=== PATIENT | female | born 1955 | race Caucasian/White ===

== ENCOUNTER 2016-12-16 18:02 | Emergency (ER) | payer OTHER | END 2016-12-16 20:12 | disposition home or self-care (01) | DX: H53.9 Unspecified visual disturbance (principal); I10 Essential (primary) hypertension; J45.909 Unspecified asthma, uncomplicated ==

== ENCOUNTER 2017-11-12 11:34 | Emergency (ER) | payer OTHER ==
[2017-11-12 11:58] VITALS: BP 182/88
[2017-11-12 12:21] LABS: BILIRUBIN,URINE NEGATIVE (NEGATIVE); GLUCOSE, URINE (UA) NEGATIVE (NEGATIVE); KETONES,URINE (UA) NEGATIVE (NEGATIVE); LEUKOCYTE ESTERASE, URINE SMALL (NEGATIVE); NITRITE,URINE NEGATIVE (NEGATIVE); OCCULT BLOOD,URINE TRACE-INTA (NEGATIVE); PROTEIN,URINE NEGATIVE (NEGATIVE); UROBILINOGEN,URINE 0.2 (NORMAL) E.U./dL (NORMAL)
[2017-11-12 12:24] LABS: CLARITY,URINE HAZY (CLEAR)
[2017-11-12 12:30] LABS: BACTERIA,URINE Few /HPF (None Seen); RBC,URINE 0-5 /HPF (0-5); SQUAMOUS EPITHELIAL CELL,UR FEW Squamous (<= Few); WBC CLUMPS,URINE PRESENT
[2017-11-12] MEDS ORDERED: NITROFURANTOIN MACRO 100 MG CAPSULE PO STA (13:18)
[2017-11-12] MEDS ORDERED: PHENAZOPYRIDINE 100 MG TABLET PO STA (13:18)
--- NOTE | 2017-11-12 13:19 | ED Physician Documentation ---
History of Present Illness - Stated complaint Stated Complaint: FEMALE - Chief complaint Chief Complaint: General - History obtained from History obtained from: Patient - History of Present Illness Timing: How many days ago (3) Pain level max: 4 Pain level now: 2 Improved by: nothing Worsened by: urination. - Additonal information Additional information: Patient states that she has had dysuria and frequency of urination for the past few days. States no fever. no nausea or vomiting. No vaginal discharge, bleeding or itching. Feels similar to UTI's in the past. Review of Systems Constitutional: denies: Fever, Chills GI: denies: Vomiting, Diarrhea : reports: Dysuria, Frequency, Hesitancy Skin: denies: Rash Musculoskeletal: reports: Back pain (chronic and unchanged.). denies: Neck pain Neurologic: denies: Focal weakness, Numbness, Headache PD PAST MEDICAL HISTORY - Past Medical History Past Medical History: Yes Cardiovascular: Hypertension Respiratory: Asthma Neuro: Headache/migraine Musculoskeletal: Chronic back pain - Past Surgical History Past Surgical History: Yes General: Appendectomy, EGD Ortho: Knee replacement, Carpal Tunnel surgery, Other HEENT: Other - Present Medications Home Medications: Ambulatory Orders Medication Instructions Recorded Confirmed Albuterol Sulfate [Proair 1 inh INH .FREQ 02/16/16 11/12/17 Respiclick] Amitriptyline [Elavil] 1 tab PO DAILY 02/16/16 11/12/17 Calcium Carbonate/Vitamin D3 1 tab PO BID 02/16/16 11/12/17 [Calcium 500 + Vit D Caplet] Estrogens, Conjugated [Premarin] 1 tab PO .FREQ 02/16/16 11/12/17 Fluticasone [Flonase] 1 puffs GOVIND DAILY 02/16/16 11/12/17 Gabapentin 1 tab PO BID 02/16/16 11/12/17 Metoprolol Tartrate 50 mg PO BID 02/16/16 11/12/17 Montelukast [Singulair] 1 tab PO DAILY 02/16/16 11/12/17 Sumatriptan Succinate [Imitrex] 1 tab PO DAILY PRN 02/16/16 11/12/17 Valacyclovir HCl [Valacyclovir] 1 tab PO .FREQ 02/16/16 11/12/17 Cholecalciferol (Vitamin D3) 2,000 unit PO BID 11/12/17 11/12/17 [Vitamin D] Nitrofurantoin Monohyd/M-Cryst 100 mg PO BID #10 capsule 11/12/17 [Macrobid 100 mg Capsule] Phenazopyridine HCl [Pyridium] 200 mg PO TID PRN #6 tablet 11/12/17 - Allergies Allergies/Adverse Reactions: Allergies Allergy/AdvReac Type Severity Reaction Status Date / Time celecoxib [From Celebrex] Allergy Unknown Verified 11/12/17 11:58 diflunisal Allergy Unknown Verified 11/12/17 11:58 naproxen Allergy Unknown Verified 11/12/17 11:58 Penicillins Allergy Unknown Verified 11/12/17 11:58 Sulfa (Sulfonamide Allergy Unknown Verified 11/12/17 11:58 Antibiotics) - Social History Does the pt smoke?: No Smoking Status: Never smoker Does the pt drink ETOH?: Yes Does the pt have substance abuse?: No - Immunizations Immunizations are current?: Yes - POLST Patient has POLST: No PD ED PE NORMAL - Vitals Vital signs reviewed: Yes - General General: Alert and oriented X 3, No acute distress - HEENT HEENT: Moist mucous membranes - Neck Neck: Supple, no meningeal sign - Cardiac Cardiac: RRR, Strong equal pulses - Respiratory Respiratory: No respiratory distress, Clear bilaterally - Abdomen Abdomen: Soft, Other (mild TTP suprapubic without peritoneal signs. ) - Back Back: No CVA TTP, No spinal TTP - Derm Derm: Warm and dry - Neuro Neuro: Alert and oriented X 3 - Psych Psych: Normal mood, Normal affect Results - Vitals Vitals: Vital Signs - 24 hr 11/12/17 11:56 Temperature 36.2 C L Heart Rate 77 Respiratory 16 Rate Blood Pressure 182/88 H O2 Saturation 100 Oxygen O2 Source Room air - Labs Labs: Laboratory Tests 11/12/17 12:00 Urine Color LIGHT YELLOW Urine Clarity HAZY Urine pH 7.0 Ur Specific [place] <=1.005 Urine Protein NEGATIVE Urine Glucose (UA) NEGATIVE Urine Ketones NEGATIVE Urine Occult Blood TRACE-INTA Urine Nitrite NEGATIVE Urine Bilirubin NEGATIVE Urine Urobilinogen 0.2 (NORMAL) Ur Leukocyte Esterase SMALL H Urine RBC 0-5 Urine WBC >25 H Urine WBC Clumps PRESENT Ur Squamous Epith Cells FEW Squamous Urine Bacteria Few Ur Microscopic Review INDICATED Urine Culture Comments INDICATED PD MEDICAL DECISION MAKING - ED course Complexity details: reviewed results, re-evaluated patient, considered differential, d/w patient ED course: Patient is a 62-year-old female presents to the emergency department with a UTI. Will place on Macrobid and Pyridium. She is well-appearing, nontoxic. No evidence of pyelonephritis. Patient counseled regarding signs and symptoms for which I believe and urgent re-evaluation would be necessary. Patient with good understanding of and agreement to plan and is comfortable going home at this time This document was made in part using voice recognition software. While efforts are made to proofread this document, sound alike and grammatical errors may occur. Departure - Departure Disposition: Home, Self Care Clinical Impression: UTI (urinary tract infection) Qualifiers: Urinary tract infection type: acute cystitis Hematuria presence: without hematuria Qualified Code(s): N30.00 - Acute cystitis without hematuria Condition: Good Instructions: ED UTI Cystitis Female Follow-Up: ANABEL ANNE PA-C [Primary Care Provider] - As Needed (if not better in 1 week) Prescriptions: Nitrofurantoin Monohyd/M-Cryst [Macrobid 100 mg Capsule] 100 mg PO BID #10 capsule Phenazopyridine HCl [Pyridium] 200 mg PO TID PRN #6 tablet PRN Reason: dysuria Comments: Take all antibiotics until gone. Return if you worsen. Discharge Date/Time: 11/12/17 13:25
== END 2017-11-12 13:25 | disposition home or self-care (01) ==
LOC: ED 11:34
DX: N30.00 Acute cystitis without hematuria (principal); I10 Essential (primary) hypertension; Z96.659 Presence of unspecified artificial knee joint
CPT/HCPCS: 81001; 87086; 99283; A9270; 81003

== ENCOUNTER 2019-10-27 10:12 | Emergency (ER) | payer OTHER ==
[2019-10-27] MEDS ORDERED: CHERRY SYRUP 10 ML UDC PO ONE (10:44)
[2019-10-27] MEDS ORDERED: DEXAMETHASONE 10 MG/ML VIAL PO STA (10:44)
--- NOTE | 2019-10-27 10:47 | ED Physician Documentation ---
PD HPI URI - Stated complaint Stated Complaint: COUGH/SORE THROAT - Chief complaint Chief Complaint: Resp - History obtained from History obtained from: Patient - History of Present Illness Timing - onset: How many weeks ago (1) Timing duration: Weeks (1) Timing details: Gradual onset, Still present Associated symptoms: Nasal congestion, Rhinorrhea, Sinus pain, Sore throat, Productive cough, Dyspnea Contributing factors: Sick contact Improves by: Rest, Medication, MDI/nebulizer Worsened by: Activity Similar symptoms before: Diagnosis (asthma, pneumonia) Recently seen: Not recently seen - Additional information Additional information: 64-year-old female with a history of reactive airway disease has developed a cough and congestion sore throat lost her voice and shortness of breath. She is been having to use her inhaler more frequently than usual she is coughing up some yellow-green phlegm she has had some clear rhinorrhea and sinus pressure. Review of Systems Constitutional: denies: Fever Eyes: denies: Decreased vision Ears: denies: Ear pain Nose: reports: Rhinorrhea / runny nose, Congestion Throat: reports: Sore throat Cardiac: denies: Chest pain / pressure, Palpitations Respiratory: reports: Dyspnea, Cough, Wheezing GI: denies: Nausea, Vomiting : denies: Dysuria PD PAST MEDICAL HISTORY - Past Medical History Cardiovascular: Hypertension Respiratory: Asthma Musculoskeletal: Chronic back pain - Past Surgical History Past Surgical History: Yes General: Appendectomy, EGD Ortho: Knee replacement, Carpal Tunnel surgery, Other HEENT: Other - Present Medications Home Medications: Ambulatory Orders Medication Instructions Recorded Confirmed Albuterol Sulfate [Proair 1 inh INH .FREQ 02/16/16 10/27/19 Respiclick] Amitriptyline [Elavil] 1 tab PO DAILY 02/16/16 11/12/17 Calcium Carbonate/Vitamin D3 1 tab PO BID 02/16/16 11/12/17 [Calcium 500 + Vit D Caplet] Estrogens, Conjugated [Premarin] 1 tab PO .FREQ 02/16/16 11/12/17 Fluticasone [Flonase] 1 puffs GOVIND DAILY 02/16/16 11/12/17 Metoprolol Tartrate 50 mg PO BID 02/16/16 11/12/17 Montelukast [Singulair] 1 tab PO DAILY 02/16/16 11/12/17 Sumatriptan Succinate [Imitrex] 1 tab PO DAILY PRN 02/16/16 11/12/17 Valacyclovir HCl [Valacyclovir] 1 tab PO .FREQ 02/16/16 11/12/17 Cholecalciferol (Vitamin D3) 2,000 unit PO BID 11/12/17 11/12/17 [Vitamin D] Azithromycin [Zithromax] 250 mg PO DAILY #6 tablet 10/27/19 Cetirizine [ZyrTEC] 10/27/19 Cyclobenzaprine [Flexeril] 10/27/19 predniSONE [Prednisone] 40 mg PO DAILY #10 tablet 10/27/19 - Allergies Allergies/Adverse Reactions: Allergies Allergy/AdvReac Type Severity Reaction Status Date / Time celecoxib [From Celebrex] Allergy Unknown Verified 10/27/19 10:18 diflunisal Allergy Unknown Verified 10/27/19 10:18 naproxen Allergy Unknown Verified 10/27/19 10:18 Penicillins Allergy Unknown Verified 10/27/19 10:18 Sulfa (Sulfonamide Allergy Unknown Verified 10/27/19 10:18 Antibiotics) - Social History Does the pt smoke?: No Smoking Status: Never smoker Does the pt drink ETOH?: Yes Does the pt have substance abuse?: No - Immunizations Immunizations are current?: Yes - POLST Patient has POLST: No PD ED PE NORMAL - Vitals Vital signs reviewed: Yes (hypertensive) - General General: Alert and oriented X 3, No acute distress, Well developed/nourished - HEENT HEENT: Atraumatic, PERRL, EOMI, Ears normal, Moist mucous membranes, Pharynx benign, Dentition benign - Neck Neck: Supple, no meningeal sign, No bony TTP - Cardiac Cardiac: RRR, No murmur - Respiratory Respiratory: No respiratory distress, Other (Diminished breath sounds bilaterally) - Abdomen Abdomen: Soft, Non tender - Back Back: No CVA TTP, No spinal TTP - Derm Derm: Normal color, Warm and dry, No rash - Extremities Extremities: No deformity, No edema - Neuro Neuro: Alert and oriented X 3, saw straightener 2-12 intact, No motor deficit, No sensory deficit, Normal speech Eye Opening: Spontaneous Motor: Obeys Commands Verbal: Oriented GCS Score: 15 - Psych Psych: Normal mood, Normal affect Results - Vitals Vitals: Vital Signs - 24 hr 10/27/19 10:18 Temperature 37.4 C Heart Rate 84 Respiratory 18 Rate Blood Pressure 150/101 H O2 Saturation 99 Oxygen O2 Source Room air - Rads (name of study) chest Radiology: Prelim report reviewed (Impression: No acute cardiopulmonary abnormality.), EMP read indepedently, See rad report PD MEDICAL DECISION MAKING - ED course Complexity details: reviewed old records, reviewed results, re-evaluated patient, considered differential, d/w patient ED course: 64-year-old female with a history of reactive airways disease has developed a cough congestion production of yellow-green phlegm and shortness of breath. She has been having to use her inhaler more frequently than usual. She does not have evidence of inflammation in the ear nose or throat. She is administered dexamethasone 10 mg orally a chest x-ray is without evidence of infiltrate and we will place her on a course of antibiotic along with prednisone. Departure - Departure Disposition: 01 Home, Self Care Clinical Impression: Asthmatic bronchitis with acute exacerbation Qualifiers: Asthma severity: mild Asthma persistence: intermittent Qualified Code(s): J45.21 - Mild intermittent asthma with (acute) exacerbation Condition: Stable Instructions: ED Bronchitis Asthmatic Follow-Up: CONTRERAS EL ARNP [Primary Care Provider] - Prescriptions: Azithromycin [Zithromax] 250 mg PO DAILY #6 tablet predniSONE [Prednisone] 40 mg PO DAILY #10 tablet
--- NOTE | 2019-10-27 11:29 | XRAY Report ---
Reason: soa, cough Procedure Date: 10/27/2019 Accession Number: [id number] / [id number] Procedure: XR - Chest 2 View X-Ray CPT Code: 06199 Final Report FULL RESULT: EXAM: CHEST RADIOGRAPHY EXAM DATE: 10/27/2019 11:07 AM. CLINICAL HISTORY: Shortness of breath and cough COMPARISON: None. TECHNIQUE: 2 views. FINDINGS: Lungs/Pleura: Normal volumes. No focal infiltrate or bronchial wall thickening. No evidence of edema. No pleural effusion or pneumothorax. Mediastinum: Heart size is normal. A rounded opacity at the right anterior cardiophrenic angle likely represents prominent pericardial fat. Other: Degenerative changes within the spine. IMPRESSION: No acute cardiopulmonary abnormality. RADIA
[2019-10-27 11:35] VITALS: BP 152/92
== END 2019-10-27 11:57 | disposition home or self-care (01) ==
LOC: ED 10:12
DX: J45.21 Mild intermittent asthma with (acute) exacerbation (principal); I10 Essential (primary) hypertension
CPT/HCPCS: 71046; 99283; 99284; A9270

== ENCOUNTER 2020-11-13 16:01 | Outpatient (CLI) | payer MEDICARE, OTHER ==
--- NOTE | 2020-11-13 17:09 | XRAY Report ---
PROCEDURE: Thoracic Spine 3 View INDICATIONS: T-SPINE RADICULOPATHY TECHNIQUE: 3 views of the thoracic spine were acquired. COMPARISON: None. FINDINGS: Bones: No fractures or dislocations. Multilevel degenerative disc disease. No suspicious bony lesio ns. 12 pairs of ribs are noted, and appear intact where visualized. There is leftward curvature of the lumbar spine with a Roman angle of 11 degrees. Soft tissues: No paravertebral stripe thickening. IMPRESSION: 1. No acute abnormality of the thoracic spine. 2. Levoscoliosis of the lumbar spine with a Roman angle of 11 degrees. Reviewed by: Chris Salgado on 11/13/2020 5:08 PM PDT Approved by: Chris Salgado on 11/13/2020 5:08 PM PDT Station ID: [id number]
== END 2020-11-13 16:02 | disposition home or self-care (01) ==
LOC: DI 16:01
PROVIDERS: ATTEND Physical Medicine & Rehabilitation
DX: M51.14 Intervertebral disc disorders with radiculopathy, thoracic region (principal); M41.86 Other forms of scoliosis, lumbar region

== ENCOUNTER 2022-01-31 14:35 | Emergency (ER) | payer MEDICARE, OTHER ==
[2022-01-31] MEDS ORDERED: AMOX/CLAV 875 MG/125 MG TABLET PO STA (14:59)
--- OUTSIDE RECORDS SUMMARY | 2022-01-31 15:10 | EXTERNAL MEDICAL SUMMARY RPT | Continuity of Care Document ---
:1955 Author Organization [place] Address [address] [place] [address] Phone Allergies and Intolerances date description facility type (no date) [facility] (unknown) Encounters No information. Functional Status No information. Immunizations No information. Medications date description facility [id number] meloxicam 15 MG Oral Tablet [facility] [id number]+0000 Chlorthalidone 25 MG Oral Tablet [facility] [id number]+0000 Chlorthalidone 50 MG Oral Tablet [facility] [id number]+0000 Diazepam 10 MG Oral Tablet [facility] [id number]+0000 Triazolam 0.25 MG Oral Tablet [facility] [id number]+0000 Amitriptyline Hydrochloride 25 MG Oral [facility] Tablet [id number]+0000 Metoprolol Tartrate 100 MG Oral Tablet [facility] [id number]+0000 Clonidine Hydrochloride 0.2 MG Oral Ta blet [facility] Problems No information. Procedures date description facility +0000 Diagnosis [facility] [id number]+0000 Diagnosis [facility] [id number]+0000 [facility] [id number]+0000 [facility] [id number]+0000 [facility] [id number]+0000 [facility] [id number]+0000 [facility] [id number]+0000 [facility] [id number]+0000 [facility] [id number]+0000 [facility] Results/Labs test date author facility value unit interpret ation Result panel 1 (unknown) (no (unknown) (unknown) (no value) (units (unk nown) date) unknown) (unknown) (no (unknown) (unknown) (no value) (units (unk nown) date) unknown) (unknown) (no (unknown) (unknown) 'I GET A (units (unkno wn) date) MIGRAINE' unknown) (unknown) (no (unknown) (unknown) 11/25/21 (units (unkno wn) date) unknown) (unknown) (no (unknown) (unknown) 13:54 (units (unkno wn) date) unknown) (unknown) (no (unknown) (unknown) [facility] (units (unknown) date) Medicine unknown) (unknown) (no (unknown) (unknown) [place], [place] (units ( unknown) date) [id number] unknown) (unknown) (no (unknown) (unknown) Blister (units (unkno wn) date) unknown) (unknown) (no (unknown) (unknown) Cancer (units (unkno wn) date) unknown) (unknown) (no (unknown) (unknown) Diabetes (units (unkno wn) date) mellitus unknown) (unknown) (no (unknown) (unknown) Draft (units (unkno wn) date) unknown) (unknown) (no (unknown) (unknown) EYE EDEMA, LIGHT (units (unknown) date) SENSITIVITY unknown) (unknown) (no (unknown) (unknown) Family Practice (units (unknown) date) Office Visit unknown) (unknown) (no (unknown) (unknown) HIVES (units (unkno wn) date) unknown) (unknown) (no (unknown) (unknown) Hives (units (unkno wn) date) unknown) (unknown) (no (unknown) (unknown) Hypertension (units (u nknown) date) unknown) (unknown) (no (unknown) (unknown) Mental health (units ( unknown) date) problem unknown) (unknown) (no (unknown) (unknown) Stroke (units (unkno wn) date) unknown) (unknown) (no (unknown) (unknown) inner tissue (units (u nknown) date) lining shedding unknown) of cervix (unknown) (no (unknown) (unknown) itching (units (unkno wn) date) unknown) (unknown) (no (unknown) (unknown) nausea vomiting (units (unknown) date) unknown) (unknown) (no (unknown) (unknown) (no value) (units (unk nown) date) unknown) (unknown) (no (unknown) (unknown) 0 (units (unkno wn) date) unknown) (unknown) (no (unknown) (unknown) 11/25/21 (units (unkno wn) date) unknown) (unknown) (no (unknown) (unknown) Abnormal Pap (units (u nknown) date) smear of cervix unknown) () (unknown) (no (unknown) (unknown) Acne (units (unkno wn) date) unknown) (unknown) (no (unknown) (unknown) Age/Sex: 66 / F (units (unknown) date) Date of unknown) Service: (unknown) (no (unknown) (unknown) Allergies (units (unkn own) date) unknown) (unknown) (no (unknown) (unknown) Anesthesia (units (unk nown) date) unknown) (unknown) (no (unknown) (unknown) Attending Dr: (units ( unknown) date) Merle Batista unknown) 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 (unknown) (no (unknown) (unknown) BP 130/80 (units (u nknown) date) unknown) (unknown) (no (unknown) (unknown) Blood Pressure (units (unknown) date) Location Lt unknown) brachial (unknown) (no (unknown) (unknown) Brother (units (unkno wn) date) Hypertension unknown) (unknown) (no (unknown) (unknown) Cervical cancer (units (unknown) date) () unknown) (unknown) (no (unknown) (unknown) Cervical (units (unkno wn) date) radiculopathy at unknown) C6 (unknown) (no (unknown) (unknown) Cervical (units (unkno wn) date) stenosis of unknown) spinal canal () (unknown) (no (unknown) (unknown) Chicken pox (units (un known) date) unknown) (unknown) (no (unknown) (unknown) Chronic back (units (u nknown) date) pain unknown) (unknown) (no (unknown) (unknown) Cubital tunnel (units (unknown) date) syndrome () unknown) (unknown) (no (unknown) (unknown) : 1955 (units (unknown) date) Acct:[id number] unknown) (unknown) (no (unknown) (unknown) Dept at (units (unkno wn) date) . unknown) (unknown) (no (unknown) (unknown) Documented By: (units (unknown) date) CrewMerle unknown) PROFILE 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 11/25/21 135 (unknown) (no (unknown) (unknown) Eczema (units (unkno wn) date) unknown) (unknown) (no (unknown) (unknown) Facet (units (unkno wn) date) arthropathy, unknown) lumbar (unknown) (no (unknown) (unknown) Family History (units (unknown) date) (Reviewed unknown) 10/15/21 @ 08:34 by Dajuan Flores DO) (unknown) (no (unknown) (unknown) Family history (units (unknown) date) of celiac disease unknown) (unknown) (no (unknown) (unknown) Father (units (unkno wn) date) unknown) Non-Hodgkin lymphoma (unknown) (no (unknown) (unknown) Foot pain (units (unkn own) date) () unknown) (unknown) (no (unknown) (unknown) Grandfather (units (un known) date) unknown) Diverticulitis (unknown) (no (unknown) (unknown) Grandmother (units (un known) date) unknown) Diabetes mellitus (unknown) (no (unknown) (unknown) Grandmother (units (un known) date) Heart unknown) disease (unknown) (no (unknown) (unknown) HNP (herniated (units (unknown) date) nucleus unknown) pulposus), thoracic (unknown) (no (unknown) (unknown) Herpes (-1975) (units (unknown) date) unknown) (unknown) (no (unknown) (unknown) History of knee (units (unknown) date) replacement unknown) (unknown) (no (unknown) (unknown) Intake (units (unkno wn) date) unknown) (unknown) (no (unknown) (unknown) Intake Note: (units (u nknown) date) unknown) (unknown) (no (unknown) (unknown) Last Menstural (units (unknown) date) Cycle + Details unknown) (unknown) (no (unknown) (unknown) Loc: [facility] (units (unkno wn) date) unknown) (unknown) (no (unknown) (unknown) Lumbar spine (units (u nknown) date) pain () unknown) (unknown) (no (unknown) (unknown) MSG Allergy (units (un known) date) (Severe, Uncoded unknown) 10/15/21 08:09) (unknown) (no (unknown) (unknown) Measles (units (unkno wn) date) unknown) (unknown) (no (unknown) (unknown) Medical History (units (unknown) date) (Updated 10/15/21 unknown) @ 08:39 by Dajuan Flores DO) (unknown) (no (unknown) (unknown) Migraine (units (unkno wn) date) headache unknown) (unknown) (no (unknown) (unknown) Mother (units (unkno wn) date) unknown) Ovarian cancer (unknown) (no (unknown) (unknown) Osteoarthritis (units (unknown) date) unknown) (unknown) (no (unknown) (unknown) Other Menstrual (units (unknown) date) Period: Surgical unknown) Menopause (unknown) (no (unknown) (unknown) Oxygen Delivery (units (unknown) date) Method room unknown) air (unknown) (no (unknown) (unknown) PERSERVATIVES (units ( unknown) date) Allergy (Severe, unknown) Uncoded 10/15/21 08:09) (unknown) (no (unknown) (unknown) PFSH (units (unkno wn) date) unknown) (unknown) (no (unknown) (unknown) Patient: Armando (units (unknown) date) JarvisAngela unknown) M (unknown) (no (unknown) (unknown) Penicillins (units (un known) date) Allergy (Mild, unknown) Verified 10/15/21 08:09) (unknown) (no (unknown) (unknown) Position (units (unkno wn) date) Sitting unknown) (unknown) (no (unknown) (unknown) Posterior (units (unkn own) date) vitreous unknown) detachment (-2017) (unknown) (no (unknown) (unknown) Pulse 74 (units (un known) date) unknown) (unknown) (no (unknown) (unknown) Pulse Oximetry (units (unknown) date) (%) 98 unknown) (unknown) (no (unknown) (unknown) Pulse Source (units (u nknown) date) Monitor unknown) (unknown) (no (unknown) (unknown) R#: [id number] (units (unknown) date) unknown) (unknown) (no (unknown) (unknown) Reason For Visit (units (unknown) date) unknown) (unknown) (no (unknown) (unknown) Scoliosis (units (unkn own) date) (-1999) unknown) (unknown) (no (unknown) (unknown) Signed By: (units (unk nown) date) unknown) (unknown) (no (unknown) (unknown) Smoking Status: (units (unknown) date) Never smoker unknown) (unknown) (no (unknown) (unknown) Sulfa (units (unkno wn) date) (Sulfonamide unknown) Antibiotics) Allergy (Mild, Verified 10/15/21 08:09) (unknown) (no (unknown) (unknown) Surgical History (units (unknown) date) (Reviewed unknown) 10/15/21 @ 08:34 by Dajuan Flores DO) (unknown) (no (unknown) (unknown) TUNA Allergy (units (u nknown) date) (Intermediate, unknown) Uncoded 10/15/21 08:09) (unknown) (no (unknown) (unknown) This note may (units ( unknown) date) have been all or unknown) partially generated using voice recognition (unknown) (no (unknown) (unknown) Thoracic (units (unkno wn) date) radiculitis unknown) (unknown) (no (unknown) (unknown) Tobacco + (units (unkn own) date) Substance Use unknown) (unknown) (no (unknown) (unknown) Tobacco Status (units (unknown) date) unknown) (unknown) (no (unknown) (unknown) Vertical (units (unkno wn) date) heterophoria unknown) (unknown) (no (unknown) (unknown) Visit Reasons: (units (unknown) date) Left ankle injury unknown) (unknown) (no (unknown) (unknown) Vitals (units (unkno wn) date) unknown) (unknown) (no (unknown) (unknown) Weight 202 lb (units (unknown) date) unknown) (unknown) (no (unknown) (unknown) a week ago (units (unk nown) date) monday when going unknown) into work pt rolled ankle (unknown) (no (unknown) (unknown) adhesive Allergy (units (unknown) date) (Intermediate, unknown) Verified 10/15/21 08:09) (unknown) (no (unknown) (unknown) ankle has been (units (unknown) date) very tender, pain unknown) is sticking around (unknown) (no (unknown) (unknown) benzoyl peroxide (units (unknown) date) Allergy (Mild, unknown) Verified 10/15/21 08:09) (unknown) (no (unknown) (unknown) celecoxib (units (unkn own) date) Allergy (Mild, unknown) Verified 10/15/21 08:09) (unknown) (no (unknown) (unknown) diflunisal (units (unk nown) date) Allergy (Mild, unknown) Verified 10/15/21 08:09) (unknown) (no (unknown) (unknown) have occurred. (units (unknown) date) If there are any unknown) questions, please contact the Medical Records (unknown) (no (unknown) (unknown) iodine Allergy (units (unknown) date) (Intermediate, unknown) Verified 10/15/21 08:09) (unknown) (no (unknown) (unknown) may occur. (units (unk nown) date) Occasional unknown) wrong-word or 'sound-alike' substitutions may have (unknown) (no (unknown) (unknown) naproxen Allergy (units (unknown) date) (Mild, Verified unknown) 10/15/21 08:09) (unknown) (no (unknown) (unknown) occurred due to (units (unknown) date) the inherent unknown) limitations of voice recognition software. Please (unknown) (no (unknown) (unknown) pt is (units (unkno wn) date) ambulatory, pt unknown) states a lot of pain is in the ankle region (unknown) (no (unknown) (unknown) pt is here for (units (unknown) date) left ankle pain unknown) (unknown) (no (unknown) (unknown) read the note (units ( unknown) date) carefully and unknown) recognize, using context, where these substitutions (unknown) (no (unknown) (unknown) slight (units (unkno wn) date) tenderness to unknown) touch, normal ROM (unknown) (no (unknown) (unknown) software. (units (unkn own) date) Although every unknown) effort is made to edit content, compliance analyst errors Result panel 2 (unknown) (no (unknown) (unknown) (no value) (units (unk nown) date) unknown) (unknown) (no (unknown) (unknown) [address] [place] [address] (units (unknown) date) unknown) (unknown) (no (unknown) (unknown) [place], [place] (units ( unknown) date) [id number] unknown) (unknown) (no (unknown) (unknown) [facility] (units (unknown) date) unknown) (unknown) (no (unknown) (unknown) Signed (units (unkno wn) date) unknown) (unknown) (no (unknown) (unknown) XRay Report (units (un known) date) unknown) (unknown) (no (unknown) (unknown) (no value) (units (unk nown) date) unknown) (unknown) (no (unknown) (unknown) 11/25/21 (units (unkno wn) date) unknown) (unknown) (no (unknown) (unknown) Approved by: (units (u nknown) date) Alex Camacho M.D. on unknown) 11/25/2021 at 15:54 (unknown) (no (unknown) (unknown) Approved by: (units (u nknown) date) Nilsa Sullivan M.D. unknown) on 11/25/2021 at 16:44 (unknown) (no (unknown) (unknown) Bones: No (units (unk nown) date) fractures or unknown) dislocations. Ankle mortise is normally aligned. No (unknown) (no (unknown) (unknown) Bones: No (units (unk nown) date) fractures or unknown) dislocations. [id number] osteoarthritic changes (unknown) (no (unknown) (unknown) COMPARISON: (units (un known) date) None. unknown) (unknown) (no (unknown) (unknown) Dictated by: (units (u nknown) date) Alex Camacho M.D. on unknown) 11/25/2021 at 15:53 (unknown) (no (unknown) (unknown) Dictated by: (units (u nknown) date) Nilsa Sullivan M.D. unknown) on 11/25/2021 at 16:43 (unknown) (no (unknown) (unknown) FINDINGS: (units (unkn own) date) unknown) (unknown) (no (unknown) (unknown) IMPRESSION: No (units (unknown) date) acute left foot unknown) fracture or dislocation. Forefoot joint (unknown) (no (unknown) (unknown) IMPRESSION: No (units (unknown) date) acute unknown) radiographic findings. (unknown) (no (unknown) (unknown) INDICATIONS: (units (u nknown) date) left ankle pain unknown) (unknown) (no (unknown) (unknown) INDICATIONS: (units (u nknown) date) left foot pain unknown) (unknown) (no (unknown) (unknown) Soft tissues: (units ( unknown) date) No tibiotalar unknown) joint effusion. Achilles tendon appears normal. (unknown) (no (unknown) (unknown) TECHNIQUE: 3 (units ( unknown) date) views of the unknown) ankle were acquired. (unknown) (no (unknown) (unknown) TECHNIQUE: 3 (units ( unknown) date) views of the foot unknown) were acquired. (unknown) (no (unknown) (unknown) bony lesions. (units ( unknown) date) unknown) (unknown) (no (unknown) (unknown) marginal (units (unkno wn) date) osteophyte unknown) formation. No suspicious bony lesions. (unknown) (no (unknown) (unknown) most prominent (units (unknown) date) involving 1st MTP unknown) joint concerning for hallux limitus. (unknown) (no (unknown) (unknown) throughout (units (unk nown) date) forefoot joints unknown) most prominent involving 1st MTP joint with (unknown) (no (unknown) (unknown) Accession (units (unkn own) date) Number: unknown) [id number] (unknown) (no (unknown) (unknown) Accession (units (unkn own) date) Number: unknown) [id number] (unknown) (no (unknown) (unknown) Age/Sex: 66 / F (units (unknown) date) Date of unknown) Service: (unknown) (no (unknown) (unknown) : 1955 (units (unknown) date) Acct:[id number] unknown) (unknown) (no (unknown) (unknown) Loc: RAD (units (unkno wn) date) unknown) (unknown) (no (unknown) (unknown) MR#: [id number] (units (unknown) date) unknown) (unknown) (no (unknown) (unknown) Ordering (units (unkno wn) date) Provider: unknown) Merle Batista (unknown) (no (unknown) (unknown) PROCEDURE: XR (units (unknown) date) ANKLE LT MIN 3V unknown) (unknown) (no (unknown) (unknown) PROCEDURE: XR (units (unknown) date) FOOT LT MIN 3V unknown) (unknown) (no (unknown) (unknown) Patient: Armando (units (unknown) date) Angela Conley unknown) (unknown) (no (unknown) (unknown) Procedure: XR (units ( unknown) date) ankle LT min 3V unknown) (unknown) (no (unknown) (unknown) Procedure: XR (units ( unknown) date) foot LT min 3V unknown) (unknown) (no (unknown) (unknown) are noted (units (unkn own) date) unknown) (unknown) (no (unknown) (unknown) osteoarthritis (units (unknown) date) unknown) (unknown) (no (unknown) (unknown) prominent dorsal (units (unknown) date) unknown) (unknown) (no (unknown) (unknown) suspicious (units (unk nown) date) unknown) Result panel 3 (unknown) (no (unknown) (unknown) (no value) (units (unk nown) date) unknown) (unknown) (no (unknown) (unknown) (no value) (units (unk nown) date) unknown) (unknown) (no (unknown) (unknown) 'I GET A (units (unkno wn) date) MIGRAINE' unknown) (unknown) (no (unknown) (unknown) 11/25/21 (units (unkno wn) date) unknown) (unknown) (no (unknown) (unknown) 13:54 (units (unkno wn) date) unknown) (unknown) (no (unknown) (unknown) [facility] (units (unknown) date) Medicine unknown) (unknown) (no (unknown) (unknown) [place], [place] (units ( unknown) date) [id number] unknown) (unknown) (no (unknown) (unknown) Blister (units (unkno wn) date) unknown) (unknown) (no (unknown) (unknown) Cancer (units (unkno wn) date) unknown) (unknown) (no (unknown) (unknown) Diabetes (units (unkno wn) date) mellitus unknown) (unknown) (no (unknown) (unknown) Draft (units (unkno wn) date) unknown) (unknown) (no (unknown) (unknown) EYE EDEMA, LIGHT (units (unknown) date) SENSITIVITY unknown) (unknown) (no (unknown) (unknown) Family Practice (units (unknown) date) Office Visit unknown) (unknown) (no (unknown) (unknown) HIVES (units (unkno wn) date) unknown) (unknown) (no (unknown) (unknown) Hives (units (unkno wn) date) unknown) (unknown) (no (unknown) (unknown) Hypertension (units (u nknown) date) unknown) (unknown) (no (unknown) (unknown) Mental health (units ( unknown) date) problem unknown) (unknown) (no (unknown) (unknown) Stroke (units (unkno wn) date) unknown) (unknown) (no (unknown) (unknown) inner tissue (units (u nknown) date) lining shedding unknown) of cervix (unknown) (no (unknown) (unknown) itching (units (unkno wn) date) unknown) (unknown) (no (unknown) (unknown) nausea vomiting (units (unknown) date) unknown) (unknown) (no (unknown) (unknown) (no value) (units (unk nown) date) unknown) (unknown) (no (unknown) (unknown) 66-year-old (units (un known) date) female presents unknown) to the walk-in clinic complaining of left foot (unknown) (no (unknown) (unknown) 0 (units (unkno wn) date) unknown) (unknown) (no (unknown) (unknown) 11/25/21 (units (unkno wn) date) unknown) (unknown) (no (unknown) (unknown) ? (units (unkno wn) date) unknown) (unknown) (no (unknown) (unknown) Abnormal Pap (units (u nknown) date) smear of cervix unknown) (-1992) (unknown) (no (unknown) (unknown) Acne (units (unkno wn) date) unknown) (unknown) (no (unknown) (unknown) Age/Sex: 66 / F (units (unknown) date) Date of unknown) Service: (unknown) (no (unknown) (unknown) Allergies (units (unkn own) date) unknown) (unknown) (no (unknown) (unknown) Anesthesia (units (unk nown) date) unknown) (unknown) (no (unknown) (unknown) Approved by: (units (u nknown) date) Alex Camacho M.D. on unknown) 11/25/2021 at 15:54 ? 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 No (units (unk nown) date) fractures or unknown) dislocations.? [id number] osteoarthritic changes (unknown) (no (unknown) (unknown) Brother (units (unkno wn) date) Hypertension unknown) (unknown) (no (unknown) (unknown) COMPARISON:? (units (u nknown) date) None. unknown) (unknown) (no (unknown) (unknown) Cervical cancer (units (unknown) date) () unknown) (unknown) (no (unknown) (unknown) Cervical (units (unkno wn) date) radiculopathy at unknown) C6 (unknown) (no (unknown) (unknown) Cervical (units (unkno wn) date) stenosis of unknown) spinal canal () (unknown) (no (unknown) (unknown) Chicken pox (units (un known) date) unknown) (unknown) (no (unknown) (unknown) Chief Complaint (units (unknown) date) unknown) (unknown) (no (unknown) (unknown) Chief Complaint: (units (unknown) date) left foot pain unknown) (unknown) (no (unknown) (unknown) Chronic back (units (u nknown) date) pain unknown) (unknown) (no (unknown) (unknown) 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 unknown) (unknown) (no (unknown) (unknown) Details: (units (unkno wn) date) unknown) (unknown) (no (unknown) (unknown) Dictated by: (units (u nknown) date) Alex Camacho M.D. on unknown) 11/25/2021 at 15:53 ? ? (unknown) (no (unknown) (unknown) Documented By: (units (unknown) date) Merle Batista unknown) PROFILE 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 11/25/21 135 (unknown) (no (unknown) (unknown) Eczema (units (unkno wn) date) unknown) (unknown) (no (unknown) (unknown) FINDINGS:? (units (unk nown) date) unknown) (unknown) (no (unknown) (unknown) Facet (units (unkno wn) date) arthropathy, unknown) lumbar (unknown) (no (unknown) (unknown) Family History (units (unknown) date) (Reviewed unknown) 10/15/21 @ 08:34 by Dajuan Flores DO) (unknown) (no (unknown) (unknown) Family history (units (unknown) date) of celiac disease unknown) (unknown) (no (unknown) (unknown) Father (units (unkno wn) date) unknown) Non-Hodgkin lymphoma (unknown) (no (unknown) (unknown) Foot pain (units (unkn own) date) (-2005) unknown) (unknown) (no (unknown) (unknown) Grandfather (units (un known) date) unknown) Diverticulitis (unknown) (no (unknown) (unknown) Grandmother (units (un known) date) unknown) Diabetes mellitus (unknown) (no (unknown) (unknown) Grandmother (units (un known) date) Heart unknown) disease (unknown) (no (unknown) (unknown) HNP (herniated (units (unknown) date) nucleus unknown) pulposus), thoracic (unknown) (no (unknown) (unknown) HPI (units (unkno wn) date) unknown) (unknown) (no (unknown) (unknown) Herpes (-1975) (units (unknown) date) unknown) (unknown) (no (unknown) (unknown) History of knee (units (unknown) date) replacement unknown) (unknown) (no (unknown) (unknown) IMPRESSION:? No (units (unknown) date) acute left foot unknown) fracture or dislocation.? Forefoot joint (unknown) (no (unknown) (unknown) INDICATIONS:? (units ( unknown) date) left foot pain unknown) (unknown) (no (unknown) (unknown) Intake (units (unkno wn) date) unknown) (unknown) (no (unknown) (unknown) Intake Note: (units (u nknown) date) unknown) (unknown) (no (unknown) (unknown) Last Menstural (units (unknown) date) Cycle + Details unknown) (unknown) (no (unknown) (unknown) Loc: [facility] (units (unkno wn) date) unknown) (unknown) (no (unknown) (unknown) Lumbar spine (units (u nknown) date) pain (-2008) unknown) (unknown) (no (unknown) (unknown) MSG Allergy (units (un known) date) (Severe, Uncoded unknown) 10/15/21 08:09) (unknown) (no (unknown) (unknown) Measles (units (unkno wn) date) unknown) (unknown) (no (unknown) (unknown) Medical History (units (unknown) date) (Updated 10/15/21 unknown) @ 08:39 by Dajuan Flores DO) (unknown) (no (unknown) (unknown) Migraine (units (unkno wn) date) headache unknown) (unknown) (no (unknown) (unknown) Mother (units (unkno wn) date) unknown) Ovarian cancer (unknown) (no (unknown) (unknown) Objective Data (units (unknown) date) unknown) (unknown) (no (unknown) (unknown) Objective Data: (units (unknown) date) unknown) (unknown) (no (unknown) (unknown) Osteoarthritis (units (unknown) date) unknown) (unknown) (no (unknown) (unknown) Other Menstrual (units (unknown) date) Period: Surgical unknown) Menopause (unknown) (no (unknown) (unknown) Oxygen Delivery (units (unknown) date) Method room unknown) air (unknown) (no (unknown) (unknown) PERSERVATIVES (units ( unknown) date) Allergy (Severe, unknown) Uncoded 10/15/21 08:09) (unknown) (no (unknown) (unknown) PFSH (units (unkno wn) date) unknown) (unknown) (no (unknown) (unknown) PROCEDURE:? XR (units (unknown) date) FOOT LT MIN 3V unknown) (unknown) (no (unknown) (unknown) Patient: Armando (units (unknown) date) Angela Conley unknown) M (unknown) (no (unknown) (unknown) Penicillins (units (un known) date) Allergy (Mild, unknown) Verified 10/15/21 08:09) (unknown) (no (unknown) (unknown) Position (units (unkno wn) date) Sitting unknown) (unknown) (no (unknown) (unknown) Posterior (units (unkn own) date) vitreous unknown) detachment (-2016) (unknown) (no (unknown) (unknown) Pulse 74 (units (un known) date) unknown) (unknown) (no (unknown) (unknown) Pulse Oximetry (units (unknown) date) (%) 98 unknown) (unknown) (no (unknown) (unknown) Pulse Source (units (u nknown) date) Monitor unknown) (unknown) (no (unknown) (unknown) R#: [id number] (units (unknown) date) unknown) (unknown) (no (unknown) (unknown) Reason For Visit (units (unknown) date) unknown) (unknown) (no (unknown) (unknown) Scoliosis (units (unkn own) date) (-1999) unknown) (unknown) (no (unknown) (unknown) Signed By: (units (unk nown) date) unknown) (unknown) (no (unknown) (unknown) Smoking Status: (units (unknown) date) Never smoker unknown) (unknown) (no (unknown) (unknown) Soft tissues:? (units (unknown) date) No tibiotalar unknown) joint effusion.? Achilles tendon appears normal.? (unknown) (no (unknown) (unknown) Sulfa (units (unkno wn) date) (Sulfonamide unknown) Antibiotics) Allergy (Mild, Verified 10/15/21 08:09) (unknown) (no (unknown) (unknown) Surgical History (units (unknown) date) (Reviewed unknown) 10/15/21 @ 08:34 by Dajuan Flores DO) (unknown) (no (unknown) (unknown) TECHNIQUE:? 3 (units ( unknown) date) views of the foot unknown) were acquired.? (unknown) (no (unknown) (unknown) TUNA Allergy (units (u nknown) date) (Intermediate, unknown) Uncoded 10/15/21 08:09) (unknown) (no (unknown) (unknown) This note may (units ( unknown) date) have been all or unknown) partially generated using voice recognition (unknown) (no (unknown) (unknown) Thoracic (units (unkno wn) date) radiculitis unknown) (unknown) (no (unknown) (unknown) Tobacco + (units (unkn own) date) Substance Use unknown) (unknown) (no (unknown) (unknown) Tobacco Status (units (unknown) date) unknown) (unknown) (no (unknown) (unknown) Vertical (units (unkno wn) date) heterophoria unknown) (unknown) (no (unknown) (unknown) Visit Reasons: (units (unknown) date) Left ankle injury unknown) (unknown) (no (unknown) (unknown) Vitals (units (unkno wn) date) unknown) (unknown) (no (unknown) (unknown) Weight 91.626 (units (unknown) date) kg unknown) (unknown) (no (unknown) (unknown) a week ago (units (unk nown) date) monday when going unknown) into work pt rolled ankle (unknown) (no (unknown) (unknown) adhesive Allergy (units (unknown) date) (Intermediate, unknown) Verified 10/15/21 08:09) (unknown) (no (unknown) (unknown) ankle has been (units (unknown) date) very tender, pain unknown) is sticking around (unknown) (no (unknown) (unknown) are noted (units (unkn own) date) unknown) (unknown) (no (unknown) (unknown) benzoyl peroxide (units (unknown) date) Allergy (Mild, unknown) Verified 10/15/21 08:09) (unknown) (no (unknown) (unknown) celecoxib (units (unkn own) date) Allergy (Mild, unknown) Verified 10/15/21 08:09) (unknown) (no (unknown) (unknown) diflunisal (units (unk nown) date) Allergy (Mild, unknown) Verified 10/15/21 08:09) (unknown) (no (unknown) (unknown) dorsal (units (unkno wn) date) unknown) (unknown) (no (unknown) (unknown) have occurred. (units (unknown) date) If there are any unknown) questions, please contact the Medical Records (unknown) (no (unknown) (unknown) iodine Allergy (units (unknown) date) (Intermediate, unknown) Verified 10/15/21 08:09) (unknown) (no (unknown) (unknown) marginal (units (unkno wn) date) osteophyte unknown) formation.? No suspicious bony lesions.? (unknown) (no (unknown) (unknown) may occur. (units (unk nown) date) Occasional unknown) wrong-word or 'sound-alike' substitutions may have (unknown) (no (unknown) (unknown) most prominent (units (unknown) date) involving 1st MTP unknown) joint concerning for hallux limitus. (unknown) (no (unknown) (unknown) naproxen Allergy (units (unknown) date) (Mild, Verified unknown) 10/15/21 08:09) (unknown) (no (unknown) (unknown) occurred due to (units (unknown) date) the inherent unknown) limitations of voice recognition software. Please (unknown) (no (unknown) (unknown) osteoarthritis (units (unknown) date) unknown) (unknown) (no (unknown) (unknown) pain which has (units (unknown) date) been worsening unknown) for approximately 1 week since she rolled it. (unknown) (no (unknown) (unknown) pt is (units (unkno wn) date) ambulatory, pt unknown) states a lot of pain is in the ankle region (unknown) (no (unknown) (unknown) pt is here for (units (unknown) date) left ankle pain unknown) (unknown) (no (unknown) (unknown) read the note (units ( unknown) date) carefully and unknown) recognize, using context, where these substitutions (unknown) (no (unknown) (unknown) slight (units (unkno wn) date) tenderness to unknown) touch, normal ROM (unknown) (no (unknown) (unknown) software. (units (unkn own) date) Although every unknown) effort is made to edit content, compliance analyst errors (unknown) (no (unknown) (unknown) throughout (units (unkn own) date) forefoot joints unknown) most prominent involving 1st MTP joint with prominent Result panel 4 (unknown) (no (unknown) (unknown) (no value) (units (unk nown) date) unknown) (unknown) (no (unknown) (unknown) Medications: (units (u nknown) date) unknown) (unknown) (no (unknown) (unknown) Orders: (units (unkno wn) date) unknown) (unknown) (no (unknown) (unknown) (no value) (units (unk nown) date) unknown) (unknown) (no (unknown) (unknown) 'I GET A MIGRAINE' (units (unknown) date) unknown) (unknown) (no (unknown) (unknown) 11/25/21 (units (unkno wn) date) unknown) (unknown) (no (unknown) (unknown) 13:54 (units (unkno wn) date) unknown) (unknown) (no (unknown) (unknown) [facility] (units (unknown) date) Medicine unknown) (unknown) (no (unknown) (unknown) [place] [id number] (unit s (unknown) date) unknown) (unknown) (no (unknown) (unknown) Blister (units (unkno wn) date) unknown) (unknown) (no (unknown) (unknown) Cancer (units (unkno wn) date) unknown) (unknown) (no (unknown) (unknown) Diabetes mellitus (units (unknown) date) unknown) (unknown) (no (unknown) (unknown) Draft (units (unkno wn) date) unknown) (unknown) (no (unknown) (unknown) EYE EDEMA, LIGHT (units (unknown) date) SENSITIVITY unknown) (unknown) (no (unknown) (unknown) Family Practice (units (unknown) date) Office Visit unknown) (unknown) (no (unknown) (unknown) HIVES (units (unkno wn) date) unknown) (unknown) (no (unknown) (unknown) Hives (units (unkno wn) date) unknown) (unknown) (no (unknown) (unknown) Hypertension (units (u nknown) date) unknown) (unknown) (no (unknown) (unknown) Mental health (units ( unknown) date) problem unknown) (unknown) (no (unknown) (unknown) Stroke (units (unkno wn) date) unknown) (unknown) (no (unknown) (unknown) apply to single (units (unknown) date) elbow, wrist or unknown) hand; for hand includes palm/fingers/back of (unknown) (no (unknown) (unknown) inner tissue lining (unit s (unknown) date) shedding of cervix unknown) (unknown) (no (unknown) (unknown) itching (units (unkno wn) date) unknown) (unknown) (no (unknown) (unknown) nausea vomiting (units (unknown) date) unknown) (unknown) (no (unknown) (unknown) (no value) (units (unk nown) date) unknown) (unknown) (no (unknown) (unknown) 66-year-old female (units (unknown) date) presents to the unknown) walk-in clinic complaining of left foot (unknown) (no (unknown) (unknown) General: denies (units (unknown) date) fever, chills unknown) (unknown) (no (unknown) (unknown) Independently (units ( unknown) date) reviewed vitals unknown) signs and nursing notes. (unknown) (no (unknown) (unknown) (1) Hallux limitus (units (unknown) date) of left foot: unknown) (unknown) (no (unknown) (unknown) 0 (units (unkno wn) date) unknown) (unknown) (no (unknown) (unknown) 11/25/21 (units (unkno wn) date) unknown) (unknown) (no (unknown) (unknown) ? (units (unkno wn) date) unknown) (unknown) (no (unknown) (unknown) Abnormal Pap smear (units (unknown) date) of cervix () unknown) (unknown) (no (unknown) (unknown) Acne (units (unkno wn) date) unknown) (unknown) (no (unknown) (unknown) Age/Sex: 66 / F (units (unknown) date) Date of Service: unknown) (unknown) (no (unknown) (unknown) Allergies (units (unkn own) date) unknown) (unknown) (no (unknown) (unknown) Anesthesia (units (unk nown) date) unknown) (unknown) (no (unknown) (unknown) Approved by: Alex (units (unknown) date) Marybel Camacho on unknown) 11/25/2021 at 15:54 ? (unknown) (no (unknown) (unknown) Assessment + Plan (units (unknown) date) unknown) (unknown) (no (unknown) (unknown) Attending Dr: (units ( unknown) date) Merle Batista 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 unknown) (unknown) (no (unknown) (unknown) BP 130/80 (units (u nknown) date) unknown) (unknown) (no (unknown) (unknown) Blood Pressure (units (unknown) date) Location Lt unknown) brachial (unknown) (no (unknown) (unknown) Bones:? No (units (unk nown) date) fractures or unknown) dislocations.? Cenk-nq-ltbilqaw osteoarthritic changes (unknown) (no (unknown) (unknown) Brother (units (unkno wn) date) Hypertension unknown) (unknown) (no (unknown) (unknown) COMPARISON:? None. (units (unknown) date) unknown) (unknown) (no (unknown) (unknown) Cardio: Regular (units (unknown) date) rate and rhythm, no unknown) peripheral edema (unknown) (no (unknown) (unknown) Cardio: denies (units (unknown) date) chest pain, unknown) palpitations (unknown) (no (unknown) (unknown) Cervical cancer (units (unknown) date) () unknown) (unknown) (no (unknown) (unknown) Cervical (units (unkno wn) date) radiculopathy at C6 unknown) (unknown) (no (unknown) (unknown) Cervical stenosis (units (unknown) date) of spinal canal unknown) () (unknown) (no (unknown) (unknown) Chicken pox (units (un known) date) unknown) (unknown) (no (unknown) (unknown) Chief Complaint (units (unknown) date) unknown) (unknown) (no (unknown) (unknown) Chief Complaint: (units (unknown) date) left foot pain unknown) (unknown) (no (unknown) (unknown) Chronic back pain (units (unknown) date) unknown) (unknown) (no (unknown) (unknown) 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 unknown) (unknown) (no (unknown) (unknown) Details: (units (unkno wn) date) unknown) (unknown) (no (unknown) (unknown) Dictated by: Alex (units (unknown) date) Marybel Camacho on unknown) 11/25/2021 at 15:53 ? ? (unknown) (no (unknown) (unknown) Documented By: (units (unknown) date) Merle Batista unknown) 11/25/21 135 (unknown) (no (unknown) (unknown) Eczema (units (unkno wn) date) unknown) (unknown) (no (unknown) (unknown) Exam (units (unkno wn) date) unknown) (unknown) (no (unknown) (unknown) Exam Narrative (units (unknown) date) unknown) (unknown) (no (unknown) (unknown) Exam Narrative: (units (unknown) date) unknown) (unknown) (no (unknown) (unknown) Eyes: EOMI, (units (u nknown) date) conjunctiva normal unknown) (unknown) (no (unknown) (unknown) Eyes: denies visual (unit s (unknown) date) changes, eye pain unknown) (unknown) (no (unknown) (unknown) FINDINGS:? (units (unk nown) date) unknown) (unknown) (no (unknown) (unknown) Facet arthropathy, (units (unknown) date) lumbar unknown) (unknown) (no (unknown) (unknown) Family History (units (unknown) date) (Reviewed 11/25/21 @ unknown) 16:07 by Merle Batista [facility]) (unknown) (no (unknown) (unknown) Family history of (units (unknown) date) celiac disease unknown) (unknown) (no (unknown) (unknown) Father (units (unknown) date) Non-Hodgkin lymphoma unknown) (unknown) (no (unknown) (unknown) Foot pain (-2005) (units (unknown) date) unknown) (unknown) (no (unknown) (unknown) GI: Abdomen soft, (units (unknown) date) nontender unknown) (unknown) (no (unknown) (unknown) GI: denies (units (unk nown) date) abdominal pain, unknown) nausea, vomiting, or diarrhea (unknown) (no (unknown) (unknown) : denies dysuria, (unit s (unknown) date) hematuria unknown) (unknown) (no (unknown) (unknown) General: Awake, (units (unknown) date) alert, nontoxic, no unknown) cardiorespiratory distress (unknown) (no (unknown) (unknown) Grandfather (units (un known) date) unknown) Diverticulitis (unknown) (no (unknown) (unknown) Grandmother (units (un known) date) Diabetes unknown) mellitus (unknown) (no (unknown) (unknown) Grandmother (units (un known) date) Heart unknown) disease (unknown) (no (unknown) (unknown) HNP (herniated (units (unknown) date) nucleus pulposus), unknown) thoracic (unknown) (no (unknown) (unknown) HPI (units (unkno wn) date) unknown) (unknown) (no (unknown) (unknown) Head/Neck: (units (unk nown) date) Atraumatic, neck unknown) full range of motion (unknown) (no (unknown) (unknown) Head/Neck: denies (units (unknown) date) headache, neck pain unknown) (unknown) (no (unknown) (unknown) Herpes (-1975) (units (unknown) date) unknown) (unknown) (no (unknown) (unknown) History of knee (units (unknown) date) replacement unknown) (unknown) (no (unknown) (unknown) IMPRESSION:? No (units (unknown) date) acute left foot unknown) fracture or dislocation.? Forefoot joint (unknown) (no (unknown) (unknown) INDICATIONS:? left (units (unknown) date) foot pain unknown) (unknown) (no (unknown) (unknown) Intake (units (unkno wn) date) unknown) (unknown) (no (unknown) (unknown) Intake Note: (units (u nknown) date) unknown) (unknown) (no (unknown) (unknown) Last Menstural (units (unknown) date) Cycle + Details unknown) (unknown) (no (unknown) (unknown) Loc: [facility] (units (unkno wn) date) unknown) (unknown) (no (unknown) (unknown) Lumbar spine pain (units (unknown) date) () unknown) (unknown) (no (unknown) (unknown) MSG Allergy (units (un known) date) (Severe, Uncoded unknown) 10/15/21 08:09) (unknown) (no (unknown) (unknown) MSK: Moves all (units (unknown) date) extremities, unknown) neurovascularly intact, mild edema along lateral (unknown) (no (unknown) (unknown) MSK: denies joint (units (unknown) date) pain, muscle unknown) weakness , endorses left foot and ankle pain with (unknown) (no (unknown) (unknown) Measles (units (unkno wn) date) unknown) (unknown) (no (unknown) (unknown) Medical History (units (unknown) date) (Reviewed 11/25/21 @ unknown) 16:07 by Merle Batista [facility]) (unknown) (no (unknown) (unknown) Migraine headache (units (unknown) date) unknown) (unknown) (no (unknown) (unknown) Mother (units (unknown) date) Ovarian cancer unknown) (unknown) (no (unknown) (unknown) Mouth/Throat: moist (unit s (unknown) date) mucus membranes, no unknown) oral lesions (unknown) (no (unknown) (unknown) Neuro: Normal (units (unknown) date) speech and unknown) cognition, normal gait (unknown) (no (unknown) (unknown) Neuro: denies (units ( unknown) date) numbness, tingling unknown) (unknown) (no (unknown) (unknown) New (units (unkno wn) date) unknown) (unknown) (no (unknown) (unknown) Nose: nares patent, (unit s (unknown) date) no rhinorrhea unknown) (unknown) (no (unknown) (unknown) Objective Data (units (unknown) date) unknown) (unknown) (no (unknown) (unknown) Objective Data: (units (unknown) date) unknown) (unknown) (no (unknown) (unknown) Orders (units (unkno wn) date) unknown) (unknown) (no (unknown) (unknown) Osteoarthritis (units (unknown) date) unknown) (unknown) (no (unknown) (unknown) Other Menstrual (units (unknown) date) Period: Surgical unknown) Menopause (unknown) (no (unknown) (unknown) Oxygen Delivery (units (unknown) date) Method room air unknown) (unknown) (no (unknown) (unknown) PERSERVATIVES (units ( unknown) date) Allergy (Severe, unknown) Uncoded 10/15/21 08:09) (unknown) (no (unknown) (unknown) PFSH (units (unkno wn) date) unknown) (unknown) (no (unknown) (unknown) PROCEDURE:? XR FOOT (unit s (unknown) date) LT MIN 3V unknown) (unknown) (no (unknown) (unknown) Patient states that (unit s (unknown) date) she has been trying unknown) to not bear weight on her foot because (unknown) (no (unknown) (unknown) Patient: Armando (units (unknown) date) Angela Conley unknown) M (unknown) (no (unknown) (unknown) Penicillins Allergy (unit s (unknown) date) (Mild, Verified unknown) 10/15/21 08:09) (unknown) (no (unknown) (unknown) Plan (units (unkno wn) date) unknown) (unknown) (no (unknown) (unknown) Position Sitting (unit s (unknown) date) unknown) (unknown) (no (unknown) (unknown) Posterior vitreous (units (unknown) date) detachment () unknown) (unknown) (no (unknown) (unknown) Pulse 74 (units (un known) date) unknown) (unknown) (no (unknown) (unknown) Pulse Oximetry (%) (units (unknown) date) 98 unknown) (unknown) (no (unknown) (unknown) Pulse Source (units (u nknown) date) Monitor unknown) (unknown) (no (unknown) (unknown) R#: [id number] (units (unknown) date) unknown) (unknown) (no (unknown) (unknown) ROS (units (unkno wn) date) unknown) (unknown) (no (unknown) (unknown) ROS Narrative (units ( unknown) date) unknown) (unknown) (no (unknown) (unknown) ROS Narrative: (units (unknown) date) unknown) (unknown) (no (unknown) (unknown) Reason For Visit (units (unknown) date) unknown) (unknown) (no (unknown) (unknown) Referral Podiatry (units (unknown) date) M20.5X2 - Other unknown) deformities of toe(s) (acquired), left foot (unknown) (no (unknown) (unknown) Referral Podiatry (units (unknown) date) S99.919A - unknown) Unspecified injury of unspecified ankle, initial (unknown) (no (unknown) (unknown) Referrals (units (unkn own) date) unknown) (unknown) (no (unknown) (unknown) Respiratory: denies (unit s (unknown) date) shortness of breath, unknown) cough (unknown) (no (unknown) (unknown) Respiratory: (units (u nknown) date) respirations unknown) unlabored without wheezing, stridor, or rales. No (unknown) (no (unknown) (unknown) Scoliosis (-2000) (units (unknown) date) unknown) (unknown) (no (unknown) (unknown) Signed By: (units (unk nown) date) unknown) (unknown) (no (unknown) (unknown) Skin: Normal (units ( unknown) date) capillary refill, no unknown) rash (unknown) (no (unknown) (unknown) Skin: denies rash, (units (unknown) date) itching unknown) (unknown) (no (unknown) (unknown) Smoking Status: (units (unknown) date) Never smoker unknown) (unknown) (no (unknown) (unknown) Soft tissues:? No (units (unknown) date) tibiotalar joint unknown) effusion.? Achilles tendon appears normal.? (unknown) (no (unknown) (unknown) Sulfa (Sulfonamide (units (unknown) date) Antibiotics) Allergy unknown) (Mild, Verified 10/15/21 08:09) (unknown) (no (unknown) (unknown) Surgical History (units (unknown) date) (Reviewed 11/25/21 @ unknown) 16:07 by Merle Batista [facility]) (unknown) (no (unknown) (unknown) TECHNIQUE:? 3 views (unit s (unknown) date) of the foot were unknown) acquired.? (unknown) (no (unknown) (unknown) TUNA Allergy (units (u nknown) date) (Intermediate, unknown) Uncoded 10/15/21 08:09) (unknown) (no (unknown) (unknown) This is a 66 year (units (unknown) date) old female who unknown) presents to the [facility] complaining of left foot (unknown) (no (unknown) (unknown) This note may have (units (unknown) date) been all or unknown) partially generated using voice recognition (unknown) (no (unknown) (unknown) Thoracic (units (unkno wn) date) radiculitis unknown) (unknown) (no (unknown) (unknown) Tobacco + Substance (unit s (unknown) date) Use unknown) (unknown) (no (unknown) (unknown) Tobacco Status (units (unknown) date) unknown) (unknown) (no (unknown) (unknown) Vertical (units (unkno wn) date) heterophoria unknown) (unknown) (no (unknown) (unknown) Visit Reasons: Left (unit s (unknown) date) ankle injury unknown) (unknown) (no (unknown) (unknown) Vitals (units (unkno wn) date) unknown) (unknown) (no (unknown) (unknown) Weight 91.626 kg (unit s (unknown) date) unknown) (unknown) (no (unknown) (unknown) XR ankle LT min 3V (units (unknown) date) Today M25.572 - Pain unknown) in left ankle and joints of left foot (unknown) (no (unknown) (unknown) XR foot LT min 3V (units (unknown) date) Today M79.672 - Pain unknown) in left foot (unknown) (no (unknown) (unknown) a week ago monday (units (unknown) date) when going into work unknown) pt rolled ankle (unknown) (no (unknown) (unknown) adhesive Allergy (units (unknown) date) (Intermediate, unknown) Verified 10/15/21 08:09) (unknown) (no (unknown) (unknown) ankle has been very (unit s (unknown) date) tender, pain is unknown) sticking around (unknown) (no (unknown) (unknown) are noted (units (unkn own) date) unknown) (unknown) (no (unknown) (unknown) aspect of midfoot, (units (unknown) date) tenderness over ATFL unknown) and CFL, no plantar ecchymosis, (unknown) (no (unknown) (unknown) benzoyl peroxide (units (unknown) date) Allergy (Mild, unknown) Verified 10/15/21 08:09) (unknown) (no (unknown) (unknown) capillary refill <2 (unit s (unknown) date) seconds, PT and DP unknown) pulses 2+, full ROM intact with only (unknown) (no (unknown) (unknown) celecoxib Allergy (units (unknown) date) (Mild, Verified unknown) 10/15/21 08:09) (unknown) (no (unknown) (unknown) diabetes, denies (units (unknown) date) any open wound. unknown) (unknown) (no (unknown) (unknown) diclofenac sodium (units (unknown) date) 1% unknown) (unknown) (no (unknown) (unknown) diflunisal Allergy (units (unknown) date) (Mild, Verified unknown) 10/15/21 08:09) (unknown) (no (unknown) (unknown) dorsal (units (unkno wn) date) unknown) (unknown) (no (unknown) (unknown) encounter, S99.929A (unit s (unknown) date) - Unspecified injury unknown) of unspecified foot, initial encounter (unknown) (no (unknown) (unknown) hand 2 grams (units (u nknown) date) topical QID 100 unknown) grams 0RF (unknown) (no (unknown) (unknown) have occurred. If (units (unknown) date) there are any unknown) questions, please contact the Medical Records (unknown) (no (unknown) (unknown) her ankle (units (unkn own) date) unknown) (unknown) (no (unknown) (unknown) iodine Allergy (units (unknown) date) (Intermediate, unknown) Verified 10/15/21 08:09) (unknown) (no (unknown) (unknown) is been painful (units (unknown) date) On the lateral unknown) aspect of her foot. She denies history of (unknown) (no (unknown) (unknown) it is painful. (units (unknown) date) she endorses the unknown) arch of her foot is quite painful, she has (unknown) (no (unknown) (unknown) limitation of pain. (unit s (unknown) date) unknown) (unknown) (no (unknown) (unknown) limitus. (units (unkno wn) date) unknown) (unknown) (no (unknown) (unknown) marginal osteophyte (unit s (unknown) date) formation.? No unknown) suspicious bony lesions.? (unknown) (no (unknown) (unknown) may occur. (units (unk nown) date) Occasional unknown) wrong-word or 'sound-alike' substitutions may have (unknown) (no (unknown) (unknown) mild edema in her (units (unknown) date) left foot, she unknown) states that she is able to bear weight but it (unknown) (no (unknown) (unknown) most prominent (units (unknown) date) involving 1st MTP unknown) joint concerning for hallux limitus. (unknown) (no (unknown) (unknown) movement, most of (units (unknown) date) the pain is in the unknown) arch of her foot, and the lateral aspect of (unknown) (no (unknown) (unknown) naproxen Allergy (units (unknown) date) (Mild, Verified unknown) 10/15/21 08:09) (unknown) (no (unknown) (unknown) occurred due to the (unit s (unknown) date) inherent limitations unknown) of voice recognition software. Please (unknown) (no (unknown) (unknown) of left foot does (units (unknown) date) not show any acute unknown) fracture or dislocation. Forefront joint (unknown) (no (unknown) (unknown) osteoarthritis (units (unknown) date) unknown) (unknown) (no (unknown) (unknown) osteoarthritis is (units (unknown) date) most prominet unknown) involving 1st MTP joing concerning for hallux (unknown) (no (unknown) (unknown) over the dorsom of (units (unknown) date) her midfoot, mild unknown) tenderness over proximal 5th metatarsal. XR (unknown) (no (unknown) (unknown) pain for (units (unkno wn) date) approximately 1 week unknown) since she rolled her ankle. She has tenderness (unknown) (no (unknown) (unknown) pain which has been (unit s (unknown) date) worsening for unknown) approximately 1 week since she rolled it. (unknown) (no (unknown) (unknown) pt is ambulatory, (units (unknown) date) pt states a lot of unknown) pain is in the ankle region (unknown) (no (unknown) (unknown) pt is here for left (unit s (unknown) date) ankle pain unknown) (unknown) (no (unknown) (unknown) read the note (units ( unknown) date) carefully and unknown) recognize, using context, where these substitutions (unknown) (no (unknown) (unknown) retractions. (units (u nknown) date) unknown) (unknown) (no (unknown) (unknown) slight tenderness (units (unknown) date) to touch, normal ROM unknown) (unknown) (no (unknown) (unknown) software. Although (units (unknown) date) every effort is made unknown) to edit content, compliance analyst errors (unknown) (no (unknown) (unknown) throughout forefoot (units (unknown) date) joints most unknown) prominent involving 1st MTP joint with prominent Result panel 5 (unknown) (no (unknown) (unknown) (no value) (units (unk nown) date) unknown) (unknown) (no (unknown) (unknown) Medications: (units (u nknown) date) unknown) (unknown) (no (unknown) (unknown) Orders: (units (unkno wn) date) unknown) (unknown) (no (unknown) (unknown) (no value) (units (unk nown) date) unknown) (unknown) (no (unknown) (unknown) 'I GET A MIGRAINE' (units (unknown) date) unknown) (unknown) (no (unknown) (unknown) 11/25/21 (units (unkno wn) date) unknown) (unknown) (no (unknown) (unknown) 13:54 (units (unkno wn) date) unknown) (unknown) (no (unknown) (unknown) [facility] (units (unknown) date) Medicine unknown) (unknown) (no (unknown) (unknown) [place] [address] (unit s (unknown) date) unknown) (unknown) (no (unknown) (unknown) Blister (units (unkno wn) date) unknown) (unknown) (no (unknown) (unknown) Cancer (units (unkno wn) date) unknown) (unknown) (no (unknown) (unknown) Diabetes mellitus (units (unknown) date) unknown) (unknown) (no (unknown) (unknown) Draft (units (unkno wn) date) unknown) (unknown) (no (unknown) (unknown) EYE EDEMA, LIGHT (units (unknown) date) SENSITIVITY unknown) (unknown) (no (unknown) (unknown) Family Practice (units (unknown) date) Office Visit unknown) (unknown) (no (unknown) (unknown) HIVES (units (unkno wn) date) unknown) (unknown) (no (unknown) (unknown) Hives (units (unkno wn) date) unknown) (unknown) (no (unknown) (unknown) Hypertension (units (u nknown) date) unknown) (unknown) (no (unknown) (unknown) Mental health (units ( unknown) date) problem unknown) (unknown) (no (unknown) (unknown) Stroke (units (unkno wn) date) unknown) (unknown) (no (unknown) (unknown) apply to single (units (unknown) date) elbow, wrist or unknown) hand; for hand includes palm/fingers/back of (unknown) (no (unknown) (unknown) inner tissue lining (unit s (unknown) date) shedding of cervix unknown) (unknown) (no (unknown) (unknown) itching (units (unkno wn) date) unknown) (unknown) (no (unknown) (unknown) nausea vomiting (units (unknown) date) unknown) (unknown) (no (unknown) (unknown) (no value) (units (unk nown) date) unknown) (unknown) (no (unknown) (unknown) 66-year-old female (units (unknown) date) presents to the unknown) walk-in clinic complaining of left foot (unknown) (no (unknown) (unknown) General: denies (units (unknown) date) fever, chills unknown) (unknown) (no (unknown) (unknown) Independently (units ( unknown) date) reviewed vitals unknown) signs and nursing notes. (unknown) (no (unknown) (unknown) (1) Hallux limitus (units (unknown) date) of left foot: unknown) (unknown) (no (unknown) (unknown) 0 (units (unkno wn) date) unknown) (unknown) (no (unknown) (unknown) 11/25/21 (units (unkno wn) date) unknown) (unknown) (no (unknown) (unknown) ? (units (unkno wn) date) unknown) (unknown) (no (unknown) (unknown) Abnormal Pap smear (units (unknown) date) of cervix () unknown) (unknown) (no (unknown) (unknown) Acne (units (unkno wn) date) unknown) (unknown) (no (unknown) (unknown) Age/Sex: 66 / F (units (unknown) date) Date of Service: unknown) (unknown) (no (unknown) (unknown) Allergies (units (unkn own) date) unknown) (unknown) (no (unknown) (unknown) Anesthesia (units (unk nown) date) unknown) (unknown) (no (unknown) (unknown) Approved by: Alex (units (unknown) date) Marybel Camacho on unknown) 11/25/2021 at 15:54 ? (unknown) (no (unknown) (unknown) Assessment + Plan (units (unknown) date) unknown) (unknown) (no (unknown) (unknown) Attending Dr: (units ( unknown) date) Merle [employer]patrick 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 unknown) (unknown) (no (unknown) (unknown) BP 130/80 (units (u nknown) date) unknown) (unknown) (no (unknown) (unknown) Blood Pressure (units (unknown) date) Location Lt unknown) brachial (unknown) (no (unknown) (unknown) Bones:? No (units (unk nown) date) fractures or unknown) dislocations.? [id number] osteoarthritic changes (unknown) (no (unknown) (unknown) Brother (units (unkno wn) date) Hypertension unknown) (unknown) (no (unknown) (unknown) COMPARISON:? None. (units (unknown) date) unknown) (unknown) (no (unknown) (unknown) Cardio: Regular (units (unknown) date) rate and rhythm, no unknown) peripheral edema (unknown) (no (unknown) (unknown) Cardio: denies (units (unknown) date) chest pain, unknown) palpitations (unknown) (no (unknown) (unknown) Cervical cancer (units (unknown) date) () unknown) (unknown) (no (unknown) (unknown) Cervical (units (unkno wn) date) radiculopathy at C6 unknown) (unknown) (no (unknown) (unknown) Cervical stenosis (units (unknown) date) of spinal canal unknown) () (unknown) (no (unknown) (unknown) Chicken pox (units (un known) date) unknown) (unknown) (no (unknown) (unknown) Chief Complaint (units (unknown) date) unknown) (unknown) (no (unknown) (unknown) Chief Complaint: (units (unknown) date) left foot pain unknown) (unknown) (no (unknown) (unknown) Chronic back pain (units (unknown) date) unknown) (unknown) (no (unknown) (unknown) Cubital tunnel (units (unknown) date) syndrome () unknown) (unknown) (no (unknown) (unknown) : 1955 (units (unknown) date) Acct:[id number] unknown) (unknown) (no (unknown) (unknown) Dept at (units (unkno wn) date) . unknown) (unknown) (no (unknown) (unknown) Details: (units (unkno wn) date) unknown) (unknown) (no (unknown) (unknown) Dictated by: Alex (units (unknown) date) Marybel Camacho on unknown) 11/25/2021 at 15:53 ? ? (unknown) (no (unknown) (unknown) Documented By: (units (unknown) date) Merle Batista unknown) 11/25/21 135 (unknown) (no (unknown) (unknown) Eczema (units (unkno wn) date) unknown) (unknown) (no (unknown) (unknown) Exam (units (unkno wn) date) unknown) (unknown) (no (unknown) (unknown) Exam Narrative (units (unknown) date) unknown) (unknown) (no (unknown) (unknown) Exam Narrative: (units (unknown) date) unknown) (unknown) (no (unknown) (unknown) Eyes: EOMI, (units (u nknown) date) conjunctiva normal unknown) (unknown) (no (unknown) (unknown) Eyes: denies visual (unit s (unknown) date) changes, eye pain unknown) (unknown) (no (unknown) (unknown) FINDINGS:? (units (unk nown) date) unknown) (unknown) (no (unknown) (unknown) Facet arthropathy, (units (unknown) date) lumbar unknown) (unknown) (no (unknown) (unknown) Family History (units (unknown) date) (Reviewed 11/25/21 @ unknown) 16:07 by Merle Batista [facility]) (unknown) (no (unknown) (unknown) Family history of (units (unknown) date) celiac disease unknown) (unknown) (no (unknown) (unknown) Father (units (unknown) date) Non-Hodgkin lymphoma unknown) (unknown) (no (unknown) (unknown) Foot pain (-2005) (units (unknown) date) unknown) (unknown) (no (unknown) (unknown) GI: Abdomen soft, (units (unknown) date) nontender unknown) (unknown) (no (unknown) (unknown) GI: denies (units (unk nown) date) abdominal pain, unknown) nausea, vomiting, or diarrhea (unknown) (no (unknown) (unknown) : denies dysuria, (unit s (unknown) date) hematuria unknown) (unknown) (no (unknown) (unknown) General: Awake, (units (unknown) date) alert, nontoxic, no unknown) cardiorespiratory distress (unknown) (no (unknown) (unknown) Grandfather (units (un known) date) unknown) Diverticulitis (unknown) (no (unknown) (unknown) Grandmother (units (un known) date) Diabetes unknown) mellitus (unknown) (no (unknown) (unknown) Grandmother (units (un known) date) Heart unknown) disease (unknown) (no (unknown) (unknown) HNP (herniated (units (unknown) date) nucleus pulposus), unknown) thoracic (unknown) (no (unknown) (unknown) HPI (units (unkno wn) date) unknown) (unknown) (no (unknown) (unknown) Head/Neck: (units (unk nown) date) Atraumatic, neck unknown) full range of motion (unknown) (no (unknown) (unknown) Head/Neck: denies (units (unknown) date) headache, neck pain unknown) (unknown) (no (unknown) (unknown) Herpes (-1975) (units (unknown) date) unknown) (unknown) (no (unknown) (unknown) History of knee (units (unknown) date) replacement unknown) (unknown) (no (unknown) (unknown) IMPRESSION:? No (units (unknown) date) acute left foot unknown) fracture or dislocation.? Forefoot joint (unknown) (no (unknown) (unknown) INDICATIONS:? left (units (unknown) date) foot pain unknown) (unknown) (no (unknown) (unknown) Intake (units (unkno wn) date) unknown) (unknown) (no (unknown) (unknown) Intake Note: (units (u nknown) date) unknown) (unknown) (no (unknown) (unknown) Last Menstural (units (unknown) date) Cycle + Details unknown) (unknown) (no (unknown) (unknown) Loc: [facility] (units (unkno wn) date) unknown) (unknown) (no (unknown) (unknown) Lumbar spine pain (units (unknown) date) () unknown) (unknown) (no (unknown) (unknown) MSG Allergy (units (un known) date) (Severe, Uncoded unknown) 10/15/21 08:09) (unknown) (no (unknown) (unknown) MSK: Moves all (units (unknown) date) extremities, unknown) neurovascularly intact, mild edema along lateral (unknown) (no (unknown) (unknown) MSK: denies joint (units (unknown) date) pain, muscle unknown) weakness , endorses left foot and ankle pain with (unknown) (no (unknown) (unknown) Measles (units (unkno wn) date) unknown) (unknown) (no (unknown) (unknown) Medical History (units (unknown) date) (Reviewed 11/25/21 @ unknown) 16:07 by Merle Batista [facility]) (unknown) (no (unknown) (unknown) Migraine headache (units (unknown) date) unknown) (unknown) (no (unknown) (unknown) Mother (units (unknown) date) Ovarian cancer unknown) (unknown) (no (unknown) (unknown) Mouth/Throat: moist (unit s (unknown) date) mucus membranes, no unknown) oral lesions (unknown) (no (unknown) (unknown) Neuro: Normal (units (unknown) date) speech and unknown) cognition, normal gait (unknown) (no (unknown) (unknown) Neuro: denies (units ( unknown) date) numbness, tingling unknown) (unknown) (no (unknown) (unknown) New (units (unkno wn) date) unknown) (unknown) (no (unknown) (unknown) Nose: nares patent, (unit s (unknown) date) no rhinorrhea unknown) (unknown) (no (unknown) (unknown) Objective Data (units (unknown) date) unknown) (unknown) (no (unknown) (unknown) Objective Data: (units (unknown) date) unknown) (unknown) (no (unknown) (unknown) Orders (units (unkno wn) date) unknown) (unknown) (no (unknown) (unknown) Osteoarthritis (units (unknown) date) unknown) (unknown) (no (unknown) (unknown) Other Menstrual (units (unknown) date) Period: Surgical unknown) Menopause (unknown) (no (unknown) (unknown) Oxygen Delivery (units (unknown) date) Method room air unknown) (unknown) (no (unknown) (unknown) PERSERVATIVES (units ( unknown) date) Allergy (Severe, unknown) Uncoded 10/15/21 08:09) (unknown) (no (unknown) (unknown) PFSH (units (unkno wn) date) unknown) (unknown) (no (unknown) (unknown) PROCEDURE:? XR FOOT (unit s (unknown) date) LT MIN 3V unknown) (unknown) (no (unknown) (unknown) Patient states that (unit s (unknown) date) she has been trying unknown) to not bear weight on her foot because (unknown) (no (unknown) (unknown) Patient: Armando (units (unknown) date) Angela Conley unknown) M (unknown) (no (unknown) (unknown) [place]ins Allergy (unit s (unknown) date) (Mild, Verified unknown) 10/15/21 08:09) (unknown) (no (unknown) (unknown) Plan (units (unkno wn) date) unknown) (unknown) (no (unknown) (unknown) Position Sitting (unit s (unknown) date) unknown) (unknown) (no (unknown) (unknown) Posterior vitreous (units (unknown) date) detachment (-2016) unknown) (unknown) (no (unknown) (unknown) Pulse 74 (units (un known) date) unknown) (unknown) (no (unknown) (unknown) Pulse Oximetry (%) (units (unknown) date) 98 unknown) (unknown) (no (unknown) (unknown) Pulse Source (units (u nknown) date) Monitor unknown) (unknown) (no (unknown) (unknown) R#: [id number] (units (unknown) date) unknown) (unknown) (no (unknown) (unknown) ROS (units (unkno wn) date) unknown) (unknown) (no (unknown) (unknown) ROS Narrative (units ( unknown) date) unknown) (unknown) (no (unknown) (unknown) ROS Narrative: (units (unknown) date) unknown) (unknown) (no (unknown) (unknown) Reason For Visit (units (unknown) date) unknown) (unknown) (no (unknown) (unknown) Referral Podiatry (units (unknown) date) S99.919A - unknown) Unspecified injury of unspecified ankle, initial (unknown) (no (unknown) (unknown) Referrals (units (unkn own) date) unknown) (unknown) (no (unknown) (unknown) Respiratory: denies (unit s (unknown) date) shortness of breath, unknown) cough (unknown) (no (unknown) (unknown) Respiratory: (units (u nknown) date) respirations unknown) unlabored without wheezing, stridor, or rales. No (unknown) (no (unknown) (unknown) Scoliosis (-1999) (units (unknown) date) unknown) (unknown) (no (unknown) (unknown) Signed By: (units (unk nown) date) unknown) (unknown) (no (unknown) (unknown) Skin: Normal (units ( unknown) date) capillary refill, no unknown) rash (unknown) (no (unknown) (unknown) Skin: denies rash, (units (unknown) date) itching unknown) (unknown) (no (unknown) (unknown) Smoking Status: (units (unknown) date) Never smoker unknown) (unknown) (no (unknown) (unknown) Soft tissues:? No (units (unknown) date) tibiotalar joint unknown) effusion.? Achilles tendon appears normal.? (unknown) (no (unknown) (unknown) Sulfa (Sulfonamide (units (unknown) date) Antibiotics) Allergy unknown) (Mild, Verified 10/15/21 08:09) (unknown) (no (unknown) (unknown) Surgical History (units (unknown) date) (Reviewed 11/25/21 @ unknown) 16:07 [facility] (unknown) (no (unknown) (unknown) TECHNIQUE:? 3 views (unit s (unknown) date) of the foot were unknown) acquired.? (unknown) (no (unknown) (unknown) TUNA Allergy (units (u nknown) date) (Intermediate, unknown) Uncoded 10/15/21 08:09) (unknown) (no (unknown) (unknown) This is a 66 year (units (unknown) date) old female who unknown) presents to the [facility] complaining of left foot (unknown) (no (unknown) (unknown) This note may have (units (unknown) date) been all or unknown) partially generated using voice recognition (unknown) (no (unknown) (unknown) Thoracic (units (unkno wn) date) radiculitis unknown) (unknown) (no (unknown) (unknown) Tobacco + Substance (unit s (unknown) date) Use unknown) (unknown) (no (unknown) (unknown) Tobacco Status (units (unknown) date) unknown) (unknown) (no (unknown) (unknown) Vertical (units (unkno wn) date) heterophoria unknown) (unknown) (no (unknown) (unknown) Visit Reasons: Left (unit s (unknown) date) ankle injury unknown) (unknown) (no (unknown) (unknown) Vitals (units (unkno wn) date) unknown) (unknown) (no (unknown) (unknown) Weight 202 lb (units (unknown) date) unknown) (unknown) (no (unknown) (unknown) XR ankle LT min 3V (units (unknown) date) Today M25.572 - Pain unknown) in left ankle and joints of left foot (unknown) (no (unknown) (unknown) XR foot LT min 3V (units (unknown) date) Today M79.672 - Pain unknown) in left foot (unknown) (no (unknown) (unknown) a week ago monday (units (unknown) date) when going into work unknown) pt rolled ankle (unknown) (no (unknown) (unknown) adhesive Allergy (units (unknown) date) (Intermediate, unknown) Verified 10/15/21 08:09) (unknown) (no (unknown) (unknown) ankle has been very (unit s (unknown) date) tender, pain is unknown) sticking around (unknown) (no (unknown) (unknown) are noted (units (unkn own) date) unknown) (unknown) (no (unknown) (unknown) aspect of midfoot, (units (unknown) date) tenderness over ATFL unknown) and CFL, no plantar ecchymosis, (unknown) (no (unknown) (unknown) benzoyl peroxide (units (unknown) date) Allergy (Mild, unknown) Verified 10/15/21 08:09) (unknown) (no (unknown) (unknown) capillary refill <2 (unit s (unknown) date) seconds, PT and DP unknown) pulses 2+, full ROM intact with only (unknown) (no (unknown) (unknown) celecoxib Allergy (units (unknown) date) (Mild, Verified unknown) 10/15/21 08:09) (unknown) (no (unknown) (unknown) diabetes, denies (units (unknown) date) any open wound. unknown) (unknown) (no (unknown) (unknown) diclofenac sodium (units (unknown) date) 1% unknown) (unknown) (no (unknown) (unknown) diflunisal Allergy (units (unknown) date) (Mild, Verified unknown) 10/15/21 08:09) (unknown) (no (unknown) (unknown) dorsal (units (unkno wn) date) unknown) (unknown) (no (unknown) (unknown) encounter, S99.929A (unit s (unknown) date) - Unspecified injury unknown) of unspecified foot, initial encounter (unknown) (no (unknown) (unknown) hand 2 grams (units (u nknown) date) topical QID 100 unknown) grams 0RF (unknown) (no (unknown) (unknown) have occurred. If (units (unknown) date) there are any unknown) questions, please contact the Medical Records (unknown) (no (unknown) (unknown) her ankle (units (unkn own) date) unknown) (unknown) (no (unknown) (unknown) iodine Allergy (units (unknown) date) (Intermediate, unknown) Verified 10/15/21 08:09) (unknown) (no (unknown) (unknown) is been painful (units (unknown) date) On the lateral unknown) aspect of her foot. She denies history of (unknown) (no (unknown) (unknown) it is painful. (units (unknown) date) she endorses the unknown) arch of her foot is quite painful, she has (unknown) (no (unknown) (unknown) limitation of pain. (unit s (unknown) date) unknown) (unknown) (no (unknown) (unknown) limitus. (units (unkno wn) date) unknown) (unknown) (no (unknown) (unknown) marginal osteophyte (unit s (unknown) date) formation.? No unknown) suspicious bony lesions.? (unknown) (no (unknown) (unknown) may occur. (units (unk nown) date) Occasional unknown) wrong-word or 'sound-alike' substitutions may have (unknown) (no (unknown) (unknown) mild edema in her (units (unknown) date) left foot, she unknown) states that she is able to bear weight but it (unknown) (no (unknown) (unknown) most prominent (units (unknown) date) involving 1st MTP unknown) joint concerning for hallux limitus. (unknown) (no (unknown) (unknown) movement, most of (units (unknown) date) the pain is in the unknown) arch of her foot, and the lateral aspect of (unknown) (no (unknown) (unknown) naproxen Allergy (units (unknown) date) (Mild, Verified unknown) 10/15/21 08:09) (unknown) (no (unknown) (unknown) occurred due to the (unit s (unknown) date) inherent limitations unknown) of voice recognition software. Please (unknown) (no (unknown) (unknown) of left foot does (units (unknown) date) not show any acute unknown) fracture or dislocation. Forefront joint (unknown) (no (unknown) (unknown) osteoarthritis (units (unknown) date) unknown) (unknown) (no (unknown) (unknown) osteoarthritis is (units (unknown) date) most prominet unknown) involving 1st MTP joing concerning for hallux (unknown) (no (unknown) (unknown) over the dorsom of (units (unknown) date) her midfoot, mild unknown) tenderness over proximal 5th metatarsal. XR (unknown) (no (unknown) (unknown) pain for (units (unkno wn) date) approximately 1 week unknown) since she rolled her ankle. She has tenderness (unknown) (no (unknown) (unknown) pain which has been (unit s (unknown) date) worsening for unknown) approximately 1 week since she rolled it. (unknown) (no (unknown) (unknown) pt is ambulatory, (units (unknown) date) pt states a lot of unknown) pain is in the ankle region (unknown) (no (unknown) (unknown) pt is here for left (unit s (unknown) date) ankle pain unknown) (unknown) (no (unknown) (unknown) read the note (units ( unknown) date) carefully and unknown) recognize, using context, where these substitutions (unknown) (no (unknown) (unknown) retractions. (units (u nknown) date) unknown) (unknown) (no (unknown) (unknown) slight tenderness (units (unknown) date) to touch, normal ROM unknown) (unknown) (no (unknown) (unknown) software. Although (units (unknown) date) every effort is made unknown) to edit content, compliance analyst errors (unknown) (no (unknown) (unknown) throughout forefoot (units (unknown) date) joints most unknown) prominent involving 1st MTP joint with prominent Result panel 6 (unknown) (no (unknown) (unknown) (no value) (units (unk nown) date) unknown) (unknown) (no (unknown) (unknown) Medications: (units (u nknown) date) unknown) (unknown) (no (unknown) (unknown) Orders: (units (unkno wn) date) unknown) (unknown) (no (unknown) (unknown) (no value) (units (unk nown) date) unknown) (unknown) (no (unknown) (unknown) 'I GET A MIGRAINE' (units (unknown) date) unknown) (unknown) (no (unknown) (unknown) 11/25/21 (units (unkno wn) date) unknown) (unknown) (no (unknown) (unknown) 11/25/21 1645 (units ( unknown) date) unknown) (unknown) (no (unknown) (unknown) 13:54 (units (unkno wn) date) unknown) (unknown) (no (unknown) (unknown) [facility] (units (unknown) date) Medicine unknown) (unknown) (no (unknown) (unknown) [place] [address] (unit s (unknown) date) unknown) (unknown) (no (unknown) (unknown) Blister (units (unkno wn) date) unknown) (unknown) (no (unknown) (unknown) Cancer (units (unkno wn) date) unknown) (unknown) (no (unknown) (unknown) Diabetes mellitus (units (unknown) date) unknown) (unknown) (no (unknown) (unknown) EYE EDEMA, LIGHT (units (unknown) date) SENSITIVITY unknown) (unknown) (no (unknown) (unknown) Family Practice (units (unknown) date) Office Visit unknown) (unknown) (no (unknown) (unknown) HIVES (units (unkno wn) date) unknown) (unknown) (no (unknown) (unknown) Hives (units (unkno wn) date) unknown) (unknown) (no (unknown) (unknown) Hypertension (units (u nknown) date) unknown) (unknown) (no (unknown) (unknown) Mental health (units ( unknown) date) problem unknown) (unknown) (no (unknown) (unknown) Signed (units (unkno wn) date) unknown) (unknown) (no (unknown) (unknown) Stroke (units (unkno wn) date) unknown) (unknown) (no (unknown) (unknown) apply to single (units (unknown) date) elbow, wrist or unknown) hand; for hand includes palm/fingers/back of (unknown) (no (unknown) (unknown) inner tissue lining (unit s (unknown) date) shedding of cervix unknown) (unknown) (no (unknown) (unknown) itching (units (unkno wn) date) unknown) (unknown) (no (unknown) (unknown) nausea vomiting (units (unknown) date) unknown) (unknown) (no (unknown) (unknown) (no value) (units (unk nown) date) unknown) (unknown) (no (unknown) (unknown) 66-year-old female (units (unknown) date) presents to the unknown) walk-in clinic complaining of left foot (unknown) (no (unknown) (unknown) General: denies (units (unknown) date) fever, chills unknown) (unknown) (no (unknown) (unknown) Independently (units ( unknown) date) reviewed vitals unknown) signs and nursing notes. (unknown) (no (unknown) (unknown) (1) Hallux limitus (units (unknown) date) of left foot: unknown) (unknown) (no (unknown) (unknown) 0 (units (unkno wn) date) unknown) (unknown) (no (unknown) (unknown) 11/25/21 (units (unkno wn) date) unknown) (unknown) (no (unknown) (unknown) ? (units (unkno wn) date) unknown) (unknown) (no (unknown) (unknown) Abnormal Pap smear (units (unknown) date) of cervix (-1992) unknown) (unknown) (no (unknown) (unknown) Acne (units (unkno wn) date) unknown) (unknown) (no (unknown) (unknown) Age/Sex: 66 / F (units (unknown) date) Date of Service: unknown) (unknown) (no (unknown) (unknown) Allergies (units (unkn own) date) unknown) (unknown) (no (unknown) (unknown) Anesthesia (units (unk nown) date) unknown) (unknown) (no (unknown) (unknown) Approved by: Alex Medinaunits (unknown) date) Marybel Camacho on unknown) 11/25/2021 at 15:54 ? (unknown) (no (unknown) (unknown) Assessment + Plan (units (unknown) date) unknown) (unknown) (no (unknown) (unknown) Attending Dr: (units ( unknown) date) Merle Batista [employer]FILE 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 unknown) (unknown) (no (unknown) (unknown) BP 130/80 (units (u nknown) date) unknown) (unknown) (no (unknown) (unknown) Blood Pressure (units (unknown) date) Location Lt unknown) brachial (unknown) (no (unknown) (unknown) Bones:? No (units (unk nown) date) fractures or unknown) dislocations.? [id number]-[id number] osteoarthritic changes (unknown) (no (unknown) (unknown) Brother (units (unkno wn) date) Hypertension unknown) (unknown) (no (unknown) (unknown) COMPARISON:? None. (units (unknown) date) unknown) (unknown) (no (unknown) (unknown) Cardio: Regular (units (unknown) date) rate and rhythm, no unknown) peripheral edema (unknown) (no (unknown) (unknown) Cardio: denies (units (unknown) date) chest pain, unknown) palpitations (unknown) (no (unknown) (unknown) Cervical cancer (units (unknown) date) () unknown) (unknown) (no (unknown) (unknown) Cervical (units (unkno wn) date) radiculopathy at C6 unknown) (unknown) (no (unknown) (unknown) Cervical stenosis (units (unknown) date) of spinal canal unknown) () (unknown) (no (unknown) (unknown) Chicken pox (units (un known) date) unknown) (unknown) (no (unknown) (unknown) Chief Complaint (units (unknown) date) unknown) (unknown) (no (unknown) (unknown) Chief Complaint: (units (unknown) date) left foot pain unknown) (unknown) (no (unknown) (unknown) Chronic back pain (units (unknown) date) unknown) (unknown) (no (unknown) (unknown) Cubital tunnel (units (unknown) date) syndrome () unknown) (unknown) (no (unknown) (unknown) : 1955 (units (unknown) date) Acct:[id number] unknown) (unknown) (no (unknown) (unknown) Dept at (units (unkno wn) date) . unknown) (unknown) (no (unknown) (unknown) Details: (units (unkno wn) date) unknown) (unknown) (no (unknown) (unknown) Dictated by: Alex (units (unknown) date) Marybel Camacho on unknown) 11/25/2021 at 15:53 ? ? (unknown) (no (unknown) (unknown) Documented By: (units (unknown) date) Merle Batista unknown) 11/25/21 135 (unknown) (no (unknown) (unknown) Eczema (units (unkno wn) date) unknown) (unknown) (no (unknown) (unknown) Exam (units (unkno wn) date) unknown) (unknown) (no (unknown) (unknown) Exam Narrative (units (unknown) date) unknown) (unknown) (no (unknown) (unknown) Exam Narrative: (units (unknown) date) unknown) (unknown) (no (unknown) (unknown) Eyes: EOMI, (units (u nknown) date) conjunctiva normal unknown) (unknown) (no (unknown) (unknown) Eyes: denies visual (unit s (unknown) date) changes, eye pain unknown) (unknown) (no (unknown) (unknown) FINDINGS:? (units (unk nown) date) unknown) (unknown) (no (unknown) (unknown) Facet arthropathy, (units (unknown) date) lumbar unknown) (unknown) (no (unknown) (unknown) Family History (units (unknown) date) (Reviewed 11/25/21 @ unknown) 16:07 by ALANNAH Hopper) (unknown) (no (unknown) (unknown) Family history of (units (unknown) date) celiac disease unknown) (unknown) (no (unknown) (unknown) Father (units (unknown) date) Non-Hodgkin lymphoma unknown) (unknown) (no (unknown) (unknown) Foot pain (-2005) (units (unknown) date) unknown) (unknown) (no (unknown) (unknown) GI: Abdomen soft, (units (unknown) date) nontender unknown) (unknown) (no (unknown) (unknown) GI: denies (units (unk nown) date) abdominal pain, unknown) nausea, vomiting, or diarrhea (unknown) (no (unknown) (unknown) : denies dysuria, (unit s (unknown) date) hematuria unknown) (unknown) (no (unknown) (unknown) General: Awake, (units (unknown) date) alert, nontoxic, no unknown) cardiorespiratory distress (unknown) (no (unknown) (unknown) Grandfather (units (un known) date) unknown) Diverticulitis (unknown) (no (unknown) (unknown) Grandmother (units (un known) date) Diabetes unknown) mellitus (unknown) (no (unknown) (unknown) Grandmother (units (un known) date) Heart unknown) disease (unknown) (no (unknown) (unknown) HNP (herniated (units (unknown) date) nucleus pulposus), unknown) thoracic (unknown) (no (unknown) (unknown) HPI (units (unkno wn) date) unknown) (unknown) (no (unknown) (unknown) Head/Neck: (units (unk nown) date) Atraumatic, neck unknown) full range of motion (unknown) (no (unknown) (unknown) Head/Neck: denies (units (unknown) date) headache, neck pain unknown) (unknown) (no (unknown) (unknown) Herpes (-1975) (units (unknown) date) unknown) (unknown) (no (unknown) (unknown) History of knee (units (unknown) date) replacement unknown) (unknown) (no (unknown) (unknown) IMPRESSION:? No (units (unknown) date) acute left foot unknown) fracture or dislocation.? Forefoot joint (unknown) (no (unknown) (unknown) INDICATIONS:? left (units (unknown) date) foot pain unknown) (unknown) (no (unknown) (unknown) Intake (units (unkno wn) date) unknown) (unknown) (no (unknown) (unknown) Intake Note: (units (u nknown) date) unknown) (unknown) (no (unknown) (unknown) Last Menstural (units (unknown) date) Cycle + Details unknown) (unknown) (no (unknown) (unknown) Loc: [facility] (units (unkno wn) date) unknown) (unknown) (no (unknown) (unknown) Lumbar spine pain (units (unknown) date) () unknown) (unknown) (no (unknown) (unknown) MSG Allergy (units (un known) date) (Severe, Uncoded unknown) 10/15/21 08:09) (unknown) (no (unknown) (unknown) MSK: Moves all (units (unknown) date) extremities, unknown) neurovascularly intact, mild edema along lateral (unknown) (no (unknown) (unknown) MSK: denies joint (units (unknown) date) pain, muscle unknown) weakness , endorses left foot and ankle pain with (unknown) (no (unknown) (unknown) Measles (units (unkno wn) date) unknown) (unknown) (no (unknown) (unknown) Medical History (units (unknown) date) (Reviewed 11/25/21 @ unknown) 16:07 by Merle Batista [facility]) (unknown) (no (unknown) (unknown) Migraine headache (units (unknown) date) unknown) (unknown) (no (unknown) (unknown) Mother (units (unknown) date) Ovarian cancer unknown) (unknown) (no (unknown) (unknown) Mouth/Throat: moist (unit s (unknown) date) mucus membranes, no unknown) oral lesions (unknown) (no (unknown) (unknown) Neuro: Normal (units (unknown) date) speech and unknown) cognition, normal gait (unknown) (no (unknown) (unknown) Neuro: denies (units ( unknown) date) numbness, tingling unknown) (unknown) (no (unknown) (unknown) New (units (unkno wn) date) unknown) (unknown) (no (unknown) (unknown) Nose: nares patent, (unit s (unknown) date) no rhinorrhea unknown) (unknown) (no (unknown) (unknown) Objective Data (units (unknown) date) unknown) (unknown) (no (unknown) (unknown) Objective Data: (units (unknown) date) unknown) (unknown) (no (unknown) (unknown) Orders (units (unkno wn) date) unknown) (unknown) (no (unknown) (unknown) Orthopedics. (units (u nknown) date) Patient is unknown) appropriate and amenable to discharge home. Vital (unknown) (no (unknown) (unknown) Osteoarthritis (units (unknown) date) unknown) (unknown) (no (unknown) (unknown) Other Menstrual (units (unknown) date) Period: Surgical unknown) Menopause (unknown) (no (unknown) (unknown) Oxygen Delivery (units (unknown) date) Method room air unknown) (unknown) (no (unknown) (unknown) PERSERVATIVES (units ( unknown) date) Allergy (Severe, unknown) Uncoded 10/15/21 08:09) (unknown) (no (unknown) (unknown) PFSH (units (unkno wn) date) unknown) (unknown) (no (unknown) (unknown) PROCEDURE:? XR FOOT (unit s (unknown) date) LT MIN 3V unknown) (unknown) (no (unknown) (unknown) Patient states that (unit s (unknown) date) she has been trying unknown) to not bear weight on her foot because (unknown) (no (unknown) (unknown) Patient: Armando (units (unknown) date) Angela Conley unknown) M (unknown) (no (unknown) (unknown) Penicillins Allergy (unit s (unknown) date) (Mild, Verified unknown) 10/15/21 08:09) (unknown) (no (unknown) (unknown) Plan (units (unkno wn) date) unknown) (unknown) (no (unknown) (unknown) Position Sitting (unit s (unknown) date) unknown) (unknown) (no (unknown) (unknown) Posterior vitreous (units (unknown) date) detachment () unknown) (unknown) (no (unknown) (unknown) Pulse 74 (units (un known) date) unknown) (unknown) (no (unknown) (unknown) Pulse Oximetry (%) (units (unknown) date) 98 unknown) (unknown) (no (unknown) (unknown) Pulse Source (units (u nknown) date) Monitor unknown) (unknown) (no (unknown) (unknown) R#: [id number] (units (unknown) date) unknown) (unknown) (no (unknown) (unknown) ROS (units (unkno wn) date) unknown) (unknown) (no (unknown) (unknown) ROS Narrative (units ( unknown) date) unknown) (unknown) (no (unknown) (unknown) ROS Narrative: (units (unknown) date) unknown) (unknown) (no (unknown) (unknown) Reason For Visit (units (unknown) date) unknown) (unknown) (no (unknown) (unknown) Referral Podiatry (units (unknown) date) M20.5X2 - Other unknown) deformities of toe(s) (acquired), left foot (unknown) (no (unknown) (unknown) Referral Podiatry (units (unknown) date) S99.919A - unknown) Unspecified injury of unspecified ankle, initial (unknown) (no (unknown) (unknown) Referrals (units (unkn own) date) unknown) (unknown) (no (unknown) (unknown) Respiratory: denies (unit s (unknown) date) shortness of breath, unknown) cough (unknown) (no (unknown) (unknown) Respiratory: (units (u nknown) date) respirations unknown) unlabored without wheezing, stridor, or rales. No (unknown) (no (unknown) (unknown) Scoliosis (-2000) (units (unknown) date) unknown) (unknown) (no (unknown) (unknown) Signed By: (units (unk nown) date) <Electronically unknown) signed by Mrele Batista> (unknown) (no (unknown) (unknown) Skin: Normal (units ( unknown) date) capillary refill, no unknown) rash (unknown) (no (unknown) (unknown) Skin: denies rash, (units (unknown) date) itching unknown) (unknown) (no (unknown) (unknown) Smoking Status: (units (unknown) date) Never smoker unknown) (unknown) (no (unknown) (unknown) Soft tissues:? No (units (unknown) date) tibiotalar joint unknown) effusion.? Achilles tendon appears normal.? (unknown) (no (unknown) (unknown) Sulfa (Sulfonamide (units (unknown) date) Antibiotics) Allergy unknown) (Mild, Verified 10/15/21 08:09) (unknown) (no (unknown) (unknown) Surgical History (units (unknown) date) (Reviewed 11/25/21 @ unknown) 16:07 by ALANNAH Hopper) (unknown) (no (unknown) (unknown) TECHNIQUE:? 3 views (unit s (unknown) date) of the foot were unknown) acquired.? (unknown) (no (unknown) (unknown) TUNA Allergy (units (u nknown) date) (Intermediate, unknown) Uncoded 10/15/21 08:09) (unknown) (no (unknown) (unknown) This is a 66 year (units (unknown) date) old female who unknown) presents to the [facility] complaining of left foot (unknown) (no (unknown) (unknown) This note may have (units (unknown) date) been all or unknown) partially generated using voice recognition (unknown) (no (unknown) (unknown) Thoracic (units (unkno wn) date) radiculitis unknown) (unknown) (no (unknown) (unknown) Tobacco + Substance (unit s (unknown) date) Use unknown) (unknown) (no (unknown) (unknown) Tobacco Status (units (unknown) date) unknown) (unknown) (no (unknown) (unknown) Vertical (units (unkno wn) date) heterophoria unknown) (unknown) (no (unknown) (unknown) Visit Reasons: Left (unit s (unknown) date) ankle injury unknown) (unknown) (no (unknown) (unknown) Vitals (units (unkno wn) date) unknown) (unknown) (no (unknown) (unknown) Weight 91.626 kg (unit s (unknown) date) unknown) (unknown) (no (unknown) (unknown) XR ankle LT min 3V (units (unknown) date) Today M25.572 - Pain unknown) in left ankle and joints of left foot (unknown) (no (unknown) (unknown) XR foot LT min 3V (units (unknown) date) Today M79.672 - Pain unknown) in left foot (unknown) (no (unknown) (unknown) a week ago monday (units (unknown) date) when going into work unknown) pt rolled ankle (unknown) (no (unknown) (unknown) adhesive Allergy (units (unknown) date) (Intermediate, unknown) Verified 10/15/21 08:09) (unknown) (no (unknown) (unknown) and is concerning (units (unknown) date) for hallux limitus. unknown) patient was given a prescription for (unknown) (no (unknown) (unknown) ankle has been very (unit s (unknown) date) tender, pain is unknown) sticking around (unknown) (no (unknown) (unknown) any new or (units (unk nown) date) worsening symptoms. unknown) Patient understands to follow up closely with (unknown) (no (unknown) (unknown) are noted (units (unkn own) date) unknown) (unknown) (no (unknown) (unknown) aspect of midfoot, (units (unknown) date) tenderness over ATFL unknown) and CFL, no plantar ecchymosis, (unknown) (no (unknown) (unknown) benzoyl peroxide (units (unknown) date) Allergy (Mild, unknown) Verified 10/15/21 08:09) (unknown) (no (unknown) (unknown) capillary refill <2 (unit s (unknown) date) seconds, PT and DP unknown) pulses 2+, full ROM intact with only (unknown) (no (unknown) (unknown) celecoxib Allergy (units (unknown) date) (Mild, Verified unknown) 10/15/21 08:09) (unknown) (no (unknown) (unknown) diabetes, denies (units (unknown) date) any open wound. unknown) (unknown) (no (unknown) (unknown) diclofenac sodium (units (unknown) date) 1% unknown) (unknown) (no (unknown) (unknown) diclofenac sodium (units (unknown) date) topical gel, and a unknown) referral to Podiatry was placed for concern (unknown) (no (unknown) (unknown) diflunisal Allergy (units (unknown) date) (Mild, Verified unknown) 10/15/21 08:09) (unknown) (no (unknown) (unknown) discharge home. (units (unknown) date) All questions and unknown) concerns answered at this time. (unknown) (no (unknown) (unknown) dorsal (units (unkno wn) date) unknown) (unknown) (no (unknown) (unknown) encounter, S99.929A (unit s (unknown) date) - Unspecified injury unknown) of unspecified foot, initial encounter (unknown) (no (unknown) (unknown) hand 2 grams (units (u nknown) date) topical QID 100 unknown) grams 0RF (unknown) (no (unknown) (unknown) have occurred. If (units (unknown) date) there are any unknown) questions, please contact the Medical Records (unknown) (no (unknown) (unknown) her ankle (units (unkn own) date) unknown) (unknown) (no (unknown) (unknown) informed of results. (unit s (unknown) date) Patient has been unknown) given strict return to ER precautions for (unknown) (no (unknown) (unknown) instructed to ice, (unit s (unknown) date) elevate, not bear unknown) weight until she follows up with (unknown) (no (unknown) (unknown) iodine Allergy (units (unknown) date) (Intermediate, unknown) Verified 10/15/21 08:09) (unknown) (no (unknown) (unknown) is been painful (units (unknown) date) On the lateral unknown) aspect of her foot. She denies history of (unknown) (no (unknown) (unknown) it is painful. (units (unknown) date) she endorses the unknown) arch of her foot is quite painful, she has (unknown) (no (unknown) (unknown) limitation of pain. (unit s (unknown) date) unknown) (unknown) (no (unknown) (unknown) marginal osteophyte (unit s (unknown) date) formation.? No unknown) suspicious bony lesions.? (unknown) (no (unknown) (unknown) may occur. (units (unk nown) date) Occasional unknown) wrong-word or 'sound-alike' substitutions may have (unknown) (no (unknown) (unknown) mentions forefoot (units (unknown) date) joint osteoarthritis unknown) is most prominent involving 1st MTP joint (unknown) (no (unknown) (unknown) mild edema in her (units (unknown) date) left foot, she unknown) states that she is able to bear weight but it (unknown) (no (unknown) (unknown) most prominent (units (unknown) date) involving 1st MTP unknown) joint concerning for hallux limitus. (unknown) (no (unknown) (unknown) movement, most of (units (unknown) date) the pain is in the unknown) arch of her foot, and the lateral aspect of (unknown) (no (unknown) (unknown) naproxen Allergy (units (unknown) date) (Mild, Verified unknown) 10/15/21 08:09) (unknown) (no (unknown) (unknown) occurred due to the (unit s (unknown) date) inherent limitations unknown) of voice recognition software. Please (unknown) (no (unknown) (unknown) of hallux limitus. (units (unknown) date) Patient was fitted unknown) in a walking boot, given crutches, (unknown) (no (unknown) (unknown) of left foot does (units (unknown) date) not show any acute unknown) fracture or dislocation. Radiologist (unknown) (no (unknown) (unknown) osteoarthritis (units (unknown) date) unknown) (unknown) (no (unknown) (unknown) outpatient (units (unk nown) date) providers as unknown) instructed. Patient understands plan and agrees to (unknown) (no (unknown) (unknown) over the dorsom of (units (unknown) date) her midfoot, mild unknown) tenderness over proximal 5th metatarsal. XR (unknown) (no (unknown) (unknown) pain for (units (unkno wn) date) approximately 1 week unknown) since she rolled her ankle. She has tenderness (unknown) (no (unknown) (unknown) pain which has been (unit s (unknown) date) worsening for unknown) approximately 1 week since she rolled it. (unknown) (no (unknown) (unknown) pt is ambulatory, (units (unknown) date) pt states a lot of unknown) pain is in the ankle region (unknown) (no (unknown) (unknown) pt is here for left (unit s (unknown) date) ankle pain unknown) (unknown) (no (unknown) (unknown) read the note (units ( unknown) date) carefully and unknown) recognize, using context, where these substitutions (unknown) (no (unknown) (unknown) retractions. (units (u nknown) date) unknown) (unknown) (no (unknown) (unknown) signs are stable on (unit s (unknown) date) repeat examination unknown) is unremarkable. Patient has been (unknown) (no (unknown) (unknown) slight tenderness (units (unknown) date) to touch, normal ROM unknown) (unknown) (no (unknown) (unknown) software. Although (units (unknown) date) every effort is made unknown) to edit content, compliance analyst errors (unknown) (no (unknown) (unknown) throughout forefoot (units (unknown) date) joints most unknown) prominent involving 1st MTP joint with prominent Result panel 7 (unknown) (no (unknown) (unknown) (no value) (units (unk nown) date) unknown) (unknown) (no (unknown) (unknown) 'I GET A (units (unkno wn) date) MIGRAINE' unknown) (unknown) (no (unknown) (unknown) [place], [place] (units ( unknown) date) [id number] unknown) (unknown) (no (unknown) (unknown) Blister (units (unkno wn) date) unknown) (unknown) (no (unknown) (unknown) Cancer (units (unkno wn) date) unknown) (unknown) (no (unknown) (unknown) Diabetes (units (unkno wn) date) mellitus unknown) (unknown) (no (unknown) (unknown) Draft (units (unkno wn) date) unknown) (unknown) (no (unknown) (unknown) EYE EDEMA, LIGHT (units (unknown) date) SENSITIVITY unknown) (unknown) (no (unknown) (unknown) [facility]) (unknown) (no (unknown) (unknown) HIVES (units (unkno wn) date) unknown) (unknown) (no (unknown) (unknown) Hives (units (unkno wn) date) unknown) (unknown) (no (unknown) (unknown) Hypertension (units (u nknown) date) unknown) (unknown) (no (unknown) (unknown) Internal (units (unkno wn) date) Medicine Office unknown) Visit (unknown) (no (unknown) (unknown) Mental health (units ( unknown) date) problem unknown) (unknown) (no (unknown) (unknown) Stroke (units (unkno wn) date) unknown) (unknown) (no (unknown) (unknown) inner tissue (units (u nknown) date) lining shedding unknown) of cervix (unknown) (no (unknown) (unknown) itching (units (unkno wn) date) unknown) (unknown) (no (unknown) (unknown) nausea vomiting (units (unknown) date) unknown) (unknown) (no (unknown) (unknown) (no value) (units (unk nown) date) unknown) (unknown) (no (unknown) (unknown) 11/26/21 (units (unkno wn) date) unknown) (unknown) (no (unknown) (unknown) Abnormal Pap (units (u nknown) date) smear of cervix unknown) () (unknown) (no (unknown) (unknown) Acne (units (unkno wn) date) unknown) (unknown) (no (unknown) (unknown) Age/Sex: 66 / F (units (unknown) date) Date of unknown) Service: (unknown) (no (unknown) (unknown) Allergies (units (unkn own) date) unknown) (unknown) (no (unknown) (unknown) Anesthesia (units (unk nown) date) unknown) (unknown) (no (unknown) (unknown) Attending Dr: (units ( unknown) date) Moshe Ramirez MD unknown) (unknown) (no (unknown) (unknown) Brother (units (unkno wn) date) Hypertension unknown) (unknown) (no (unknown) (unknown) Cervical cancer (units (unknown) date) () unknown) (unknown) (no (unknown) (unknown) Cervical (units (unkno wn) date) radiculopathy at unknown) C6 (unknown) (no (unknown) (unknown) Cervical (units (unkno wn) date) stenosis of unknown) spinal canal () (unknown) (no (unknown) (unknown) Chicken pox (units (un known) date) unknown) (unknown) (no (unknown) (unknown) Chronic back (units (u nknown) date) pain unknown) (unknown) (no (unknown) (unknown) Cubital tunnel (units (unknown) date) syndrome () unknown) (unknown) (no (unknown) (unknown) : 1955 (units (unknown) date) Acct:[id number] unknown) (unknown) (no (unknown) (unknown) Dept at (units (unkno wn) date) . unknown) (unknown) (no (unknown) (unknown) Documented By: (units (unknown) date) Moshe Ramirez MD unknown) 12/23/21 0755 (unknown) (no (unknown) (unknown) Eczema (units (unkno wn) date) unknown) (unknown) (no (unknown) (unknown) Facet (units (unkno wn) date) arthropathy, unknown) lumbar (unknown) (no (unknown) (unknown) Family History (units (unknown) date) (Reviewed unknown) 11/25/21 @ 16:07 by Merle Batista [facility]) (unknown) (no (unknown) (unknown) Family history (units (unknown) date) of celiac disease unknown) (unknown) (no (unknown) (unknown) Father (units (unkno wn) date) unknown) Non-Hodgkin lymphoma (unknown) (no (unknown) (unknown) Foot pain (units (unkn own) date) (-2005) unknown) (unknown) (no (unknown) (unknown) Grandfather (units (un known) date) unknown) Diverticulitis (unknown) (no (unknown) (unknown) Grandmother (units (un known) date) unknown) Diabetes mellitus (unknown) (no (unknown) (unknown) Grandmother (units (un known) date) Heart unknown) disease (unknown) (no (unknown) (unknown) HNP (herniated (units (unknown) date) nucleus unknown) pulposus), thoracic (unknown) (no (unknown) (unknown) Herpes (-1975) (units (unknown) date) unknown) (unknown) (no (unknown) (unknown) History of knee (units (unknown) date) replacement unknown) (unknown) (no (unknown) (unknown) Intake (units (unkno wn) date) unknown) (unknown) (no (unknown) (unknown) Intake Note: (units (u nknown) date) unknown) (unknown) (no (unknown) (unknown) Last Menstural (units (unknown) date) Cycle + Details unknown) (unknown) (no (unknown) (unknown) Loc: [facility] (units (unkno wn) date) unknown) (unknown) (no (unknown) (unknown) Lumbar spine (units (u nknown) date) pain (-2008) unknown) (unknown) (no (unknown) (unknown) MSG Allergy (units (un known) date) (Severe, Uncoded unknown) 10/15/21 08:09) (unknown) (no (unknown) (unknown) Measles (units (unkno wn) date) unknown) (unknown) (no (unknown) (unknown) Medical History (units (unknown) date) (Reviewed unknown) 11/25/21 @ 16:07 by Merle Batista [facility]) (unknown) (no (unknown) (unknown) Migraine (units (unkno wn) date) headache unknown) (unknown) (no (unknown) (unknown) Mother (units (unkno wn) date) unknown) Ovarian cancer (unknown) (no (unknown) (unknown) Osteoarthritis (units (unknown) date) unknown) (unknown) (no (unknown) (unknown) Other Menstrual (units (unknown) date) Period: Surgical unknown) Menopause (unknown) (no (unknown) (unknown) PERSERVATIVES (units ( unknown) date) Allergy (Severe, unknown) Uncoded 10/15/21 08:09) (unknown) (no (unknown) (unknown) PFSH (units (unkno wn) date) unknown) (unknown) (no (unknown) (unknown) Patient: Armando (units (unknown) date) Alexandra Conleyhleen unknown) M (unknown) (no (unknown) (unknown) Penicillins (units (un known) date) Allergy (Mild, unknown) Verified 10/15/21 08:09) (unknown) (no (unknown) (unknown) Posterior (units (unkn own) date) vitreous unknown) detachment () (unknown) (no (unknown) (unknown) R#: [id number] (units (unknown) date) unknown) (unknown) (no (unknown) (unknown) Reason For Visit (units (unknown) date) unknown) (unknown) (no (unknown) (unknown) Scoliosis (units (unkn own) date) () unknown) (unknown) (no (unknown) (unknown) Signed By: (units (unk nown) date) unknown) (unknown) (no (unknown) (unknown) Smoking Status: (units (unknown) date) Never smoker unknown) (unknown) (no (unknown) (unknown) Sulfa (units (unkno wn) date) (Sulfonamide unknown) Antibiotics) Allergy (Mild, Verified 10/15/21 08:09) (unknown) (no (unknown) (unknown) Surgical History (units (unknown) date) (Reviewed unknown) 11/25/21 @ 16:07 by Merle Batista [facility]) (unknown) (no (unknown) (unknown) TUNA Allergy (units (u nknown) date) (Intermediate, unknown) Uncoded 10/15/21 08:09) (unknown) (no (unknown) (unknown) This note may (units ( unknown) date) have been all or unknown) partially generated using voice recognition (unknown) (no (unknown) (unknown) Thoracic (units (unkno wn) date) radiculitis unknown) (unknown) (no (unknown) (unknown) Tobacco + (units (unkn own) date) Substance Use unknown) (unknown) (no (unknown) (unknown) Tobacco Status (units (unknown) date) unknown) (unknown) (no (unknown) (unknown) Vertical (units (unkno wn) date) heterophoria unknown) (unknown) (no (unknown) (unknown) Visit Reasons: (units (unknown) date) Medication unknown) review/ Blood pressure (unknown) (no (unknown) (unknown) adhesive Allergy (units (unknown) date) (Intermediate, unknown) Verified 10/15/21 08:09) (unknown) (no (unknown) (unknown) benzoyl peroxide (units (unknown) date) Allergy (Mild, unknown) Verified 10/15/21 08:09) (unknown) (no (unknown) (unknown) celecoxib (units (unkn own) date) Allergy (Mild, unknown) Verified 10/15/21 08:09) (unknown) (no (unknown) (unknown) dexa (units (unkno wn) date) unknown) (unknown) (no (unknown) (unknown) diflunisal (units (unk nown) date) Allergy (Mild, unknown) Verified 10/15/21 08:09) (unknown) (no (unknown) (unknown) f/u bp (units (unkno wn) date) unknown) (unknown) (no (unknown) (unknown) f/u meds (units (unkno wn) date) unknown) (unknown) (no (unknown) (unknown) have occurred. (units (unknown) date) If there are any unknown) questions, please contact the Medical Records (unknown) (no (unknown) (unknown) iodine Allergy (units (unknown) date) (Intermediate, unknown) Verified 10/15/21 08:09) (unknown) (no (unknown) (unknown) may occur. (units (unk nown) date) Occasional unknown) wrong-word or 'sound-alike' substitutions may have (unknown) (no (unknown) (unknown) naproxen Allergy (units (unknown) date) (Mild, Verified unknown) 10/15/21 08:09) (unknown) (no (unknown) (unknown) occurred due to (units (unknown) date) the inherent unknown) limitations of voice recognition software. Please (unknown) (no (unknown) (unknown) read the note (units ( unknown) date) carefully and unknown) recognize, using context, where these substitutions (unknown) (no (unknown) (unknown) software. (units (unkn own) date) Although every unknown) effort is made to edit content, compliance analyst errors Result panel 8 (unknown) (no (unknown) (unknown) (no value) (units (unk nown) date) unknown) (unknown) (no (unknown) (unknown) (no value) (units (unk nown) date) unknown) (unknown) (no (unknown) (unknown) 'I GET A (units (unkno wn) date) MIGRAINE' unknown) (unknown) (no (unknown) (unknown) 12/23/21 (units (unkno wn) date) unknown) (unknown) (no (unknown) (unknown) 12:52 (units (unkno wn) date) unknown) (unknown) (no (unknown) (unknown) [place], [place] (units ( unknown) date) [id number] unknown) (unknown) (no (unknown) (unknown) Blister (units (unkno wn) date) unknown) (unknown) (no (unknown) (unknown) Cancer (units (unkno wn) date) unknown) (unknown) (no (unknown) (unknown) Diabetes mellitus (units (unknown) date) unknown) (unknown) (no (unknown) (unknown) Draft (units (unkno wn) date) unknown) (unknown) (no (unknown) (unknown) EYE EDEMA, LIGHT (units (unknown) date) SENSITIVITY unknown) (unknown) (no (unknown) (unknown) [facility]) (unknown) (no (unknown) (unknown) HIVES (units (unkno wn) date) unknown) (unknown) (no (unknown) (unknown) Hives (units (unkno wn) date) unknown) (unknown) (no (unknown) (unknown) Hypertension (units (u nknown) date) unknown) (unknown) (no (unknown) (unknown) Internal Medicine (units (unknown) date) Office Visit unknown) (unknown) (no (unknown) (unknown) Mental health (units ( unknown) date) problem unknown) (unknown) (no (unknown) (unknown) Stroke (units (unkno wn) date) unknown) (unknown) (no (unknown) (unknown) inner tissue (units (u nknown) date) lining shedding of unknown) cervix (unknown) (no (unknown) (unknown) itching (units (unkno wn) date) unknown) (unknown) (no (unknown) (unknown) nausea vomiting (units (unknown) date) unknown) (unknown) (no (unknown) (unknown) (no value) (units (unk nown) date) unknown) (unknown) (no (unknown) (unknown) 12/23/21 (units (unkno wn) date) unknown) (unknown) (no (unknown) (unknown) 12/23/21] (units (unkn own) date) unknown) (unknown) (no (unknown) (unknown) 02/15/18 [History (units (unknown) date) Confirmed unknown) 12/23/21] (unknown) (no (unknown) (unknown) Abnormal Pap (units (u nknown) date) smear of cervix unknown) (-1992) (unknown) (no (unknown) (unknown) Accompanied by: (units (unknown) date) Self / Same As unknown) Patient (unknown) (no (unknown) (unknown) Acne (units (unkno wn) date) unknown) (unknown) (no (unknown) (unknown) Age/Sex: 66 / F (units (unknown) date) Date of Service: unknown) (unknown) (no (unknown) (unknown) Allergies (units (unkn own) date) unknown) (unknown) (no (unknown) (unknown) Anesthesia (units (unk nown) date) unknown) (unknown) (no (unknown) (unknown) Attending Dr: (units ( unknown) date) Moshe Ramirez MD unknown) (unknown) (no (unknown) (unknown) BMI 35.2 (units (un known) date) unknown) (unknown) (no (unknown) (unknown) BP 130/80 (units (u nknown) date) unknown) (unknown) (no (unknown) (unknown) Blood Pressure (units (unknown) date) Location Lt unknown) brachial (unknown) (no (unknown) (unknown) Brother (units (unkno wn) date) Hypertension unknown) (unknown) (no (unknown) (unknown) Cervical cancer (units (unknown) date) () unknown) (unknown) (no (unknown) (unknown) Cervical (units (unkno wn) date) radiculopathy at unknown) C6 (unknown) (no (unknown) (unknown) Cervical stenosis (units (unknown) date) of spinal canal unknown) () (unknown) (no (unknown) (unknown) Chicken pox (units (un known) date) unknown) (unknown) (no (unknown) (unknown) Chronic back pain (units (unknown) date) unknown) (unknown) (no (unknown) (unknown) Confirmed (units (unkn own) date) 12/23/21] unknown) (unknown) (no (unknown) (unknown) Cubital tunnel (units (unknown) date) syndrome () unknown) (unknown) (no (unknown) (unknown) DAILY #16 g (units (un known) date) 06/02/21 [Rx unknown) Confirmed 12/23/21] (unknown) (no (unknown) (unknown) : 1955 (units (unknown) date) Acct:[id number] unknown) (unknown) (no (unknown) (unknown) Dept at (units (unkno wn) date) . unknown) (unknown) (no (unknown) (unknown) Documented By: (units (unknown) date) Moshe Ramirez MD unknown) 12/23/21 0755 (unknown) (no (unknown) (unknown) Eczema (units (unkno wn) date) unknown) (unknown) (no (unknown) (unknown) Facet (units (unkno wn) date) arthropathy, unknown) lumbar (unknown) (no (unknown) (unknown) Family History (units (unknown) date) (Reviewed 11/25/21 unknown) @ 16:07 by Merle Batista [facility]) (unknown) (no (unknown) (unknown) Family history of (units (unknown) date) celiac disease unknown) (unknown) (no (unknown) (unknown) Father (units (unknown) date) Non-Hodgkin unknown) lymphoma (unknown) (no (unknown) (unknown) Foot pain (-2005) (units (unknown) date) unknown) (unknown) (no (unknown) (unknown) Grandfather (units (un known) date) unknown) Diverticulitis (unknown) (no (unknown) (unknown) Grandmother (units (un known) date) unknown) Diabetes mellitus (unknown) (no (unknown) (unknown) Grandmother (units (un known) date) Heart unknown) disease (unknown) (no (unknown) (unknown) HNP (herniated (units (unknown) date) nucleus pulposus), unknown) thoracic (unknown) (no (unknown) (unknown) Health Management (units (unknown) date) unknown) (unknown) (no (unknown) (unknown) Health Management (units (unknown) date) reviewed with unknown) patient: Yes (unknown) (no (unknown) (unknown) Height 5 ft 3 (units (unknown) date) in unknown) (unknown) (no (unknown) (unknown) Herpes () (units (unknown) date) unknown) (unknown) (no (unknown) (unknown) History of knee (units (unknown) date) replacement unknown) (unknown) (no (unknown) (unknown) Intake (units (unkno wn) date) unknown) (unknown) (no (unknown) (unknown) Intake Note: (units (u nknown) date) unknown) (unknown) (no (unknown) (unknown) Intake performed (units (unknown) date) by: Dang Coreas unknown) (unknown) (no (unknown) (unknown) Intake- Clincial (units (unknown) date) Staff unknown) (unknown) (no (unknown) (unknown) Last Menstural (units (unknown) date) Cycle + Details unknown) (unknown) (no (unknown) (unknown) Loc: [facility] (units (unkno wn) date) unknown) (unknown) (no (unknown) (unknown) Lumbar spine pain (units (unknown) date) (-2008) unknown) (unknown) (no (unknown) (unknown) MSG Allergy (units (un known) date) (Severe, Uncoded unknown) 12/23/21 12:51) (unknown) (no (unknown) (unknown) Measles (units (unkno wn) date) unknown) (unknown) (no (unknown) (unknown) Medical History (units (unknown) date) (Reviewed 11/25/21 unknown) @ 16:07 by ALANNAH Hopper) (unknown) (no (unknown) (unknown) Medications (units (un known) date) unknown) (unknown) (no (unknown) (unknown) Migraine headache (units (unknown) date) unknown) (unknown) (no (unknown) (unknown) Mother (units (unknown) date) Ovarian cancer unknown) (unknown) (no (unknown) (unknown) Osteoarthritis (units (unknown) date) unknown) (unknown) (no (unknown) (unknown) Other Menstrual (units (unknown) date) Period: Surgical unknown) Menopause (unknown) (no (unknown) (unknown) Oxygen Delivery (units (unknown) date) Method room air unknown) (unknown) (no (unknown) (unknown) PERSERVATIVES (units ( unknown) date) Allergy (Severe, unknown) Uncoded 12/23/21 12:51) (unknown) (no (unknown) (unknown) PFSH (units (unkno wn) date) unknown) (unknown) (no (unknown) (unknown) Patient: [place] (units (unknown) date) JarvisAlexandraAngela unknown) M (unknown) (no (unknown) (unknown) Penicillins (units (un known) date) Allergy (Mild, unknown) Verified 12/23/21 12:51) (unknown) (no (unknown) (unknown) Position (units (unkno wn) date) Sitting unknown) (unknown) (no (unknown) (unknown) Posterior (units (unkn own) date) vitreous unknown) detachment () (unknown) (no (unknown) (unknown) Pulse 66 (units (un known) date) unknown) (unknown) (no (unknown) (unknown) Pulse Oximetry (units (unknown) date) (%) 96 unknown) (unknown) (no (unknown) (unknown) Pulse Source (units (u nknown) date) Monitor unknown) (unknown) (no (unknown) (unknown) R#: [id number] (units (unknown) date) unknown) (unknown) (no (unknown) (unknown) Reason For Visit (units (unknown) date) unknown) (unknown) (no (unknown) (unknown) Scoliosis (-1999) (units (unknown) date) unknown) (unknown) (no (unknown) (unknown) Signed By: (units (unk nown) date) unknown) (unknown) (no (unknown) (unknown) Smoking Status: (units (unknown) date) Never smoker unknown) (unknown) (no (unknown) (unknown) Sulfa (units (unkno wn) date) (Sulfonamide unknown) Antibiotics) Allergy (Mild, Verified 12/23/21 12:51) (unknown) (no (unknown) (unknown) Surgical History (units (unknown) date) (Reviewed 11/25/21 unknown) @ 16:07 by Merle Batista [facility]) (unknown) (no (unknown) (unknown) TUNA Allergy (units (u nknown) date) (Intermediate, unknown) Uncoded 12/23/21 12:51) (unknown) (no (unknown) (unknown) This note may (units ( unknown) date) have been all or unknown) partially generated using voice recognition (unknown) (no (unknown) (unknown) Thoracic (units (unkno wn) date) radiculitis unknown) (unknown) (no (unknown) (unknown) Tobacco + (units (unkn own) date) Substance Use unknown) (unknown) (no (unknown) (unknown) Tobacco Status (units (unknown) date) unknown) (unknown) (no (unknown) (unknown) Vertical (units (unkno wn) date) heterophoria unknown) (unknown) (no (unknown) (unknown) Visit Reasons: (units (unknown) date) Medication review/ unknown) Blood pressure (unknown) (no (unknown) (unknown) Vitals (units (unkno wn) date) unknown) (unknown) (no (unknown) (unknown) Weight 199 lb (units (unknown) date) 3 oz unknown) (unknown) (no (unknown) (unknown) acetaminophen 325 (units (unknown) date) mg capsule unknown) (Tylenol) 650 mg PO Q6H PRN 08/18/20 [History (unknown) (no (unknown) (unknown) adhesive Allergy (units (unknown) date) (Intermediate, unknown) Verified 12/23/21 12:51) (unknown) (no (unknown) (unknown) albuterol sulfate (units (unknown) date) 90 mcg/actuation unknown) aerosol inhaler 1 puff INHALATION Q6H (unknown) (no (unknown) (unknown) amitriptyline 25 (units (unknown) date) mg tablet 25 mg PO unknown) BEDTIME #90 tab 05/23/21 [Rx Confirmed (unknown) (no (unknown) (unknown) benzoyl peroxide (units (unknown) date) Allergy (Mild, unknown) Verified 12/23/21 12:51) (unknown) (no (unknown) (unknown) calcium citrate (units (unknown) date) 200 mg (950 mg) unknown) tablet 400 mg PO DAILY tab 02/15/18 [History (unknown) (no (unknown) (unknown) celecoxib Allergy (units (unknown) date) (Mild, Verified unknown) 12/23/21 12:51) (unknown) (no (unknown) (unknown) chlorthalidone 25 (units (unknown) date) mg tablet 25 mg PO unknown) DAILY #90 tab 12/02/21 [Rx Confirmed (unknown) (no (unknown) (unknown) clobetasol TOP (units (unknown) date) QWEEK PRN 07/24/19 unknown) [History Confirmed 12/23/21] (unknown) (no (unknown) (unknown) clonidine HCl 0.2 (units (unknown) date) mg tablet 0.2 mg unknown) PO TID PRN #20 tab 11/04/21 [Rx Confirmed (unknown) (no (unknown) (unknown) cyclobenzaprine (units (unknown) date) 10 mg tablet 10 mg unknown) PO Q8H #60 tab 05/20/21 [Rx Confirmed (unknown) (no (unknown) (unknown) dexa- will order (units (unknown) date) unknown) (unknown) (no (unknown) (unknown) diazepam 5 mg (units ( unknown) date) tablet (Valium) 10 unknown) mg PO BID PRN 05/27/21 [History Confirmed (unknown) (no (unknown) (unknown) diflunisal (units (unk nown) date) Allergy (Mild, unknown) Verified 12/23/21 12:51) (unknown) (no (unknown) (unknown) f/u bp (units (unkno wn) date) unknown) (unknown) (no (unknown) (unknown) f/u meds (units (unkno wn) date) unknown) (unknown) (no (unknown) (unknown) fluticasone (units (un known) date) propionate 50 unknown) mcg/actuation nasal spray,suspension 1 spray NASAL (unknown) (no (unknown) (unknown) gabapentin 600 mg (units (unknown) date) tablet 600 mg PO unknown) BID #180 tab 10/12/21 [Rx Confirmed 12/23/21] (unknown) (no (unknown) (unknown) have occurred. (units (unknown) date) If there are any unknown) questions, please contact the Medical Records (unknown) (no (unknown) (unknown) inhalational (units (u nknown) date) spacing device unknown) (Aerochamber Plus Z Stat) #2 ea 11/09/20 [Rx (unknown) (no (unknown) (unknown) iodine Allergy (units (unknown) date) (Intermediate, unknown) Verified 12/23/21 12:51) (unknown) (no (unknown) (unknown) may occur. (units (unk nown) date) Occasional unknown) wrong-word or 'sound-alike' substitutions may have (unknown) (no (unknown) (unknown) metoprolol (units (unk nown) date) tartrate 100 mg unknown) tablet 100 mg PO BID #180 tab 12/02/21 [Rx Confirmed (unknown) (no (unknown) (unknown) multivitamin 1 (units (unknown) date) tab PO DAILY unknown) 10/15/21 [History Confirmed 12/23/21] (unknown) (no (unknown) (unknown) naproxen Allergy (units (unknown) date) (Mild, Verified unknown) 12/23/21 12:51) (unknown) (no (unknown) (unknown) occurred due to (units (unknown) date) the inherent unknown) limitations of voice recognition software. Please (unknown) (no (unknown) (unknown) read the note (units ( unknown) date) carefully and unknown) recognize, using context, where these substitutions (unknown) (no (unknown) (unknown) software. (units (unkn own) date) Although every unknown) effort is made to edit content, compliance analyst errors (unknown) (no (unknown) (unknown) sumatriptan (units (un known) date) succinate 100 mg unknown) tablet 100 mg PO ONCE PRN #9 tab 02/03/21 [Rx Result panel 9 (unknown) (no (unknown) (unknown) (no value) (units (unk nown) date) unknown) (unknown) (no (unknown) (unknown) Orders: (units (unkno wn) date) unknown) (unknown) (no (unknown) (unknown) (no value) (units (unk nown) date) unknown) (unknown) (no (unknown) (unknown) 'I GET A (units (unkno wn) date) MIGRAINE' unknown) (unknown) (no (unknown) (unknown) 12/23/21 (units (unkno wn) date) unknown) (unknown) (no (unknown) (unknown) 12:52 (units (unkno wn) date) unknown) (unknown) (no (unknown) (unknown) [place], [place] (units ( unknown) date) [address] unknown) (unknown) (no (unknown) (unknown) Blister (units (unkno wn) date) unknown) (unknown) (no (unknown) (unknown) Cancer (units (unkno wn) date) unknown) (unknown) (no (unknown) (unknown) Diabetes mellitus (units (unknown) date) unknown) (unknown) (no (unknown) (unknown) Draft (units (unkno wn) date) unknown) (unknown) (no (unknown) (unknown) EYE EDEMA, LIGHT (units (unknown) date) SENSITIVITY unknown) (unknown) (no (unknown) (unknown) [facility] unknown) (unknown) (no (unknown) (unknown) HIVES (units (unkno wn) date) unknown) (unknown) (no (unknown) (unknown) Hives (units (unkno wn) date) unknown) (unknown) (no (unknown) (unknown) Hypertension (units (u nknown) date) unknown) (unknown) (no (unknown) (unknown) Internal Medicine (units (unknown) date) Office Visit unknown) (unknown) (no (unknown) (unknown) Mental health (units ( unknown) date) problem unknown) (unknown) (no (unknown) (unknown) Stroke (units (unkno wn) date) unknown) (unknown) (no (unknown) (unknown) inner tissue (units (u nknown) date) lining shedding of unknown) cervix (unknown) (no (unknown) (unknown) itching (units (unkno wn) date) unknown) (unknown) (no (unknown) (unknown) nausea vomiting (units (unknown) date) unknown) (unknown) (no (unknown) (unknown) (no value) (units (unk nown) date) unknown) (unknown) (no (unknown) (unknown) 12/23/21 (units (unkno wn) date) unknown) (unknown) (no (unknown) (unknown) 12/23/21] (units (unkn own) date) unknown) (unknown) (no (unknown) (unknown) 02/15/18 [History (units (unknown) date) Confirmed unknown) 12/23/21] (unknown) (no (unknown) (unknown) Abnormal Pap (units (u nknown) date) smear of cervix unknown) () (unknown) (no (unknown) (unknown) Accompanied by: (units (unknown) date) Self / Same As unknown) Patient (unknown) (no (unknown) (unknown) Acne (units (unkno wn) date) unknown) (unknown) (no (unknown) (unknown) Age/Sex: 66 / F (units (unknown) date) Date of Service: unknown) (unknown) (no (unknown) (unknown) Allergies (units (unkn own) date) unknown) (unknown) (no (unknown) (unknown) Anesthesia (units (unk nown) date) unknown) (unknown) (no (unknown) (unknown) Assessment + Plan (units (unknown) date) unknown) (unknown) (no (unknown) (unknown) Attending Dr: (units ( unknown) date) Moshe Ramirez MD unknown) (unknown) (no (unknown) (unknown) BMI 35.2 (units (un known) date) unknown) (unknown) (no (unknown) (unknown) BP 130/80 (units (u nknown) date) unknown) (unknown) (no (unknown) (unknown) Blood Pressure (units (unknown) date) Location Lt unknown) brachial (unknown) (no (unknown) (unknown) Brother (units (unkno wn) date) Hypertension unknown) (unknown) (no (unknown) (unknown) Cervical cancer (units (unknown) date) () unknown) (unknown) (no (unknown) (unknown) Cervical (units (unkno wn) date) radiculopathy at unknown) C6 (unknown) (no (unknown) (unknown) Cervical stenosis (units (unknown) date) of spinal canal unknown) () (unknown) (no (unknown) (unknown) Chicken pox (units (un known) date) unknown) (unknown) (no (unknown) (unknown) Chronic back pain (units (unknown) date) unknown) (unknown) (no (unknown) (unknown) Confirmed (units (unkn own) date) 12/23/21] unknown) (unknown) (no (unknown) (unknown) Cubital tunnel (units (unknown) date) syndrome () unknown) (unknown) (no (unknown) (unknown) DAILY #16 g (units (un known) date) 06/02/21 [Rx unknown) Confirmed 12/23/21] (unknown) (no (unknown) (unknown) : 1955 (units (unknown) date) Acct:[id number] unknown) (unknown) (no (unknown) (unknown) Dept at (units (unkno wn) date) . unknown) (unknown) (no (unknown) (unknown) Documented By: (units (unknown) date) Moshe Ramirez MD unknown) 12/23/21 0755 (unknown) (no (unknown) (unknown) Eczema (units (unkno wn) date) unknown) (unknown) (no (unknown) (unknown) Facet (units (unkno wn) date) arthropathy, unknown) lumbar (unknown) (no (unknown) (unknown) Family History (units (unknown) date) (Reviewed 11/25/21 unknown) @ 16:07 by Merle Batista [facility]) (unknown) (no (unknown) (unknown) Family history of (units (unknown) date) celiac disease unknown) (unknown) (no (unknown) (unknown) Father (units (unknown) date) Non-Hodgkin unknown) lymphoma (unknown) (no (unknown) (unknown) Foot pain (-2005) (units (unknown) date) unknown) (unknown) (no (unknown) (unknown) Grandfather (units (un known) date) unknown) Diverticulitis (unknown) (no (unknown) (unknown) Grandmother (units (un known) date) unknown) Diabetes mellitus (unknown) (no (unknown) (unknown) Grandmother (units (un known) date) Heart unknown) disease (unknown) (no (unknown) (unknown) HNP (herniated (units (unknown) date) nucleus pulposus), unknown) thoracic (unknown) (no (unknown) (unknown) Health Management (units (unknown) date) unknown) (unknown) (no (unknown) (unknown) Health Management (units (unknown) date) reviewed with unknown) patient: Yes (unknown) (no (unknown) (unknown) Height 5 ft 3 (units (unknown) date) in unknown) (unknown) (no (unknown) (unknown) Herpes (-1975) (units (unknown) date) unknown) (unknown) (no (unknown) (unknown) History of knee (units (unknown) date) replacement unknown) (unknown) (no (unknown) (unknown) Intake (units (unkno wn) date) unknown) (unknown) (no (unknown) (unknown) Intake Note: (units (u nknown) date) unknown) (unknown) (no (unknown) (unknown) Intake performed (units (unknown) date) by: Dang Coreas unknown) (unknown) (no (unknown) (unknown) Intake- Clincial (units (unknown) date) Staff unknown) (unknown) (no (unknown) (unknown) Last Menstural (units (unknown) date) Cycle + Details unknown) (unknown) (no (unknown) (unknown) Loc: [facility] (units (unkno wn) date) unknown) (unknown) (no (unknown) (unknown) Lumbar spine pain (units (unknown) date) (-2008) unknown) (unknown) (no (unknown) (unknown) MSG Allergy (units (un known) date) (Severe, Uncoded unknown) 12/23/21 12:51) (unknown) (no (unknown) (unknown) Measles (units (unkno wn) date) unknown) (unknown) (no (unknown) (unknown) Medical History (units (unknown) date) (Reviewed 11/25/21 unknown) @ 16:07 by Merle Batista [facility]) (unknown) (no (unknown) (unknown) Medications (units (un known) date) unknown) (unknown) (no (unknown) (unknown) Migraine headache (units (unknown) date) unknown) (unknown) (no (unknown) (unknown) Mother (units (unknown) date) Ovarian cancer unknown) (unknown) (no (unknown) (unknown) Orders (units (unkno wn) date) unknown) (unknown) (no (unknown) (unknown) Osteoarthritis (units (unknown) date) unknown) (unknown) (no (unknown) (unknown) Other Menstrual (units (unknown) date) Period: Surgical unknown) Menopause (unknown) (no (unknown) (unknown) Oxygen Delivery (units (unknown) date) Method room air unknown) (unknown) (no (unknown) (unknown) PERSERVATIVES (units ( unknown) date) Allergy (Severe, unknown) Uncoded 12/23/21 12:51) (unknown) (no (unknown) (unknown) PFSH (units (unkno wn) date) unknown) (unknown) (no (unknown) (unknown) Patient: [place] (units (unknown) date) Angela Conley unknown) M (unknown) (no (unknown) (unknown) Penicillins (units (un known) date) Allergy (Mild, unknown) Verified 12/23/21 12:51) (unknown) (no (unknown) (unknown) Position (units (unkno wn) date) Sitting unknown) (unknown) (no (unknown) (unknown) Posterior (units (unkn own) date) vitreous unknown) detachment () (unknown) (no (unknown) (unknown) Pulse 66 (units (un known) date) unknown) (unknown) (no (unknown) (unknown) Pulse Oximetry (units (unknown) date) (%) 96 unknown) (unknown) (no (unknown) (unknown) Pulse Source (units (u nknown) date) Monitor unknown) (unknown) (no (unknown) (unknown) R#: [id number] (units (unknown) date) unknown) (unknown) (no (unknown) (unknown) Reason For Visit (units (unknown) date) unknown) (unknown) (no (unknown) (unknown) Scoliosis (-1999) (units (unknown) date) unknown) (unknown) (no (unknown) (unknown) Signed By: (units (unk nown) date) unknown) (unknown) (no (unknown) (unknown) Smoking Status: (units (unknown) date) Never smoker unknown) (unknown) (no (unknown) (unknown) Sulfa (units (unkno wn) date) (Sulfonamide unknown) Antibiotics) Allergy (Mild, Verified 12/23/21 12:51) (unknown) (no (unknown) (unknown) Surgical History (units (unknown) date) (Reviewed 11/25/21 unknown) @ 16:07 by Merle Batista [facility]) (unknown) (no (unknown) (unknown) TUNA Allergy (units (u nknown) date) (Intermediate, unknown) Uncoded 12/23/21 12:51) (unknown) (no (unknown) (unknown) This note may (units ( unknown) date) have been all or unknown) partially generated using voice recognition (unknown) (no (unknown) (unknown) Thoracic (units (unkno wn) date) radiculitis unknown) (unknown) (no (unknown) (unknown) Tobacco + (units (unkn own) date) Substance Use unknown) (unknown) (no (unknown) (unknown) Tobacco Status (units (unknown) date) unknown) (unknown) (no (unknown) (unknown) Vertical (units (unkno wn) date) heterophoria unknown) (unknown) (no (unknown) (unknown) Visit Reasons: (units (unknown) date) Medication review/ unknown) Blood pressure (unknown) (no (unknown) (unknown) Vitals (units (unkno wn) date) unknown) (unknown) (no (unknown) (unknown) Weight 199 lb (units (unknown) date) 3 oz unknown) (unknown) (no (unknown) (unknown) XR DEXA axial (units ( unknown) date) skeleton 1 Month unknown) Z78.0 - Asymptomatic menopausal state (unknown) (no (unknown) (unknown) acetaminophen 325 (units (unknown) date) mg capsule unknown) (Tylenol) 650 mg PO Q6H PRN 08/18/20 [History (unknown) (no (unknown) (unknown) adhesive Allergy (units (unknown) date) (Intermediate, unknown) Verified 12/23/21 12:51) (unknown) (no (unknown) (unknown) albuterol sulfate (units (unknown) date) 90 mcg/actuation unknown) aerosol inhaler 1 puff INHALATION Q6H (unknown) (no (unknown) (unknown) amitriptyline 25 (units (unknown) date) mg tablet 25 mg PO unknown) BEDTIME #90 tab 05/23/21 [Rx Confirmed (unknown) (no (unknown) (unknown) benzoyl peroxide (units (unknown) date) Allergy (Mild, unknown) Verified 12/23/21 12:51) (unknown) (no (unknown) (unknown) calcium citrate (units (unknown) date) 200 mg (950 mg) unknown) tablet 400 mg PO DAILY tab 02/15/18 [History (unknown) (no (unknown) (unknown) celecoxib Allergy (units (unknown) date) (Mild, Verified unknown) 12/23/21 12:51) (unknown) (no (unknown) (unknown) chlorthalidone 25 (units (unknown) date) mg tablet 25 mg PO unknown) DAILY #90 tab 12/02/21 [Rx Confirmed (unknown) (no (unknown) (unknown) clobetasol TOP (units (unknown) date) QWEEK PRN 07/24/19 unknown) [History Confirmed 12/23/21] (unknown) (no (unknown) (unknown) clonidine HCl 0.2 (units (unknown) date) mg tablet 0.2 mg unknown) PO TID PRN #20 tab 11/04/21 [Rx Confirmed (unknown) (no (unknown) (unknown) cyclobenzaprine (units (unknown) date) 10 mg tablet 10 mg unknown) PO Q8H #60 tab 05/20/21 [Rx Confirmed (unknown) (no (unknown) (unknown) dexa- will order (units (unknown) date) unknown) (unknown) (no (unknown) (unknown) diazepam 5 mg (units ( unknown) date) tablet (Valium) 10 unknown) mg PO BID PRN 05/27/21 [History Confirmed (unknown) (no (unknown) (unknown) diflunisal (units (unk nown) date) Allergy (Mild, unknown) Verified 12/23/21 12:51) (unknown) (no (unknown) (unknown) f/u bp (units (unkno wn) date) unknown) (unknown) (no (unknown) (unknown) f/u meds (units (unkno wn) date) unknown) (unknown) (no (unknown) (unknown) fluticasone (units (un known) date) propionate 50 unknown) mcg/actuation nasal spray,suspension 1 spray NASAL (unknown) (no (unknown) (unknown) gabapentin 600 mg (units (unknown) date) tablet 600 mg PO unknown) BID #180 tab 10/12/21 [Rx Confirmed 12/23/21] (unknown) (no (unknown) (unknown) have occurred. (units (unknown) date) If there are any unknown) questions, please contact the Medical Records (unknown) (no (unknown) (unknown) inhalational (units (u nknown) date) spacing device unknown) (Aerochamber Plus Z Stat) #2 ea 11/09/20 [Rx (unknown) (no (unknown) (unknown) iodine Allergy (units (unknown) date) (Intermediate, unknown) Verified 12/23/21 12:51) (unknown) (no (unknown) (unknown) may occur. (units (unk nown) date) Occasional unknown) wrong-word or 'sound-alike' substitutions may have (unknown) (no (unknown) (unknown) metoprolol (units (unk nown) date) tartrate 100 mg unknown) tablet 100 mg PO BID #180 tab 12/02/21 [Rx Confirmed (unknown) (no (unknown) (unknown) multivitamin 1 (units (unknown) date) tab PO DAILY unknown) 10/15/21 [History Confirmed 12/23/21] (unknown) (no (unknown) (unknown) naproxen Allergy (units (unknown) date) (Mild, Verified unknown) 12/23/21 12:51) (unknown) (no (unknown) (unknown) occurred due to (units (unknown) date) the inherent unknown) limitations of voice recognition software. Please (unknown) (no (unknown) (unknown) read the note (units ( unknown) date) carefully and unknown) recognize, using context, where these substitutions (unknown) (no (unknown) (unknown) software. (units (unkn own) date) Although every unknown) effort is made to edit content, compliance analyst errors (unknown) (no (unknown) (unknown) sumatriptan (units (un known) date) succinate 100 mg unknown) tablet 100 mg PO ONCE PRN #9 tab 02/03/21 [Rx Result panel 10 (unknown) (no (unknown) (unknown) (no value) (units (unk nown) date) unknown) (unknown) (no (unknown) (unknown) Medications: (units (u nknown) date) unknown) (unknown) (no (unknown) (unknown) Orders: (units (unkno wn) date) unknown) (unknown) (no (unknown) (unknown) Status: Chronic (units (unknown) date) unknown) (unknown) (no (unknown) (unknown) (no value) (units (unk nown) date) unknown) (unknown) (no (unknown) (unknown) 'I GET A (units (unkno wn) date) MIGRAINE' unknown) (unknown) (no (unknown) (unknown) 12/23/21 (units (unkno wn) date) unknown) (unknown) (no (unknown) (unknown) 12:52 (units (unkno wn) date) unknown) (unknown) (no (unknown) (unknown) [place], [place] (units ( unknown) date) [id number] unknown) (unknown) (no (unknown) (unknown) Blister (units (unkno wn) date) unknown) (unknown) (no (unknown) (unknown) Cancer (units (unkno wn) date) unknown) (unknown) (no (unknown) (unknown) Diabetes mellitus (units (unknown) date) unknown) (unknown) (no (unknown) (unknown) Draft (units (unkno wn) date) unknown) (unknown) (no (unknown) (unknown) EYE EDEMA, LIGHT (units (unknown) date) SENSITIVITY unknown) (unknown) (no (unknown) (unknown) [facility]) (unknown) (no (unknown) (unknown) HIVES (units (unkno wn) date) unknown) (unknown) (no (unknown) (unknown) Hives (units (unkno wn) date) unknown) (unknown) (no (unknown) (unknown) Hypertension (units (u nknown) date) unknown) (unknown) (no (unknown) (unknown) Internal Medicine (units (unknown) date) Office Visit unknown) (unknown) (no (unknown) (unknown) Mental health (units ( unknown) date) problem unknown) (unknown) (no (unknown) (unknown) Stroke (units (unkno wn) date) unknown) (unknown) (no (unknown) (unknown) inner tissue (units (u nknown) date) lining shedding of unknown) cervix (unknown) (no (unknown) (unknown) itching (units (unkno wn) date) unknown) (unknown) (no (unknown) (unknown) nausea vomiting (units (unknown) date) unknown) (unknown) (no (unknown) (unknown) (no value) (units (unk nown) date) unknown) (unknown) (no (unknown) (unknown) (1) Essential (units ( unknown) date) hypertension: unknown) (unknown) (no (unknown) (unknown) (2) At risk for (units (unknown) date) apnea: unknown) (unknown) (no (unknown) (unknown) 12/23/21 (units (unkno wn) date) unknown) (unknown) (no (unknown) (unknown) 12/23/21] (units (unkn own) date) unknown) (unknown) (no (unknown) (unknown) 02/15/18 [History (units (unknown) date) Confirmed unknown) 12/23/21] (unknown) (no (unknown) (unknown) Abnormal Pap (units (u nknown) date) smear of cervix unknown) (-1992) (unknown) (no (unknown) (unknown) Accompanied by: (units (unknown) date) Self / Same As unknown) Patient (unknown) (no (unknown) (unknown) Acne (units (unkno wn) date) unknown) (unknown) (no (unknown) (unknown) Age/Sex: 66 / F (units (unknown) date) Date of Service: unknown) (unknown) (no (unknown) (unknown) Allergies (units (unkn own) date) unknown) (unknown) (no (unknown) (unknown) Anesthesia (units (unk nown) date) unknown) (unknown) (no (unknown) (unknown) Assessment + Plan (units (unknown) date) unknown) (unknown) (no (unknown) (unknown) Attending Dr: (units ( unknown) date) Moshe Ramirez MD unknown) (unknown) (no (unknown) (unknown) BMI 35.2 (units (un known) date) unknown) (unknown) (no (unknown) (unknown) BP 130/80 (units (u nknown) date) unknown) (unknown) (no (unknown) (unknown) Blood Pressure (units (unknown) date) Location Lt unknown) brachial (unknown) (no (unknown) (unknown) Brother (units (unkno wn) date) Hypertension unknown) (unknown) (no (unknown) (unknown) Cervical cancer (units (unknown) date) () unknown) (unknown) (no (unknown) (unknown) Cervical (units (unkno wn) date) radiculopathy at unknown) C6 (unknown) (no (unknown) (unknown) Cervical stenosis (units (unknown) date) of spinal canal unknown) () (unknown) (no (unknown) (unknown) Changed (units (unkno wn) date) unknown) (unknown) (no (unknown) (unknown) Chicken pox (units (un known) date) unknown) (unknown) (no (unknown) (unknown) Chronic back pain (units (unknown) date) unknown) (unknown) (no (unknown) (unknown) Confirmed (units (unkn own) date) 12/23/21] unknown) (unknown) (no (unknown) (unknown) Cubital tunnel (units (unknown) date) syndrome () unknown) (unknown) (no (unknown) (unknown) DAILY #16 g (units (un known) date) 06/02/21 [Rx unknown) Confirmed 12/23/21] (unknown) (no (unknown) (unknown) : 1955 (units (unknown) date) Acct:[id number] unknown) (unknown) (no (unknown) (unknown) Dept at (units (unkno wn) date) . unknown) (unknown) (no (unknown) (unknown) Documented By: (units (unknown) date) Moshe Ramirez MD unknown) 12/23/21 0755 (unknown) (no (unknown) (unknown) Eczema (units (unkno wn) date) unknown) (unknown) (no (unknown) (unknown) Facet (units (unkno wn) date) arthropathy, unknown) lumbar (unknown) (no (unknown) (unknown) Family History (units (unknown) date) (Reviewed 11/25/21 unknown) @ 16:07 by Merle Batista [facility]) (unknown) (no (unknown) (unknown) Family history of (units (unknown) date) celiac disease unknown) (unknown) (no (unknown) (unknown) Father (units (unknown) date) Non-Hodgkin unknown) lymphoma (unknown) (no (unknown) (unknown) Foot pain (-2005) (units (unknown) date) unknown) (unknown) (no (unknown) (unknown) From (units (unkno wn) date) chlorthalidone 25 unknown) mg PO DAILY 90 tabs 0RF (unknown) (no (unknown) (unknown) Grandfather (units (un known) date) unknown) Diverticulitis (unknown) (no (unknown) (unknown) Grandmother (units (un known) date) unknown) Diabetes mellitus (unknown) (no (unknown) (unknown) Grandmother (units (un known) date) Heart unknown) disease (unknown) (no (unknown) (unknown) HNP (herniated (units (unknown) date) nucleus pulposus), unknown) thoracic (unknown) (no (unknown) (unknown) Health Management (units (unknown) date) unknown) (unknown) (no (unknown) (unknown) Health Management (units (unknown) date) reviewed with unknown) patient: Yes (unknown) (no (unknown) (unknown) Height 5 ft 3 (units (unknown) date) in unknown) (unknown) (no (unknown) (unknown) Herpes (-1975) (units (unknown) date) unknown) (unknown) (no (unknown) (unknown) History of knee (units (unknown) date) replacement unknown) (unknown) (no (unknown) (unknown) Intake (units (unkno wn) date) unknown) (unknown) (no (unknown) (unknown) Intake Note: (units (u nknown) date) unknown) (unknown) (no (unknown) (unknown) Intake performed (units (unknown) date) by: Dang Coreas unknown) (unknown) (no (unknown) (unknown) Intake- Clincial (units (unknown) date) Staff unknown) (unknown) (no (unknown) (unknown) Last Menstural (units (unknown) date) Cycle + Details unknown) (unknown) (no (unknown) (unknown) Loc: [facility] (units (unkno wn) date) unknown) (unknown) (no (unknown) (unknown) Lumbar spine pain (units (unknown) date) (-2008) unknown) (unknown) (no (unknown) (unknown) MSG Allergy (units (un known) date) (Severe, Uncoded unknown) 12/23/21 12:51) (unknown) (no (unknown) (unknown) Measles (units (unkno wn) date) unknown) (unknown) (no (unknown) (unknown) Medical History (units (unknown) date) (Reviewed 11/25/21 unknown) @ 16:07 by ALANNAH Hopper) (unknown) (no (unknown) (unknown) Medications (units (un known) date) unknown) (unknown) (no (unknown) (unknown) Migraine headache (units (unknown) date) unknown) (unknown) (no (unknown) (unknown) Mother (units (unknown) date) Ovarian cancer unknown) (unknown) (no (unknown) (unknown) Orders (units (unkno wn) date) unknown) (unknown) (no (unknown) (unknown) Osteoarthritis (units (unknown) date) unknown) (unknown) (no (unknown) (unknown) Other Menstrual (units (unknown) date) Period: Surgical unknown) Menopause (unknown) (no (unknown) (unknown) Oxygen Delivery (units (unknown) date) Method room air unknown) (unknown) (no (unknown) (unknown) PERSERVATIVES (units ( unknown) date) Allergy (Severe, unknown) Uncoded 12/23/21 12:51) (unknown) (no (unknown) (unknown) PFSH (units (unkno wn) date) unknown) (unknown) (no (unknown) (unknown) Patient: Armando (units (unknown) date) Angela Conley unknown) M (unknown) (no (unknown) (unknown) Penicillins (units (un known) date) Allergy (Mild, unknown) Verified 12/23/21 12:51) (unknown) (no (unknown) (unknown) Position (units (unkno wn) date) Sitting unknown) (unknown) (no (unknown) (unknown) Posterior (units (unkn own) date) vitreous unknown) detachment (-2016) (unknown) (no (unknown) (unknown) Pulse 66 (units (un known) date) unknown) (unknown) (no (unknown) (unknown) Pulse Oximetry (units (unknown) date) (%) 96 unknown) (unknown) (no (unknown) (unknown) Pulse Source (units (u nknown) date) Monitor unknown) (unknown) (no (unknown) (unknown) R#: [id number] (units (unknown) date) unknown) (unknown) (no (unknown) (unknown) Reason For Visit (units (unknown) date) unknown) (unknown) (no (unknown) (unknown) Referral Sleep (units (unknown) date) Medicine I10 - unknown) Essential (primary) hypertension, Z91.89 - Other (unknown) (no (unknown) (unknown) Referrals (units (unkn own) date) unknown) (unknown) (no (unknown) (unknown) Scoliosis (-1999) (units (unknown) date) unknown) (unknown) (no (unknown) (unknown) Signed By: (units (unk nown) date) unknown) (unknown) (no (unknown) (unknown) Smoking Status: (units (unknown) date) Never smoker unknown) (unknown) (no (unknown) (unknown) Sulfa (units (unkno wn) date) (Sulfonamide unknown) Antibiotics) Allergy (Mild, Verified 12/23/21 12:51) (unknown) (no (unknown) (unknown) Surgical History (units (unknown) date) (Reviewed 11/25/21 unknown) @ 16:07 by Merle Batista [facility]) (unknown) (no (unknown) (unknown) TUNA Allergy (units (u nknown) date) (Intermediate, unknown) Uncoded 12/23/21 12:51) (unknown) (no (unknown) (unknown) This note may (units ( unknown) date) have been all or unknown) partially generated using voice recognition (unknown) (no (unknown) (unknown) Thoracic (units (unkno wn) date) radiculitis unknown) (unknown) (no (unknown) (unknown) To chlorthalidone (units (unknown) date) 50 mg PO DAILY 90 unknown) tabs 3RF (unknown) (no (unknown) (unknown) Tobacco + (units (unkn own) date) Substance Use unknown) (unknown) (no (unknown) (unknown) Tobacco Status (units (unknown) date) unknown) (unknown) (no (unknown) (unknown) Vertical (units (unkno wn) date) heterophoria unknown) (unknown) (no (unknown) (unknown) Visit Reasons: (units (unknown) date) Medication review/ unknown) Blood pressure (unknown) (no (unknown) (unknown) Vitals (units (unkno wn) date) unknown) (unknown) (no (unknown) (unknown) Weight 199 lb (units (unknown) date) 3 oz unknown) (unknown) (no (unknown) (unknown) XR DEXA axial (units ( unknown) date) skeleton 1 Month unknown) Z78.0 - Asymptomatic menopausal state (unknown) (no (unknown) (unknown) acetaminophen 325 (units (unknown) date) mg capsule unknown) (Tylenol) 650 mg PO Q6H PRN 08/18/20 [History (unknown) (no (unknown) (unknown) adhesive Allergy (units (unknown) date) (Intermediate, unknown) Verified 12/23/21 12:51) (unknown) (no (unknown) (unknown) albuterol sulfate (units (unknown) date) 90 mcg/actuation unknown) aerosol inhaler 1 puff INHALATION Q6H (unknown) (no (unknown) (unknown) amitriptyline 25 (units (unknown) date) mg tablet 25 mg PO unknown) BEDTIME #90 tab 05/23/21 [Rx Confirmed (unknown) (no (unknown) (unknown) benzoyl peroxide (units (unknown) date) Allergy (Mild, unknown) Verified 12/23/21 12:51) (unknown) (no (unknown) (unknown) calcium citrate (units (unknown) date) 200 mg (950 mg) unknown) tablet 400 mg PO DAILY tab 02/15/18 [History (unknown) (no (unknown) (unknown) celecoxib Allergy (units (unknown) date) (Mild, Verified unknown) 12/23/21 12:51) (unknown) (no (unknown) (unknown) chlorthalidone 50 (units (unknown) date) mg tablet 50 mg PO unknown) DAILY #90 tab 12/23/21 [Rx Confirmed (unknown) (no (unknown) (unknown) clobetasol TOP (units (unknown) date) QWEEK PRN 07/24/19 unknown) [History Confirmed 12/23/21] (unknown) (no (unknown) (unknown) clonidine HCl 0.2 (units (unknown) date) mg tablet 0.2 mg unknown) PO TID PRN #20 tab 11/04/21 [Rx Confirmed (unknown) (no (unknown) (unknown) cyclobenzaprine (units (unknown) date) 10 mg tablet 10 mg unknown) PO Q8H #60 tab 05/20/21 [Rx Confirmed (unknown) (no (unknown) (unknown) dexa- will order (units (unknown) date) unknown) (unknown) (no (unknown) (unknown) diazepam 5 mg (units ( unknown) date) tablet (Valium) 10 unknown) mg PO BID PRN 05/27/21 [History Confirmed (unknown) (no (unknown) (unknown) diflunisal (units (unk nown) date) Allergy (Mild, unknown) Verified 12/23/21 12:51) (unknown) (no (unknown) (unknown) f/u bp (units (unkno wn) date) unknown) (unknown) (no (unknown) (unknown) f/u meds (units (unkno wn) date) unknown) (unknown) (no (unknown) (unknown) fluticasone (units (un known) date) propionate 50 unknown) mcg/actuation nasal spray,suspension 1 spray NASAL (unknown) (no (unknown) (unknown) gabapentin 600 mg (units (unknown) date) tablet 600 mg PO unknown) BID #180 tab 10/12/21 [Rx Confirmed 12/23/21] (unknown) (no (unknown) (unknown) have occurred. (units (unknown) date) If there are any unknown) questions, please contact the Medical Records (unknown) (no (unknown) (unknown) inhalational (units (u nknown) date) spacing device unknown) (Aerochamber Plus Z Stat) #2 ea 11/09/20 [Rx (unknown) (no (unknown) (unknown) iodine Allergy (units (unknown) date) (Intermediate, unknown) Verified 12/23/21 12:51) (unknown) (no (unknown) (unknown) may occur. (units (unk nown) date) Occasional unknown) wrong-word or 'sound-alike' substitutions may have (unknown) (no (unknown) (unknown) metoprolol (units (unk nown) date) tartrate 100 mg unknown) tablet 100 mg PO BID #180 tab 12/02/21 [Rx Confirmed (unknown) (no (unknown) (unknown) multivitamin 1 (units (unknown) date) tab PO DAILY unknown) 10/15/21 [History Confirmed 12/23/21] (unknown) (no (unknown) (unknown) naproxen Allergy (units (unknown) date) (Mild, Verified unknown) 12/23/21 12:51) (unknown) (no (unknown) (unknown) occurred due to (units (unknown) date) the inherent unknown) limitations of voice recognition software. Please (unknown) (no (unknown) (unknown) read the note (units ( unknown) date) carefully and unknown) recognize, using context, where these substitutions (unknown) (no (unknown) (unknown) software. (units (unkn own) date) Although every unknown) effort is made to edit content, compliance analyst errors (unknown) (no (unknown) (unknown) specified (units (unkn own) date) personal risk unknown) factors, not elsewhere classified (unknown) (no (unknown) (unknown) sumatriptan (units (un known) date) succinate 100 mg unknown) tablet 100 mg PO ONCE PRN #9 tab 02/03/21 [Rx Result panel 11 (unknown) (no (unknown) (unknown) (no value) (units (unk nown) date) unknown) (unknown) (no (unknown) (unknown) Medications: (units (u nknown) date) unknown) (unknown) (no (unknown) (unknown) Orders: (units (unkno wn) date) unknown) (unknown) (no (unknown) (unknown) Status: Chronic (units (unknown) date) unknown) (unknown) (no (unknown) (unknown) (no value) (units (unk nown) date) unknown) (unknown) (no (unknown) (unknown) 'I GET A (units (unkno wn) date) MIGRAINE' unknown) (unknown) (no (unknown) (unknown) 12/23/21 (units (unkno wn) date) unknown) (unknown) (no (unknown) (unknown) 12/26/21 0844 (units ( unknown) date) unknown) (unknown) (no (unknown) (unknown) 12:52 (units (unkno wn) date) unknown) (unknown) (no (unknown) (unknown) [place], [place] (units ( unknown) date) [id number] unknown) (unknown) (no (unknown) (unknown) Blister (units (unkno wn) date) unknown) (unknown) (no (unknown) (unknown) Cancer (units (unkno wn) date) unknown) (unknown) (no (unknown) (unknown) Diabetes mellitus (units (unknown) date) unknown) (unknown) (no (unknown) (unknown) EYE EDEMA, LIGHT (units (unknown) date) SENSITIVITY unknown) (unknown) (no (unknown) (unknown) [facility] unknown) (unknown) (no (unknown) (unknown) HIVES (units (unkno wn) date) unknown) (unknown) (no (unknown) (unknown) Hives (units (unkno wn) date) unknown) (unknown) (no (unknown) (unknown) Hypertension (units (u nknown) date) unknown) (unknown) (no (unknown) (unknown) Internal Medicine (units (unknown) date) Office Visit unknown) (unknown) (no (unknown) (unknown) Mental health (units ( unknown) date) problem unknown) (unknown) (no (unknown) (unknown) Signed (units (unkno wn) date) unknown) (unknown) (no (unknown) (unknown) Stroke (units (unkno wn) date) unknown) (unknown) (no (unknown) (unknown) inner tissue (units (u nknown) date) lining shedding of unknown) cervix (unknown) (no (unknown) (unknown) itching (units (unkno wn) date) unknown) (unknown) (no (unknown) (unknown) nausea vomiting (units (unknown) date) unknown) (unknown) (no (unknown) (unknown) (no value) (units (unk nown) date) unknown) (unknown) (no (unknown) (unknown) (1) Essential (units ( unknown) date) hypertension: unknown) (unknown) (no (unknown) (unknown) (2) At risk for (units (unknown) date) apnea: unknown) (unknown) (no (unknown) (unknown) 12/23/21 (units (unkno wn) date) unknown) (unknown) (no (unknown) (unknown) 12/23/21] (units (unkn own) date) unknown) (unknown) (no (unknown) (unknown) 02/15/18 [History (units (unknown) date) Confirmed unknown) 12/23/21] (unknown) (no (unknown) (unknown) Abnormal Pap (units (u nknown) date) smear of cervix unknown) () (unknown) (no (unknown) (unknown) Accompanied by: (units (unknown) date) Self / Same As unknown) Patient (unknown) (no (unknown) (unknown) Acne (units (unkno wn) date) unknown) (unknown) (no (unknown) (unknown) Affect: normal (units (unknown) date) affect unknown) (unknown) (no (unknown) (unknown) Age/Sex: 66 / F (units (unknown) date) Date of Service: unknown) (unknown) (no (unknown) (unknown) All systems (units (un known) date) reviewed + are unknown) unremarkable except as noted in HPI and below (unknown) (no (unknown) (unknown) Allergies (units (unkn own) date) unknown) (unknown) (no (unknown) (unknown) Anesthesia (units (unk nown) date) unknown) (unknown) (no (unknown) (unknown) Appearance: (units (un known) date) grossly normal unknown) (unknown) (no (unknown) (unknown) Assessment + Plan (units (unknown) date) unknown) (unknown) (no (unknown) (unknown) Attending Dr: (units ( unknown) date) Moshe Ramirez MD unknown) (unknown) (no (unknown) (unknown) Attitude: (units (unkn own) date) cooperative unknown) (unknown) (no (unknown) (unknown) BMI 35.2 (units (un known) date) unknown) (unknown) (no (unknown) (unknown) BP 130/80 (units (u nknown) date) unknown) (unknown) (no (unknown) (unknown) Blood Pressure (units (unknown) date) Location Lt unknown) brachial (unknown) (no (unknown) (unknown) Brother (units (unkno wn) date) Hypertension unknown) (unknown) (no (unknown) (unknown) Cervical cancer (units (unknown) date) () unknown) (unknown) (no (unknown) (unknown) Cervical (units (unkno wn) date) radiculopathy at unknown) C6 (unknown) (no (unknown) (unknown) Cervical stenosis (units (unknown) date) of spinal canal unknown) () (unknown) (no (unknown) (unknown) Changed (units (unkno wn) date) unknown) (unknown) (no (unknown) (unknown) Chicken pox (units (un known) date) unknown) (unknown) (no (unknown) (unknown) Chief Complaint (units (unknown) date) unknown) (unknown) (no (unknown) (unknown) Chief Complaint: (units (unknown) date) Blood pressure unknown) (unknown) (no (unknown) (unknown) Chronic back pain (units (unknown) date) unknown) (unknown) (no (unknown) (unknown) Concern for sleep (units (unknown) date) apnea: Exhibit unknown) some daytime somnolence and morning headache. 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 unknown) (unknown) (no (unknown) (unknown) Details: (units (unkno wn) date) unknown) (unknown) (no (unknown) (unknown) Documented By: (units (unknown) date) Moshe Ramirez MD unknown) 12/23/21 0755 (unknown) (no (unknown) (unknown) Eczema (units (unkno wn) date) unknown) (unknown) (no (unknown) (unknown) Effort + (units (unkno wn) date) Inspection: normal unknown) respiratory effort, able to speak in complete (unknown) (no (unknown) (unknown) Exam (units (unkno wn) date) unknown) (unknown) (no (unknown) (unknown) Facet (units (unkno wn) date) arthropathy, unknown) lumbar (unknown) (no (unknown) (unknown) Family History (units (unknown) date) (Reviewed 11/25/21 unknown) @ 16:07 by Merle Batista [employer]FILE 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) (unknown) (no (unknown) (unknown) Family history of (units (unknown) date) celiac disease unknown) (unknown) (no (unknown) (unknown) Father (units (unknown) date) Non-Hodgkin unknown) lymphoma (unknown) (no (unknown) (unknown) Foot pain (-2005) (units (unknown) date) unknown) (unknown) (no (unknown) (unknown) From (units (unkno wn) date) chlorthalidone 25 unknown) mg PO DAILY 90 tabs 0RF (unknown) (no (unknown) (unknown) General: (units (unkno wn) date) cooperative, unknown) healthy appearing, comfortable and no acute distress (unknown) (no (unknown) (unknown) Grandfather (units (un known) date) unknown) Diverticulitis (unknown) (no (unknown) (unknown) Grandmother (units (un known) date) unknown) Diabetes mellitus (unknown) (no (unknown) (unknown) Grandmother (units (un known) date) Heart unknown) disease (unknown) (no (unknown) (unknown) HNP (herniated (units (unknown) date) nucleus pulposus), unknown) thoracic (unknown) (no (unknown) (unknown) HPI (units (unkno wn) date) unknown) (unknown) (no (unknown) (unknown) HTN: suboptimally (units (unknown) date) maintained on unknown) current regimen. Home readings are variable with (unknown) (no (unknown) (unknown) Health Management (units (unknown) date) unknown) (unknown) (no (unknown) (unknown) Health Management (units (unknown) date) reviewed with unknown) patient: Yes (unknown) (no (unknown) (unknown) Health (units (unkno wn) date) maintenance unknown) measures reviewed and chart updated as necessary. (unknown) (no (unknown) (unknown) Height 5 ft 3 (units (unknown) date) in unknown) (unknown) (no (unknown) (unknown) Herpes (-1975) (units (unknown) date) unknown) (unknown) (no (unknown) (unknown) History of knee (units (unknown) date) replacement unknown) (unknown) (no (unknown) (unknown) Increase (units (unkno wn) date) chlorthalidone for unknown) improved control of BP. (unknown) (no (unknown) (unknown) Intake (units (unkno wn) date) unknown) (unknown) (no (unknown) (unknown) Intake Note: (units (u nknown) date) unknown) (unknown) (no (unknown) (unknown) Intake performed (units (unknown) date) by: Dang Coreas unknown) (unknown) (no (unknown) (unknown) Intake- Clincial (units (unknown) date) Staff unknown) (unknown) (no (unknown) (unknown) Interested in a (units (unknown) date) sleep study. unknown) (unknown) (no (unknown) (unknown) Judgment: (units (unkn own) date) judgment good unknown) (unknown) (no (unknown) (unknown) Last Menstural (units (unknown) date) Cycle + Details unknown) (unknown) (no (unknown) (unknown) Loc: [facility] (units (unkno wn) date) unknown) (unknown) (no (unknown) (unknown) Lumbar spine pain (units (unknown) date) (-2008) unknown) (unknown) (no (unknown) (unknown) MSG Allergy (units (un known) date) (Severe, Uncoded unknown) 12/23/21 12:51) (unknown) (no (unknown) (unknown) Measles (units (unkno wn) date) unknown) (unknown) (no (unknown) (unknown) Medical History (units (unknown) date) (Reviewed 11/25/21 unknown) @ 16:07 by Merle Batista [facility]) (unknown) (no (unknown) (unknown) Medications (units (un known) date) unknown) (unknown) (no (unknown) (unknown) Mental Status: (units (unknown) date) mental status unknown) grossly normal (unknown) (no (unknown) (unknown) Migraine headache (units (unknown) date) unknown) (unknown) (no (unknown) (unknown) Mood: congruent (units (unknown) date) mood unknown) (unknown) (no (unknown) (unknown) Mother (units (unknown) date) Ovarian cancer unknown) (unknown) (no (unknown) (unknown) Nutritional (units (un known) date) Appearance: unknown) overweight (unknown) (no (unknown) (unknown) Orders (units (unkno wn) date) unknown) (unknown) (no (unknown) (unknown) Orientation: (units (u nknown) date) oriented x3 unknown) (unknown) (no (unknown) (unknown) Osteoarthritis (units (unknown) date) unknown) (unknown) (no (unknown) (unknown) Other Menstrual (units (unknown) date) Period: Surgical unknown) Menopause (unknown) (no (unknown) (unknown) Oxygen Delivery (units (unknown) date) Method room air unknown) (unknown) (no (unknown) (unknown) PERSERVATIVES (units ( unknown) date) Allergy (Severe, unknown) Uncoded 12/23/21 12:51) (unknown) (no (unknown) (unknown) PFSH (units (unkno wn) date) unknown) (unknown) (no (unknown) (unknown) Patient: Armando (units (unknown) date) Angela Conley unknown) M (unknown) (no (unknown) (unknown) Penicillins (units (un known) date) Allergy (Mild, unknown) Verified 12/23/21 12:51) (unknown) (no (unknown) (unknown) Plan (units (unkno wn) date) unknown) (unknown) (no (unknown) (unknown) Position (units (unkno wn) date) Sitting unknown) (unknown) (no (unknown) (unknown) Posterior (units (unkn own) date) vitreous unknown) detachment () (unknown) (no (unknown) (unknown) Previous (units (unkno wn) date) laboratory work unknown) reviewed with the patient. No further lab testing is (unknown) (no (unknown) (unknown) Psych (units (unkno wn) date) unknown) (unknown) (no (unknown) (unknown) Pulse 66 (units (un known) date) unknown) (unknown) (no (unknown) (unknown) Pulse Oximetry (units (unknown) date) (%) 96 unknown) (unknown) (no (unknown) (unknown) Pulse Source (units (u nknown) date) Monitor unknown) (unknown) (no (unknown) (unknown) R#: [id number] (units (unknown) date) unknown) (unknown) (no (unknown) (unknown) ROS (units (unkno wn) date) unknown) (unknown) (no (unknown) (unknown) Reason For Visit (units (unknown) date) unknown) (unknown) (no (unknown) (unknown) Referral Sleep (units (unknown) date) Medicine I10 - unknown) Essential (primary) hypertension, Z91.89 - Other (unknown) (no (unknown) (unknown) Referrals (units (unkn own) date) unknown) (unknown) (no (unknown) (unknown) Resp (units (unkno wn) date) unknown) (unknown) (no (unknown) (unknown) Routine testing (units (unknown) date) as below for unknown) age-appropriate screening, problem assessment, and (unknown) (no (unknown) (unknown) Scoliosis (-2000) (units (unknown) date) unknown) (unknown) (no (unknown) (unknown) Signed By: (units (unk nown) date) <Electronically unknown) signed by Moshe Ramirez MD> (unknown) (no (unknown) (unknown) Smoking Status: (units (unknown) date) Never smoker unknown) (unknown) (no (unknown) (unknown) Speech and (units (unk nown) date) Movement: speech unknown) and movement normal (unknown) (no (unknown) (unknown) Sulfa (units (unkno wn) date) (Sulfonamide unknown) Antibiotics) Allergy (Mild, Verified 12/23/21 12:51) (unknown) (no (unknown) (unknown) Surgical History (units (unknown) date) (Reviewed 11/25/21 unknown) @ 16:07 by Merle Batista [facility]) (unknown) (no (unknown) (unknown) TUNA Allergy (units (u nknown) date) (Intermediate, unknown) Uncoded 12/23/21 12:51) (unknown) (no (unknown) (unknown) This note may (units ( unknown) date) have been all or unknown) partially generated using voice recognition (unknown) (no (unknown) (unknown) Thoracic (units (unkno wn) date) radiculitis unknown) (unknown) (no (unknown) (unknown) Thought Content: (units (unknown) date) normal unknown) (unknown) (no (unknown) (unknown) Thought Process: (units (unknown) date) normal unknown) (unknown) (no (unknown) (unknown) To chlorthalidone (units (unknown) date) 50 mg PO DAILY 90 unknown) tabs 3RF (unknown) (no (unknown) (unknown) Tobacco + (units (unkn own) date) Substance Use unknown) (unknown) (no (unknown) (unknown) Tobacco Status (units (unknown) date) unknown) (unknown) (no (unknown) (unknown) Vertical (units (unkno wn) date) heterophoria unknown) (unknown) (no (unknown) (unknown) Visit Reasons: (units (unknown) date) Medication review/ unknown) Blood pressure (unknown) (no (unknown) (unknown) Vitals (units (unkno wn) date) unknown) (unknown) (no (unknown) (unknown) Weight 199 lb (units (unknown) date) 3 oz unknown) (unknown) (no (unknown) (unknown) XR DEXA axial (units ( unknown) date) skeleton 1 Month unknown) Z78.0 - Asymptomatic menopausal state (unknown) (no (unknown) (unknown) acetaminophen 325 (units (unknown) date) mg capsule unknown) (Tylenol) 650 mg PO Q6H PRN 08/18/20 [History (unknown) (no (unknown) (unknown) adhesive Allergy (units (unknown) date) (Intermediate, unknown) Verified 12/23/21 12:51) (unknown) (no (unknown) (unknown) albuterol sulfate (units (unknown) date) 90 mcg/actuation unknown) aerosol inhaler 1 puff INHALATION Q6H (unknown) (no (unknown) (unknown) amitriptyline 25 (units (unknown) date) mg tablet 25 mg PO unknown) BEDTIME #90 tab 05/23/21 [Rx Confirmed (unknown) (no (unknown) (unknown) benzoyl peroxide (units (unknown) date) Allergy (Mild, unknown) Verified 12/23/21 12:51) (unknown) (no (unknown) (unknown) calcium citrate (units (unknown) date) 200 mg (950 mg) unknown) tablet 400 mg PO DAILY tab 02/15/18 [History (unknown) (no (unknown) (unknown) celecoxib Allergy (units (unknown) date) (Mild, Verified unknown) 12/23/21 12:51) (unknown) (no (unknown) (unknown) chlorthalidone 50 (units (unknown) date) mg tablet 50 mg PO unknown) DAILY #90 tab 12/23/21 [Rx Confirmed (unknown) (no (unknown) (unknown) clobetasol TOP (units (unknown) date) QWEEK PRN 07/24/19 unknown) [History Confirmed 12/23/21] (unknown) (no (unknown) (unknown) clonidine HCl 0.2 (units (unknown) date) mg tablet 0.2 mg unknown) PO TID PRN #20 tab 11/04/21 [Rx Confirmed (unknown) (no (unknown) (unknown) cyclobenzaprine (units (unknown) date) 10 mg tablet 10 mg unknown) PO Q8H #60 tab 05/20/21 [Rx Confirmed (unknown) (no (unknown) (unknown) dexa- will order (units (unknown) date) unknown) (unknown) (no (unknown) (unknown) diazepam 5 mg (units ( unknown) date) tablet (Valium) 10 unknown) mg PO BID PRN 05/27/21 [History Confirmed (unknown) (no (unknown) (unknown) diflunisal (units (unk nown) date) Allergy (Mild, unknown) Verified 12/23/21 12:51) (unknown) (no (unknown) (unknown) f/u bp (units (unkno wn) date) unknown) (unknown) (no (unknown) (unknown) f/u meds (units (unkno wn) date) unknown) (unknown) (no (unknown) (unknown) falls, or ALOC. (units (unknown) date) unknown) (unknown) (no (unknown) (unknown) fluticasone (units (un known) date) propionate 50 unknown) mcg/actuation nasal spray,suspension 1 spray NASAL (unknown) (no (unknown) (unknown) gabapentin 600 mg (units (unknown) date) tablet 600 mg PO unknown) BID #180 tab 10/12/21 [Rx Confirmed 12/23/21] (unknown) (no (unknown) (unknown) have occurred. (units (unknown) date) If there are any unknown) questions, please contact the Medical Records (unknown) (no (unknown) (unknown) indicated at this (units (unknown) date) time. unknown) (unknown) (no (unknown) (unknown) inhalational (units (u nknown) date) spacing device unknown) (Aerochamber Plus Z Stat) #2 ea 11/09/20 [Rx (unknown) (no (unknown) (unknown) iodine Allergy (units (unknown) date) (Intermediate, unknown) Verified 12/23/21 12:51) (unknown) (no (unknown) (unknown) may occur. (units (unk nown) date) Occasional unknown) wrong-word or 'sound-alike' substitutions may have (unknown) (no (unknown) (unknown) medication (units (unk nown) date) safety. unknown) (unknown) (no (unknown) (unknown) metoprolol (units (unk nown) date) tartrate 100 mg unknown) tablet 100 mg PO BID #180 tab 12/02/21 [Rx Confirmed (unknown) (no (unknown) (unknown) multivitamin 1 (units (unknown) date) tab PO DAILY unknown) 10/15/21 [History Confirmed 12/23/21] (unknown) (no (unknown) (unknown) naproxen Allergy (units (unknown) date) (Mild, Verified unknown) 12/23/21 12:51) (unknown) (no (unknown) (unknown) occurred due to (units (unknown) date) the inherent unknown) limitations of voice recognition software. Please (unknown) (no (unknown) (unknown) read the note (units ( unknown) date) carefully and unknown) recognize, using context, where these substitutions (unknown) (no (unknown) (unknown) sentences and no (units (unknown) date) audible wheezes unknown) (unknown) (no (unknown) (unknown) software. (units (unkn own) date) Although every unknown) effort is made to edit content, compliance analyst errors (unknown) (no (unknown) (unknown) specified (units (unkn own) date) personal risk unknown) factors, not elsewhere classified (unknown) (no (unknown) (unknown) sumatriptan (units (un known) date) succinate 100 mg unknown) tablet 100 mg PO ONCE PRN #9 tab 02/03/21 [Rx (unknown) (no (unknown) (unknown) systolic (units (unkno wn) date) pressures ranging unknown) 120-150. No headaches, vision changes, presyncope, Result panel 12 (unknown) (no (unknown) (unknown) (no value) (units (unk nown) date) unknown) (unknown) (no (unknown) (unknown) [address] [place] [address] (units (unknown) date) unknown) (unknown) (no (unknown) (unknown) [facility] (units ( unknown) date) [id number] unknown) (unknown) (no (unknown) (unknown) [facility] (units (unknown) date) unknown) (unknown) (no (unknown) (unknown) Signed (units (unkno wn) date) unknown) (unknown) (no (unknown) (unknown) XRay Report (units (un known) date) unknown) (unknown) (no (unknown) (unknown) (no value) (units (unk nown) date) unknown) (unknown) (no (unknown) (unknown) 01/10/22 (units (unkno wn) date) unknown) (unknown) (no (unknown) (unknown) 1. Multilevel (units ( unknown) date) degenerative disc unknown) disease. (unknown) (no (unknown) (unknown) 2. Multilevel (units ( unknown) date) facet arthropathy. unknown) (unknown) (no (unknown) (unknown) 3. No fracture. (units (unknown) date) No acute osseous unknown) lesion. If symptoms and/or clinical suspicion (unknown) (no (unknown) (unknown) 5 nonrib-bearing (units (unknown) date) vertebrae are unknown) present. There is approximately 4 millimeters (unknown) (no (unknown) (unknown) Approved by: Alex (units (unknown) date) Marybel Camacho on unknown) 01/10/2022 at 15:54 (unknown) (no (unknown) (unknown) Approved by: (units (u nknown) date) Ana Luisa Child unknown) MD Nancy, PhD on 01/10/2022 at 15:45 (unknown) (no (unknown) (unknown) Bones: (units (unkno wn) date) unknown) (unknown) (no (unknown) (unknown) Bones: No (units (unk nown) date) fractures or unknown) dislocations to the C7-T1 level. Minimal (unknown) (no (unknown) (unknown) COMPARISON: (units (un known) date) [facility], unknown) CR, XR CERVICAL SPINE 4V OR 5V, 02/04/2020, 14:16. (unknown) (no (unknown) (unknown) COMPARISON: (units (un known) date) None. unknown) (unknown) (no (unknown) (unknown) Dictated by: Alex (units (unknown) date) Marybel Camacho on unknown) 01/10/2022 at 15:53 (unknown) (no (unknown) (unknown) Dictated by: (units (u nknown) date) Ana Luisa Law. unknown) MD Nancy, PhD on 01/10/2022 at 15:44 (unknown) (no (unknown) (unknown) FINDINGS: (units (unkn own) date) unknown) (unknown) (no (unknown) (unknown) IMPRESSION: (units (un known) date) unknown) (unknown) (no (unknown) (unknown) IMPRESSION: (units (un known) date) Degenerative disc unknown) disease throughout cervical spine with right (unknown) (no (unknown) (unknown) INDICATIONS: (units (u nknown) date) BACK PAIN unknown) (unknown) (no (unknown) (unknown) INDICATIONS: (units (u nknown) date) NECK PAIN unknown) (unknown) (no (unknown) (unknown) L5-S1 (units (unkno wn) date) degenerative disc unknown) disease. Mild L2-L3, L3-L4 and L4-L5 degenerative disc (unknown) (no (unknown) (unknown) Oblique images: (units (unknown) date) No pars defects. unknown) (unknown) (no (unknown) (unknown) Severe L4-L5 and (units (unknown) date) L5-S1 facet unknown) arthropathy. Mild L2-L3 and L3-L4 facet (unknown) (no (unknown) (unknown) Soft tissues: No (units (unknown) date) prevertebral soft unknown) tissue swelling. (unknown) (no (unknown) (unknown) Soft tissues: (units ( unknown) date) Overlying bowel unknown) gas pattern is normal. No suspicious soft (unknown) (no (unknown) (unknown) TECHNIQUE: 5 (units ( unknown) date) views of the unknown) cervical spine acquired. (unknown) (no (unknown) (unknown) TECHNIQUE: 5 (units ( unknown) date) views of the unknown) lumbar spine were acquired, including bilateral (unknown) (no (unknown) (unknown) are noted (units (unkn own) date) throughout unknown) cervical spine. Oblique images demonstrate right worse (unknown) (no (unknown) (unknown) bilateral bony (units (unknown) date) foraminal stenosis unknown) at C3-4 through C6-7 levels. (unknown) (no (unknown) (unknown) calcifications. (units (unknown) date) unknown) (unknown) (no (unknown) (unknown) dislocation. (units (u nknown) date) unknown) (unknown) (no (unknown) (unknown) left bilateral (units (unknown) date) bony foraminal unknown) stenosis at C3-4 through C6-7 levels. No acute (unknown) (no (unknown) (unknown) on C4 is seen. (units (unknown) date) Degenerative unknown) endplate changes and bilateral facet hypertrophic (unknown) (no (unknown) (unknown) pathology (units (unkn own) date) persists, unknown) evaluation with MRI should be considered for further (unknown) (no (unknown) (unknown) retrolisthesis.. (units (unknown) date) There is mild unknown) convex left curvature of the thoracolumbar (unknown) (no (unknown) (unknown) vertebral body (units (unknown) date) compression unknown) fractures. No suspicious bony lesions. Moderate (unknown) (no (unknown) (unknown) Accession Number: (units (unknown) date) [id number] unknown) (unknown) (no (unknown) (unknown) Accession Number: (units (unknown) date) [id number] unknown) (unknown) (no (unknown) (unknown) Age/Sex: 66 / F (units (unknown) date) Date of Service: unknown) (unknown) (no (unknown) (unknown) : 1955 (units (unknown) date) Acct:[id number] unknown) (unknown) (no (unknown) (unknown) L1-L2 and (units (unkn own) date) unknown) (unknown) (no (unknown) (unknown) Loc: [facility] (units (unkno wn) date) unknown) (unknown) (no (unknown) (unknown) MR#: [id number] (units (unknown) date) unknown) (unknown) (no (unknown) (unknown) Ordering (units (unkno wn) date) Provider: unknown) Dajuan Flores D.O. (unknown) (no (unknown) (unknown) PROCEDURE: XR (units (unknown) date) CERVICAL SPINE 4V unknown) OR 5V (unknown) (no (unknown) (unknown) PROCEDURE: XR (units (unknown) date) LUMBAR SPINE MIN unknown) 4V (unknown) (no (unknown) (unknown) Patient: Armando (units (unknown) date) Angela Conley unknown) (unknown) (no (unknown) (unknown) Procedure: XR (units ( unknown) date) cervical spine 4V unknown) or 5V (unknown) (no (unknown) (unknown) Procedure: XR (units ( unknown) date) lumbar spine min unknown) 4V (unknown) (no (unknown) (unknown) anterolisthesis (units (unknown) date) of C3 unknown) (unknown) (no (unknown) (unknown) arthropathy. (units (u nknown) date) unknown) (unknown) (no (unknown) (unknown) assessment. (units (un known) date) unknown) (unknown) (no (unknown) (unknown) changes (units (unkno wn) date) unknown) (unknown) (no (unknown) (unknown) disease. (units (unkno wn) date) unknown) (unknown) (no (unknown) (unknown) for (units (unkno wn) date) unknown) (unknown) (no (unknown) (unknown) fracture or (units (un known) date) unknown) (unknown) (no (unknown) (unknown) oblique views. (units (unknown) date) unknown) (unknown) (no (unknown) (unknown) of L1-L2 (units (unkno wn) date) unknown) (unknown) (no (unknown) (unknown) spine. No (units (unk nown) date) unknown) (unknown) (no (unknown) (unknown) than left (units (unkn own) date) unknown) (unknown) (no (unknown) (unknown) tissue (units (unkno wn) date) unknown) (unknown) (no (unknown) (unknown) worse than (units (unk nown) date) unknown) Result panel 13 (unknown) (no (unknown) (unknown) (no value) (units (unk nown) date) unknown) (unknown) (no (unknown) (unknown) 'I GET A (units (unkno wn) date) MIGRAINE' unknown) (unknown) (no (unknown) (unknown) [place], [place] (units ( unknown) date) [id number] unknown) (unknown) (no (unknown) (unknown) Blister (units (unkno wn) date) unknown) (unknown) (no (unknown) (unknown) Cancer (units (unkno wn) date) unknown) (unknown) (no (unknown) (unknown) Diabetes mellitus (units (unknown) date) unknown) (unknown) (no (unknown) (unknown) Draft (units (unkno wn) date) unknown) (unknown) (no (unknown) (unknown) EYE EDEMA, LIGHT (units (unknown) date) SENSITIVITY unknown) (unknown) (no (unknown) (unknown) HIVES (units (unkno wn) date) unknown) (unknown) (no (unknown) (unknown) Hives (units (unkno wn) date) unknown) (unknown) (no (unknown) (unknown) Hypertension (units (u nknown) date) unknown) (unknown) (no (unknown) (unknown) Mental health (units ( unknown) date) problem unknown) (unknown) (no (unknown) (unknown) Pain Visit (units (unk nown) date) unknown) (unknown) (no (unknown) (unknown) Stroke (units (unkno wn) date) unknown) (unknown) (no (unknown) (unknown) [facility] ([facility] unknown) (unknown) (no (unknown) (unknown) inner tissue (units (u nknown) date) lining shedding of unknown) cervix (unknown) (no (unknown) (unknown) itching (units (unkno wn) date) unknown) (unknown) (no (unknown) (unknown) nausea vomiting (units (unknown) date) unknown) (unknown) (no (unknown) (unknown) (no value) (units (unk nown) date) unknown) (unknown) (no (unknown) (unknown) 01/12/22 (units (unkno wn) date) unknown) (unknown) (no (unknown) (unknown) 01/12/22] (units (unkn own) date) unknown) (unknown) (no (unknown) (unknown) 02/15/18 [History (units (unknown) date) Confirmed unknown) 01/12/22] (unknown) (no (unknown) (unknown) Abnormal Pap (units (u nknown) date) smear of cervix unknown) (-1992) (unknown) (no (unknown) (unknown) Accompanied by: (units (unknown) date) Self / Same As unknown) Patient (unknown) (no (unknown) (unknown) Acne (units (unkno wn) date) unknown) (unknown) (no (unknown) (unknown) Age/Sex: 66 / F (units (unknown) date) Date of Service: unknown) (unknown) (no (unknown) (unknown) Allergies (units (unkn own) date) unknown) (unknown) (no (unknown) (unknown) Anesthesia (units (unk nown) date) unknown) (unknown) (no (unknown) (unknown) Attending Dr: (units ( unknown) date) Dajuan Flores D.O. unknown) (unknown) (no (unknown) (unknown) Brother (units (unkno wn) date) Hypertension unknown) (unknown) (no (unknown) (unknown) Cervical cancer (units (unknown) date) () unknown) (unknown) (no (unknown) (unknown) Cervical (units (unkno wn) date) radiculopathy at unknown) C6 (unknown) (no (unknown) (unknown) Cervical stenosis (units (unknown) date) of spinal canal unknown) () (unknown) (no (unknown) (unknown) Chicken pox (units (un known) date) unknown) (unknown) (no (unknown) (unknown) Chronic back pain (units (unknown) date) unknown) (unknown) (no (unknown) (unknown) Confirmed (units (unkn own) date) 01/12/22] unknown) (unknown) (no (unknown) (unknown) Cubital tunnel (units (unknown) date) syndrome () unknown) (unknown) (no (unknown) (unknown) DAILY #16 g (units (un known) date) 06/02/21 [Rx unknown) Confirmed 01/12/22] (unknown) (no (unknown) (unknown) : 1955 (units (unknown) date) Acct:[id number] unknown) (unknown) (no (unknown) (unknown) Dept at (units (unkno wn) date) . unknown) (unknown) (no (unknown) (unknown) Documented By: (units (unknown) date) Dajuan Flores D.O. unknown) 01/12/22 0801 (unknown) (no (unknown) (unknown) Eczema (units (unkno wn) date) unknown) (unknown) (no (unknown) (unknown) Facet (units (unkno wn) date) arthropathy, unknown) lumbar (unknown) (no (unknown) (unknown) Family History (units (unknown) date) (Reviewed 11/25/21 unknown) @ 16:07 by Merle Batista [facility]) (unknown) (no (unknown) (unknown) Family history of (units (unknown) date) celiac disease unknown) (unknown) (no (unknown) (unknown) Father (units (unknown) date) Non-Hodgkin unknown) lymphoma (unknown) (no (unknown) (unknown) Foot pain () (units (unknown) date) unknown) (unknown) (no (unknown) (unknown) Grandfather (units (un known) date) unknown) Diverticulitis (unknown) (no (unknown) (unknown) Grandmother (units (un known) date) unknown) Diabetes mellitus (unknown) (no (unknown) (unknown) Grandmother (units (un known) date) Heart unknown) disease (unknown) (no (unknown) (unknown) HNP (herniated (units (unknown) date) nucleus pulposus), unknown) thoracic (unknown) (no (unknown) (unknown) Herpes () (units (unknown) date) unknown) (unknown) (no (unknown) (unknown) History of knee (units (unknown) date) replacement unknown) (unknown) (no (unknown) (unknown) Intake (units (unkno wn) date) unknown) (unknown) (no (unknown) (unknown) Intake Clinical (units (unknown) date) Staff unknown) (unknown) (no (unknown) (unknown) Intake performed (units (unknown) date) by: Colette Carlton unknown) (unknown) (no (unknown) (unknown) Loc: PAIN (units (unkn own) date) unknown) (unknown) (no (unknown) (unknown) Lumbar spine pain (units (unknown) date) () unknown) (unknown) (no (unknown) (unknown) MSG Allergy (units (un known) date) (Severe, Uncoded unknown) 01/12/22 08:01) (unknown) (no (unknown) (unknown) Measles (units (unkno wn) date) unknown) (unknown) (no (unknown) (unknown) Medical History (units (unknown) date) (Reviewed 11/25/21 unknown) @ 16:07 by Merle Batista [facility]) (unknown) (no (unknown) (unknown) Medications (units (un known) date) unknown) (unknown) (no (unknown) (unknown) Migraine headache (units (unknown) date) unknown) (unknown) (no (unknown) (unknown) Mother (units (unknown) date) Ovarian cancer unknown) (unknown) (no (unknown) (unknown) Osteoarthritis (units (unknown) date) unknown) (unknown) (no (unknown) (unknown) PERSERVATIVES (units ( unknown) date) Allergy (Severe, unknown) Uncoded 01/12/22 08:01) (unknown) (no (unknown) (unknown) PFSH (units (unkno wn) date) unknown) (unknown) (no (unknown) (unknown) Patient: Armando (units (unknown) date) Angela Conley unknown) M (unknown) (no (unknown) (unknown) Penicillins (units (un known) date) Allergy (Mild, unknown) Verified 01/12/22 08:01) (unknown) (no (unknown) (unknown) Posterior (units (unkn own) date) vitreous unknown) detachment () (unknown) (no (unknown) (unknown) R#: [id number] (units (unknown) date) unknown) (unknown) (no (unknown) (unknown) Reason For Visit (units (unknown) date) unknown) (unknown) (no (unknown) (unknown) Scoliosis (-1999) (units (unknown) date) unknown) (unknown) (no (unknown) (unknown) Signed By: (units (unk nown) date) unknown) (unknown) (no (unknown) (unknown) Smoking Status: (units (unknown) date) Never smoker unknown) (unknown) (no (unknown) (unknown) Sulfa (units (unkno wn) date) (Sulfonamide unknown) Antibiotics) Allergy (Mild, Verified 01/12/22 08:01) (unknown) (no (unknown) (unknown) Surgical History (units (unknown) date) (Reviewed 11/25/21 unknown) @ 16:07 by Merle Batista [facility]) (unknown) (no (unknown) (unknown) TUNA Allergy (units (u nknown) date) (Intermediate, unknown) Uncoded 01/12/22 08:01) (unknown) (no (unknown) (unknown) This note may (units ( unknown) date) have been all or unknown) partially generated using voice recognition (unknown) (no (unknown) (unknown) Thoracic (units (unkno wn) date) radiculitis unknown) (unknown) (no (unknown) (unknown) Tobacco + (units (unkn own) date) Substance Use unknown) (unknown) (no (unknown) (unknown) Tobacco Status (units (unknown) date) unknown) (unknown) (no (unknown) (unknown) Vertical (units (unkno wn) date) heterophoria unknown) (unknown) (no (unknown) (unknown) Visit Reasons: FU (units (unknown) date) Lspine, LUMBAR AND unknown) CERVICAL IMAGING (unknown) (no (unknown) (unknown) acetaminophen 325 (units (unknown) date) mg capsule unknown) (Tylenol) 650 mg PO Q6H PRN 08/18/20 [History (unknown) (no (unknown) (unknown) adhesive Allergy (units (unknown) date) (Intermediate, unknown) Verified 01/12/22 08:01) (unknown) (no (unknown) (unknown) albuterol sulfate (units (unknown) date) 90 mcg/actuation unknown) aerosol inhaler 1 puff INHALATION Q6H (unknown) (no (unknown) (unknown) amitriptyline 25 (units (unknown) date) mg tablet 25 mg PO unknown) BEDTIME #90 tab 12/27/21 [Rx Confirmed (unknown) (no (unknown) (unknown) benzoyl peroxide (units (unknown) date) Allergy (Mild, unknown) Verified 01/12/22 08:01) (unknown) (no (unknown) (unknown) calcium citrate (units (unknown) date) 200 mg (950 mg) unknown) tablet 400 mg PO DAILY tab 02/15/18 [History (unknown) (no (unknown) (unknown) celecoxib Allergy (units (unknown) date) (Mild, Verified unknown) 01/12/22 08:01) (unknown) (no (unknown) (unknown) chlorthalidone 50 (units (unknown) date) mg tablet 50 mg PO unknown) DAILY #90 tab 12/23/21 [Rx Confirmed (unknown) (no (unknown) (unknown) clobetasol TOP (units (unknown) date) QWEEK PRN 07/24/19 unknown) [History Confirmed 01/12/22] (unknown) (no (unknown) (unknown) clonidine HCl 0.2 (units (unknown) date) mg tablet 0.2 mg unknown) PO TID PRN #20 tab 11/04/21 [Rx Confirmed (unknown) (no (unknown) (unknown) cyclobenzaprine (units (unknown) date) 10 mg tablet 10 mg unknown) PO Q8H #60 tab 05/20/21 [Rx Confirmed (unknown) (no (unknown) (unknown) diazepam 5 mg (units ( unknown) date) tablet (Valium) 10 unknown) mg PO BID PRN 05/27/21 [History Confirmed (unknown) (no (unknown) (unknown) diflunisal (units (unk nown) date) Allergy (Mild, unknown) Verified 01/12/22 08:01) (unknown) (no (unknown) (unknown) fluticasone (units (un known) date) propionate 50 unknown) mcg/actuation nasal spray,suspension 1 spray NASAL (unknown) (no (unknown) (unknown) gabapentin 600 mg (units (unknown) date) tablet 600 mg PO unknown) BID #180 tab 10/12/21 [Rx Confirmed 01/12/22] (unknown) (no (unknown) (unknown) have occurred. (units (unknown) date) If there are any unknown) questions, please contact the Medical Records (unknown) (no (unknown) (unknown) inhalational (units (u nknown) date) spacing device unknown) (Aerochamber Plus Z Stat) #2 ea 11/09/20 [Rx (unknown) (no (unknown) (unknown) iodine Allergy (units (unknown) date) (Intermediate, unknown) Verified 01/12/22 08:01) (unknown) (no (unknown) (unknown) may occur. (units (unk nown) date) Occasional unknown) wrong-word or 'sound-alike' substitutions may have (unknown) (no (unknown) (unknown) metoprolol (units (unk nown) date) tartrate 100 mg unknown) tablet 100 mg PO BID #180 tab 12/02/21 [Rx Confirmed (unknown) (no (unknown) (unknown) multivitamin 1 (units (unknown) date) tab PO DAILY unknown) 10/15/21 [History Confirmed 01/12/22] (unknown) (no (unknown) (unknown) naproxen Allergy (units (unknown) date) (Mild, Verified unknown) 01/12/22 08:01) (unknown) (no (unknown) (unknown) occurred due to (units (unknown) date) the inherent unknown) limitations of voice recognition software. Please (unknown) (no (unknown) (unknown) read the note (units ( unknown) date) carefully and unknown) recognize, using context, where these substitutions (unknown) (no (unknown) (unknown) software. (units (unkn own) date) Although every unknown) effort is made to edit content, compliance analyst errors (unknown) (no (unknown) (unknown) sumatriptan (units (un known) date) succinate 100 mg unknown) tablet 100 mg PO ONCE PRN #9 tab 02/03/21 [Rx (unknown) (no (unknown) (unknown) triazolam 0.25 mg (units (unknown) date) tablet 0.25 mg PO unknown) ONCE tab 01/12/22 [History Confirmed Result panel 14 (unknown) (no (unknown) (unknown) (no value) (units (unk nown) date) unknown) (unknown) (no (unknown) (unknown) (no value) (units (unk nown) date) unknown) (unknown) (no (unknown) (unknown) 'I GET A (units (unkno wn) date) MIGRAINE' unknown) (unknown) (no (unknown) (unknown) 01/12/22 (units (unkno wn) date) unknown) (unknown) (no (unknown) (unknown) 08:09 (units (unkno wn) date) unknown) (unknown) (no (unknown) (unknown) [place], [place] (units ( unknown) date) [id number] unknown) (unknown) (no (unknown) (unknown) Blister (units (unkno wn) date) unknown) (unknown) (no (unknown) (unknown) Cancer (units (unkno wn) date) unknown) (unknown) (no (unknown) (unknown) Diabetes mellitus (units (unknown) date) unknown) (unknown) (no (unknown) (unknown) Draft (units (unkno wn) date) unknown) (unknown) (no (unknown) (unknown) EYE EDEMA, LIGHT (units (unknown) date) SENSITIVITY unknown) (unknown) (no (unknown) (unknown) HIVES (units (unkno wn) date) unknown) (unknown) (no (unknown) (unknown) Hives (units (unkno wn) date) unknown) (unknown) (no (unknown) (unknown) Hypertension (units (u nknown) date) unknown) (unknown) (no (unknown) (unknown) Mental health (units ( unknown) date) problem unknown) (unknown) (no (unknown) (unknown) Pain Visit (units (unk nown) date) unknown) (unknown) (no (unknown) (unknown) Stroke (units (unkno wn) date) unknown) (unknown) (no (unknown) (unknown) [facility] unknown) (unknown) (no (unknown) (unknown) inner tissue (units (u nknown) date) lining shedding of unknown) cervix (unknown) (no (unknown) (unknown) itching (units (unkno wn) date) unknown) (unknown) (no (unknown) (unknown) nausea vomiting (units (unknown) date) unknown) (unknown) (no (unknown) (unknown) (no value) (units (unk nown) date) unknown) (unknown) (no (unknown) (unknown) (1-10): 5 (units (unkn own) date) unknown) (unknown) (no (unknown) (unknown) 01/12/22 (units (unkno wn) date) unknown) (unknown) (no (unknown) (unknown) 01/12/22] (units (unkn own) date) unknown) (unknown) (no (unknown) (unknown) 02/15/18 [History (units (unknown) date) Confirmed unknown) 01/12/22] (unknown) (no (unknown) (unknown) Abnormal Pap (units (u nknown) date) smear of cervix unknown) () (unknown) (no (unknown) (unknown) Accompanied by: (units (unknown) date) Self / Same As unknown) Patient (unknown) (no (unknown) (unknown) Acne (units (unkno wn) date) unknown) (unknown) (no (unknown) (unknown) Age/Sex: 66 / F (units (unknown) date) Date of Service: unknown) (unknown) (no (unknown) (unknown) Allergies (units (unkn own) date) unknown) (unknown) (no (unknown) (unknown) Anesthesia (units (unk nown) date) unknown) (unknown) (no (unknown) (unknown) Attending Dr: (units ( unknown) date) Dajuan Flores D.O. unknown) (unknown) (no (unknown) (unknown) BMI 35.4 (units (un known) date) unknown) (unknown) (no (unknown) (unknown) BP 118/70 (units (u nknown) date) unknown) (unknown) (no (unknown) (unknown) Blood Pressure (units (unknown) date) Location Rt unknown) brachial (unknown) (no (unknown) (unknown) Brother (units (unkno wn) date) Hypertension unknown) (unknown) (no (unknown) (unknown) Cervical cancer (units (unknown) date) () unknown) (unknown) (no (unknown) (unknown) Cervical (units (unkno wn) date) radiculopathy at unknown) C6 (unknown) (no (unknown) (unknown) Cervical stenosis (units (unknown) date) of spinal canal unknown) () (unknown) (no (unknown) (unknown) Chicken pox (units (un known) date) unknown) (unknown) (no (unknown) (unknown) Chronic back pain (units (unknown) date) unknown) (unknown) (no (unknown) (unknown) Confirmed (units (unkn own) date) 01/12/22] unknown) (unknown) (no (unknown) (unknown) Cubital tunnel (units (unknown) date) syndrome () unknown) (unknown) (no (unknown) (unknown) DAILY #16 g (units (un known) date) 06/02/21 [Rx unknown) Confirmed 05/18/22] (unknown) (no (unknown) (unknown) : 1955 (units (unknown) date) Acct:[id number] unknown) (unknown) (no (unknown) (unknown) Dept at (units (unkno wn) date) . unknown) (unknown) (no (unknown) (unknown) Documented By: (units (unknown) date) Dajuan Flores D.O. unknown) 01/12/22 0801 (unknown) (no (unknown) (unknown) Eczema (units (unkno wn) date) unknown) (unknown) (no (unknown) (unknown) Facet (units (unkno wn) date) arthropathy, unknown) lumbar (unknown) (no (unknown) (unknown) Family History (units (unknown) date) (Reviewed 11/25/21 unknown) @ 16:07 by Merle Batista [facility]) (unknown) (no (unknown) (unknown) Family history of (units (unknown) date) celiac disease unknown) (unknown) (no (unknown) (unknown) Father (units (unknown) date) Non-Hodgkin unknown) lymphoma (unknown) (no (unknown) (unknown) Foot pain (-2005) (units (unknown) date) unknown) (unknown) (no (unknown) (unknown) Grandfather (units (un known) date) unknown) Diverticulitis (unknown) (no (unknown) (unknown) Grandmother (units (un known) date) unknown) Diabetes mellitus (unknown) (no (unknown) (unknown) Grandmother (units (un known) date) Heart unknown) disease (unknown) (no (unknown) (unknown) HERE FOR CERVICAL (units (unknown) date) AND LUMBAR SPINE. unknown) SHE FELL AND NOW THORACIC AREA (unknown) (no (unknown) (unknown) HNP (herniated (units (unknown) date) nucleus pulposus), unknown) thoracic (unknown) (no (unknown) (unknown) Height 5 ft 3 (units (unknown) date) in unknown) (unknown) (no (unknown) (unknown) Herpes (-1975) (units (unknown) date) unknown) (unknown) (no (unknown) (unknown) History of knee (units (unknown) date) replacement unknown) (unknown) (no (unknown) (unknown) Intake (units (unkno wn) date) unknown) (unknown) (no (unknown) (unknown) Intake Clinical (units (unknown) date) Staff unknown) (unknown) (no (unknown) (unknown) Intake Note: (units (u nknown) date) unknown) (unknown) (no (unknown) (unknown) Intake performed (units (unknown) date) by: Colette Carlton unknown) (unknown) (no (unknown) (unknown) Is patient in (units ( unknown) date) pain?: Yes (HERE unknown) FOR IMAGING CERVICAL AND LUMBAR AREA) Pain scale (unknown) (no (unknown) (unknown) Loc: PAIN (units (unkn own) date) unknown) (unknown) (no (unknown) (unknown) Lumbar spine pain (units (unknown) date) () unknown) (unknown) (no (unknown) (unknown) MSG Allergy (units (un known) date) (Severe, Uncoded unknown) 01/12/22 08:01) (unknown) (no (unknown) (unknown) Measles (units (unkno wn) date) unknown) (unknown) (no (unknown) (unknown) Medical History (units (unknown) date) (Reviewed 11/25/21 unknown) @ 16:07 by ALANNAH Hopper) (unknown) (no (unknown) (unknown) Medications (units (un known) date) unknown) (unknown) (no (unknown) (unknown) Migraine headache (units (unknown) date) unknown) (unknown) (no (unknown) (unknown) Mother (units (unknown) date) Ovarian cancer unknown) (unknown) (no (unknown) (unknown) Osteoarthritis (units (unknown) date) unknown) (unknown) (no (unknown) (unknown) Oxygen Delivery (units (unknown) date) Method room air unknown) (unknown) (no (unknown) (unknown) PERSERVATIVES (units ( unknown) date) Allergy (Severe, unknown) Uncoded 01/12/22 08:01) (unknown) (no (unknown) (unknown) PFSH (units (unkno wn) date) unknown) (unknown) (no (unknown) (unknown) Pain Scale (units (unk nown) date) unknown) (unknown) (no (unknown) (unknown) Patient: Armando (units (unknown) date) Angela Conley unknown) M (unknown) (no (unknown) (unknown) Penicillins (units (un known) date) Allergy (Mild, unknown) Verified 01/12/22 08:01) (unknown) (no (unknown) (unknown) Position (units (unkno wn) date) Sitting unknown) (unknown) (no (unknown) (unknown) Posterior (units (unkn own) date) vitreous unknown) detachment (-2016) (unknown) (no (unknown) (unknown) Pulse 64 (units (un known) date) unknown) (unknown) (no (unknown) (unknown) Pulse Oximetry (units (unknown) date) (%) 99 unknown) (unknown) (no (unknown) (unknown) Pulse Source (units (u nknown) date) Monitor unknown) (unknown) (no (unknown) (unknown) R#: [id number] (units (unknown) date) unknown) (unknown) (no (unknown) (unknown) Reason For Visit (units (unknown) date) unknown) (unknown) (no (unknown) (unknown) Scoliosis (-1999) (units (unknown) date) unknown) (unknown) (no (unknown) (unknown) Signed By: (units (unk nown) date) unknown) (unknown) (no (unknown) (unknown) Smoking Status: (units (unknown) date) Never smoker unknown) (unknown) (no (unknown) (unknown) Sulfa (units (unkno wn) date) (Sulfonamide unknown) Antibiotics) Allergy (Mild, Verified 01/12/22 08:01) (unknown) (no (unknown) (unknown) Surgical History (units (unknown) date) (Reviewed 11/25/21 unknown) @ 16:07 by ALANNAH Hopper) (unknown) (no (unknown) (unknown) TUNA Allergy (units (u nknown) date) (Intermediate, unknown) Uncoded 01/12/22 08:01) (unknown) (no (unknown) (unknown) Temp 97.3 F L (units (unknown) date) unknown) (unknown) (no (unknown) (unknown) Temp Source (units (un known) date) Temporal Artery unknown) Scan (unknown) (no (unknown) (unknown) This note may (units ( unknown) date) have been all or unknown) partially generated using voice recognition (unknown) (no (unknown) (unknown) Thoracic (units (unkno wn) date) radiculitis unknown) (unknown) (no (unknown) (unknown) Tobacco + (units (unkn own) date) Substance Use unknown) (unknown) (no (unknown) (unknown) Tobacco Status (units (unknown) date) unknown) (unknown) (no (unknown) (unknown) Vertical (units (unkno wn) date) heterophoria unknown) (unknown) (no (unknown) (unknown) Visit Reasons: FU (units (unknown) date) Lspine, LUMBAR AND unknown) CERVICAL IMAGING (unknown) (no (unknown) (unknown) Vitals (units (unkno wn) date) unknown) (unknown) (no (unknown) (unknown) Weight 199 lb (units (unknown) date) 11 oz unknown) (unknown) (no (unknown) (unknown) acetaminophen 325 (units (unknown) date) mg capsule unknown) (Tylenol) 650 mg PO Q6H PRN 08/18/20 [History (unknown) (no (unknown) (unknown) adhesive Allergy (units (unknown) date) (Intermediate, unknown) Verified 01/12/22 08:01) (unknown) (no (unknown) (unknown) albuterol sulfate (units (unknown) date) 90 mcg/actuation unknown) aerosol inhaler 1 puff INHALATION Q6H (unknown) (no (unknown) (unknown) amitriptyline 25 (units (unknown) date) mg tablet 25 mg PO unknown) BEDTIME #90 tab 12/27/21 [Rx Confirmed (unknown) (no (unknown) (unknown) benzoyl peroxide (units (unknown) date) Allergy (Mild, unknown) Verified 01/12/22 08:01) (unknown) (no (unknown) (unknown) calcium citrate (units (unknown) date) 200 mg (950 mg) unknown) tablet 400 mg PO DAILY tab 02/15/18 [History (unknown) (no (unknown) (unknown) celecoxib Allergy (units (unknown) date) (Mild, Verified unknown) 01/12/22 08:01) (unknown) (no (unknown) (unknown) chlorthalidone 50 (units (unknown) date) mg tablet 50 mg PO unknown) DAILY #90 tab 12/23/21 [Rx Confirmed (unknown) (no (unknown) (unknown) clobetasol TOP (units (unknown) date) QWEEK PRN 07/24/19 unknown) [History Confirmed 01/12/22] (unknown) (no (unknown) (unknown) clonidine HCl 0.2 (units (unknown) date) mg tablet 0.2 mg unknown) PO TID PRN #20 tab 11/04/21 [Rx Confirmed (unknown) (no (unknown) (unknown) cyclobenzaprine (units (unknown) date) 10 mg tablet 10 mg unknown) PO Q8H #60 tab 05/20/21 [Rx Confirmed (unknown) (no (unknown) (unknown) diazepam 5 mg (units ( unknown) date) tablet (Valium) 10 unknown) mg PO BID PRN 05/27/21 [History Confirmed (unknown) (no (unknown) (unknown) diflunisal (units (unk nown) date) Allergy (Mild, unknown) Verified 01/12/22 08:01) (unknown) (no (unknown) (unknown) fluticasone (units (un known) date) propionate 50 unknown) mcg/actuation nasal spray,suspension 1 spray NASAL (unknown) (no (unknown) (unknown) gabapentin 600 mg (units (unknown) date) tablet 600 mg PO unknown) BID #180 tab 10/12/21 [Rx Confirmed 01/12/22] (unknown) (no (unknown) (unknown) have occurred. (units (unknown) date) If there are any unknown) questions, please contact the Medical Records (unknown) (no (unknown) (unknown) inhalational (units (u nknown) date) spacing device unknown) (Aerochamber Plus Z Stat) #2 ea 11/09/20 [Rx (unknown) (no (unknown) (unknown) iodine Allergy (units (unknown) date) (Intermediate, unknown) Verified 01/12/22 08:01) (unknown) (no (unknown) (unknown) may occur. (units (unk nown) date) Occasional unknown) wrong-word or 'sound-alike' substitutions may have (unknown) (no (unknown) (unknown) metoprolol (units (unk nown) date) tartrate 100 mg unknown) tablet 100 mg PO BID #180 tab 12/02/21 [Rx Confirmed (unknown) (no (unknown) (unknown) multivitamin 1 (units (unknown) date) tab PO DAILY unknown) 10/15/21 [History Confirmed 01/12/22] (unknown) (no (unknown) (unknown) naproxen Allergy (units (unknown) date) (Mild, Verified unknown) 01/12/22 08:01) (unknown) (no (unknown) (unknown) occurred due to (units (unknown) date) the inherent unknown) limitations of voice recognition software. Please (unknown) (no (unknown) (unknown) read the note (units ( unknown) date) carefully and unknown) recognize, using context, where these substitutions (unknown) (no (unknown) (unknown) software. (units (unkn own) date) Although every unknown) effort is made to edit content, compliance analyst errors (unknown) (no (unknown) (unknown) sumatriptan (units (un known) date) succinate 100 mg unknown) tablet 100 mg PO ONCE PRN #9 tab 02/03/21 [Rx (unknown) (no (unknown) (unknown) triazolam 0.25 mg (units (unknown) date) tablet 0.25 mg PO unknown) ONCE tab 01/12/22 [History Confirmed Result panel 15 (unknown) (no (unknown) (unknown) (no value) (units (unk nown) date) unknown) (unknown) (no (unknown) (unknown) (no value) (units (unk nown) date) unknown) (unknown) (no (unknown) (unknown) 'I GET A (units (unkno wn) date) MIGRAINE' unknown) (unknown) (no (unknown) (unknown) 01/12/22 (units (unkno wn) date) unknown) (unknown) (no (unknown) (unknown) 08:09 (units (unkno wn) date) unknown) (unknown) (no (unknown) (unknown) [place], [place] (units ( unknown) date) [id number] unknown) (unknown) (no (unknown) (unknown) Blister (units (unkno wn) date) unknown) (unknown) (no (unknown) (unknown) Cancer (units (unkno wn) date) unknown) (unknown) (no (unknown) (unknown) Diabetes mellitus (units (unknown) date) unknown) (unknown) (no (unknown) (unknown) Draft (units (unkno wn) date) unknown) (unknown) (no (unknown) (unknown) EYE EDEMA, LIGHT (units (unknown) date) SENSITIVITY unknown) (unknown) (no (unknown) (unknown) HIVES (units (unkno wn) date) unknown) (unknown) (no (unknown) (unknown) Hives (units (unkno wn) date) unknown) (unknown) (no (unknown) (unknown) Hypertension (units (u nknown) date) unknown) (unknown) (no (unknown) (unknown) Mental health (units ( unknown) date) problem unknown) (unknown) (no (unknown) (unknown) Pain Visit (units (unk nown) date) unknown) (unknown) (no (unknown) (unknown) Stroke (units (unkno wn) date) unknown) (unknown) (no (unknown) (unknown) [facility] (units (unknown) date) Pain Management unknown) (unknown) (no (unknown) (unknown) inner tissue (units (u nknown) date) lining shedding of unknown) cervix (unknown) (no (unknown) (unknown) itching (units (unkno wn) date) unknown) (unknown) (no (unknown) (unknown) nausea vomiting (units (unknown) date) unknown) (unknown) (no (unknown) (unknown) (no value) (units (unk nown) date) unknown) (unknown) (no (unknown) (unknown) (1-10): 5 (units (unkn own) date) unknown) (unknown) (no (unknown) (unknown) 01/12/22 (units (unkno wn) date) unknown) (unknown) (no (unknown) (unknown) 01/12/22] (units (unkn own) date) unknown) (unknown) (no (unknown) (unknown) 02/15/18 [History (units (unknown) date) Confirmed unknown) 01/12/22] (unknown) (no (unknown) (unknown) 1. Multilevel (units ( unknown) date) degenerative disc unknown) and facet disease, as well as ligamentum flavum (unknown) (no (unknown) (unknown) 1. Multilevel (units ( unknown) date) degenerative disc unknown) and facet disease, as well as uncovertebral (unknown) (no (unknown) (unknown) 1. Multilevel (units ( unknown) date) degenerative disc unknown) disease. (unknown) (no (unknown) (unknown) 06/20/2018, (units (un known) date) 15:31. unknown) (unknown) (no (unknown) (unknown) 16:25. [place] (units ( unknown) date) [place] unknown) [facility], CR, SPINE LUMB MIN 4VW, (unknown) (no (unknown) (unknown) 2. Mild (units (unkno wn) date) multilevel canal unknown) and foraminal stenoses as described above. No (unknown) (no (unknown) (unknown) 2. Multilevel (units ( unknown) date) canal stenoses, unknown) worst at C3-C4, C4-C5, and C5-C6, where there are (unknown) (no (unknown) (unknown) 2. Multilevel (units ( unknown) date) facet arthropathy. unknown) (unknown) (no (unknown) (unknown) 10/07/2016, 9:01. (units (unknown) date) [place] unknown) [facility], CR, XR LUMBAR SPINE WITH (unknown) (no (unknown) (unknown) 3. Multilevel (units ( unknown) date) foraminal unknown) stenoses, worst at C4-C5 and C5-C6 where there is (unknown) (no (unknown) (unknown) 3. No fracture. (units (unknown) date) No acute osseous unknown) lesion. If symptoms and/or clinical suspicion (unknown) (no (unknown) (unknown) 11/17/2015, 8:19. (units (unknown) date) unknown) (unknown) (no (unknown) (unknown) 5 nonrib-bearing (units (unknown) date) vertebrae are unknown) present. There is approximately 4 millimeters of (unknown) (no (unknown) (unknown) ? (units (unkno wn) date) unknown) (unknown) (no (unknown) (unknown) Abnormal Pap (units (u nknown) date) smear of cervix unknown) () (unknown) (no (unknown) (unknown) Accompanied by: (units (unknown) date) Self / Same As unknown) Patient (unknown) (no (unknown) (unknown) Acne (units (unkno wn) date) unknown) (unknown) (no (unknown) (unknown) Age/Sex: 66 / F (units (unknown) date) Date of Service: unknown) (unknown) (no (unknown) (unknown) Alignment and (units ( unknown) date) Curvature: 5 unknown) lumbar type vertebral bodies are present by plain (unknown) (no (unknown) (unknown) Allergies (units (unkn own) date) unknown) (unknown) (no (unknown) (unknown) Anesthesia (units (unk nown) date) unknown) (unknown) (no (unknown) (unknown) Approved by: Alex (units (unknown) date) Marybel Camacho on unknown) 11/25/2021 at 15:54 ? (unknown) (no (unknown) (unknown) Approved by: Alex (units (unknown) date) Marybel Camacho on unknown) 01/10/2022 at 15:54 (unknown) (no (unknown) (unknown) Approved by: Alex (units (unknown) date) Marybel Camacho on unknown) 02/04/2020 at 15:33 (unknown) (no (unknown) (unknown) Approved by: (units (u nknown) date) Ana Luisa Child unknown) MD Nancy, PhD on 01/10/2022 at 15:45 (unknown) (no (unknown) (unknown) Approved by: Nilsa Medinaunits (unknown) date) Marybel Sullivan on unknown) 11/25/2021 at 16:44 (unknown) (no (unknown) (unknown) Approved by: (units (u nknown) date) Eber Crowder M.D. unknown) on 06/20/2018 at 16:24 (unknown) (no (unknown) (unknown) Approved by: (units (u nknown) date) Eber Crowder M.D. unknown) on 02/25/2020 at 11:11 (unknown) (no (unknown) (unknown) Approved by: (units (u nknown) date) milka Lanza M.D. on 08/17/2020 at 13:53 (unknown) (no (unknown) (unknown) Attending Dr: (units ( unknown) date) Dajuan Flores D.O. unknown) (unknown) (no (unknown) (unknown) BMI 35.4 (units (un known) date) unknown) (unknown) (no (unknown) (unknown) BP 118/70 (units (u nknown) date) unknown) (unknown) (no (unknown) (unknown) Blood Pressure (units (unknown) date) Location Rt unknown) brachial (unknown) (no (unknown) (unknown) Bone Marrow: (units (u nknown) date) Marrow is of unknown) normal overall signal. No acute vertebral body (unknown) (no (unknown) (unknown) Bones: (units (unkno wn) date) unknown) (unknown) (no (unknown) (unknown) Bones: 5 (units (unkno wn) date) nonrib-bearing unknown) vertebrae are present. There is mildly levo scoliotic (unknown) (no (unknown) (unknown) Bones: No (units (unkn own) date) fractures or unknown) dislocations to the C7-T1 level. Minimal anterolisthesis (unknown) (no (unknown) (unknown) Bones: No (units (unkn own) date) fractures or unknown) dislocations. Ankle mortise is normally aligned. No (unknown) (no (unknown) (unknown) Bones:? No (units (unk nown) date) fractures or unknown) dislocations.? Wiin-fl-xohrjjma osteoarthritic changes (unknown) (no (unknown) (unknown) Brother (units (unkno wn) date) Hypertension unknown) (unknown) (no (unknown) (unknown) C3-C4: Moderate (units (unknown) date) disc desiccation. unknown) Mild disc height loss. Mild diffuse disc (unknown) (no (unknown) (unknown) C4 is seen. (units (unk nown) date) Degenerative unknown) endplate changes are noted at C4-5 through C6-7 levels. (unknown) (no (unknown) (unknown) C4-C5: Moderate (units (unknown) date) disc height loss unknown) and desiccation. Moderate diffuse disc bulge. (unknown) (no (unknown) (unknown) C5-C6: Moderate (units (unknown) date) disc height loss unknown) and desiccation. Moderate diffuse disc bulge. (unknown) (no (unknown) (unknown) C6-C7: Severe (units ( unknown) date) disc height loss unknown) and desiccation. Mild diffuse disc bulge. Mild (unknown) (no (unknown) (unknown) C7-T1: Mild disc (units (unknown) date) desiccation and unknown) diffuse disc bulge. Mild facet and (unknown) (no (unknown) (unknown) COMPARISON: (units (un known) date) [facility], unknown) CR, XR CERVICAL SPINE 4V OR 5V, 02/04/2020, 14:16. (unknown) (no (unknown) (unknown) COMPARISON: (units (un known) date) [facility], unknown) MR, L-SPINE WITHOUT CONTRAST, 10/03/2016, (unknown) (no (unknown) (unknown) COMPARISON: None. (units (unknown) date) unknown) (unknown) (no (unknown) (unknown) COMPARISON: (units (un known) date) [place] unknown) [facility], RF, LUMBAR (unknown) (no (unknown) (unknown) COMPARISON:? (units (u nknown) date) None. unknown) (unknown) (no (unknown) (unknown) CONTRAST MEDIA: (units (unknown) date) STATION ID: unknown) [id number] (unknown) (no (unknown) (unknown) Cervical cancer (units (unknown) date) () unknown) (unknown) (no (unknown) (unknown) Cervical (units (unkno wn) date) radiculopathy at unknown) C6 (unknown) (no (unknown) (unknown) Cervical stenosis (units (unknown) date) of spinal canal unknown) () (unknown) (no (unknown) (unknown) Chicken pox (units (un known) date) unknown) (unknown) (no (unknown) (unknown) Chronic back pain (units (unknown) date) unknown) (unknown) (no (unknown) (unknown) Confirmed (units (unkn own) date) 01/12/22] unknown) (unknown) (no (unknown) (unknown) Cubital tunnel (units (unknown) date) syndrome () unknown) (unknown) (no (unknown) (unknown) DAILY #16 g (units (un known) date) 06/02/21 [Rx unknown) Confirmed 01/12/22] (unknown) (no (unknown) (unknown) : 1955 (units (unknown) date) Acct:[id number] unknown) (unknown) (no (unknown) (unknown) Degenerative (units (un known) date) endplate changes unknown) and bilateral facet hypertrophic changes are noted (unknown) (no (unknown) (unknown) Dept at (units (unkno wn) date) . unknown) (unknown) (no (unknown) (unknown) Dictated by: Alex (units (unknown) date) Marybel Camacho on unknown) 11/25/2021 at 15:53 ? ? (unknown) (no (unknown) (unknown) Dictated by: Alex (units (unknown) date) Marybel Camacho on unknown) 01/10/2022 at 15:53 (unknown) (no (unknown) (unknown) Dictated by: Alex (units (unknown) date) Marybel Camacho on unknown) 02/04/2020 at 15:32 (unknown) (no (unknown) (unknown) Dictated by: (units (u nknown) date) Ana Luisa Child unknown) MD Nancy, PhD on 01/10/2022 at 15:44 (unknown) (no (unknown) (unknown) Dictated by: Nilsa (units (unknown) date) Marybel Sullivan on unknown) 11/25/2021 at 16:43 (unknown) (no (unknown) (unknown) Dictated by: (units (u nknown) date) Eber Crowder M.D. unknown) on 06/20/2018 at 16:14 (unknown) (no (unknown) (unknown) Dictated by: (units (u nknown) date) Eber Crowder M.D. unknown) on 02/25/2020 at 10:59 (unknown) (no (unknown) (unknown) Dictated by: (units (u nknown) date) milka Lanza M.D. on 08/17/2020 at 13:51 (unknown) (no (unknown) (unknown) Documented By: (units (unknown) date) Dajuan Flores D.O. unknown) 01/12/22 0801 (unknown) (no (unknown) (unknown) Eczema (units (unkno wn) date) unknown) (unknown) (no (unknown) (unknown) FINDINGS: (units (unkn own) date) unknown) (unknown) (no (unknown) (unknown) FINDINGS:? (units (unk nown) date) unknown) (unknown) (no (unknown) (unknown) FLUORO TIME: (units (u nknown) date) unknown) (unknown) (no (unknown) (unknown) Facet (units (unkno wn) date) arthropathy, unknown) lumbar (unknown) (no (unknown) (unknown) Family History (units (unknown) date) (Reviewed 11/25/21 unknown) @ 16:07 by ALANNAH Hopper) (unknown) (no (unknown) (unknown) Family history of (units (unknown) date) celiac disease unknown) (unknown) (no (unknown) (unknown) Father (units (unknown) date) Non-Hodgkin unknown) lymphoma (unknown) (no (unknown) (unknown) Foot pain (-2005) (units (unknown) date) unknown) (unknown) (no (unknown) (unknown) Grandfather (units (un known) date) unknown) Diverticulitis (unknown) (no (unknown) (unknown) Grandmother (units (un known) date) unknown) Diabetes mellitus (unknown) (no (unknown) (unknown) Grandmother (units (un known) date) Heart unknown) disease (unknown) (no (unknown) (unknown) HERE FOR CERVICAL (units (unknown) date) AND LUMBAR SPINE. unknown) SHE FELL AND NOW THORACIC AREA (unknown) (no (unknown) (unknown) HNP (herniated (units (unknown) date) nucleus pulposus), unknown) thoracic (unknown) (no (unknown) (unknown) Height 5 ft 3 (units (unknown) date) in unknown) (unknown) (no (unknown) (unknown) Herpes (-1975) (units (unknown) date) unknown) (unknown) (no (unknown) (unknown) History of knee (units (unknown) date) replacement unknown) (unknown) (no (unknown) (unknown) IMPRESSION: (units (un known) date) unknown) (unknown) (no (unknown) (unknown) IMPRESSION: (units (un known) date) Degenerative disc unknown) disease in mid to lower cervical spine with left- (unknown) (no (unknown) (unknown) IMPRESSION: (units (unk nown) date) Degenerative disc unknown) disease throughout cervical spine with right worse (unknown) (no (unknown) (unknown) IMPRESSION: (units (un known) date) Aufc-bb-hnbmvaro unknown) degenerative disc disease and moderate to (unknown) (no (unknown) (unknown) IMPRESSION: No (units (unknown) date) acute radiographic unknown) findings. (unknown) (no (unknown) (unknown) IMPRESSION:? No (units (unknown) date) acute left foot unknown) fracture or dislocation.? Forefoot joint (unknown) (no (unknown) (unknown) INDICATIONS: (units (u nknown) date) Other unknown) intervertebral disc displacement, lumbar reg (unknown) (no (unknown) (unknown) INDICATIONS: (units (u nknown) date) UPDATE IMAGING unknown) (unknown) (no (unknown) (unknown) INDICATIONS: (units (u nknown) date) chronic neck pain unknown) (unknown) (no (unknown) (unknown) INDICATIONS: left (units (unknown) date) ankle pain unknown) (unknown) (no (unknown) (unknown) INDICATIONS:? (units ( unknown) date) left foot pain unknown) (unknown) (no (unknown) (unknown) Image quality: (units (unknown) date) Excellent. unknown) (unknown) (no (unknown) (unknown) Intake (units (unkno wn) date) unknown) (unknown) (no (unknown) (unknown) Intake Clinical (units (unknown) date) Staff unknown) (unknown) (no (unknown) (unknown) Intake Note: (units (u nknown) date) unknown) (unknown) (no (unknown) (unknown) Intake performed (units (unknown) date) by: Colette Carlton unknown) (unknown) (no (unknown) (unknown) Is patient in (units ( unknown) date) pain?: Yes (HERE unknown) FOR IMAGING CERVICAL AND LUMBAR AREA) Pain scale (unknown) (no (unknown) (unknown) L1-L2 (units (unkno wn) date) unknown) (unknown) (no (unknown) (unknown) L1-L2 and L2-L3 (units (unknown) date) intervertebral unknown) discs. There is mild degenerative marrow edema (unknown) (no (unknown) (unknown) L1-L2: Moderate (units (unknown) date) disc height loss unknown) and desiccation. Mild diffuse disc bulge. Mild (unknown) (no (unknown) (unknown) L2-L3: Mild disc (units (unknown) date) height loss and unknown) desiccation. Mild bilateral facet hypertrophy. (unknown) (no (unknown) (unknown) L3-L4: Mild disc (units (unknown) date) height loss and unknown) desiccation. Minimal diffuse disc bulge. Mild (unknown) (no (unknown) (unknown) L4-L5: Mild disc (units (unknown) date) height loss and unknown) desiccation. Mild diffuse disc bulge. Moderate (unknown) (no (unknown) (unknown) L5 and L5-S1 (units (u nknown) date) facet arthropathy. unknown) Mild L2-L3 and L3-L4 facet arthropathy. (unknown) (no (unknown) (unknown) L5-S1: There is (units (unknown) date) mild disc height unknown) loss and desiccation. Moderate bilateral facet (unknown) (no (unknown) (unknown) LS spine. There (units (unknown) date) is slight grade 1 unknown) anterolisthesis of L5 on S1, and no (unknown) (no (unknown) (unknown) Loc: PAIN (units (unkn own) date) unknown) (unknown) (no (unknown) (unknown) Lumbar spine pain (units (unknown) date) () unknown) (unknown) (no (unknown) (unknown) MBB, (units (unkno wn) date) unknown) (unknown) (no (unknown) (unknown) MODALITY: MR (units (u nknown) date) PATIENT TYPE: Out unknown) (unknown) (no (unknown) (unknown) MSG Allergy (units (un known) date) (Severe, Uncoded unknown) 01/12/22 08:01) (unknown) (no (unknown) (unknown) Measles (units (unkno wn) date) unknown) (unknown) (no (unknown) (unknown) Medical History (units (unknown) date) (Reviewed 11/25/21 unknown) @ 16:07 by Merle Batista [facility]) (unknown) (no (unknown) (unknown) Medications (units (un known) date) unknown) (unknown) (no (unknown) (unknown) Migraine headache (units (unknown) date) unknown) (unknown) (no (unknown) (unknown) Mild canal (units (unk nown) date) unknown) (unknown) (no (unknown) (unknown) Moderate facet (units (unknown) date) and uncovertebral unknown) hypertrophy bilaterally. Moderate canal (unknown) (no (unknown) (unknown) Mother (units (unknown) date) Ovarian cancer unknown) (unknown) (no (unknown) (unknown) No change. (units (unk nown) date) unknown) (unknown) (no (unknown) (unknown) No vertebral (units (u nknown) date) unknown) (unknown) (no (unknown) (unknown) Noncontrast (units (un known) date) sagittal T1 spin unknown) echo and T2 fast echo, sagittal STIR, axial T1 and (unknown) (no (unknown) (unknown) OBLIQUES, (units (unkn own) date) 11/21/2017, 10:06. unknown) [facility], MR, MR LUMBAR SPINE WO CON, (unknown) (no (unknown) (unknown) Objective Data (units (unknown) date) unknown) (unknown) (no (unknown) (unknown) Objective Data: (units (unknown) date) unknown) (unknown) (no (unknown) (unknown) Oblique images (units (unknown) date) unknown) (unknown) (no (unknown) (unknown) Oblique images: (units (unknown) date) No pars defects. unknown) (unknown) (no (unknown) (unknown) Osteoarthritis (units (unknown) date) unknown) (unknown) (no (unknown) (unknown) Oxygen Delivery (units (unknown) date) Method room air unknown) (unknown) (no (unknown) (unknown) PERSERVATIVES (units ( unknown) date) Allergy (Severe, unknown) Uncoded 01/12/22 08:01) (unknown) (no (unknown) (unknown) PFSH (units (unkno wn) date) unknown) (unknown) (no (unknown) (unknown) PROCEDURE: MR (units ( unknown) date) LUMBAR SPINE WO unknown) CON (unknown) (no (unknown) (unknown) PROCEDURE: XR (units ( unknown) date) ANKLE LT MIN 3V unknown) (unknown) (no (unknown) (unknown) PROCEDURE: XR (units ( unknown) date) CERVICAL SPINE 4V unknown) OR 5V (unknown) (no (unknown) (unknown) PROCEDURE: XR (units ( unknown) date) LUMBAR SPINE MIN unknown) 4V (unknown) (no (unknown) (unknown) PROCEDURE:? XR (units (unknown) date) FOOT LT MIN 3V unknown) (unknown) (no (unknown) (unknown) Pain Scale (units (unk nown) date) unknown) (unknown) (no (unknown) (unknown) Paraspinous Soft (units (unknown) date) Tissues: No unknown) paravertebral masses. (unknown) (no (unknown) (unknown) Patient: Armando (units (unknown) date) Angela Conley unknown) M (unknown) (no (unknown) (unknown) Penicillins (units (un known) date) Allergy (Mild, unknown) Verified 01/12/22 08:01) (unknown) (no (unknown) (unknown) Position (units (unkno wn) date) Sitting unknown) (unknown) (no (unknown) (unknown) Posterior (units (unkn own) date) vitreous unknown) detachment (-2016) (unknown) (no (unknown) (unknown) Pulse 64 (units (un known) date) unknown) (unknown) (no (unknown) (unknown) Pulse Oximetry (units (unknown) date) (%) 99 unknown) (unknown) (no (unknown) (unknown) Pulse Source (units (u nknown) date) Monitor unknown) (unknown) (no (unknown) (unknown) R#: [id number] (units (unknown) date) unknown) (unknown) (no (unknown) (unknown) Reason For Visit (units (unknown) date) unknown) (unknown) (no (unknown) (unknown) Scoliosis (-1999) (units (unknown) date) unknown) (unknown) (no (unknown) (unknown) Severe right and (units (unknown) date) mild left unknown) foraminal stenosis. Right C6 nerve root compression. (unknown) (no (unknown) (unknown) Signed By: (units (unk nown) date) unknown) (unknown) (no (unknown) (unknown) Smoking Status: (units (unknown) date) Never smoker unknown) (unknown) (no (unknown) (unknown) Soft tissues: No (units (unknown) date) prevertebral soft unknown) tissue swelling. (unknown) (no (unknown) (unknown) Soft tissues: No (units (unknown) date) tibiotalar joint unknown) effusion. Achilles tendon appears normal. (unknown) (no (unknown) (unknown) Soft tissues: (units ( unknown) date) Overlying bowel unknown) gas pattern is normal. No suspicious soft tissue (unknown) (no (unknown) (unknown) Soft tissues:? No (units (unknown) date) tibiotalar joint unknown) effusion.? Achilles tendon appears normal.? (unknown) (no (unknown) (unknown) Spinal Cord: Conus (units (unknown) date) medullaris unknown) terminates at the upper L2 level. There is a small (unknown) (no (unknown) (unknown) Sulfa (units (unkno wn) date) (Sulfonamide unknown) Antibiotics) Allergy (Mild, Verified 01/12/22 08:01) (unknown) (no (unknown) (unknown) Surgical History (units (unknown) date) (Reviewed 11/25/21 unknown) @ 16:07 by [facility]) (unknown) (no (unknown) (unknown) T1-T2: Mild disc (units (unknown) date) height loss and unknown) desiccation. Mild diffuse disc bulge with (unknown) (no (unknown) (unknown) T2 fast (units (unkno wn) date) unknown) (unknown) (no (unknown) (unknown) TECHNIQUE: (units (unk nown) date) unknown) (unknown) (no (unknown) (unknown) TECHNIQUE: 3 (units (u nknown) date) views of the ankle unknown) were acquired. (unknown) (no (unknown) (unknown) TECHNIQUE: 4 (units (u nknown) date) views of the unknown) lumbar spine were acquired. (unknown) (no (unknown) (unknown) TECHNIQUE: 5 (units (u nknown) date) views of the unknown) cervical spine acquired. (unknown) (no (unknown) (unknown) TECHNIQUE:? 3 (units ( unknown) date) views of the foot unknown) were acquired.? (unknown) (no (unknown) (unknown) TUNA Allergy (units (u nknown) date) (Intermediate, unknown) Uncoded 01/12/22 08:01) (unknown) (no (unknown) (unknown) Temp 97.3 F L (units (unknown) date) unknown) (unknown) (no (unknown) (unknown) Temp Source (units (un known) date) Temporal Artery unknown) Scan (unknown) (no (unknown) (unknown) There is mild (units (u nknown) date) grade 1 unknown) retrolisthesis of L1 on L2. There is mild diffuse leftward (unknown) (no (unknown) (unknown) This note may (units ( unknown) date) have been all or unknown) partially generated using voice recognition (unknown) (no (unknown) (unknown) Thoracic (units (unkno wn) date) radiculitis unknown) (unknown) (no (unknown) (unknown) Tobacco + (units (unkn own) date) Substance Use unknown) (unknown) (no (unknown) (unknown) Tobacco Status (units (unknown) date) unknown) (unknown) (no (unknown) (unknown) Vertical (units (unkno wn) date) heterophoria unknown) (unknown) (no (unknown) (unknown) Visit Reasons: FU (units (unknown) date) Lspine, LUMBAR AND unknown) CERVICAL IMAGING (unknown) (no (unknown) (unknown) Vitals (units (unkno wn) date) unknown) (unknown) (no (unknown) (unknown) Weight 199 lb (units (unknown) date) 11 oz unknown) (unknown) (no (unknown) (unknown) acetaminophen 325 (units (unknown) date) mg capsule unknown) (Tylenol) 650 mg PO Q6H PRN 08/18/20 [History (unknown) (no (unknown) (unknown) adhesive Allergy (units (unknown) date) (Intermediate, unknown) Verified 01/12/22 08:01) (unknown) (no (unknown) (unknown) adjacent to the (units (unknown) date) unknown) (unknown) (no (unknown) (unknown) adjacent to the (units (unknown) date) L4-L5 and L5-S1 unknown) facet joints. (unknown) (no (unknown) (unknown) albuterol sulfate (units (unknown) date) 90 mcg/actuation unknown) aerosol inhaler 1 puff INHALATION Q6H (unknown) (no (unknown) (unknown) amitriptyline 25 (units (unknown) date) mg tablet 25 mg PO unknown) BEDTIME #90 tab 12/27/21 [Rx Confirmed (unknown) (no (unknown) (unknown) and C3-4 levels. (units (unknown) date) unknown) (unknown) (no (unknown) (unknown) anterolisthesis (units (unknown) date) at C2-3 unknown) (unknown) (no (unknown) (unknown) are noted (units (unkn own) date) unknown) (unknown) (no (unknown) (unknown) assessment. (units (un known) date) unknown) (unknown) (no (unknown) (unknown) associated (units (unk nown) date) intraforaminal unknown) nerve root compression. Recommend correlation with (unknown) (no (unknown) (unknown) benzoyl peroxide (units (unknown) date) Allergy (Mild, unknown) Verified 01/12/22 08:01) (unknown) (no (unknown) (unknown) bilateral (units (unkn own) date) unknown) (unknown) (no (unknown) (unknown) bilateral bony (units ( unknown) date) foraminal stenosis unknown) at C3-4 through C6-7 levels. No acute fracture (unknown) (no (unknown) (unknown) bilateral (units (unkn own) date) foraminal unknown) (unknown) (no (unknown) (unknown) body compression (units (unknown) date) fractures. No unknown) suspicious bony lesions. Moderate L1-L2 and L5-S1 (unknown) (no (unknown) (unknown) bony alignment (units (unknown) date) unknown) (unknown) (no (unknown) (unknown) bulge. Mild (units (un known) date) unknown) (unknown) (no (unknown) (unknown) calcifications. (units (unknown) date) unknown) (unknown) (no (unknown) (unknown) calcium citrate (units (unknown) date) 200 mg (950 mg) unknown) tablet 400 mg PO DAILY tab 02/15/18 [History (unknown) (no (unknown) (unknown) celecoxib Allergy (units (unknown) date) (Mild, Verified unknown) 01/12/22 08:01) (unknown) (no (unknown) (unknown) centered at L2. (units (unknown) date) No vertebral body unknown) compression fractures. No suspicious bony (unknown) (no (unknown) (unknown) change. (units (unkno wn) date) unknown) (unknown) (no (unknown) (unknown) chlorthalidone 50 (units (unknown) date) mg tablet 50 mg PO unknown) DAILY #90 tab 12/23/21 [Rx Confirmed (unknown) (no (unknown) (unknown) clinical symptoms (units (unknown) date) to ascertain unknown) relevance of these findings. (unknown) (no (unknown) (unknown) clobetasol TOP (units (unknown) date) QWEEK PRN 07/24/19 unknown) [History Confirmed 01/12/22] (unknown) (no (unknown) (unknown) clonidine HCl 0.2 (units (unknown) date) mg tablet 0.2 mg unknown) PO TID PRN #20 tab 11/04/21 [Rx Confirmed (unknown) (no (unknown) (unknown) compression (units (un known) date) unknown) (unknown) (no (unknown) (unknown) compression (units (un known) date) fractures. There unknown) is mild reactive signal within the endplates (unknown) (no (unknown) (unknown) contribute to (units ( unknown) date) canal, unknown) (unknown) (no (unknown) (unknown) curvature (units (unkn own) date) unknown) (unknown) (no (unknown) (unknown) cyclobenzaprine (units (unknown) date) 10 mg tablet 10 mg unknown) PO Q8H #60 tab 05/20/21 [Rx Confirmed (unknown) (no (unknown) (unknown) degenerative disc (units (unknown) date) disease. Mild unknown) L2-L3, L3-L4 and L4-L5 degenerative disc (unknown) (no (unknown) (unknown) demonstrate (units (un known) date) moderate unknown) left-sided foraminal stenosis at C5-6 level. (unknown) (no (unknown) (unknown) diazepam 5 mg (units ( unknown) date) tablet (Valium) 10 unknown) mg PO BID PRN 05/27/21 [History Confirmed (unknown) (no (unknown) (unknown) diflunisal (units (unk nown) date) Allergy (Mild, unknown) Verified 01/12/22 08:01) (unknown) (no (unknown) (unknown) disease. Severe (units (unknown) date) L4- unknown) (unknown) (no (unknown) (unknown) dorsal (units (unkno wn) date) unknown) (unknown) (no (unknown) (unknown) facet and (units (unkn own) date) unknown) (unknown) (no (unknown) (unknown) facet and (units (unkn own) date) ligamentum flavum unknown) hypertrophy. Mild canal stenosis. No foraminal (unknown) (no (unknown) (unknown) facet and (units (unkn own) date) uncovertebral unknown) hypertrophy bilaterally. Moderate canal stenosis. Mild (unknown) (no (unknown) (unknown) facet (units (unkno wn) date) hypertrophy. Mild unknown) canal stenosis. Mild bilateral foraminal stenosis. No (unknown) (no (unknown) (unknown) facet (units (unkno wn) date) hypertrophy. Mild unknown) epidural lipomatosis. Mild canal stenosis. Mild (unknown) (no (unknown) (unknown) film. (units (unkno wn) date) unknown) (unknown) (no (unknown) (unknown) fluticasone (units (un known) date) propionate 50 unknown) mcg/actuation nasal spray,suspension 1 spray NASAL (unknown) (no (unknown) (unknown) for (units (unkno wn) date) unknown) (unknown) (no (unknown) (unknown) foraminal (units (unkn own) date) stenosis at C5-6 unknown) level. No acute fracture or dislocation. Minimal (unknown) (no (unknown) (unknown) foraminal (units (unkn own) date) stenosis. unknown) (unknown) (no (unknown) (unknown) fracture has (units (u nknown) date) developed. No unknown) significant change. (unknown) (no (unknown) (unknown) gabapentin 600 mg (units (unknown) date) tablet 600 mg PO unknown) BID #180 tab 10/12/21 [Rx Confirmed 01/12/22] (unknown) (no (unknown) (unknown) half of the (units (un known) date) unknown) (unknown) (no (unknown) (unknown) have occurred. (units (unknown) date) If there are any unknown) questions, please contact the Medical Records (unknown) (no (unknown) (unknown) hypertrophy and (units (unknown) date) epidural unknown) lipomatosis. (unknown) (no (unknown) (unknown) hypertrophy. (units (u nknown) date) unknown) (unknown) (no (unknown) (unknown) hypertrophy. No (units (unknown) date) significant canal unknown) stenosis. Mild left foraminal stenosis. No (unknown) (no (unknown) (unknown) hypertrophy. (units (u nknown) date) bilaterally. Mild unknown) canal stenosis. Mild bilateral foraminal (unknown) (no (unknown) (unknown) inhalational (units (u nknown) date) spacing device unknown) (Aerochamber Plus Z Stat) #2 ea 11/09/20 [Rx (unknown) (no (unknown) (unknown) iodine Allergy (units (unknown) date) (Intermediate, unknown) Verified 01/12/22 08:01) (unknown) (no (unknown) (unknown) left and severe (units (unknown) date) right foraminal unknown) stenosis. Right C5 nerve root compression. (unknown) (no (unknown) (unknown) lesions. (units (unkno wn) date) unknown) (unknown) (no (unknown) (unknown) lipoma of the (units ( unknown) date) filum terminalis, unknown) as before, which does not significantly (unknown) (no (unknown) (unknown) marginal (units (unkno wn) date) osteophyte unknown) formation.? No suspicious bony lesions.? (unknown) (no (unknown) (unknown) may occur. (units (unk nown) date) Occasional unknown) wrong-word or 'sound-alike' substitutions may have (unknown) (no (unknown) (unknown) metoprolol (units (unk nown) date) tartrate 100 mg unknown) tablet 100 mg PO BID #180 tab 12/02/21 [Rx Confirmed (unknown) (no (unknown) (unknown) moderate canal (units (unknown) date) stenoses present. unknown) (unknown) (no (unknown) (unknown) moderate left (units ( unknown) date) unknown) (unknown) (no (unknown) (unknown) moderately (units (unk nown) date) unknown) (unknown) (no (unknown) (unknown) most prominent (units (unknown) date) involving 1st MTP unknown) joint concerning for hallux limitus. (unknown) (no (unknown) (unknown) multivitamin 1 (units (unknown) date) tab PO DAILY unknown) 10/15/21 [History Confirmed 01/12/22] (unknown) (no (unknown) (unknown) naproxen Allergy (units (unknown) date) (Mild, Verified unknown) 01/12/22 08:01) (unknown) (no (unknown) (unknown) nor foraminal (units ( unknown) date) stenosis. unknown) Visualized cord demonstrates normal signal and size. (unknown) (no (unknown) (unknown) occurred due to (units (unknown) date) the inherent unknown) limitations of voice recognition software. Please (unknown) (no (unknown) (unknown) of C2 on C3 and (units (unknown) date) C3 on unknown) (unknown) (no (unknown) (unknown) of C3 on C4 is (units (unknown) date) seen. unknown) (unknown) (no (unknown) (unknown) of the lumbar (units ( unknown) date) spine. unknown) (unknown) (no (unknown) (unknown) or dislocation. (units (unknown) date) unknown) (unknown) (no (unknown) (unknown) osteoarthritis (units (unknown) date) unknown) (unknown) (no (unknown) (unknown) pathology (units (unkn own) date) persists, unknown) evaluation with MRI should be considered for further (unknown) (no (unknown) (unknown) read the note (units ( unknown) date) carefully and unknown) recognize, using context, where these substitutions (unknown) (no (unknown) (unknown) retrolisthesis.. (units (unknown) date) There is mild unknown) convex left curvature of the thoracolumbar spine. 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 Mild unknown) canal stenosis. No foraminal stenosis. (unknown) (no (unknown) (unknown) software. (units (unkn own) date) Although every unknown) effort is made to edit content, compliance analyst errors (unknown) (no (unknown) (unknown) spin echo may be (units (unknown) date) performed. unknown) (unknown) (no (unknown) (unknown) spin echo through (units (unknown) date) the lumbar spine. unknown) In cases with scoliosis, additional coronal (unknown) (no (unknown) (unknown) spine. Oblique (units ( unknown) date) images demonstrate unknown) right worse than left bilateral bony foraminal (unknown) (no (unknown) (unknown) stenosis at C3-4 (units (unknown) date) unknown) (unknown) (no (unknown) (unknown) stenosis. (units (unkn own) date) unknown) (unknown) (no (unknown) (unknown) stenosis. Mild (units (unknown) date) unknown) (unknown) (no (unknown) (unknown) stenosis. Mild (units (unknown) date) bilateral unknown) foraminal stenosis. No change. (unknown) (no (unknown) (unknown) stenosis. No (units (u nknown) date) change. unknown) (unknown) (no (unknown) (unknown) sumatriptan (units (un known) date) succinate 100 mg unknown) tablet 100 mg PO ONCE PRN #9 tab 02/03/21 [Rx (unknown) (no (unknown) (unknown) superimposed (units (u nknown) date) unknown) (unknown) (no (unknown) (unknown) suspicious bony (units (unknown) date) unknown) (unknown) (no (unknown) (unknown) than left (units (unkn own) date) unknown) (unknown) (no (unknown) (unknown) through C6-7 (units (u nknown) date) levels. unknown) (unknown) (no (unknown) (unknown) throughout (units (unk nown) date) cervical unknown) (unknown) (no (unknown) (unknown) throughout (units (unkn own) date) forefoot joints unknown) most prominent involving 1st MTP joint with prominent (unknown) (no (unknown) (unknown) triazolam 0.25 mg (units (unknown) date) tablet 0.25 mg PO unknown) ONCE tab 01/12/22 [History Confirmed (unknown) (no (unknown) (unknown) uncovertebral (units ( unknown) date) unknown) (unknown) (no (unknown) (unknown) uncovertebral (units ( unknown) date) hypertrophy unknown) bilaterally. Mild canal stenosis. Mild right and Result panel 16 (unknown) (no (unknown) (unknown) (no value) (units (unk nown) date) unknown) (unknown) (no (unknown) (unknown) Medications: (units (u nknown) date) unknown) (unknown) (no (unknown) (unknown) Qualifiers: (units (un known) date) unknown) (unknown) (no (unknown) (unknown) Status: Acute (units ( unknown) date) unknown) (unknown) (no (unknown) (unknown) Status: Chronic (units (unknown) date) unknown) (unknown) (no (unknown) (unknown) (no value) (units (unk nown) date) unknown) (unknown) (no (unknown) (unknown) 'I GET A MIGRAINE' (units (unknown) date) unknown) (unknown) (no (unknown) (unknown) 01/12/22 (units (unkno wn) date) unknown) (unknown) (no (unknown) (unknown) 08:09 (units (unkno wn) date) unknown) (unknown) (no (unknown) (unknown) [place], [place] [id number] (unit s (unknown) date) unknown) (unknown) (no (unknown) (unknown) Blister (units (unkno wn) date) unknown) (unknown) (no (unknown) (unknown) Cancer (units (unkno wn) date) unknown) (unknown) (no (unknown) (unknown) Diabetes mellitus (units (unknown) date) unknown) (unknown) (no (unknown) (unknown) Draft (units (unkno wn) date) unknown) (unknown) (no (unknown) (unknown) EYE EDEMA, LIGHT (units (unknown) date) SENSITIVITY unknown) (unknown) (no (unknown) (unknown) Encounter type: (units (unknown) date) initial encounter unknown) Involved ligament of ankle: deltoid (unknown) (no (unknown) (unknown) HIVES (units (unkno wn) date) unknown) (unknown) (no (unknown) (unknown) Hives (units (unkno wn) date) unknown) (unknown) (no (unknown) (unknown) Hypertension (units (u nknown) date) unknown) (unknown) (no (unknown) (unknown) Mental health (units ( unknown) date) problem unknown) (unknown) (no (unknown) (unknown) Pain Visit (units (unk nown) date) unknown) (unknown) (no (unknown) (unknown) Stroke (units (unkno wn) date) unknown) (unknown) (no (unknown) (unknown) [facility] (unit s (unknown) date) Management unknown) (unknown) (no (unknown) (unknown) inner tissue lining (unit s (unknown) date) shedding of cervix unknown) (unknown) (no (unknown) (unknown) itching (units (unkno wn) date) unknown) (unknown) (no (unknown) (unknown) nausea vomiting (units (unknown) date) unknown) (unknown) (no (unknown) (unknown) (no value) (units (unk nown) date) unknown) (unknown) (no (unknown) (unknown) All of her (units (unk nown) date) questions were unknown) answered to the best my ability she is in agreement (unknown) (no (unknown) (unknown) (1) Facet (units (unkn own) date) arthropathy, lumbar: unknown) (unknown) (no (unknown) (unknown) (1-10): 5 (units (unkn own) date) unknown) (unknown) (no (unknown) (unknown) (2) Cervical (units (u nknown) date) stenosis of spinal unknown) canal: (unknown) (no (unknown) (unknown) (3) Scoliosis (and (units (unknown) date) kyphoscoliosis), unknown) idiopathic: (unknown) (no (unknown) (unknown) (4) Herniated (units ( unknown) date) nucleus pulposus, unknown) L1-2: (unknown) (no (unknown) (unknown) (5) Left ankle (units (unknown) date) sprain: unknown) (unknown) (no (unknown) (unknown) 01/12/22 (units (unkno wn) date) unknown) (unknown) (no (unknown) (unknown) 01/12/22] (units (unkn own) date) unknown) (unknown) (no (unknown) (unknown) 02/15/18 [History (units (unknown) date) Confirmed 01/12/22] unknown) (unknown) (no (unknown) (unknown) 1. Multilevel (units ( unknown) date) degenerative disc unknown) and facet disease, as well as ligamentum flavum (unknown) (no (unknown) (unknown) 1. Multilevel (units ( unknown) date) degenerative disc unknown) and facet disease, as well as uncovertebral (unknown) (no (unknown) (unknown) 1. Multilevel (units ( unknown) date) degenerative disc unknown) disease. (unknown) (no (unknown) (unknown) 06/20/2018, 15:31. (units (unknown) date) unknown) (unknown) (no (unknown) (unknown) 16:25. [place] (units ( unknown) date) [facility] unknown) [place], [place], SPINE LUMB MIN 4VW, (unknown) (no (unknown) (unknown) 2. Mild multilevel (units (unknown) date) canal and foraminal unknown) stenoses as described above. No (unknown) (no (unknown) (unknown) 2. Multilevel canal (unit s (unknown) date) stenoses, worst at unknown) C3-C4, C4-C5, and C5-C6, where there are (unknown) (no (unknown) (unknown) 2. Multilevel facet (unit s (unknown) date) arthropathy. unknown) (unknown) (no (unknown) (unknown) 10/07/2016, 9:01. (units (unknown) date) [facility] [place], [place], XR LUMBAR SPINE WITH (unknown) (no (unknown) (unknown) 3. Multilevel (units ( unknown) date) foraminal stenoses, unknown) worst at C4-C5 and C5-C6 where there is (unknown) (no (unknown) (unknown) 3. No fracture. No (units (unknown) date) acute osseous unknown) lesion. If symptoms and/or clinical suspicion (unknown) (no (unknown) (unknown) 11/17/2015, 8:19. (units (unknown) date) unknown) (unknown) (no (unknown) (unknown) 5 nonrib-bearing (units (unknown) date) vertebrae are unknown) present. There is approximately 4 millimeters of (unknown) (no (unknown) (unknown) ? (units (unkno wn) date) unknown) (unknown) (no (unknown) (unknown) Abnormal Pap smear (units (unknown) date) of cervix (-1992) unknown) (unknown) (no (unknown) (unknown) Accompanied by: (units (unknown) date) Self / Same As unknown) Patient (unknown) (no (unknown) (unknown) Acne (units (unkno wn) date) unknown) (unknown) (no (unknown) (unknown) Age/Sex: 66 / F (units (unknown) date) Date of Service: unknown) (unknown) (no (unknown) (unknown) Alignment and (units ( unknown) date) Curvature: 5 lumbar unknown) type vertebral bodies are present by plain (unknown) (no (unknown) (unknown) All other systems (units (unknown) date) reviewed and are unknown) unremarkable except as noted in HPI. (unknown) (no (unknown) (unknown) Allergies (units (unkn own) date) unknown) (unknown) (no (unknown) (unknown) Anesthesia (units (unk nown) date) unknown) (unknown) (no (unknown) (unknown) Approved by: Alex (units (unknown) date) Marybel Camacho on unknown) 11/25/2021 at 15:54 ? (unknown) (no (unknown) (unknown) Approved by: Alex (units (unknown) date) Marybel Camacho on unknown) 01/10/2022 at 15:54 (unknown) (no (unknown) (unknown) Approved by: Alex (units (unknown) date) Marybel Camacho on unknown) 02/04/2020 at 15:33 (unknown) (no (unknown) (unknown) Approved by: (units (u nknown) date) Ana Luisa Cruz, unknown) , PhD on 01/10/2022 at 15:45 (unknown) (no (unknown) (unknown) Approved by: Nilsa (units (unknown) date) Marybel Sullivan on unknown) 11/25/2021 at 16:44 (unknown) (no (unknown) (unknown) Approved by: Eber (unit s (unknown) date) Marybel Crowder on unknown) 06/20/2018 at 16:24 (unknown) (no (unknown) (unknown) Approved by: Eber (unit s (unknown) date) Marybel Crowder on unknown) 02/25/2020 at 11:11 (unknown) (no (unknown) (unknown) Approved by: Daniel (units (unknown) date) Marybel Hutchison on unknown) 08/17/2020 at 13:53 (unknown) (no (unknown) (unknown) Assessment + Plan (units (unknown) date) unknown) (unknown) (no (unknown) (unknown) Attending Dr: (units ( unknown) date) Dajuan Flores D.O. unknown) (unknown) (no (unknown) (unknown) BMI 35.4 (units (un known) date) unknown) (unknown) (no (unknown) (unknown) BP 118/70 (units (u nknown) date) unknown) (unknown) (no (unknown) (unknown) Blood Pressure (units (unknown) date) Location Rt unknown) brachial (unknown) (no (unknown) (unknown) Bone Marrow: Marrow (unit s (unknown) date) is of normal overall unknown) signal. No acute vertebral body (unknown) (no (unknown) (unknown) Bones: (units (unkno wn) date) unknown) (unknown) (no (unknown) (unknown) Bones: 5 (units (unkno wn) date) nonrib-bearing unknown) vertebrae are present. There is mildly levo scoliotic (unknown) (no (unknown) (unknown) Bones: No fractures (unit s (unknown) date) or dislocations to unknown) the C7-T1 level. Minimal anterolisthesis (unknown) (no (unknown) (unknown) Bones: No fractures (unit s (unknown) date) or dislocations. unknown) Ankle mortise is normally aligned. No (unknown) (no (unknown) (unknown) Bones:? No (units (unk nown) date) fractures or unknown) dislocations.? [id number] osteoarthritic changes (unknown) (no (unknown) (unknown) Brother (units (unkno wn) date) Hypertension unknown) (unknown) (no (unknown) (unknown) C3-C4: Moderate (units (unknown) date) disc desiccation. unknown) Mild disc height loss. Mild diffuse disc (unknown) (no (unknown) (unknown) C4 is seen. (units (unk nown) date) Degenerative unknown) endplate changes are noted at C4-5 through C6-7 levels. (unknown) (no (unknown) (unknown) C4-C5: Moderate (units (unknown) date) disc height loss and unknown) desiccation. Moderate diffuse disc bulge. (unknown) (no (unknown) (unknown) C5-C6: Moderate (units (unknown) date) disc height loss and unknown) desiccation. Moderate diffuse disc bulge. (unknown) (no (unknown) (unknown) C6-C7: Severe disc (units (unknown) date) height loss and unknown) desiccation. Mild diffuse disc bulge. Mild (unknown) (no (unknown) (unknown) C7-T1: Mild disc (units (unknown) date) desiccation and unknown) diffuse disc bulge. Mild facet and (unknown) (no (unknown) (unknown) COMPARISON: [place] (units (unknown) date) [facility], CR, XR unknown) CERVICAL SPINE 4V OR 5V, 02/04/2020, 14:16. (unknown) (no (unknown) (unknown) COMPARISON: [place] (units (unknown) date) [facility], MR, unknown) L-SPINE WITHOUT CONTRAST, 10/03/2016, (unknown) (no (unknown) (unknown) COMPARISON: None. (units (unknown) date) unknown) (unknown) (no (unknown) (unknown) COMPARISON: [place] (units (unknown) date) [facility] unknown) [place], [place], LUMBAR (unknown) (no (unknown) (unknown) COMPARISON:? None. (units (unknown) date) unknown) (unknown) (no (unknown) (unknown) CONTRAST MEDIA: (units (unknown) date) STATION ID: [id number] unknown) (unknown) (no (unknown) (unknown) Cervical cancer (units (unknown) date) () unknown) (unknown) (no (unknown) (unknown) Cervical (units (unkno wn) date) radiculopathy at C6 unknown) (unknown) (no (unknown) (unknown) Cervical stenosis (units (unknown) date) of spinal canal unknown) () (unknown) (no (unknown) (unknown) Chicken pox (units (un known) date) unknown) (unknown) (no (unknown) (unknown) Chief Complaint (units (unknown) date) unknown) (unknown) (no (unknown) (unknown) Chief Complaint: (units (unknown) date) left foot and ankle unknown) injury, thoracic, cervical and lumbar spine (unknown) (no (unknown) (unknown) Chronic back pain (units (unknown) date) unknown) (unknown) (no (unknown) (unknown) Confirmed 01/12/22] (unit s (unknown) date) unknown) (unknown) (no (unknown) (unknown) Cubital tunnel (units (unknown) date) syndrome () unknown) (unknown) (no (unknown) (unknown) DAILY #16 g (units (un known) date) 06/02/21 [Rx unknown) Confirmed 01/12/22] (unknown) (no (unknown) (unknown) : 1955 (units (unknown) date) Acct:[id number] unknown) (unknown) (no (unknown) (unknown) Degenerative (units (un known) date) endplate changes and unknown) bilateral facet hypertrophic changes are noted (unknown) (no (unknown) (unknown) Denies recent (units ( unknown) date) trauma, fever or unknown) weight loss of unknown origin, immunocompromise (unknown) (no (unknown) (unknown) Dept at (units (unkno wn) date) . unknown) (unknown) (no (unknown) (unknown) Details: (units (unkno wn) date) unknown) (unknown) (no (unknown) (unknown) Dictated by: Alex (units (unknown) date) Marybel Camacho on unknown) 11/25/2021 at 15:53 ? ? (unknown) (no (unknown) (unknown) Dictated by: Alex (units (unknown) date) Marybel Camacho on unknown) 01/10/2022 at 15:53 (unknown) (no (unknown) (unknown) Dictated by: Alex (units (unknown) date) Marybel Camacho on unknown) 02/04/2020 at 15:32 (unknown) (no (unknown) (unknown) Dictated by: (units (u nknown) date) Ana Luisa Cruz, unknown) , PhD on 01/10/2022 at 15:44 (unknown) (no (unknown) (unknown) Dictated by: Nilsa (units (unknown) date) Marybel Sullivan on unknown) 11/25/2021 at 16:43 (unknown) (no (unknown) (unknown) Dictated by: Eber (unit s (unknown) date) Marybel Crowder on unknown) 06/20/2018 at 16:14 (unknown) (no (unknown) (unknown) Dictated by: Eber (unit s (unknown) date) Marybel Crowder on unknown) 02/25/2020 at 10:59 (unknown) (no (unknown) (unknown) Dictated by: Daniel (units (unknown) date) Marybel Hutchison on unknown) 08/17/2020 at 13:51 (unknown) (no (unknown) (unknown) Documented By: (units (unknown) date) Dajuan Flores D.O. unknown) 01/12/22 0801 (unknown) (no (unknown) (unknown) Eczema (units (unkno wn) date) unknown) (unknown) (no (unknown) (unknown) Endorses L1-2 HNP, (units (unknown) date) scoliosis, migraine unknown) headaches, T11/T12 HNP (unknown) (no (unknown) (unknown) FINDINGS: (units (unkn own) date) unknown) (unknown) (no (unknown) (unknown) FINDINGS:? (units (unk nown) date) unknown) (unknown) (no (unknown) (unknown) FLUORO TIME: (units (u nknown) date) unknown) (unknown) (no (unknown) (unknown) Facet arthropathy, (units (unknown) date) lumbar unknown) (unknown) (no (unknown) (unknown) Family History (units (unknown) date) (Reviewed 01/12/22 @ unknown) 08:36 by Dajuan Flores DO) (unknown) (no (unknown) (unknown) Family history of (units (unknown) date) celiac disease unknown) (unknown) (no (unknown) (unknown) Father (units (unknown) date) Non-Hodgkin lymphoma unknown) (unknown) (no (unknown) (unknown) Foot pain (-2005) (units (unknown) date) unknown) (unknown) (no (unknown) (unknown) Grandfather (units (un known) date) unknown) Diverticulitis (unknown) (no (unknown) (unknown) Grandmother (units (un known) date) Diabetes unknown) mellitus (unknown) (no (unknown) (unknown) Grandmother (units (un known) date) Heart unknown) disease (unknown) (no (unknown) (unknown) HERE FOR CERVICAL (units (unknown) date) AND LUMBAR SPINE. unknown) SHE FELL AND NOW THORACIC AREA (unknown) (no (unknown) (unknown) HNP (herniated (units (unknown) date) nucleus pulposus), unknown) thoracic (unknown) (no (unknown) (unknown) HPI (units (unkno wn) date) unknown) (unknown) (no (unknown) (unknown) Height 5 ft 3 in (unit s (unknown) date) unknown) (unknown) (no (unknown) (unknown) Herpes () (units (unknown) date) unknown) (unknown) (no (unknown) (unknown) History of knee (units (unknown) date) replacement unknown) (unknown) (no (unknown) (unknown) IMPRESSION: (units (un known) date) unknown) (unknown) (no (unknown) (unknown) IMPRESSION: (units (un known) date) Degenerative disc unknown) disease in mid to lower cervical spine with left- (unknown) (no (unknown) (unknown) IMPRESSION: (units (unk nown) date) Degenerative disc unknown) disease throughout cervical spine with right worse (unknown) (no (unknown) (unknown) IMPRESSION: (units (un known) date) Vila-ak-mahmwbip unknown) degenerative disc disease and moderate to (unknown) (no (unknown) (unknown) IMPRESSION: No (units (unknown) date) acute radiographic unknown) findings. (unknown) (no (unknown) (unknown) IMPRESSION:? No (units (unknown) date) acute left foot unknown) fracture or dislocation.? Forefoot joint (unknown) (no (unknown) (unknown) INDICATIONS: Other (units (unknown) date) intervertebral disc unknown) displacement, lumbar reg (unknown) (no (unknown) (unknown) INDICATIONS: UPDATE (unit s (unknown) date) IMAGING unknown) (unknown) (no (unknown) (unknown) INDICATIONS: (units (u nknown) date) chronic neck pain unknown) (unknown) (no (unknown) (unknown) INDICATIONS: left (units (unknown) date) ankle pain unknown) (unknown) (no (unknown) (unknown) INDICATIONS:? left (units (unknown) date) foot pain unknown) (unknown) (no (unknown) (unknown) Image quality: (units (unknown) date) Excellent. unknown) (unknown) (no (unknown) (unknown) Intake (units (unkno wn) date) unknown) (unknown) (no (unknown) (unknown) Intake Clinical (units (unknown) date) Staff unknown) (unknown) (no (unknown) (unknown) Intake Note: (units (u nknown) date) unknown) (unknown) (no (unknown) (unknown) Intake performed (units (unknown) date) by: Colette Carlton unknown) (unknown) (no (unknown) (unknown) Is patient in (units ( unknown) date) pain?: Yes (HERE FOR unknown) IMAGING CERVICAL AND LUMBAR AREA) Pain scale (unknown) (no (unknown) (unknown) Angela and I (units (unknown) date) discussed her unknown) underlying pathology with her cervical reversal of (unknown) (no (unknown) (unknown) Angela is seen (units (unknown) date) today regarding unknown) multiple complaints including a left ankole (unknown) (no (unknown) (unknown) L1-L2 (units (unkno wn) date) unknown) (unknown) (no (unknown) (unknown) L1-L2 and L2-L3 (units (unknown) date) intervertebral unknown) discs. There is mild degenerative marrow edema (unknown) (no (unknown) (unknown) L1-L2: Moderate (units (unknown) date) disc height loss and unknown) desiccation. Mild diffuse disc bulge. Mild (unknown) (no (unknown) (unknown) L2-L3: Mild disc (units (unknown) date) height loss and unknown) desiccation. Mild bilateral facet hypertrophy. (unknown) (no (unknown) (unknown) L3-L4: Mild disc (units (unknown) date) height loss and unknown) desiccation. Minimal diffuse disc bulge. Mild (unknown) (no (unknown) (unknown) L4-L5: Mild disc (units (unknown) date) height loss and unknown) desiccation. Mild diffuse disc bulge. Moderate (unknown) (no (unknown) (unknown) L5 and L5-S1 facet (units (unknown) date) arthropathy. Mild unknown) L2-L3 and L3-L4 facet arthropathy. (unknown) (no (unknown) (unknown) L5-S1: There is (units (unknown) date) mild disc height unknown) loss and desiccation. Moderate bilateral facet (unknown) (no (unknown) (unknown) LS spine. There is (units (unknown) date) slight grade 1 unknown) anterolisthesis of L5 on S1, and no (unknown) (no (unknown) (unknown) Left ankle sprain (units (unknown) date) unknown) (unknown) (no (unknown) (unknown) Loc: PAIN (units (unkn own) date) unknown) (unknown) (no (unknown) (unknown) Lumbar spine pain (units (unknown) date) () unknown) (unknown) (no (unknown) (unknown) MBB, (units (unkno wn) date) unknown) (unknown) (no (unknown) (unknown) MODALITY: MR (units (u nknown) date) PATIENT TYPE: Out unknown) (unknown) (no (unknown) (unknown) MSG Allergy (units (un known) date) (Severe, Uncoded unknown) 01/12/22 08:01) (unknown) (no (unknown) (unknown) MSK: System (units (un known) date) reviewed and no unknown) additional complaints, except as documented. (unknown) (no (unknown) (unknown) Measles (units (unkno wn) date) unknown) (unknown) (no (unknown) (unknown) Medical History (units (unknown) date) (Updated 01/12/22 @ unknown) 08:38 by Dajuan Flores DO) (unknown) (no (unknown) (unknown) Medications (units (un known) date) unknown) (unknown) (no (unknown) (unknown) Migraine headache (units (unknown) date) unknown) (unknown) (no (unknown) (unknown) Mild canal (units (unk nown) date) unknown) (unknown) (no (unknown) (unknown) Moderate facet and (units (unknown) date) uncovertebral unknown) hypertrophy bilaterally. Moderate canal (unknown) (no (unknown) (unknown) Mother (units (unknown) date) Ovarian cancer unknown) (unknown) (no (unknown) (unknown) Neuro: System (units ( unknown) date) reviewed and no unknown) additional complaints, except as documented. (unknown) (no (unknown) (unknown) New (units (unkno wn) date) unknown) (unknown) (no (unknown) (unknown) No change. (units (unk nown) date) unknown) (unknown) (no (unknown) (unknown) No vertebral (units (u nknown) date) unknown) (unknown) (no (unknown) (unknown) Noncontrast (units (un known) date) sagittal T1 spin unknown) echo and T2 fast echo, sagittal STIR, axial T1 and (unknown) (no (unknown) (unknown) OBLIQUES, (units (unkn own) date) 11/21/2017, 10:06. unknown) [facility], MR, MR LUMBAR SPINE WO CON, (unknown) (no (unknown) (unknown) Objective Data (units (unknown) date) unknown) (unknown) (no (unknown) (unknown) Objective Data: (units (unknown) date) unknown) (unknown) (no (unknown) (unknown) Oblique images (units (unknown) date) unknown) (unknown) (no (unknown) (unknown) Oblique images: No (units (unknown) date) pars defects. unknown) (unknown) (no (unknown) (unknown) Osteoarthritis (units (unknown) date) unknown) (unknown) (no (unknown) (unknown) Otherwise she has (units (unknown) date) been maintain the unknown) Covid19 social restrictions without (unknown) (no (unknown) (unknown) Otherwise she (units ( unknown) date) maintains on the unknown) gabapentin as she is unable take at nonsteroidal (unknown) (no (unknown) (unknown) Oxygen Delivery (units (unknown) date) Method room air unknown) (unknown) (no (unknown) (unknown) PERSERVATIVES (units ( unknown) date) Allergy (Severe, unknown) Uncoded 01/12/22 08:01) (unknown) (no (unknown) (unknown) PFSH (units (unkno wn) date) unknown) (unknown) (no (unknown) (unknown) PROCEDURE: MR (units ( unknown) date) LUMBAR SPINE WO CON unknown) (unknown) (no (unknown) (unknown) PROCEDURE: XR ANKLE (unit s (unknown) date) LT MIN 3V unknown) (unknown) (no (unknown) (unknown) PROCEDURE: XR (units ( unknown) date) CERVICAL SPINE 4V OR unknown) 5V (unknown) (no (unknown) (unknown) PROCEDURE: XR (units ( unknown) date) LUMBAR SPINE MIN 4V unknown) (unknown) (no (unknown) (unknown) PROCEDURE:? XR FOOT (unit s (unknown) date) LT MIN 3V unknown) (unknown) (no (unknown) (unknown) Pain Scale (units (unk nown) date) unknown) (unknown) (no (unknown) (unknown) Paraspinous Soft (units (unknown) date) Tissues: No unknown) paravertebral masses. (unknown) (no (unknown) (unknown) Patient: Armando (units (unknown) date) Alexandra Conleyhleen unknown) M (unknown) (no (unknown) (unknown) [place] Allergy (unit s (unknown) date) (Mild, Verified unknown) 01/12/22 08:01) (unknown) (no (unknown) (unknown) Plan (units (unkno wn) date) unknown) (unknown) (no (unknown) (unknown) Position Sitting (unit s (unknown) date) unknown) (unknown) (no (unknown) (unknown) Posterior vitreous (units (unknown) date) detachment (-2016) unknown) (unknown) (no (unknown) (unknown) Pulse 64 (units (un known) date) unknown) (unknown) (no (unknown) (unknown) Pulse Oximetry (%) (units (unknown) date) 99 unknown) (unknown) (no (unknown) (unknown) Pulse Source (units (u nknown) date) Monitor unknown) (unknown) (no (unknown) (unknown) R#: [id number] (units (unknown) date) unknown) (unknown) (no (unknown) (unknown) ROS (units (unkno wn) date) unknown) (unknown) (no (unknown) (unknown) ROS Narrative (units ( unknown) date) unknown) (unknown) (no (unknown) (unknown) ROS Narrative: (units (unknown) date) unknown) (unknown) (no (unknown) (unknown) Reason For Visit (units (unknown) date) unknown) (unknown) (no (unknown) (unknown) Regarding her left (units (unknown) date) ankle and her unknown) deltoid ligament sprain we did discuss ongoing (unknown) (no (unknown) (unknown) Regarding her (units ( unknown) date) lumbar spine in the unknown) associated scoliosis she has done very well (unknown) (no (unknown) (unknown) Scoliosis (-1999) (units (unknown) date) unknown) (unknown) (no (unknown) (unknown) Severe right and (units (unknown) date) mild left foraminal unknown) stenosis. Right C6 nerve root compression. (unknown) (no (unknown) (unknown) She also would like (unit s (unknown) date) to review her unknown) cervical spine MRI reviewed with her (unknown) (no (unknown) (unknown) She does report (units (unknown) date) some hip pain that unknown) begins after she exercises significant (unknown) (no (unknown) (unknown) Signed By: (units (unk nown) date) unknown) (unknown) (no (unknown) (unknown) Smoking Status: (units (unknown) date) Never smoker unknown) (unknown) (no (unknown) (unknown) Soft tissues: No (units (unknown) date) prevertebral soft unknown) tissue swelling. (unknown) (no (unknown) (unknown) Soft tissues: No (units (unknown) date) tibiotalar joint unknown) effusion. Achilles tendon appears normal. (unknown) (no (unknown) (unknown) Soft tissues: (units ( unknown) date) Overlying bowel gas unknown) pattern is normal. No suspicious soft tissue (unknown) (no (unknown) (unknown) Soft tissues:? No (units (unknown) date) tibiotalar joint unknown) effusion.? Achilles tendon appears normal.? (unknown) (no (unknown) (unknown) Spinal Cord: Conus (units (unknown) date) medullaris unknown) terminates at the upper L2 level. There is a small (unknown) (no (unknown) (unknown) Sulfa (Sulfonamide (units (unknown) date) Antibiotics) Allergy unknown) (Mild, Verified 01/12/22 08:01) (unknown) (no (unknown) (unknown) Surgical History (units (unknown) date) (Reviewed 01/12/22 @ unknown) 08:36 by Dajuan Flores DO) (unknown) (no (unknown) (unknown) T1-T2: Mild disc (units (unknown) date) height loss and unknown) desiccation. Mild diffuse disc bulge with (unknown) (no (unknown) (unknown) T11/T12 MELISSA (units (unk nown) date) performed on unknown) 05/27/2021.? Additionally she would like to follow-up on (unknown) (no (unknown) (unknown) T2 fast (units (unkno wn) date) unknown) (unknown) (no (unknown) (unknown) TECHNIQUE: (units (unk nown) date) unknown) (unknown) (no (unknown) (unknown) TECHNIQUE: 3 views (units (unknown) date) of the ankle were unknown) acquired. (unknown) (no (unknown) (unknown) TECHNIQUE: 4 views (units (unknown) date) of the lumbar spine unknown) were acquired. (unknown) (no (unknown) (unknown) TECHNIQUE: 5 views (units (unknown) date) of the cervical unknown) spine acquired. (unknown) (no (unknown) (unknown) TECHNIQUE:? 3 views (unit s (unknown) date) of the foot were unknown) acquired.? (unknown) (no (unknown) (unknown) TUNA Allergy (units (u nknown) date) (Intermediate, unknown) Uncoded 01/12/22 08:01) (unknown) (no (unknown) (unknown) Temp 97.3 F L (units (unknown) date) unknown) (unknown) (no (unknown) (unknown) Temp Source (units (un known) date) Temporal Artery Scan unknown) (unknown) (no (unknown) (unknown) There is mild grade (units (unknown) date) 1 retrolisthesis of unknown) L1 on L2. There is mild diffuse leftward (unknown) (no (unknown) (unknown) This note may have (units (unknown) date) been all or unknown) partially generated using voice recognition (unknown) (no (unknown) (unknown) Thoracic (units (unkno wn) date) radiculitis unknown) (unknown) (no (unknown) (unknown) Tobacco + Substance (unit s (unknown) date) Use unknown) (unknown) (no (unknown) (unknown) Tobacco Status (units (unknown) date) unknown) (unknown) (no (unknown) (unknown) Vertical (units (unkno wn) date) heterophoria unknown) (unknown) (no (unknown) (unknown) Visit Reasons: FU (units (unknown) date) Lspine, LUMBAR AND unknown) CERVICAL IMAGING (unknown) (no (unknown) (unknown) Vitals (units (unkno wn) date) unknown) (unknown) (no (unknown) (unknown) Weight 199 lb 11 (unit s (unknown) date) oz unknown) (unknown) (no (unknown) (unknown) a significant (units ( unknown) date) increase for her unknown) since our last evaluation. (unknown) (no (unknown) (unknown) above stated (units (u nknown) date) procedure including unknown) not limited to bleeding, infection, allergic (unknown) (no (unknown) (unknown) above-stated plan (units (unknown) date) unknown) (unknown) (no (unknown) (unknown) acetaminophen 325 (units (unknown) date) mg capsule (Tylenol) unknown) 650 mg PO Q6H PRN 08/18/20 [History (unknown) (no (unknown) (unknown) acetaminophen (units ( unknown) date) combined with her unknown) cyclobenzaprine for added improvement. (unknown) (no (unknown) (unknown) adhesive Allergy (units (unknown) date) (Intermediate, unknown) Verified 01/12/22 08:01) (unknown) (no (unknown) (unknown) adjacent to the (units (unknown) date) unknown) (unknown) (no (unknown) (unknown) adjacent to the (units (unknown) date) L4-L5 and L5-S1 unknown) facet joints. (unknown) (no (unknown) (unknown) albuterol sulfate (units (unknown) date) 90 mcg/actuation unknown) aerosol inhaler 1 puff INHALATION Q6H (unknown) (no (unknown) (unknown) amitriptyline 25 mg (unit s (unknown) date) tablet 25 mg PO unknown) BEDTIME #90 tab 12/27/21 [Rx Confirmed (unknown) (no (unknown) (unknown) and C3-4 levels. (units (unknown) date) unknown) (unknown) (no (unknown) (unknown) ankle, initial (units (unknown) date) encounter unknown) (unknown) (no (unknown) (unknown) anterolisthesis at (units (unknown) date) C2-3 unknown) (unknown) (no (unknown) (unknown) anti-inflammatories (unit s (unknown) date) secondary to GI unknown) upset in the past.? She does also utilized (unknown) (no (unknown) (unknown) are noted (units (unkn own) date) unknown) (unknown) (no (unknown) (unknown) assessment. (units (un known) date) unknown) (unknown) (no (unknown) (unknown) associated (units (unk nown) date) intraforaminal nerve unknown) root compression. Recommend correlation with (unknown) (no (unknown) (unknown) been using a (units (u nknown) date) cyclobenzaprine more unknown) with her hiking.? I did encourage her to (unknown) (no (unknown) (unknown) being in a boot (units (unknown) date) initially and now unknown) regular shoes with ongoing pain and weakness. (unknown) (no (unknown) (unknown) benzoyl peroxide (units (unknown) date) Allergy (Mild, unknown) Verified 01/12/22 08:01) (unknown) (no (unknown) (unknown) bilateral (units (unkn own) date) unknown) (unknown) (no (unknown) (unknown) bilateral bony (units ( unknown) date) foraminal stenosis unknown) at C3-4 through C6-7 levels. No acute fracture (unknown) (no (unknown) (unknown) bilateral foraminal (unit s (unknown) date) unknown) (unknown) (no (unknown) (unknown) body compression (units (unknown) date) fractures. No unknown) suspicious bony lesions. Moderate L1-L2 and L5-S1 (unknown) (no (unknown) (unknown) bony alignment (units (unknown) date) unknown) (unknown) (no (unknown) (unknown) bulge. Mild (units (un known) date) unknown) (unknown) (no (unknown) (unknown) but this is less so (units (unknown) date) for her.? She does unknown) also report the intermittent paresthesias (unknown) (no (unknown) (unknown) calcifications. (units (unknown) date) unknown) (unknown) (no (unknown) (unknown) calcium citrate 200 (unit s (unknown) date) mg (950 mg) tablet unknown) 400 mg PO DAILY tab 02/15/18 [History (unknown) (no (unknown) (unknown) celecoxib Allergy (units (unknown) date) (Mild, Verified unknown) 01/12/22 08:01) (unknown) (no (unknown) (unknown) centered at L2. No (units (unknown) date) vertebral body unknown) compression fractures. No suspicious bony (unknown) (no (unknown) (unknown) change. (units (unkno wn) date) unknown) (unknown) (no (unknown) (unknown) chlorthalidone 50 (units (unknown) date) mg tablet 50 mg PO unknown) DAILY #90 tab 12/23/21 [Rx Confirmed (unknown) (no (unknown) (unknown) clinical symptoms (units (unknown) date) to ascertain unknown) relevance of these findings. (unknown) (no (unknown) (unknown) clobetasol TOP (units (unknown) date) QWEEK PRN 07/24/19 unknown) [History Confirmed 01/12/22] (unknown) (no (unknown) (unknown) clonidine HCl 0.2 (units (unknown) date) mg tablet 0.2 mg PO unknown) TID PRN #20 tab 11/04/21 [Rx Confirmed (unknown) (no (unknown) (unknown) compression (units (un known) date) unknown) (unknown) (no (unknown) (unknown) compression (units (un known) date) fractures. There is unknown) mild reactive signal within the endplates (unknown) (no (unknown) (unknown) consent was (units (un known) date) obtained today, As unknown) oral consent, we did review the risks of the (unknown) (no (unknown) (unknown) continue with her (units (unknown) date) core strengthening unknown) and level of activity increase.? As her (unknown) (no (unknown) (unknown) contribute to (units ( unknown) date) canal, unknown) (unknown) (no (unknown) (unknown) curvature (units (unkn own) date) unknown) (unknown) (no (unknown) (unknown) cyclobenzaprine 10 (units (unknown) date) mg tablet 10 mg PO unknown) Q8H #60 tab 05/20/21 [Rx Confirmed (unknown) (no (unknown) (unknown) degenerative disc (units (unknown) date) disease. Mild L2-L3, unknown) L3-L4 and L4-L5 degenerative disc (unknown) (no (unknown) (unknown) demonstrate (units (un known) date) moderate left-sided unknown) foraminal stenosis at C5-6 level. (unknown) (no (unknown) (unknown) diazepam 5 mg (units ( unknown) date) tablet (Valium) 10 unknown) mg PO BID PRN 05/27/21 [History Confirmed (unknown) (no (unknown) (unknown) difficulty without (units (unknown) date) cough fever fatigue unknown) at this time (unknown) (no (unknown) (unknown) diflunisal Allergy (units (unknown) date) (Mild, Verified unknown) 01/12/22 08:01) (unknown) (no (unknown) (unknown) disease. Severe L4- (unit s (unknown) date) unknown) (unknown) (no (unknown) (unknown) dorsal (units (unkno wn) date) unknown) (unknown) (no (unknown) (unknown) dynamic (units (unkno wn) date) strengthening. unknown) Should her symptoms persist we may consider (unknown) (no (unknown) (unknown) evidence of a T1 to (unit s (unknown) date) HNP with mild unknown) encroachment upon the thecal sac.? At present (unknown) (no (unknown) (unknown) facet and (units (unkn own) date) unknown) (unknown) (no (unknown) (unknown) facet and (units (unkn own) date) ligamentum flavum unknown) hypertrophy. Mild canal stenosis. No foraminal (unknown) (no (unknown) (unknown) facet and (units (unkn own) date) uncovertebral unknown) hypertrophy bilaterally. Moderate canal stenosis. Mild (unknown) (no (unknown) (unknown) facet hypertrophy. (units (unknown) date) Mild canal stenosis. unknown) Mild bilateral foraminal stenosis. No (unknown) (no (unknown) (unknown) facet hypertrophy. (units (unknown) date) Mild epidural unknown) lipomatosis. Mild canal stenosis. Mild (unknown) (no (unknown) (unknown) film. (units (unkno wn) date) unknown) (unknown) (no (unknown) (unknown) fluticasone (units (un known) date) propionate 50 unknown) mcg/actuation nasal spray,suspension 1 spray NASAL (unknown) (no (unknown) (unknown) foot sprain with a (units (unknown) date) lateral roll in unknown) October. She reports being evaluated by her (unknown) (no (unknown) (unknown) for (units (unkno wn) date) unknown) (unknown) (no (unknown) (unknown) foraminal stenosis (units (unknown) date) at C5-6 level. No unknown) acute fracture or dislocation. Minimal (unknown) (no (unknown) (unknown) foraminal stenosis. (unit s (unknown) date) unknown) (unknown) (no (unknown) (unknown) fracture has (units (u nknown) date) developed. No unknown) significant change. (unknown) (no (unknown) (unknown) gabapentin 600 mg (units (unknown) date) tablet 600 mg PO BID unknown) #180 tab 10/12/21 [Rx Confirmed 01/12/22] (unknown) (no (unknown) (unknown) half of the (units (un known) date) unknown) (unknown) (no (unknown) (unknown) have occurred. If (units (unknown) date) there are any unknown) questions, please contact the Medical Records (unknown) (no (unknown) (unknown) her cervical spine (units (unknown) date) is improved with her unknown) increased level of activity and (unknown) (no (unknown) (unknown) her lordosis as (units (unknown) date) well as mild disc unknown) protrusion at C4-5 5 6 and C6-7.? She has (unknown) (no (unknown) (unknown) her lumbar spine (units (unknown) date) with recent increase unknown) in activity as her begun gradual (unknown) (no (unknown) (unknown) hypertrophy and (units (unknown) date) epidural unknown) lipomatosis. (unknown) (no (unknown) (unknown) hypertrophy. (units (u nknown) date) unknown) (unknown) (no (unknown) (unknown) hypertrophy. No (units (unknown) date) significant canal unknown) stenosis. Mild left foraminal stenosis. No (unknown) (no (unknown) (unknown) hypertrophy. (units (u nknown) date) bilaterally. Mild unknown) canal stenosis. Mild bilateral foraminal (unknown) (no (unknown) (unknown) in the upper (units (u nknown) date) extremity are unknown) currently at day.? She does use the cyclobenzaprine (unknown) (no (unknown) (unknown) including the (units ( unknown) date) hikes.? She does unknown) report she has had some cervical thoracic pain (unknown) (no (unknown) (unknown) inhalational (units (u nknown) date) spacing device unknown) (Aerochamber Plus Z Stat) #2 ea 11/09/20 [Rx (unknown) (no (unknown) (unknown) intermittent (units (u nknown) date) paresthesias.? We unknown) may consider a C6-7 translaminar MELISSA should (unknown) (no (unknown) (unknown) intermittent (units (u nknown) date) symptoms involving unknown) the right C6 level.? Additionally she does have (unknown) (no (unknown) (unknown) intermittent upper (units (unknown) date) extremity unknown) paresthesias and cervical thoracic pain.?She is s/p (unknown) (no (unknown) (unknown) intravenous drug (units (unknown) date) use, sustained unknown) glucocorticoid use, osteoporosis, or a focal (unknown) (no (unknown) (unknown) iodine Allergy (units (unknown) date) (Intermediate, unknown) Verified 01/12/22 08:01) (unknown) (no (unknown) (unknown) is currently (units (un known) date) managing her unknown) symptoms with gabapentin and cyclobenzaprine.? She has (unknown) (no (unknown) (unknown) left and severe (units (unknown) date) right foraminal unknown) stenosis. Right C5 nerve root compression. (unknown) (no (unknown) (unknown) lesions. (units (unkno wn) date) unknown) (unknown) (no (unknown) (unknown) ligament Qualified (unit s (unknown) date) Code(s): S93.422A - unknown) Sprain of deltoid ligament of left (unknown) (no (unknown) (unknown) lipoma of the filum (unit s (unknown) date) terminalis, as unknown) before, which does not significantly (unknown) (no (unknown) (unknown) marginal osteophyte (unit s (unknown) date) formation.? No unknown) suspicious bony lesions.? (unknown) (no (unknown) (unknown) may occur. (units (unk nown) date) Occasional unknown) wrong-word or 'sound-alike' substitutions may have (unknown) (no (unknown) (unknown) meloxicam 15 mg PO (unit s (unknown) date) DAILY 30 tabs 2RF unknown) (unknown) (no (unknown) (unknown) meloxicam 15 mg (units (unknown) date) tablet 15 mg PO unknown) DAILY #30 tab 01/12/22 [Rx Confirmed 01/12/22] (unknown) (no (unknown) (unknown) metoprolol tartrate (unit s (unknown) date) 100 mg tablet 100 mg unknown) PO BID #180 tab 12/02/21 [Rx Confirmed (unknown) (no (unknown) (unknown) moderate canal (units (unknown) date) stenoses present. unknown) (unknown) (no (unknown) (unknown) moderate left (units ( unknown) date) unknown) (unknown) (no (unknown) (unknown) moderately (units (unk nown) date) unknown) (unknown) (no (unknown) (unknown) more that she is (units (unknown) date) active with her unknown) hiking with associated muscle spasms.? (unknown) (no (unknown) (unknown) most prominent (units (unknown) date) involving 1st MTP unknown) joint concerning for hallux limitus. (unknown) (no (unknown) (unknown) multivitamin 1 tab (units (unknown) date) PO DAILY 10/15/21 unknown) [History Confirmed 01/12/22] (unknown) (no (unknown) (unknown) naproxen Allergy (units (unknown) date) (Mild, Verified unknown) 01/12/22 08:01) (unknown) (no (unknown) (unknown) neurological (units (u nknown) date) deficit with unknown) progressive or disabling symptoms. (unknown) (no (unknown) (unknown) nor foraminal (units ( unknown) date) stenosis. Visualized unknown) cord demonstrates normal signal and size. (unknown) (no (unknown) (unknown) occurred due to the (unit s (unknown) date) inherent limitations unknown) of voice recognition software. Please (unknown) (no (unknown) (unknown) of C2 on C3 and C3 (units (unknown) date) on unknown) (unknown) (no (unknown) (unknown) of C3 on C4 is (units (unknown) date) seen. unknown) (unknown) (no (unknown) (unknown) of complete relief (units (unknown) date) applied. We will unknown) complete written consent on the day of the (unknown) (no (unknown) (unknown) of the lumbar (units ( unknown) date) spine. unknown) (unknown) (no (unknown) (unknown) or dislocation. (units (unknown) date) unknown) (unknown) (no (unknown) (unknown) or (units (unkno wn) date) immunosuppressive unknown) therapy, previous or current cancer diagnosis, history of (unknown) (no (unknown) (unknown) osteoarthritis (units (unknown) date) unknown) (unknown) (no (unknown) (unknown) pathology persists, (unit s (unknown) date) evaluation with MRI unknown) should be considered for further (unknown) (no (unknown) (unknown) primary physician (units (unknown) date) as well as by Dr. garcia) Yasmin Wheatley for her injury. She reports (unknown) (no (unknown) (unknown) procedure. (units (unk nown) date) unknown) (unknown) (no (unknown) (unknown) proceed. Informed (units (unknown) date) consent was obtained unknown) today without guarantees or assurances (unknown) (no (unknown) (unknown) progressive hikes.? (unit s (unknown) date) She presents her unknown) activity report for the last 30 days (unknown) (no (unknown) (unknown) proliferative (units ( unknown) date) therapy to the left unknown) deltoid ligament. (unknown) (no (unknown) (unknown) reaction, nerve (units (unknown) date) injury, stroke, unknown) paralysis and and the patient elected to (unknown) (no (unknown) (unknown) read the note (units ( unknown) date) carefully and unknown) recognize, using context, where these substitutions (unknown) (no (unknown) (unknown) retrolisthesis.. (units (unknown) date) There is mild convex unknown) left curvature of the thoracolumbar spine. 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 This is (unknown) (no (unknown) (unknown) sided bony (units (unk nown) date) unknown) (unknown) (no (unknown) (unknown) significant (units (un known) date) unknown) (unknown) (no (unknown) (unknown) small central (units ( unknown) date) protrusion. Mild unknown) canal stenosis. No foraminal stenosis. (unknown) (no (unknown) (unknown) software. Although (units (unknown) date) every effort is made unknown) to edit content, compliance analyst errors (unknown) (no (unknown) (unknown) spin echo may be (units (unknown) date) performed. unknown) (unknown) (no (unknown) (unknown) spin echo through (units (unknown) date) the lumbar spine. In unknown) cases with scoliosis, additional coronal (unknown) (no (unknown) (unknown) spine. Oblique (units ( unknown) date) images demonstrate unknown) right worse than left bilateral bony foraminal (unknown) (no (unknown) (unknown) stenosis at C3-4 (units (unknown) date) unknown) (unknown) (no (unknown) (unknown) stenosis. (units (unkn own) date) unknown) (unknown) (no (unknown) (unknown) stenosis. Mild (units (unknown) date) unknown) (unknown) (no (unknown) (unknown) stenosis. Mild (units (unknown) date) bilateral foraminal unknown) stenosis. No change. (unknown) (no (unknown) (unknown) stenosis. No (units (u nknown) date) change. unknown) (unknown) (no (unknown) (unknown) sumatriptan (units (un known) date) succinate 100 mg unknown) tablet 100 mg PO ONCE PRN #9 tab 02/03/21 [Rx (unknown) (no (unknown) (unknown) superimposed (units (u nknown) date) unknown) (unknown) (no (unknown) (unknown) suspicious bony (units (unknown) date) unknown) (unknown) (no (unknown) (unknown) symptoms have (units ( unknown) date) worsened we will unknown) return to the previously successful T11/T12 (unknown) (no (unknown) (unknown) symptoms return. (units (unknown) date) unknown) (unknown) (no (unknown) (unknown) than left (units (unkn own) date) unknown) (unknown) (no (unknown) (unknown) through C6-7 (units (u nknown) date) levels. unknown) (unknown) (no (unknown) (unknown) throughout cervical (unit s (unknown) date) unknown) (unknown) (no (unknown) (unknown) throughout forefoot (units (unknown) date) joints most unknown) prominent involving 1st MTP joint with prominent (unknown) (no (unknown) (unknown) translaminar MELISSA. (units (unknown) date) We did review the unknown) above-stated procedure at length and verbal (unknown) (no (unknown) (unknown) triazolam 0.25 mg (units (unknown) date) tablet 0.25 mg PO unknown) ONCE tab 01/12/22 [History Confirmed (unknown) (no (unknown) (unknown) uncovertebral (units ( unknown) date) unknown) (unknown) (no (unknown) (unknown) uncovertebral (units ( unknown) date) hypertrophy unknown) bilaterally. Mild canal stenosis. Mild right and (unknown) (no (unknown) (unknown) with an HNP her (units (unknown) date) recent translaminar unknown) MELISSA at the L1-2 level with good relief.? She Result panel 17 (unknown) (no (unknown) (unknown) (no value) (units (unk nown) date) unknown) (unknown) (no (unknown) (unknown) Medications: (units (u nknown) date) unknown) (unknown) (no (unknown) (unknown) Orders: (units (unkno wn) date) unknown) (unknown) (no (unknown) (unknown) Qualifiers: (units (un known) date) unknown) (unknown) (no (unknown) (unknown) Status: Acute (units ( unknown) date) unknown) (unknown) (no (unknown) (unknown) Status: Chronic (units (unknown) date) unknown) (unknown) (no (unknown) (unknown) (no value) (units (unk nown) date) unknown) (unknown) (no (unknown) (unknown) 'I GET A MIGRAINE' (units (unknown) date) unknown) (unknown) (no (unknown) (unknown) 01/12/22 (units (unkno wn) date) unknown) (unknown) (no (unknown) (unknown) 01/12/22 0845 (units ( unknown) date) unknown) (unknown) (no (unknown) (unknown) 08:09 (units (unkno wn) date) unknown) (unknown) (no (unknown) (unknown) [place] [id number] (unit s (unknown) date) unknown) (unknown) (no (unknown) (unknown) Blister (units (unkno wn) date) unknown) (unknown) (no (unknown) (unknown) Cancer (units (unkno wn) date) unknown) (unknown) (no (unknown) (unknown) Diabetes mellitus (units (unknown) date) unknown) (unknown) (no (unknown) (unknown) EYE EDEMA, LIGHT (units (unknown) date) SENSITIVITY unknown) (unknown) (no (unknown) (unknown) Encounter type: (units (unknown) date) initial encounter unknown) Involved ligament of ankle: deltoid (unknown) (no (unknown) (unknown) HIVES (units (unkno wn) date) unknown) (unknown) (no (unknown) (unknown) Hives (units (unkno wn) date) unknown) (unknown) (no (unknown) (unknown) Hypertension (units (u nknown) date) unknown) (unknown) (no (unknown) (unknown) Mental health (units ( unknown) date) problem unknown) (unknown) (no (unknown) (unknown) Pain Visit (units (unk nown) date) unknown) (unknown) (no (unknown) (unknown) Signed (units (unkno wn) date) unknown) (unknown) (no (unknown) (unknown) Stroke (units (unkno wn) date) unknown) (unknown) (no (unknown) (unknown) [facility] (unit s (unknown) date) Management unknown) (unknown) (no (unknown) (unknown) inner tissue lining (unit s (unknown) date) shedding of cervix unknown) (unknown) (no (unknown) (unknown) itching (units (unkno wn) date) unknown) (unknown) (no (unknown) (unknown) nausea vomiting (units (unknown) date) unknown) (unknown) (no (unknown) (unknown) (no value) (units (unk nown) date) unknown) (unknown) (no (unknown) (unknown) All of her (units (unk nown) date) questions were unknown) answered to the best my ability she is in agreement (unknown) (no (unknown) (unknown) (1) Facet (units (unkn own) date) arthropathy, lumbar: unknown) (unknown) (no (unknown) (unknown) (1-10): 5 (units (unkn own) date) unknown) (unknown) (no (unknown) (unknown) (2) Cervical (units (u nknown) date) stenosis of spinal unknown) canal: (unknown) (no (unknown) (unknown) (3) Scoliosis (and (units (unknown) date) kyphoscoliosis), unknown) idiopathic: (unknown) (no (unknown) (unknown) (4) Herniated (units ( unknown) date) nucleus pulposus, unknown) L1-2: (unknown) (no (unknown) (unknown) (5) Left ankle (units (unknown) date) sprain: unknown) (unknown) (no (unknown) (unknown) (R/L): 12/30 (units (unknown) date) unknown) (unknown) (no (unknown) (unknown) / 2:1 (units (unkno wn) date) unknown) (unknown) (no (unknown) (unknown) / 12/30 (units (unkno wn) date) unknown) (unknown) (no (unknown) (unknown) 01/12/22 (units (unkno wn) date) unknown) (unknown) (no (unknown) (unknown) 01/12/22] (units (unkn own) date) unknown) (unknown) (no (unknown) (unknown) 02/15/18 [History (units (unknown) date) Confirmed 01/12/22] unknown) (unknown) (no (unknown) (unknown) 1. Multilevel (units ( unknown) date) degenerative disc unknown) and facet disease, as well as ligamentum flavum (unknown) (no (unknown) (unknown) 1. Multilevel (units ( unknown) date) degenerative disc unknown) and facet disease, as well as uncovertebral (unknown) (no (unknown) (unknown) 1. Multilevel (units ( unknown) date) degenerative disc unknown) disease. (unknown) (no (unknown) (unknown) 06/20/2018, 15:31. (units (unknown) date) unknown) (unknown) (no (unknown) (unknown) 16:25. [place] (units ( unknown) date) [facility] unknown) [place], [place], SPINE LUMB MIN 4VW, (unknown) (no (unknown) (unknown) 2. Mild multilevel (units (unknown) date) canal and foraminal unknown) stenoses as described above. No (unknown) (no (unknown) (unknown) 2. Multilevel canal (unit s (unknown) date) stenoses, worst at unknown) C3-C4, C4-C5, and C5-C6, where there are (unknown) (no (unknown) (unknown) 2. Multilevel facet (unit s (unknown) date) arthropathy. unknown) (unknown) (no (unknown) (unknown) 10/07/2016, 9:01. (units (unknown) date) [facility] [place], [place], XR LUMBAR SPINE WITH (unknown) (no (unknown) (unknown) 3. Multilevel (units ( unknown) date) foraminal stenoses, unknown) worst at C4-C5 and C5-C6 where there is (unknown) (no (unknown) (unknown) 3. No fracture. No (units (unknown) date) acute osseous unknown) lesion. If symptoms and/or clinical suspicion (unknown) (no (unknown) (unknown) 11/17/2015, 8:19. (units (unknown) date) unknown) (unknown) (no (unknown) (unknown) 5 nonrib-bearing (units (unknown) date) vertebrae are unknown) present. There is approximately 4 millimeters of (unknown) (no (unknown) (unknown) : 1+ (units (unkno wn) date) unknown) (unknown) (no (unknown) (unknown) ? (units (unkno wn) date) unknown) (unknown) (no (unknown) (unknown) Abduction (R/L): (units (unknown) date) 12/30 unknown) ER(R/L): 12/30 IR (R/L): 12/30 (unknown) (no (unknown) (unknown) Abnormal Pap smear (units (unknown) date) of cervix () unknown) (unknown) (no (unknown) (unknown) Accompanied by: (units (unknown) date) Self / Same As unknown) Patient (unknown) (no (unknown) (unknown) Acne (units (unkno wn) date) unknown) (unknown) (no (unknown) (unknown) Active FE (R/L): (units (unknown) date) 160 / 160 Passive unknown) FE (R/L): 160 / 160 (unknown) (no (unknown) (unknown) Age/Sex: 66 / F (units (unknown) date) Date of Service: unknown) (unknown) (no (unknown) (unknown) Alignment and (units ( unknown) date) Curvature: 5 lumbar unknown) type vertebral bodies are present by plain (unknown) (no (unknown) (unknown) All other systems (units (unknown) date) reviewed and are unknown) unremarkable except as noted in HPI. (unknown) (no (unknown) (unknown) Allergies (units (unkn own) date) unknown) (unknown) (no (unknown) (unknown) Anesthesia (units (unk nown) date) unknown) (unknown) (no (unknown) (unknown) Approved by: Alex (units (unknown) date) Marybel Camacho on unknown) 11/25/2021 at 15:54 ? (unknown) (no (unknown) (unknown) Approved by: Alex (units (unknown) date) Marybel Camacho on unknown) 01/10/2022 at 15:54 (unknown) (no (unknown) (unknown) Approved by: Alex (units (unknown) date) Marybel Camacho on unknown) 02/04/2020 at 15:33 (unknown) (no (unknown) (unknown) Approved by: (units (u nknown) date) Ana Luisa Cruz, unknown) , PhD on 01/10/2022 at 15:45 (unknown) (no (unknown) (unknown) Approved by: Nilsa (units (unknown) date) Marybel Sullivan on unknown) 11/25/2021 at 16:44 (unknown) (no (unknown) (unknown) Approved by: Eber (unit s (unknown) date) Marybel Crowder on unknown) 06/20/2018 at 16:24 (unknown) (no (unknown) (unknown) Approved by: Eber (unit s (unknown) date) Marybel Crowder on unknown) 02/25/2020 at 11:11 (unknown) (no (unknown) (unknown) Approved by: Daniel (units (unknown) date) Marybel Hutchison on unknown) 08/17/2020 at 13:53 (unknown) (no (unknown) (unknown) Assessment + Plan (units (unknown) date) unknown) (unknown) (no (unknown) (unknown) Attending Dr: (units ( unknown) date) Dajuan Flores D.O. unknown) (unknown) (no (unknown) (unknown) BMI 35.4 (units (un known) date) unknown) (unknown) (no (unknown) (unknown) BP 118/70 (units (u nknown) date) unknown) (unknown) (no (unknown) (unknown) Cleminski (R/L): - / (unit s (unknown) date) - unknown) (unknown) (no (unknown) (unknown) Biceps (R/L):12/30 / (units (unknown) date) 12/30 Triceps unknown) (R/L):12/30 / 12/30 Intrinsics (unknown) (no (unknown) (unknown) Blood Pressure (units (unknown) date) Location Rt unknown) brachial (unknown) (no (unknown) (unknown) Bone Marrow: Marrow (unit s (unknown) date) is of normal overall unknown) signal. No acute vertebral body (unknown) (no (unknown) (unknown) Bones: (units (unkno wn) date) unknown) (unknown) (no (unknown) (unknown) Bones: 5 (units (unkno wn) date) nonrib-bearing unknown) vertebrae are present. There is mildly levo scoliotic (unknown) (no (unknown) (unknown) Bones: No fractures (unit s (unknown) date) or dislocations to unknown) the C7-T1 level. Minimal anterolisthesis (unknown) (no (unknown) (unknown) Bones: No fractures (unit s (unknown) date) or dislocations. unknown) Ankle mortise is normally aligned. No (unknown) (no (unknown) (unknown) Bones:? No (units (unk nown) date) fractures or unknown) dislocations.? Gbtt-tu-gsfzobbe osteoarthritic changes (unknown) (no (unknown) (unknown) Brother (units (unkno wn) date) Hypertension unknown) (unknown) (no (unknown) (unknown) C-Spine Tenderness: (unit s (unknown) date) non-tender unknown) Spurling's Test (R/L): pos / neg (unknown) (no (unknown) (unknown) C-spine Flexion: 45 (unit s (unknown) date) C-spine unknown) Extension: 25 (unknown) (no (unknown) (unknown) C-spine Right (units ( unknown) date) Rotation: 40 unknown) C-spine Left Rotation: 50 (unknown) (no (unknown) (unknown) C3-C4: Moderate (units (unknown) date) disc desiccation. unknown) Mild disc height loss. Mild diffuse disc (unknown) (no (unknown) (unknown) C4 is seen. (units (unk nown) date) Degenerative unknown) endplate changes are noted at C4-5 through C6-7 levels. (unknown) (no (unknown) (unknown) C4-C5: Moderate (units (unknown) date) disc height loss and unknown) desiccation. Moderate diffuse disc bulge. (unknown) (no (unknown) (unknown) C5 (Deltoid / (units ( unknown) date) lateral arm unknown) sensation / Biceps)= /5 : normal / 2+ (unknown) (no (unknown) (unknown) C5-C6: Moderate (units (unknown) date) disc height loss and unknown) desiccation. Moderate diffuse disc bulge. (unknown) (no (unknown) (unknown) C6 (Wrist Extension (units (unknown) date) / Lateral forearm unknown) sensation / Brachioradialis)= / : normal (unknown) (no (unknown) (unknown) C6-C7: Severe disc (units (unknown) date) height loss and unknown) desiccation. Mild diffuse disc bulge. Mild (unknown) (no (unknown) (unknown) C7 (Triceps / (units ( unknown) date) Middle finger unknown) sensation / Triceps reflex)= 12/28 : normal : 1+ (unknown) (no (unknown) (unknown) C7-T1: Mild disc (units (unknown) date) desiccation and unknown) diffuse disc bulge. Mild facet and (unknown) (no (unknown) (unknown) C8 (Interossei / (units (unknown) date) ulnar forearm)= 12/30 unknown) : normal (unknown) (no (unknown) (unknown) COMPARISON: [place] (units (unknown) date) [facility], , XR unknown) CERVICAL SPINE 4V OR 5V, 02/04/2020, 14:16. (unknown) (no (unknown) (unknown) COMPARISON: [place] (units (unknown) date) [facility], , unknown) L-SPINE WITHOUT CONTRAST, 10/03/2016, (unknown) (no (unknown) (unknown) COMPARISON: None. (units (unknown) date) unknown) (unknown) (no (unknown) (unknown) COMPARISON: [place] (units (unknown) date) [facility] unknown) [facility], RF, LUMBAR (unknown) (no (unknown) (unknown) COMPARISON:? None. (units (unknown) date) unknown) (unknown) (no (unknown) (unknown) CONTRAST MEDIA: (units (unknown) date) STATION ID: [id number] unknown) (unknown) (no (unknown) (unknown) Cervical cancer (units (unknown) date) () unknown) (unknown) (no (unknown) (unknown) Cervical (units (unkno wn) date) radiculopathy at C6 unknown) (unknown) (no (unknown) (unknown) Cervical stenosis (units (unknown) date) of spinal canal unknown) () (unknown) (no (unknown) (unknown) Chicken pox (units (un known) date) unknown) (unknown) (no (unknown) (unknown) Chief Complaint (units (unknown) date) unknown) (unknown) (no (unknown) (unknown) Chief Complaint: (units (unknown) date) left foot and ankle unknown) injury, thoracic, cervical and lumbar spine (unknown) (no (unknown) (unknown) Chronic back pain (units (unknown) date) unknown) (unknown) (no (unknown) (unknown) Clonus (R/L): - / - (unit s (unknown) date) unknown) (unknown) (no (unknown) (unknown) Confirmed 01/12/22] (unit s (unknown) date) unknown) (unknown) (no (unknown) (unknown) Cross Arm (R/L): (units (unknown) date) neg / neg Neer unknown) Impingement Test (R/L): (unknown) (no (unknown) (unknown) Cubital tunnel (units (unknown) date) syndrome () unknown) (unknown) (no (unknown) (unknown) DAILY #16 g (units (un known) date) 06/02/21 [Rx unknown) Confirmed 01/12/22] (unknown) (no (unknown) (unknown) : 1955 (units (unknown) date) Acct:[id number] unknown) (unknown) (no (unknown) (unknown) DTR UE (R/L): (units ( unknown) date) Biceps: (2+/2+); unknown) Triceps: (1+/0+) (unknown) (no (unknown) (unknown) Degenerative (units (un known) date) endplate changes and unknown) bilateral facet hypertrophic changes are noted (unknown) (no (unknown) (unknown) Denies recent (units ( unknown) date) trauma, fever or unknown) weight loss of unknown origin, immunocompromise (unknown) (no (unknown) (unknown) Dept at (units (unkno wn) date) . unknown) (unknown) (no (unknown) (unknown) Details: (units (unkno wn) date) unknown) (unknown) (no (unknown) (unknown) Dictated by: Alex (units (unknown) date) Marybel Camacho on unknown) 11/25/2021 at 15:53 ? ? (unknown) (no (unknown) (unknown) Dictated by: Alex (units (unknown) date) Marybel Camacho on unknown) 01/10/2022 at 15:53 (unknown) (no (unknown) (unknown) Dictated by: Alex (units (unknown) date) Marybel Camacho on unknown) 02/04/2020 at 15:32 (unknown) (no (unknown) (unknown) Dictated by: (units (u nknown) date) Ana Luisa Cruz, unknown) , PhD on 01/10/2022 at 15:44 (unknown) (no (unknown) (unknown) Dictated by: Nilsa (units (unknown) date) Marybel Sullivan on unknown) 11/25/2021 at 16:43 (unknown) (no (unknown) (unknown) Dictated by: Eber (unit s (unknown) date) Marybel Crowder on unknown) 06/20/2018 at 16:14 (unknown) (no (unknown) (unknown) Dictated by: Eber (unit s (unknown) date) Marybel Crowder on unknown) 02/25/2020 at 10:59 (unknown) (no (unknown) (unknown) Dictated by: Daniel (units (unknown) date) Marybel Hutchison on unknown) 08/17/2020 at 13:51 (unknown) (no (unknown) (unknown) Documented By: (units (unknown) date) Dajuan Flores D.O. unknown) 01/12/22 0801 (unknown) (no (unknown) (unknown) Eczema (units (unkno wn) date) unknown) (unknown) (no (unknown) (unknown) Endorses L1-2 HNP, (units (unknown) date) scoliosis, migraine unknown) headaches, T11/T12 HNP (unknown) (no (unknown) (unknown) Exam (units (unkno wn) date) unknown) (unknown) (no (unknown) (unknown) Exam Narrative (units (unknown) date) unknown) (unknown) (no (unknown) (unknown) Exam Narrative: (units (unknown) date) unknown) (unknown) (no (unknown) (unknown) External Rotation (units (unknown) date) at side (R/L): 25 / unknown) 35 Internal Rotation (R/L): T7 / T7 (unknown) (no (unknown) (unknown) FINDINGS: (units (unkn own) date) unknown) (unknown) (no (unknown) (unknown) FINDINGS:? (units (unk nown) date) unknown) (unknown) (no (unknown) (unknown) FLUORO TIME: (units (u nknown) date) unknown) (unknown) (no (unknown) (unknown) Facet arthropathy, (units (unknown) date) lumbar unknown) (unknown) (no (unknown) (unknown) Family History (units (unknown) date) (Reviewed 01/12/22 @ unknown) 08:36 by Dajuan Flores DO) (unknown) (no (unknown) (unknown) Family history of (units (unknown) date) celiac disease unknown) (unknown) (no (unknown) (unknown) Father (units (unknown) date) Non-Hodgkin lymphoma unknown) (unknown) (no (unknown) (unknown) Foot pain (-2005) (units (unknown) date) unknown) (unknown) (no (unknown) (unknown) Gait: normal (units (u nknown) date) Coordination: normal unknown) (unknown) (no (unknown) (unknown) General Appearance: (unit s (unknown) date) Well-nourished, well unknown) developed in no acute distress (unknown) (no (unknown) (unknown) Grandfather (units (un known) date) unknown) Diverticulitis (unknown) (no (unknown) (unknown) Grandmother (units (un known) date) Diabetes unknown) mellitus (unknown) (no (unknown) (unknown) Grandmother (units (un known) date) Heart unknown) disease (unknown) (no (unknown) (unknown) HERE FOR CERVICAL (units (unknown) date) AND LUMBAR SPINE. unknown) SHE FELL AND NOW THORACIC AREA (unknown) (no (unknown) (unknown) HNP (herniated (units (unknown) date) nucleus pulposus), unknown) thoracic (unknown) (no (unknown) (unknown) HPI (units (unkno wn) date) unknown) (unknown) (no (unknown) (unknown) Schwab Test (R/L): (unit s (unknown) date) neg / neg unknown) Scapulothoracic motion (R/L): 2:1 (unknown) (no (unknown) (unknown) Height 5 ft 3 in (unit s (unknown) date) unknown) (unknown) (no (unknown) (unknown) Herpes (-1975) (units (unknown) date) unknown) (unknown) (no (unknown) (unknown) History of knee (units (unknown) date) replacement unknown) (unknown) (no (unknown) (unknown) IMPRESSION: (units (un known) date) unknown) (unknown) (no (unknown) (unknown) IMPRESSION: (units (un known) date) Degenerative disc unknown) disease in mid to lower cervical spine with left- (unknown) (no (unknown) (unknown) IMPRESSION: (units (unk nown) date) Degenerative disc unknown) disease throughout cervical spine with right worse (unknown) (no (unknown) (unknown) IMPRESSION: (units (un known) date) Epkx-ym-omyrwvpy unknown) degenerative disc disease and moderate to (unknown) (no (unknown) (unknown) IMPRESSION: No (units (unknown) date) acute radiographic unknown) findings. (unknown) (no (unknown) (unknown) IMPRESSION:? No (units (unknown) date) acute left foot unknown) fracture or dislocation.? Forefoot joint (unknown) (no (unknown) (unknown) INDICATIONS: Other (units (unknown) date) intervertebral disc unknown) displacement, lumbar reg (unknown) (no (unknown) (unknown) INDICATIONS: UPDATE (unit s (unknown) date) IMAGING unknown) (unknown) (no (unknown) (unknown) INDICATIONS: (units (u nknown) date) chronic neck pain unknown) (unknown) (no (unknown) (unknown) INDICATIONS: left (units (unknown) date) ankle pain unknown) (unknown) (no (unknown) (unknown) INDICATIONS:? left (units (unknown) date) foot pain unknown) (unknown) (no (unknown) (unknown) Image quality: (units (unknown) date) Excellent. unknown) (unknown) (no (unknown) (unknown) Inspection/Palpatio (unit s (unknown) date) n UE (R/L): tender unknown) lateral pillers L>R. (unknown) (no (unknown) (unknown) Intake (units (unkno wn) date) unknown) (unknown) (no (unknown) (unknown) Intake Clinical (units (unknown) date) Staff unknown) (unknown) (no (unknown) (unknown) Intake Note: (units (u nknown) date) unknown) (unknown) (no (unknown) (unknown) Intake performed (units (unknown) date) by: Colette Carlton unknown) (unknown) (no (unknown) (unknown) Is patient in (units ( unknown) date) pain?: Yes (HERE FOR unknown) IMAGING CERVICAL AND LUMBAR AREA) Pain scale (unknown) (no (unknown) (unknown) Angela and I (units (unknown) date) discussed her unknown) underlying pathology with her cervical reversal of (unknown) (no (unknown) (unknown) Angela is seen (units (unknown) date) today regarding unknown) multiple complaints including a left ankole (unknown) (no (unknown) (unknown) L1-L2 (units (unkno wn) date) unknown) (unknown) (no (unknown) (unknown) L1-L2 and L2-L3 (units (unknown) date) intervertebral unknown) discs. There is mild degenerative marrow edema (unknown) (no (unknown) (unknown) L1-L2: Moderate (units (unknown) date) disc height loss and unknown) desiccation. Mild diffuse disc bulge. Mild (unknown) (no (unknown) (unknown) L2-L3: Mild disc (units (unknown) date) height loss and unknown) desiccation. Mild bilateral facet hypertrophy. (unknown) (no (unknown) (unknown) L3-L4: Mild disc (units (unknown) date) height loss and unknown) desiccation. Minimal diffuse disc bulge. Mild (unknown) (no (unknown) (unknown) L4-L5: Mild disc (units (unknown) date) height loss and unknown) desiccation. Mild diffuse disc bulge. Moderate (unknown) (no (unknown) (unknown) L5 and L5-S1 facet (units (unknown) date) arthropathy. Mild unknown) L2-L3 and L3-L4 facet arthropathy. (unknown) (no (unknown) (unknown) L5-S1: There is (units (unknown) date) mild disc height unknown) loss and desiccation. Moderate bilateral facet (unknown) (no (unknown) (unknown) LS spine. There is (units (unknown) date) slight grade 1 unknown) anterolisthesis of L5 on S1, and no (unknown) (no (unknown) (unknown) Left ankle sprain (units (unknown) date) unknown) (unknown) (no (unknown) (unknown) Loc: PAIN (units (unkn own) date) unknown) (unknown) (no (unknown) (unknown) Lumbar spine pain (units (unknown) date) (-2008) unknown) (unknown) (no (unknown) (unknown) Lymph UE (R/L): No (units (unknown) date) axillary unknown) lymphadenopathy (unknown) (no (unknown) (unknown) MBB, (units (unkno wn) date) unknown) (unknown) (no (unknown) (unknown) MODALITY: MR (units (u nknown) date) PATIENT TYPE: Out unknown) (unknown) (no (unknown) (unknown) MSG Allergy (units (un known) date) (Severe, Uncoded unknown) 01/12/22 08:01) (unknown) (no (unknown) (unknown) MSK: System (units (un known) date) reviewed and no unknown) additional complaints, except as documented. (unknown) (no (unknown) (unknown) Measles (units (unkno wn) date) unknown) (unknown) (no (unknown) (unknown) Medical History (units (unknown) date) (Updated 01/12/22 @ unknown) 08:38 by Dajuan Flores DO) (unknown) (no (unknown) (unknown) Medications (units (un known) date) unknown) (unknown) (no (unknown) (unknown) Migraine headache (units (unknown) date) unknown) (unknown) (no (unknown) (unknown) Mild canal (units (unk nown) date) unknown) (unknown) (no (unknown) (unknown) Moderate facet and (units (unknown) date) uncovertebral unknown) hypertrophy bilaterally. Moderate canal (unknown) (no (unknown) (unknown) Mother (units (unknown) date) Ovarian cancer unknown) (unknown) (no (unknown) (unknown) Neuro: System (units ( unknown) date) reviewed and no unknown) additional complaints, except as documented. (unknown) (no (unknown) (unknown) New (units (unkno wn) date) unknown) (unknown) (no (unknown) (unknown) No change. (units (unk nown) date) unknown) (unknown) (no (unknown) (unknown) No vertebral (units (u nknown) date) unknown) (unknown) (no (unknown) (unknown) Noncontrast (units (un known) date) sagittal T1 spin unknown) echo and T2 fast echo, sagittal STIR, axial T1 and (unknown) (no (unknown) (unknown) [facility]'s Test (units (unknown) date) (R/L): neg / neg unknown) [place] Test (R/L): neg / neg (unknown) (no (unknown) (unknown) OBLIQUES, (units (unkn own) date) 11/21/2017, 10:06. unknown) [facility], MR, MR LUMBAR SPINE WO CON, (unknown) (no (unknown) (unknown) Objective Data (units (unknown) date) unknown) (unknown) (no (unknown) (unknown) Objective Data: (units (unknown) date) unknown) (unknown) (no (unknown) (unknown) Oblique images (units (unknown) date) unknown) (unknown) (no (unknown) (unknown) Oblique images: No (units (unknown) date) pars defects. unknown) (unknown) (no (unknown) (unknown) Orders (units (unkno wn) date) unknown) (unknown) (no (unknown) (unknown) Orientation: (units (u nknown) date) Oriented to person, unknown) place and time. Mood / Affect: Calm (unknown) (no (unknown) (unknown) Osteoarthritis (units (unknown) date) unknown) (unknown) (no (unknown) (unknown) Otherwise she has (units (unknown) date) been maintain the unknown) Covid19 social restrictions without (unknown) (no (unknown) (unknown) Otherwise she (units ( unknown) date) maintains on the unknown) gabapentin as she is unable take at nonsteroidal (unknown) (no (unknown) (unknown) Oxygen Delivery (units (unknown) date) Method room air unknown) (unknown) (no (unknown) (unknown) PAIN c/t (units (unkno wn) date) interlaminar inject unknown) Today M54.14 - Radiculopathy, thoracic region (unknown) (no (unknown) (unknown) PERSERVATIVES (units ( unknown) date) Allergy (Severe, unknown) Uncoded 01/12/22 08:01) (unknown) (no (unknown) (unknown) PFSH (units (unkno wn) date) unknown) (unknown) (no (unknown) (unknown) PROCEDURE: MR (units ( unknown) date) LUMBAR SPINE WO CON unknown) (unknown) (no (unknown) (unknown) PROCEDURE: XR ANKLE (unit s (unknown) date) LT MIN 3V unknown) (unknown) (no (unknown) (unknown) PROCEDURE: XR (units ( unknown) date) CERVICAL SPINE 4V OR unknown) 5V (unknown) (no (unknown) (unknown) PROCEDURE: XR (units ( unknown) date) LUMBAR SPINE MIN 4V unknown) (unknown) (no (unknown) (unknown) PROCEDURE:? XR FOOT (unit s (unknown) date) LT MIN 3V unknown) (unknown) (no (unknown) (unknown) Pain Scale (units (unk nown) date) unknown) (unknown) (no (unknown) (unknown) Paraspinous Soft (units (unknown) date) Tissues: No unknown) paravertebral masses. (unknown) (no (unknown) (unknown) Patient: Armando (units (unknown) date) JarvisAlexandraAngela unknown) M (unknown) (no (unknown) (unknown) Pen[place]ins Allergy (unit s (unknown) date) (Mild, Verified unknown) 01/12/22 08:01) (unknown) (no (unknown) (unknown) Plan (units (unkno wn) date) unknown) (unknown) (no (unknown) (unknown) Position Sitting (unit s (unknown) date) unknown) (unknown) (no (unknown) (unknown) Posterior vitreous (units (unknown) date) detachment (-2017) unknown) (unknown) (no (unknown) (unknown) Pulse 64 (units (un known) date) unknown) (unknown) (no (unknown) (unknown) Pulse Oximetry (%) (units (unknown) date) 99 unknown) (unknown) (no (unknown) (unknown) Pulse Source (units (u nknown) date) Monitor unknown) (unknown) (no (unknown) (unknown) R#: [id number] (units (unknown) date) unknown) (unknown) (no (unknown) (unknown) ROS (units (unkno wn) date) unknown) (unknown) (no (unknown) (unknown) ROS Narrative (units ( unknown) date) unknown) (unknown) (no (unknown) (unknown) ROS Narrative: (units (unknown) date) unknown) (unknown) (no (unknown) (unknown) Reason For Visit (units (unknown) date) unknown) (unknown) (no (unknown) (unknown) Regarding her left (units (unknown) date) ankle and her unknown) deltoid ligament sprain we did discuss ongoing (unknown) (no (unknown) (unknown) Regarding her (units ( unknown) date) lumbar spine in the unknown) associated scoliosis she has done very well (unknown) (no (unknown) (unknown) Scoliosis (-1999) (units (unknown) date) unknown) (unknown) (no (unknown) (unknown) Sensation: (units (unk nown) date) Subjective normal unknown) median / ulnar / radial / axillary sensation (unknown) (no (unknown) (unknown) Severe right and (units (unknown) date) mild left foraminal unknown) stenosis. Right C6 nerve root compression. (unknown) (no (unknown) (unknown) She also would like (unit s (unknown) date) to review her unknown) cervical spine MRI reviewed with her (unknown) (no (unknown) (unknown) She does report (units (unknown) date) some hip pain that unknown) begins after she exercises significant (unknown) (no (unknown) (unknown) Shoulder Exam (units ( unknown) date) (Bilateral) unknown) (unknown) (no (unknown) (unknown) Signed By: (units (unk nown) date) <Electronically unknown) signed by Dajuan Flores D.O.> (unknown) (no (unknown) (unknown) Smoking Status: (units (unknown) date) Never smoker unknown) (unknown) (no (unknown) (unknown) Soft tissues: No (units (unknown) date) prevertebral soft unknown) tissue swelling. (unknown) (no (unknown) (unknown) Soft tissues: No (units (unknown) date) tibiotalar joint unknown) effusion. Achilles tendon appears normal. (unknown) (no (unknown) (unknown) Soft tissues: (units ( unknown) date) Overlying bowel gas unknown) pattern is normal. No suspicious soft tissue (unknown) (no (unknown) (unknown) Soft tissues:? No (units (unknown) date) tibiotalar joint unknown) effusion.? Achilles tendon appears normal.? (unknown) (no (unknown) (unknown) Speeds (R/L): neg / (unit s (unknown) date) neg Apprehension unknown) (R/L): neg /neg (unknown) (no (unknown) (unknown) Spinal Cord: Conus (units (unknown) date) medullaris unknown) terminates at the upper L2 level. There is a small (unknown) (no (unknown) (unknown) Sulfa (Sulfonamide (units (unknown) date) Antibiotics) Allergy unknown) (Mild, Verified 01/12/22 08:01) (unknown) (no (unknown) (unknown) Surgical History (units (unknown) date) (Reviewed 01/12/22 @ unknown) 08:36 by Dajuan Flores DO) (unknown) (no (unknown) (unknown) T1 (Interossei / (units (unknown) date) Medial arm)= 5/5+ : unknown) normal (unknown) (no (unknown) (unknown) T1-T2: Mild disc (units (unknown) date) height loss and unknown) desiccation. Mild diffuse disc bulge with (unknown) (no (unknown) (unknown) T11/T12 MELISSA (units (unk nown) date) performed on unknown) 05/27/2021.? Additionally she would like to follow-up on (unknown) (no (unknown) (unknown) T2 fast (units (unkno wn) date) unknown) (unknown) (no (unknown) (unknown) TECHNIQUE: (units (unk nown) date) unknown) (unknown) (no (unknown) (unknown) TECHNIQUE: 3 views (units (unknown) date) of the ankle were unknown) acquired. (unknown) (no (unknown) (unknown) TECHNIQUE: 4 views (units (unknown) date) of the lumbar spine unknown) were acquired. (unknown) (no (unknown) (unknown) TECHNIQUE: 5 views (units (unknown) date) of the cervical unknown) spine acquired. (unknown) (no (unknown) (unknown) TECHNIQUE:? 3 views (unit s (unknown) date) of the foot were unknown) acquired.? (unknown) (no (unknown) (unknown) TUNA Allergy (units (u nknown) date) (Intermediate, unknown) Uncoded 01/12/22 08:01) (unknown) (no (unknown) (unknown) Temp 97.3 F L (units (unknown) date) unknown) (unknown) (no (unknown) (unknown) Temp Source (units (un known) date) Temporal Artery Scan unknown) (unknown) (no (unknown) (unknown) There is mild grade (units (unknown) date) 1 retrolisthesis of unknown) L1 on L2. There is mild diffuse leftward (unknown) (no (unknown) (unknown) This note may have (units (unknown) date) been all or unknown) partially generated using voice recognition (unknown) (no (unknown) (unknown) Thoracic (units (unkno wn) date) radiculitis unknown) (unknown) (no (unknown) (unknown) Tobacco + Substance (unit s (unknown) date) Use unknown) (unknown) (no (unknown) (unknown) Tobacco Status (units (unknown) date) unknown) (unknown) (no (unknown) (unknown) UE Skin (R/L): No (units (unknown) date) rashes or lesions. unknown) (unknown) (no (unknown) (unknown) Vasculature: 2+ (units (unknown) date) radial pulse unknown) bilaterally. (unknown) (no (unknown) (unknown) Vertical (units (unkno wn) date) heterophoria unknown) (unknown) (no (unknown) (unknown) Visit Reasons: FU (units (unknown) date) Lspine, LUMBAR AND unknown) CERVICAL IMAGING (unknown) (no (unknown) (unknown) Vitals (units (unkno wn) date) unknown) (unknown) (no (unknown) (unknown) Mello Signs: (units ( unknown) date) -tenderness, unknown) -simulation, -distraction, -regional disturbances, - (unknown) (no (unknown) (unknown) Weight 199 lb 11 (unit s (unknown) date) oz unknown) (unknown) (no (unknown) (unknown) a significant (units ( unknown) date) increase for her unknown) since our last evaluation. (unknown) (no (unknown) (unknown) above stated (units (u nknown) date) procedure including unknown) not limited to bleeding, infection, allergic (unknown) (no (unknown) (unknown) above-stated plan (units (unknown) date) unknown) (unknown) (no (unknown) (unknown) acetaminophen 325 (units (unknown) date) mg capsule (Tylenol) unknown) 650 mg PO Q6H PRN 08/18/20 [History (unknown) (no (unknown) (unknown) acetaminophen (units ( unknown) date) combined with her unknown) cyclobenzaprine for added improvement. (unknown) (no (unknown) (unknown) adhesive Allergy (units (unknown) date) (Intermediate, unknown) Verified 01/12/22 08:01) (unknown) (no (unknown) (unknown) adjacent to the (units (unknown) date) unknown) (unknown) (no (unknown) (unknown) adjacent to the (units (unknown) date) L4-L5 and L5-S1 unknown) facet joints. (unknown) (no (unknown) (unknown) albuterol sulfate (units (unknown) date) 90 mcg/actuation unknown) aerosol inhaler 1 puff INHALATION Q6H (unknown) (no (unknown) (unknown) amitriptyline 25 mg (unit s (unknown) date) tablet 25 mg PO unknown) BEDTIME #90 tab 12/27/21 [Rx Confirmed (unknown) (no (unknown) (unknown) and C3-4 levels. (units (unknown) date) unknown) (unknown) (no (unknown) (unknown) ankle, initial (units (unknown) date) encounter unknown) (unknown) (no (unknown) (unknown) anterolisthesis at (units (unknown) date) C2-3 unknown) (unknown) (no (unknown) (unknown) anti-inflammatories (unit s (unknown) date) secondary to GI unknown) upset in the past.? She does also utilized (unknown) (no (unknown) (unknown) are noted (units (unkn own) date) unknown) (unknown) (no (unknown) (unknown) assessment. (units (un known) date) unknown) (unknown) (no (unknown) (unknown) associated (units (unk nown) date) intraforaminal nerve unknown) root compression. Recommend correlation with (unknown) (no (unknown) (unknown) ay occur. (units (unkn own) date) Occasional unknown) wrong-word or 'sound-alike' substitutions may have (unknown) (no (unknown) (unknown) been using a (units (u nknown) date) cyclobenzaprine more unknown) with her hiking.? I did encourage her to (unknown) (no (unknown) (unknown) being in a boot (units (unknown) date) initially and now unknown) regular shoes with ongoing pain and weakness. (unknown) (no (unknown) (unknown) benzoyl peroxide (units (unknown) date) Allergy (Mild, unknown) Verified 01/12/22 08:01) (unknown) (no (unknown) (unknown) bilateral (units (unkn own) date) unknown) (unknown) (no (unknown) (unknown) bilateral bony (units ( unknown) date) foraminal stenosis unknown) at C3-4 through C6-7 levels. No acute fracture (unknown) (no (unknown) (unknown) bilateral foraminal (unit s (unknown) date) unknown) (unknown) (no (unknown) (unknown) bilaterally (units (un known) date) unknown) (unknown) (no (unknown) (unknown) body compression (units (unknown) date) fractures. No unknown) suspicious bony lesions. Moderate L1-L2 and L5-S1 (unknown) (no (unknown) (unknown) bony alignment (units (unknown) date) unknown) (unknown) (no (unknown) (unknown) bulge. Mild (units (un known) date) unknown) (unknown) (no (unknown) (unknown) but this is less so (units (unknown) date) for her.? She does unknown) also report the intermittent paresthesias (unknown) (no (unknown) (unknown) calcifications. (units (unknown) date) unknown) (unknown) (no (unknown) (unknown) calcium citrate 200 (unit s (unknown) date) mg (950 mg) tablet unknown) 400 mg PO DAILY tab 02/15/18 [History (unknown) (no (unknown) (unknown) celecoxib Allergy (units (unknown) date) (Mild, Verified unknown) 01/12/22 08:01) (unknown) (no (unknown) (unknown) centered at L2. No (units (unknown) date) vertebral body unknown) compression fractures. No suspicious bony (unknown) (no (unknown) (unknown) change. (units (unkno wn) date) unknown) (unknown) (no (unknown) (unknown) chlorthalidone 50 (units (unknown) date) mg tablet 50 mg PO unknown) DAILY #90 tab 12/23/21 [Rx Confirmed (unknown) (no (unknown) (unknown) clinical symptoms (units (unknown) date) to ascertain unknown) relevance of these findings. (unknown) (no (unknown) (unknown) clobetasol TOP (units (unknown) date) QWEEK PRN 07/24/19 unknown) [History Confirmed 01/12/22] (unknown) (no (unknown) (unknown) clonidine HCl 0.2 (units (unknown) date) mg tablet 0.2 mg PO unknown) TID PRN #20 tab 11/04/21 [Rx Confirmed (unknown) (no (unknown) (unknown) compression (units (un known) date) unknown) (unknown) (no (unknown) (unknown) compression (units (un known) date) fractures. There is unknown) mild reactive signal within the endplates (unknown) (no (unknown) (unknown) consent was (units (un known) date) obtained today, As unknown) oral consent, we did review the risks of the (unknown) (no (unknown) (unknown) continue with her (units (unknown) date) core strengthening unknown) and level of activity increase.? As her (unknown) (no (unknown) (unknown) contribute to (units ( unknown) date) canal, unknown) (unknown) (no (unknown) (unknown) curvature (units (unkn own) date) unknown) (unknown) (no (unknown) (unknown) cyclobenzaprine 10 (units (unknown) date) mg tablet 10 mg PO unknown) Q8H #60 tab 05/20/21 [Rx Confirmed (unknown) (no (unknown) (unknown) degenerative disc (units (unknown) date) disease. Mild L2-L3, unknown) L3-L4 and L4-L5 degenerative disc (unknown) (no (unknown) (unknown) demonstrate (units (un known) date) moderate left-sided unknown) foraminal stenosis at C5-6 level. (unknown) (no (unknown) (unknown) diazepam 5 mg (units ( unknown) date) tablet (Valium) 10 unknown) mg PO BID PRN 05/27/21 [History Confirmed (unknown) (no (unknown) (unknown) difficulty without (units (unknown) date) cough fever fatigue unknown) at this time (unknown) (no (unknown) (unknown) diflunisal Allergy (units (unknown) date) (Mild, Verified unknown) 01/12/22 08:01) (unknown) (no (unknown) (unknown) disease. Severe L4- (unit s (unknown) date) unknown) (unknown) (no (unknown) (unknown) dorsal (units (unkno wn) date) unknown) (unknown) (no (unknown) (unknown) dynamic (units (unkno wn) date) strengthening. unknown) Should her symptoms persist we may consider (unknown) (no (unknown) (unknown) evidence of a T1 to (unit s (unknown) date) HNP with mild unknown) encroachment upon the thecal sac.? At present (unknown) (no (unknown) (unknown) facet and (units (unkn own) date) unknown) (unknown) (no (unknown) (unknown) facet and (units (unkn own) date) ligamentum flavum unknown) hypertrophy. Mild canal stenosis. No foraminal (unknown) (no (unknown) (unknown) facet and (units (unkn own) date) uncovertebral unknown) hypertrophy bilaterally. Moderate canal stenosis. Mild (unknown) (no (unknown) (unknown) facet hypertrophy. (units (unknown) date) Mild canal stenosis. unknown) Mild bilateral foraminal stenosis. No (unknown) (no (unknown) (unknown) facet hypertrophy. (units (unknown) date) Mild epidural unknown) lipomatosis. Mild canal stenosis. Mild (unknown) (no (unknown) (unknown) film. (units (unkno wn) date) unknown) (unknown) (no (unknown) (unknown) fluticasone (units (un known) date) propionate 50 unknown) mcg/actuation nasal spray,suspension 1 spray NASAL (unknown) (no (unknown) (unknown) foot sprain with a (units (unknown) date) lateral roll in unknown) October. She reports being evaluated by her (unknown) (no (unknown) (unknown) for (units (unkno wn) date) unknown) (unknown) (no (unknown) (unknown) foraminal stenosis (units (unknown) date) at C5-6 level. No unknown) acute fracture or dislocation. Minimal (unknown) (no (unknown) (unknown) foraminal stenosis. (unit s (unknown) date) unknown) (unknown) (no (unknown) (unknown) fracture has (units (u nknown) date) developed. No unknown) significant change. (unknown) (no (unknown) (unknown) gabapentin 600 mg (units (unknown) date) tablet 600 mg PO BID unknown) #180 tab 10/12/21 [Rx Confirmed 01/12/22] (unknown) (no (unknown) (unknown) half of the (units (un known) date) unknown) (unknown) (no (unknown) (unknown) have occurred. If (units (unknown) date) there are any unknown) questions, please contact the Medical Records (unknown) (no (unknown) (unknown) her cervical spine (units (unknown) date) is improved with her unknown) increased level of activity and (unknown) (no (unknown) (unknown) her lordosis as (units (unknown) date) well as mild disc unknown) protrusion at C4-5 5 6 and C6-7.? She has (unknown) (no (unknown) (unknown) her lumbar spine (units (unknown) date) with recent increase unknown) in activity as her begun gradual (unknown) (no (unknown) (unknown) hypertrophy and (units (unknown) date) epidural unknown) lipomatosis. (unknown) (no (unknown) (unknown) hypertrophy. (units (u nknown) date) unknown) (unknown) (no (unknown) (unknown) hypertrophy. No (units (unknown) date) significant canal unknown) stenosis. Mild left foraminal stenosis. No (unknown) (no (unknown) (unknown) hypertrophy. (units (u nknown) date) bilaterally. Mild unknown) canal stenosis. Mild bilateral foraminal (unknown) (no (unknown) (unknown) in the upper (units (u nknown) date) extremity are unknown) currently at day.? She does use the cyclobenzaprine (unknown) (no (unknown) (unknown) including the (units ( unknown) date) hikes.? She does unknown) report she has had some cervical thoracic pain (unknown) (no (unknown) (unknown) inhalational (units (u nknown) date) spacing device unknown) (Aerochamber Plus Z Stat) #2 ea 11/09/20 [Rx (unknown) (no (unknown) (unknown) intermittent (units (u nknown) date) paresthesias.? We unknown) may consider a C6-7 translaminar MELISSA should (unknown) (no (unknown) (unknown) intermittent (units (u nknown) date) symptoms involving unknown) the right C6 level.? Additionally she does have (unknown) (no (unknown) (unknown) intermittent upper (units (unknown) date) extremity unknown) paresthesias and cervical thoracic pain.?She is s/p (unknown) (no (unknown) (unknown) intravenous drug (units (unknown) date) use, sustained unknown) glucocorticoid use, osteoporosis, or a focal (unknown) (no (unknown) (unknown) iodine Allergy (units (unknown) date) (Intermediate, unknown) Verified 01/12/22 08:01) (unknown) (no (unknown) (unknown) is currently (units (un known) date) managing her unknown) symptoms with gabapentin and cyclobenzaprine.? She has (unknown) (no (unknown) (unknown) left and severe (units (unknown) date) right foraminal unknown) stenosis. Right C5 nerve root compression. (unknown) (no (unknown) (unknown) lesions. (units (unkno wn) date) unknown) (unknown) (no (unknown) (unknown) ligament Qualified (unit s (unknown) date) Code(s): S93.422A - unknown) Sprain of deltoid ligament of left (unknown) (no (unknown) (unknown) lipoma of the filum (unit s (unknown) date) terminalis, as unknown) before, which does not significantly (unknown) (no (unknown) (unknown) marginal osteophyte (unit s (unknown) date) formation.? No unknown) suspicious bony lesions.? (unknown) (no (unknown) (unknown) meloxicam 15 mg PO (unit s (unknown) date) DAILY 30 tabs 2RF unknown) (unknown) (no (unknown) (unknown) meloxicam 15 mg (units (unknown) date) tablet 15 mg PO unknown) DAILY #30 tab 01/12/22 [Rx Confirmed 01/12/22] (unknown) (no (unknown) (unknown) metoprolol tartrate (unit s (unknown) date) 100 mg tablet 100 mg unknown) PO BID #180 tab 12/02/21 [Rx Confirmed (unknown) (no (unknown) (unknown) moderate canal (units (unknown) date) stenoses present. unknown) (unknown) (no (unknown) (unknown) moderate left (units ( unknown) date) unknown) (unknown) (no (unknown) (unknown) moderately (units (unk nown) date) unknown) (unknown) (no (unknown) (unknown) more that she is (units (unknown) date) active with her unknown) hiking with associated muscle spasms.? (unknown) (no (unknown) (unknown) most prominent (units (unknown) date) involving 1st MTP unknown) joint concerning for hallux limitus. (unknown) (no (unknown) (unknown) multivitamin 1 tab (units (unknown) date) PO DAILY 10/15/21 unknown) [History Confirmed 01/12/22] (unknown) (no (unknown) (unknown) naproxen Allergy (units (unknown) date) (Mild, Verified unknown) 01/12/22 08:01) (unknown) (no (unknown) (unknown) neg / neg (units (unkn own) date) unknown) (unknown) (no (unknown) (unknown) neurological (units (u nknown) date) deficit with unknown) progressive or disabling symptoms. (unknown) (no (unknown) (unknown) nor foraminal (units ( unknown) date) stenosis. Visualized unknown) cord demonstrates normal signal and size. (unknown) (no (unknown) (unknown) occurred due to the (unit s (unknown) date) inherent limitations unknown) of voice recognition software. Please (unknown) (no (unknown) (unknown) of C2 on C3 and C3 (units (unknown) date) on unknown) (unknown) (no (unknown) (unknown) of C3 on C4 is (units (unknown) date) seen. unknown) (unknown) (no (unknown) (unknown) of complete relief (units (unknown) date) applied. We will unknown) complete written consent on the day of the (unknown) (no (unknown) (unknown) of the lumbar (units ( unknown) date) spine. unknown) (unknown) (no (unknown) (unknown) or dislocation. (units (unknown) date) unknown) (unknown) (no (unknown) (unknown) or (units (unkno wn) date) immunosuppressive unknown) therapy, previous or current cancer diagnosis, history of (unknown) (no (unknown) (unknown) osteoarthritis (units (unknown) date) unknown) (unknown) (no (unknown) (unknown) overreaction (units (u nknown) date) unknown) (unknown) (no (unknown) (unknown) pathology persists, (unit s (unknown) date) evaluation with MRI unknown) should be considered for further (unknown) (no (unknown) (unknown) primary physician (units (unknown) date) as well as by unknown) Yasmin Wheatley for her injury. She reports (unknown) (no (unknown) (unknown) procedure. (units (unk nown) date) unknown) (unknown) (no (unknown) (unknown) proceed. Informed (units (unknown) date) consent was obtained unknown) today without guarantees or assurances (unknown) (no (unknown) (unknown) progressive hikes.? (unit s (unknown) date) She presents her unknown) activity report for the last 30 days (unknown) (no (unknown) (unknown) proliferative (units ( unknown) date) therapy to the left unknown) deltoid ligament. (unknown) (no (unknown) (unknown) reaction, nerve (units (unknown) date) injury, stroke, unknown) paralysis and and the patient elected to (unknown) (no (unknown) (unknown) read the note (units ( unknown) date) carefully and unknown) recognize, using context, where these substitutions (unknown) (no (unknown) (unknown) retrolisthesis.. (units (unknown) date) There is mild convex unknown) left curvature of the thoracolumbar spine. 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 This is (unknown) (no (unknown) (unknown) sided bony (units (unk nown) date) unknown) (unknown) (no (unknown) (unknown) significant (units (un known) date) unknown) (unknown) (no (unknown) (unknown) small central (units ( unknown) date) protrusion. Mild unknown) canal stenosis. No foraminal stenosis. (unknown) (no (unknown) (unknown) software. Although (units (unknown) date) every effort is made unknown) to edit content, compliance analyst errors m (unknown) (no (unknown) (unknown) spin echo may be (units (unknown) date) performed. unknown) (unknown) (no (unknown) (unknown) spin echo through (units (unknown) date) the lumbar spine. In unknown) cases with scoliosis, additional coronal (unknown) (no (unknown) (unknown) spine. Oblique (units ( unknown) date) images demonstrate unknown) right worse than left bilateral bony foraminal (unknown) (no (unknown) (unknown) stenosis at C3-4 (units (unknown) date) unknown) (unknown) (no (unknown) (unknown) stenosis. (units (unkn own) date) unknown) (unknown) (no (unknown) (unknown) stenosis. Mild (units (unknown) date) unknown) (unknown) (no (unknown) (unknown) stenosis. Mild (units (unknown) date) bilateral foraminal unknown) stenosis. No change. (unknown) (no (unknown) (unknown) stenosis. No (units (u nknown) date) change. unknown) (unknown) (no (unknown) (unknown) sumatriptan (units (un known) date) succinate 100 mg unknown) tablet 100 mg PO ONCE PRN #9 tab 02/03/21 [Rx (unknown) (no (unknown) (unknown) superimposed (units (u nknown) date) unknown) (unknown) (no (unknown) (unknown) suspicious bony (units (unknown) date) unknown) (unknown) (no (unknown) (unknown) symptoms have (units ( unknown) date) worsened we will unknown) return to the previously successful T11/T12 (unknown) (no (unknown) (unknown) symptoms return. (units (unknown) date) unknown) (unknown) (no (unknown) (unknown) than left (units (unkn own) date) unknown) (unknown) (no (unknown) (unknown) through C6-7 (units (u nknown) date) levels. unknown) (unknown) (no (unknown) (unknown) throughout cervical (unit s (unknown) date) unknown) (unknown) (no (unknown) (unknown) throughout forefoot (units (unknown) date) joints most unknown) prominent involving 1st MTP joint with prominent (unknown) (no (unknown) (unknown) translaminar MELISSA. (units (unknown) date) We did review the unknown) above-stated procedure at length and verbal (unknown) (no (unknown) (unknown) triazolam 0.25 mg (units (unknown) date) tablet 0.25 mg PO unknown) ONCE tab 01/12/22 [History Confirmed (unknown) (no (unknown) (unknown) uncovertebral (units ( unknown) date) unknown) (unknown) (no (unknown) (unknown) uncovertebral (units ( unknown) date) hypertrophy unknown) bilaterally. Mild canal stenosis. Mild right and (unknown) (no (unknown) (unknown) with an HNP her (units (unknown) date) recent translaminar unknown) MELISSA at the L1-2 level with good relief.? She Result panel 18 (unknown) (no (unknown) (unknown) (no value) (units (unk nown) date) unknown) (unknown) (no (unknown) (unknown) 'I GET A (units (unkno wn) date) MIGRAINE' unknown) (unknown) (no (unknown) (unknown) [place] (units ( unknown) date) [id number] unknown) (unknown) (no (unknown) (unknown) Blister (units (unkno wn) date) unknown) (unknown) (no (unknown) (unknown) Draft (units (unkno wn) date) unknown) (unknown) (no (unknown) (unknown) EYE EDEMA, LIGHT (units (unknown) date) SENSITIVITY unknown) (unknown) (no (unknown) (unknown) HIVES (units (unkno wn) date) unknown) (unknown) (no (unknown) (unknown) Hives (units (unkno wn) date) unknown) (unknown) (no (unknown) (unknown) Nurse Office (units (u nknown) date) Visit unknown) (unknown) (no (unknown) (unknown) [facility] ([facility] ([facility] unknown) (unknown) (no (unknown) (unknown) inner tissue (units (u nknown) date) lining shedding unknown) of cervix (unknown) (no (unknown) (unknown) itching (units (unkno wn) date) unknown) (unknown) (no (unknown) (unknown) nausea vomiting (units (unknown) date) unknown) (unknown) (no (unknown) (unknown) (no value) (units (unk nown) date) unknown) (unknown) (no (unknown) (unknown) COVID-19 (units (u nknown) date) unknown) (unknown) (no (unknown) (unknown) 01/17/22 (units (unkno wn) date) unknown) (unknown) (no (unknown) (unknown) Accompanied by: (units (unknown) date) Self / Same As unknown) Patient (unknown) (no (unknown) (unknown) Age/Sex: 66 / F (units (unknown) date) Date of unknown) Service: (unknown) (no (unknown) (unknown) Allergies (units (unkn own) date) unknown) (unknown) (no (unknown) (unknown) Attending Dr: (units ( unknown) date) Dajuan Flores unknown) D.O. (unknown) (no (unknown) (unknown) : 1955 (units (unknown) date) Acct:[id number] unknown) (unknown) (no (unknown) (unknown) Dept at (units (unkno wn) date) . unknown) (unknown) (no (unknown) (unknown) Documented By: (units (unknown) date) Dajuan Flores unknown) D.OCelina 01/17/22 1044 (unknown) (no (unknown) (unknown) Evaluation/Scree (units (unknown) date) brandon for possible unknown) COVID-19 completed?: Yes- COVID-19 CPT (unknown) (no (unknown) (unknown) Intake (units (unkno wn) date) unknown) (unknown) (no (unknown) (unknown) Intake Note: (units (u nknown) date) unknown) (unknown) (no (unknown) (unknown) Intake performed (units (unknown) date) by: Colette Carlton unknown) (unknown) (no (unknown) (unknown) Intake- Clincial (units (unknown) date) Staff unknown) (unknown) (no (unknown) (unknown) Last Menstural (units (unknown) date) Cycle + Details unknown) (unknown) (no (unknown) (unknown) Loc: PAIN (units (unkn own) date) unknown) (unknown) (no (unknown) (unknown) MSG Allergy (units (un known) date) (Severe, Uncoded unknown) 01/12/22 08:01) (unknown) (no (unknown) (unknown) Note (units (unkno wn) date) unknown) (unknown) (no (unknown) (unknown) Other Menstrual (units (unknown) date) Period: Surgical unknown) Menopause (unknown) (no (unknown) (unknown) PERSERVATIVES (units ( unknown) date) Allergy (Severe, unknown) Uncoded 01/12/22 08:01) (unknown) (no (unknown) (unknown) PT TOLRERATED (units ( unknown) date) COVID TEST WELL. unknown) TOLD HER THE ONLY CALL WILL BE IF POSITIVE (unknown) (no (unknown) (unknown) Patient: Armando (units (unknown) date) JarvisAngela unknown) M (unknown) (no (unknown) (unknown) Penicillins (units (un known) date) Allergy (Mild, unknown) Verified 01/12/22 08:01) (unknown) (no (unknown) (unknown) R#: [id number] (units (unknown) date) unknown) (unknown) (no (unknown) (unknown) Reason For Visit (units (unknown) date) unknown) (unknown) (no (unknown) (unknown) Signed By: (units (unk nown) date) unknown) (unknown) (no (unknown) (unknown) Smoking Status: (units (unknown) date) Never smoker unknown) (unknown) (no (unknown) (unknown) Sulfa (units (unkno wn) date) (Sulfonamide unknown) Antibiotics) Allergy (Mild, Verified 01/12/22 08:01) (unknown) (no (unknown) (unknown) TUNA Allergy (units (u nknown) date) (Intermediate, unknown) Uncoded 01/12/22 08:01) (unknown) (no (unknown) (unknown) This note may (units ( unknown) date) have been all or unknown) partially generated using voice recognition (unknown) (no (unknown) (unknown) Tobacco Status (units (unknown) date) unknown) (unknown) (no (unknown) (unknown) Visit Reasons: (units (unknown) date) Pre Procedure, unknown) COVID FOR PROCEDURE (unknown) (no (unknown) (unknown) adhesive Allergy (units (unknown) date) (Intermediate, unknown) Verified 01/12/22 08:01) (unknown) (no (unknown) (unknown) benzoyl peroxide (units (unknown) date) Allergy (Mild, unknown) Verified 01/12/22 08:01) (unknown) (no (unknown) (unknown) celecoxib (units (unkn own) date) Allergy (Mild, unknown) Verified 01/12/22 08:01) (unknown) (no (unknown) (unknown) diflunisal (units (unk nown) date) Allergy (Mild, unknown) Verified 01/12/22 08:01) (unknown) (no (unknown) (unknown) have occurred. (units (unknown) date) If there are any unknown) questions, please contact the Medical Records (unknown) (no (unknown) (unknown) iodine Allergy (units (unknown) date) (Intermediate, unknown) Verified 01/12/22 08:01) (unknown) (no (unknown) (unknown) may occur. (units (unk nown) date) Occasional unknown) wrong-word or 'sound-alike' substitutions may have (unknown) (no (unknown) (unknown) naproxen Allergy (units (unknown) date) (Mild, Verified unknown) 01/12/22 08:01) (unknown) (no (unknown) (unknown) occurred due to (units (unknown) date) the inherent unknown) limitations of voice recognition software. Please (unknown) (no (unknown) (unknown) read the note (units ( unknown) date) carefully and unknown) recognize, using context, where these substitutions (unknown) (no (unknown) (unknown) software. (units (unkn own) date) Although every unknown) effort is made to edit content, compliance analyst errors Result panel 19 (unknown) (no date) (unknown) (unknown) Negative (units (unkn own) unknown) Result panel 20 (unknown) (no (unknown) (unknown) (no value) (units (unk nown) date) unknown) (unknown) (no (unknown) (unknown) 'I GET A (units (unkno wn) date) MIGRAINE' unknown) (unknown) (no (unknown) (unknown) 01/18/22 0757 (units ( unknown) date) unknown) (unknown) (no (unknown) (unknown) [place], [place] (units ( unknown) date) [id number] unknown) (unknown) (no (unknown) (unknown) Blister (units (unkno wn) date) unknown) (unknown) (no (unknown) (unknown) EYE EDEMA, LIGHT (units (unknown) date) SENSITIVITY unknown) (unknown) (no (unknown) (unknown) HIVES (units (unkno wn) date) unknown) (unknown) (no (unknown) (unknown) Hives (units (unkno wn) date) unknown) (unknown) (no (unknown) (unknown) Nurse Office (units (u nknown) date) Visit unknown) (unknown) (no (unknown) (unknown) Signed (units (unkno wn) date) unknown) (unknown) (no (unknown) (unknown) [facility] (units (unknown) date) [facility] unknown) (unknown) (no (unknown) (unknown) inner tissue (units (u nknown) date) lining shedding unknown) of cervix (unknown) (no (unknown) (unknown) itching (units (unkno wn) date) unknown) (unknown) (no (unknown) (unknown) nausea vomiting (units (unknown) date) unknown) (unknown) (no (unknown) (unknown) (no value) (units (unk nown) date) unknown) (unknown) (no (unknown) (unknown) COVID-19 (units (u nknown) date) unknown) (unknown) (no (unknown) (unknown) 01/17/22 (units (unkno wn) date) unknown) (unknown) (no (unknown) (unknown) Accompanied by: (units (unknown) date) Self / Same As unknown) Patient (unknown) (no (unknown) (unknown) Age/Sex: 66 / F (units (unknown) date) Date of unknown) Service: (unknown) (no (unknown) (unknown) Allergies (units (unkn own) date) unknown) (unknown) (no (unknown) (unknown) Attending Dr: (units ( unknown) date) Dajuan Flores unknown) D.O. (unknown) (no (unknown) (unknown) : 1955 (units (unknown) date) Acct:[id number] unknown) (unknown) (no (unknown) (unknown) Dept at (units (unkno wn) date) . unknown) (unknown) (no (unknown) (unknown) Documented By: (units (unknown) date) Dajuan Flores unknown) D.O. 01/17/22 1044 (unknown) (no (unknown) (unknown) Evaluation/Scree (units (unknown) date) brandon for possible unknown) COVID-19 completed?: Yes- COVID-19 CPT (unknown) (no (unknown) (unknown) Intake (units (unkno wn) date) unknown) (unknown) (no (unknown) (unknown) Intake Note: (units (u nknown) date) unknown) (unknown) (no (unknown) (unknown) Intake performed (units (unknown) date) by: Colette Carlton unknown) (unknown) (no (unknown) (unknown) Intake- Clincial (units (unknown) date) Staff unknown) (unknown) (no (unknown) (unknown) Last Menstural (units (unknown) date) Cycle + Details unknown) (unknown) (no (unknown) (unknown) Loc: PAIN (units (unkn own) date) unknown) (unknown) (no (unknown) (unknown) MSG Allergy (units (un known) date) (Severe, Uncoded unknown) 01/12/22 08:01) (unknown) (no (unknown) (unknown) Note (units (unkno wn) date) unknown) (unknown) (no (unknown) (unknown) Other Menstrual (units (unknown) date) Period: Surgical unknown) Menopause (unknown) (no (unknown) (unknown) PERSERVATIVES (units ( unknown) date) Allergy (Severe, unknown) Uncoded 01/12/22 08:01) (unknown) (no (unknown) (unknown) PT TOLRERATED (units ( unknown) date) COVID TEST WELL. unknown) TOLD HER THE ONLY CALL WILL BE IF POSITIVE (unknown) (no (unknown) (unknown) Patient: Armando (units (unknown) date) Angela Conley unknown) M (unknown) (no (unknown) (unknown) Penicillins (units (un known) date) Allergy (Mild, unknown) Verified 01/12/22 08:01) (unknown) (no (unknown) (unknown) R#: [id number] (units (unknown) date) unknown) (unknown) (no (unknown) (unknown) Reason For Visit (units (unknown) date) unknown) (unknown) (no (unknown) (unknown) Signed By: (units (unk nown) date) <Electronically unknown) signed by Dajuan Flores D.O.> (unknown) (no (unknown) (unknown) Smoking Status: (units (unknown) date) Never smoker unknown) (unknown) (no (unknown) (unknown) Sulfa (units (unkno wn) date) (Sulfonamide unknown) Antibiotics) Allergy (Mild, Verified 01/12/22 08:01) (unknown) (no (unknown) (unknown) TUNA Allergy (units (u nknown) date) (Intermediate, unknown) Uncoded 01/12/22 08:01) (unknown) (no (unknown) (unknown) This note may (units ( unknown) date) have been all or unknown) partially generated using voice recognition (unknown) (no (unknown) (unknown) Tobacco Status (units (unknown) date) unknown) (unknown) (no (unknown) (unknown) Visit Reasons: (units (unknown) date) Pre Procedure, unknown) COVID FOR PROCEDURE (unknown) (no (unknown) (unknown) adhesive Allergy (units (unknown) date) (Intermediate, unknown) Verified 01/12/22 08:01) (unknown) (no (unknown) (unknown) ay occur. (units (unkn own) date) Occasional unknown) wrong-word or 'sound-alike' substitutions may have (unknown) (no (unknown) (unknown) benzoyl peroxide (units (unknown) date) Allergy (Mild, unknown) Verified 01/12/22 08:01) (unknown) (no (unknown) (unknown) celecoxib (units (unkn own) date) Allergy (Mild, unknown) Verified 01/12/22 08:01) (unknown) (no (unknown) (unknown) diflunisal (units (unk nown) date) Allergy (Mild, unknown) Verified 01/12/22 08:01) (unknown) (no (unknown) (unknown) have occurred. (units (unknown) date) If there are any unknown) questions, please contact the Medical Records (unknown) (no (unknown) (unknown) iodine Allergy (units (unknown) date) (Intermediate, unknown) Verified 01/12/22 08:01) (unknown) (no (unknown) (unknown) naproxen Allergy (units (unknown) date) (Mild, Verified unknown) 01/12/22 08:01) (unknown) (no (unknown) (unknown) occurred due to (units (unknown) date) the inherent unknown) limitations of voice recognition software. Please (unknown) (no (unknown) (unknown) read the note (units ( unknown) date) carefully and unknown) recognize, using context, where these substitutions (unknown) (no (unknown) (unknown) software. (units (unkn own) date) Although every unknown) effort is made to edit content, compliance analyst errors m Result panel 21 (unknown) (no (unknown) (unknown) (no value) (units (unk nown) date) unknown) (unknown) (no (unknown) (unknown) [address] [place] [address] (units (unknown) date) unknown) (unknown) (no (unknown) (unknown) [place], [place] (units ( unknown) date) [id number] unknown) (unknown) (no (unknown) (unknown) [facility] (units (unknown) date) unknown) (unknown) (no (unknown) (unknown) Signed (units (unkno wn) date) unknown) (unknown) (no (unknown) (unknown) XRay Report (units (un known) date) unknown) (unknown) (no (unknown) (unknown) (no value) (units (unk nown) date) unknown) (unknown) (no (unknown) (unknown) 01/18/22 (units (unkno wn) date) unknown) (unknown) (no (unknown) (unknown) Approved by: Alex (units (unknown) date) Marybel Camacho on unknown) 01/18/2022 at 11:30 (unknown) (no (unknown) (unknown) COMPARISON: (units (un known) date) [facility], unknown) XA, PAIN C/T INTERLAMINAR INJECT, 05/27/2021, (unknown) (no (unknown) (unknown) Dictated by: Alex (units (unknown) date) Marybel Camacho on unknown) 01/18/2022 at 11:29 (unknown) (no (unknown) (unknown) FINDINGS: (units (unkn own) date) unknown) (unknown) (no (unknown) (unknown) Fluoroscopic spot (units (unknown) date) filming was unknown) performed to verify placement of spinal needles (unknown) (no (unknown) (unknown) IMPRESSION: (units (un known) date) Fluoro guidance was unknown) provided intraoperatively for T11-12 (unknown) (no (unknown) (unknown) INDICATIONS: (units (u nknown) date) SPINAL STENOSIS unknown) (unknown) (no (unknown) (unknown) T11-12 level(s), (units (unknown) date) as labeled on the unknown) films. Appropriate location(s) of the (unknown) (no (unknown) (unknown) epidural steroid (units (unknown) date) injection by unknown) ordering physician. (unknown) (no (unknown) (unknown) was confirmed by (units (unknown) date) injection of unknown) iodinated contrast. (unknown) (no (unknown) (unknown) 8:32. (units (unkno wn) date) unknown) (unknown) (no (unknown) (unknown) Accession Number: (units (unknown) date) [id number] unknown) (unknown) (no (unknown) (unknown) Age/Sex: 66 / F (units (unknown) date) Date of Service: unknown) (unknown) (no (unknown) (unknown) : 1955 (units (unknown) date) Acct:[id number] unknown) (unknown) (no (unknown) (unknown) Loc: RAD (units (unkno wn) date) unknown) (unknown) (no (unknown) (unknown) MR#: [id number] (units (unknown) date) unknown) (unknown) (no (unknown) (unknown) Ordering Provider: (units (unknown) date) Dajuan Flores D.O. unknown) (unknown) (no (unknown) (unknown) PROCEDURE: PAIN (units (unknown) date) C/T INTERLAMINAR unknown) INJECT (unknown) (no (unknown) (unknown) Patient: Armando (units (unknown) date) JarvisAngela singer unknown) (unknown) (no (unknown) (unknown) Procedure: PAIN (units (unknown) date) c/t interlaminar unknown) inject (unknown) (no (unknown) (unknown) at the (units (unkno wn) date) unknown) (unknown) (no (unknown) (unknown) needle tip(s) (units ( unknown) date) unknown) (unknown) (no (unknown) (unknown) translaminar (units (u nknown) date) unknown) Result panel 22 (unknown) (no (unknown) (unknown) (no value) (units (unk nown) date) unknown) (unknown) (no (unknown) (unknown) Date of Service: (units (unknown) date) 01/18/22 unknown) (unknown) (no (unknown) (unknown) [facility] (units (unknown) date) [address] unknown) [place] [address] (unknown) (no (unknown) (unknown) Procedure Note (units (unknown) date) unknown) (unknown) (no (unknown) (unknown) (no value) (units (unk nown) date) unknown) (unknown) (no (unknown) (unknown) After review of (units (unknown) date) previous unknown) anaesthesic history and IV conscious sedation the (unknown) (no (unknown) (unknown) Age/Sex: 66 / F (units (unknown) date) unknown) (unknown) (no (unknown) (unknown) At this point (units ( unknown) date) using loss of unknown) resistance technique with saline and the epidural (unknown) (no (unknown) (unknown) Complications: (units (unknown) date) none unknown) (unknown) (no (unknown) (unknown) DESCRIPTION OF (units (unknown) date) PROCEDURE unknown) (unknown) (no (unknown) (unknown) : 1955 (units (unknown) date) Acct:[id number] unknown) (unknown) (no (unknown) (unknown) Date of (units (unkno wn) date) procedure: unknown) 01/18/22 (unknown) (no (unknown) (unknown) Date/Time/Diagno (units (unknown) date) ses unknown) (unknown) (no (unknown) (unknown) Fluoroscopic (units (u nknown) date) guided, contrast unknown) controlled T11/12 translaminar epidural steroid (unknown) (no (unknown) (unknown) Following review (units (unknown) date) of allergy review unknown) potential side effects and complications, (unknown) (no (unknown) (unknown) In the prone (units (u nknown) date) position, unknown) following sterile prep and drape of the thoracic region (unknown) (no (unknown) (unknown) Indications: (units (u nknown) date) unknown) (unknown) (no (unknown) (unknown) Angela is (units (un known) date) referred by unknown) Ashley for treatment of thoracic DDD/DJD with (unknown) (no (unknown) (unknown) Patient: Armando (units (unknown) date) Angela Conley unknown) M (unknown) (no (unknown) (unknown) Physician: (units (unk nown) date) Dajuan Flores unknown) (unknown) (no (unknown) (unknown) Post-procedure (units (unknown) date) diagnosis: same unknown) (unknown) (no (unknown) (unknown) Pre-procedure (units ( unknown) date) diagnosis: unknown) Thoracic stenosis with HNP (unknown) (no (unknown) (unknown) Procedure Notes (units (unknown) date) unknown) (unknown) (no (unknown) (unknown) Procedure in (units (u nknown) date) detail + unknown) Post-procedure care: (unknown) (no (unknown) (unknown) Procedure: (units (unk nown) date) unknown) (unknown) (no (unknown) (unknown) Provider: (units (unkn own) date) Dajuan Flores unknown) D.O. (unknown) (no (unknown) (unknown) R#: [id number] (units (unknown) date) unknown) (unknown) (no (unknown) (unknown) Radiographic (units (u nknown) date) data, including unknown) multiple fluoroscopic views of the thoracic spine, (unknown) (no (unknown) (unknown) Signed (units (unkno wn) date) By:<Electronicall unknown) y signed by Dajuan Flores DCelinaOCelina>01/18/22 1018 (unknown) (no (unknown) (unknown) The patient (units (un known) date) tolerated the unknown) procedure well without signs of complications and (unknown) (no (unknown) (unknown) The patient was (units (unknown) date) then transferred unknown) to the recovery area with their observed for an (unknown) (no (unknown) (unknown) Time of (units (o wn) date) procedure: 10:13 unknown) (unknown) (no (unknown) (unknown) Total (units (unkno wn) date) Fluoroscopy time unknown) (seconds): 7 (unknown) (no (unknown) (unknown) Total sedation (units (unknown) date) minutes: 9 unknown) (unknown) (no (unknown) (unknown) accomplished with (units (unknown) date) a combination of unknown) 2mg of Versed administered by the RN after DO (unknown) (no (unknown) (unknown) admitted as a (units ( unknown) date) test dose and the unknown) patient was observed for an appropriate period (unknown) (no (unknown) (unknown) and possible (units (u nknown) date) , the unknown) patient indicated that they understood and agreed to (unknown) (no (unknown) (unknown) anesthetized via (units (unknown) date) 25 gauge 1.5inch unknown) needle with 1% lidocaine solution. At this (unknown) (no (unknown) (unknown) appropriate time (units (unknown) date) after the unknown) injection. Patient reported a VAS score of 7 prior (unknown) (no (unknown) (unknown) confirmed on (units (u nknown) date) lateral view. unknown) (unknown) (no (unknown) (unknown) contrast (units (unkno wn) date) material flowing unknown) superiorly and inferiorly in the epidural space. No (unknown) (no (unknown) (unknown) fluoroscopic (units (un known) date) guidance into the unknown) region of the T11/12 translaminar space depth was (unknown) (no (unknown) (unknown) including, but (units (unknown) date) not necessarily unknown) limited to, infection, allergic reaction, local (unknown) (no (unknown) (unknown) injection with (units (unknown) date) conscious unknown) sedation. (unknown) (no (unknown) (unknown) ion of (units (unkno wn) date) approximately unknown) 1.5cc of Isovue 200 showed excellent epidural flow without (unknown) (no (unknown) (unknown) of time without (units (unknown) date) signs or symptoms unknown) of complications, including abdominal pain, (unknown) (no (unknown) (unknown) options (units (unkno wn) date) including unknown) modalities, medications and physical therapy were reviewed (unknown) (no (unknown) (unknown) order, titrated (units (unknown) date) to patient unknown) comfort during the course of the procedure while the (unknown) (no (unknown) (unknown) patient ID, (units (un known) date) procedure to be unknown) performed and site of procedure. IV sedation was (unknown) (no (unknown) (unknown) patient remained (units (unknown) date) responsive to all unknown) verbal commands (unknown) (no (unknown) (unknown) patient was (units (un known) date) deemed safe to unknown) proceed with today's procedure with IV conscious (unknown) (no (unknown) (unknown) point a 22gauge (units (unknown) date) epidural needle unknown) was atraumatically introduced and advanced under (unknown) (no (unknown) (unknown) proceed. An (units (u nknown) date) informed consent unknown) document was signed by the patient, witnessed by (unknown) (no (unknown) (unknown) radiculopathy (units ( unknown) date) unknown) (unknown) (no (unknown) (unknown) reveals spinal (units (unknown) date) needle at the unknown) T11/12 translaminar space. Lateral views then (unknown) (no (unknown) (unknown) sedation as ASA (units (unknown) date) class II unknown) designation. Safety time-out was performed to confirm (unknown) (no (unknown) (unknown) shortness of (units (u nknown) date) breath, bilateral unknown) upper and lower extremity weakness, nausea and (unknown) (no (unknown) (unknown) showed the (units (unk nown) date) placement of the unknown) needle in the epidural space. Subsequent view show (unknown) (no (unknown) (unknown) space was (units (unkn own) date) entered. This unknown) was confirmed followed negative aspiration and inject (unknown) (no (unknown) (unknown) subsequently was (units (unknown) date) transferred to unknown) the recovery room for further monitoring. (unknown) (no (unknown) (unknown) the T11/12 (units (unk nown) date) translaminar unknown) space was identified fluoroscopically. The skin was (unknown) (no (unknown) (unknown) the nurse, and (units (unknown) date) placed in the unknown) patient's chart. Additionally other treatment (unknown) (no (unknown) (unknown) tissue breakdown, (units (unknown) date) temporary as well unknown) as permanent nerve injury, stroke, paralysis (unknown) (no (unknown) (unknown) to the procedure (units (unknown) date) and unknown) post-procedure VAS of 2. (unknown) (no (unknown) (unknown) vascular or (units (un known) date) intrathecal unknown) uptake is observed. (unknown) (no (unknown) (unknown) vascular or (units (unk nown) date) intrathecal unknown) uptake. At this point, 1cc of 1% lidocaine solution was (unknown) (no (unknown) (unknown) vomiting, prior (units (unknown) date) to steroid unknown) injection. Subsequently, 3cc or 30mg of dexamethasone (unknown) (no (unknown) (unknown) was then (units (unkno wn) date) injected without unknown) incident. (unknown) (no (unknown) (unknown) with the (units (unkno wn) date) patient. unknown) Social History date description facility (no date) Never smoked tobacco (finding) [facility] Vital Signs date measurement value units +0000 BP_diastolic BP_diastolic 80 mm[H g] +0000 BP_systolic BP_systolic 130 mm[Hg] +0000 heart_rate heart_rate 74 /min +0000 weight_metric weight_metric 41.56 kg +0000 weight_standard weight_standard 91.63 lb +0000 BMI BMI 35.2 kg/m2 +0000 BP_diastolic BP_diastolic 80 mm[H g] +0000 BP_systolic BP_systolic 130 mm[Hg] +0000 heart_rate heart_rate 66 /min +0000 height_metric height_metric 160.02 cm +0000 height_standard height_standard 63 in +0000 weight_metric weight_metric 40.98 kg +0000 weight_standard weight_standard 90.35 lb [id number]+0000 BMI BMI 35.4 kg/m2 [id number]+0000 BP_diastolic BP_diastolic 70 mm[H g] [id number]+0000 BP_systolic BP_systolic 118 mm[Hg] [id number]+0000 heart_rate heart_rate 64 /min [id number]+0000 height_metric height_metric 160.02 cm [id number]+0000 height_standard height_standard 63 in [id number]+0000 temperature_metric temperature_metric 36.28 C [id number]+0000 temperature_standard temperature_standard 9 7.3 F [id number]+0000 weight_metric weight_metric 41.09 kg [id number]+0000 weight_standard weight_standard 90.58 lb +0000 BP_diastolic BP_diastolic 66 mm[H g] +0000 BP_systolic BP_systolic 116 mm[Hg] +0000 heart_rate heart_rate 54 /min +0000 respiration_rate respiration_rate 16 /min +0000 temperature_metric temperature_metric 36.17 C +0000 temperature_standard temperature_standard 9 7.1 F
--- NOTE | 2022-01-31 15:33 | ED Physician Documentation ---
PD HPI WOUND RECHECK - Stated complaint Stated Complaint: RIGHT ARM INFECTION - Chief complaint Chief Complaint: Wound - Histroy obtained from History obtained from: Patient (Her cat bit her on the right forearm this morning and she is already getting a red spot there. No fevers. 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 Psych: Anxiety, Claustrophobia Musculoskeletal: Chronic back pain Derm: Other - Past Surgical History Past Surgical History: Yes General: Appendectomy, EGD Ortho: Knee replacement, Carpal Tunnel surgery, Other HEENT: Other - Present Medications Home Medications: Ambulatory Orders Medication Instructions Recorded Confirmed Albuterol Sulfate [Proair 1 inh INH .FREQ 02/16/16 01/31/22 Respiclick] Amitriptyline [Elavil] 1 tab PO DAILY 02/16/16 01/31/22 Calcium Carbonate/Vitamin D3 1 tab PO BID 02/16/16 01/31/22 [Calcium 500 + Vit D Caplet] Fluticasone [Flonase] 1 puffs GOVIND DAILY 02/16/16 01/31/22 Metoprolol Tartrate 100 mg PO BID 02/16/16 01/31/22 Sumatriptan Succinate [Imitrex] 1 tab PO DAILY PRN 02/16/16 01/31/22 Cyclobenzaprine [Flexeril] 10 mg PO DAILY 10/27/19 01/31/22 Amox/Clav 875/125 [Augmentin] 1 each PO Q12H #20 tablet 01/31/22 Chlorthalidone 50 mg PO DAILY 01/31/22 01/31/22 Diazepam [Valium] 10 mg PO DAILY PRN 01/31/22 01/31/22 Gabapentin [Neurontin] 600 mg PO BID 01/31/22 01/31/22 Meloxicam [Mobic] 15 mg PO DAILY 01/31/22 01/31/22 cloNIDine [Catapres] 0.2 mg PO DAILY PRN 01/31/22 01/31/22 - Allergies Allergies/Adverse Reactions: Allergies Allergy/AdvReac Type Severity Reaction Status Date / Time celecoxib [From Celebrex] Allergy Unknown Verified 01/31/22 14:44 diflunisal Allergy Unknown Verified 01/31/22 14:44 naproxen Allergy Unknown Verified 01/31/22 14:44 Penicillins Allergy Unknown Verified 01/31/22 14:44 Sulfa (Sulfonamide Allergy Unknown Verified 01/31/22 14:44 Antibiotics) - Social History Does the pt smoke?: No Smoking Status: Never smoker Does the pt drink ETOH?: Yes Does the pt have substance abuse?: No - Immunizations Immunizations are current?: Yes - POLST Patient has POLST: No PD ED PE NORMAL - Vitals Vital signs reviewed: Yes - General General: Alert and oriented X 3, No acute distress - Derm Derm: Other (There is a single puncture wound on the dorsal lateral mid right forearm with about 2 cm radius of cellulitis around it. Small dot of pus was able to be expressed from the wound and sent for culture.) - Neuro Neuro: Alert and oriented X 3, Normal speech Results - Vitals Vitals: Vital Signs - 24 hr 01/31/22 14:40 Temperature 36.2 C L Heart Rate 78 Respiratory 16 Rate Blood Pressure 150/88 H O2 Saturation 99 Oxygen O2 Source Room air PD MEDICAL DECISION MAKING - ED course ED course: Patient has a listed allergy to penicillin but it is from a childhood allergy and she does not know the Reaction. We discussed pros and cons of alternative therapy versus a trial of penicillin while in department and she opted for the latter. She was observed a little over half an hour from the dose of Augmentin without any allergic symptoms Departure - Departure Disposition: 01 Home, Self Care Clinical Impression: Infected cat bite of forearm Condition: Good Record reviewed to determine appropriate education?: Yes Instructions: Bites Scratches Animal Prescriptions: Amox/Clav 875/125 [Augmentin] 1 each PO Q12H #20 tablet Comments: I sent your prescription electronically to the [facility] pharmacy here at the corner of [address] in [place]. We are performing a wound culture, the results should be done in 48-72 hours. If antibiotic change is necessary we will call you. Return if worse in the meantime, especially if you develop increased pain, fevers, cannot keep down the medication. Otherwise follow-up with your physician in approximately 2-3 days.
[2022-01-31 16:00] VITALS: BP 140/88
== END 2022-01-31 15:59 | disposition home or self-care (01) ==
LOC: ED 14:35
DX: S51.851A Open bite of right forearm, initial encounter (principal); B96.89 Other specified bacterial agents as the cause of diseases classified elsewhere; W55.01XA Bitten by cat, initial encounter; I10 Essential (primary) hypertension
CPT/HCPCS: 87070; 87077; 87181; 87205; 99283; A9270

== ENCOUNTER 2024-01-28 08:10 | Emergency (ER) | payer MEDICARE, OTHER ==
--- NOTE | 2024-01-28 08:36 | ED Physician Documentation ---
PD HPI CHEST PAIN - Stated complaint Stated Complaint: FAST HEARTRATE/IRREGULAR - Chief complaint Chief Complaint: Cardiac - History obtained from History obtained from: Patient - History of Present Illness Timing - onset: How many hours ago (few hours ago during the night, pt awke with feeling of fast and irregular heart beat. No chest pain nor dyspnea.) Timing - onset during: Rest Timing - duration: Hours, Days (she had felt some irregular beats past few days at times.) Timing - details: Gradual onset, Still present, Waxing and waning Quality: Tightness Associated symptoms: Shortness of air, Palpitations, Cough (tested positive for COVID 3 days ago but was ill about the past week.) Review of Systems Constitutional: reports: Myalgias. denies: Fever, Chills Nose: reports: Rhinorrhea / runny nose, Congestion Throat: reports: Sore throat Cardiac: reports: Palpitations (since during the night.). denies: Chest pain / pressure Respiratory: reports: Dyspnea, Cough (for a week) GI: reports: Nausea (some vomiting last week but now nausea with less PO intake.). 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 Psych: Anxiety, Claustrophobia Musculoskeletal: Chronic back pain Derm: Other - Past Surgical History Past Surgical History: Yes General: Appendectomy, EGD Ortho: Knee replacement, Carpal Tunnel surgery, Other HEENT: Other - Present Medications Home Medications: Ambulatory Orders Medication Instructions Recorded Confirmed Albuterol Sulfate [Proair 1 inh INH Q4HR PRN 02/16/16 01/28/24 Respiclick] Amitriptyline [Elavil] 25 mg PO HS 02/16/16 01/28/24 Calcium Carbonate/Vitamin D3 1 tab PO BID 02/16/16 01/28/24 [Calcium 500 + Vit D Caplet] Fluticasone [Flonase] 1 puffs GOVIND DAILY 02/16/16 01/28/24 Metoprolol Tartrate 100 mg PO BID 02/16/16 01/28/24 Sumatriptan Succinate [Imitrex] 1 tab PO DAILY PRN 02/16/16 01/28/24 Cyclobenzaprine [Flexeril] 10 mg PO TID PRN 10/27/19 01/28/24 Chlorthalidone 50 mg PO DAILY 01/31/22 01/28/24 Gabapentin [Neurontin] 600 mg PO BID 01/31/22 01/28/24 Meloxicam [Mobic] 15 mg PO DAILY 01/31/22 01/28/24 diazePAM [Valium] 10 mg PO DAILY PRN 01/31/22 01/28/24 Acetaminophen [Tylenol] 500 mg PO Q4-6H PRN 01/28/24 01/28/24 Apixaban [Eliquis] 5 mg PO BID #40 tablet 01/28/24 Benzonatate 200 mg PO TID 01/28/24 01/28/24 Loratadine [Claritin] 10 mg PO DAILY 01/28/24 01/28/24 Magnesium Oxide [Mag Ox] 400 mg PO BID #20 tablet 01/28/24 Montelukast [Singulair] 10 mg PO QPM 01/28/24 01/28/24 Multivitamin 1 each PO DAILY 01/28/24 01/28/24 Ondansetron Odt [Zofran] 4 mg TL Q6H PRN #10 tablet 01/28/24 Potassium Bicarbonate 25 meq PO BID #15 tablet 01/28/24 [K-Effervescent] Terbinafine [LamISIL] 250 mg PO DAILY 01/28/24 01/28/24 traMADol [Ultram] 50 mg PO DAILY PRN 01/28/24 01/28/24 - Allergies Allergies/Adverse Reactions: Allergies Allergy/AdvReac Type Severity Reaction Status Date / Time celecoxib [From Celebrex] Allergy Unknown Verified 01/28/24 08:19 diflunisal Allergy Unknown Verified 01/28/24 08:19 naproxen Allergy Unknown Verified 01/28/24 08:19 Penicillins Allergy Unknown Verified 01/28/24 08:19 Sulfa (Sulfonamide Allergy Unknown Verified 01/28/24 08:19 Antibiotics) - Social History Does the pt smoke?: No Smoking Status: Never smoker Does the pt drink ETOH?: Yes Does the pt have substance abuse?: No - Immunizations Immunizations are current?: Yes - POLST Patient has POLST: No PD ED PE NORMAL - Vitals Vital signs reviewed: Yes - General General: Alert and oriented X 3, Well developed/nourished - Neck Neck: Supple, no meningeal sign, No adenopathy - Cardiac Cardiac: No murmur. No: RRR (irregular and fast rate. ) - Respiratory Respiratory: No respiratory distress, Clear bilaterally Results - Vitals Vitals: Vital Signs - 24 hr 01/28/24 01/28/24 01/28/24 08:20 08:55 09:00 Temperature 37 C Heart Rate 94 122 H 98 Respiratory 20 16 10 L Rate Blood Pressure 153/110 H 140/95 H 127/80 O2 Saturation 97 96 97 If not protocol : Oxygen Flow, liters/minute 01/28/24 01/28/24 01/28/24 09:05 09:10 09:15 Temperature Heart Rate 99 106 H 98 Respiratory 11 L 20 14 Rate Blood Pressure 128/79 137/84 H 108/87 H O2 Saturation 96 97 96 If not protocol 0 : Oxygen Flow, liters/minute 01/28/24 01/28/24 01/28/24 09:30 09:45 10:39 Temperature 37.1 C Heart Rate 94 104 H 99 Respiratory 14 16 20 Rate Blood Pressure 128/100 H 131/99 H 154/109 H O2 Saturation 97 98 98 If not protocol 0 : Oxygen Flow, liters/minute 01/28/24 12:00 Temperature Heart Rate 97 Respiratory 19 Rate Blood Pressure 142/78 H O2 Saturation 96 If not protocol : Oxygen Flow, liters/minute Oxygen O2 Source Room air - Labs Labs: Laboratory Tests 01/28/24 01/28/24 01/28/24 08:45 08:45 08:45 WBC 4.3 L RBC 4.51 Hgb 14.1 Hct 40.5 MCV 89.8 MCH 31.3 H MCHC 34.8 RDW 12.8 Plt Count 226 MPV 10.4 Neut # (Auto) 1.8 Lymph # (Auto) 1.8 [place] # (Auto) 0.5 Eos # (Auto) 0.2 Baso # (Auto) 0.0 Absolute Nucleated RBC 0.00 Nucleated RBC % 0.0 Sodium 131 L Potassium 2.9 L Chloride 95 L Carbon Dioxide 28 Anion Gap 8.0 BUN 13 Creatinine 0.7 Estimated GFR (MDRD) 83 L Glucose 137 H Calcium 8.9 Phosphorus 3.5 Magnesium 1.4 L Total Bilirubin 0.3 AST 18 ALT 18 Alkaline Phosphatase 62 B-Natriuretic Peptide 92 Total Protein 6.4 Albumin 3.9 Globulin 2.5 Albumin/Globulin Ratio 1.6 Lipase 15 TSH 2.09 PD Medical Decision Making - ED course Complexity details: reviewed results (low potassium and mag. Given IV replacements. ), re-evaluated patient (HR slowed with extra metoprolol (She had had her PO dose already this morning). Still atrial fib. I did not feel urgency for conversion and assume it will convert on own, given history of intermittently in recent past. ), considered differential (she describes similar feeling to the current atrial fib intermittently for minutes or longer at a time. Not as prolonged as current. Was told by sleep study physician that she had atril fib during night of study. To start the CPAP. No further eval as yet. ), d/w patient ED course: CHADs2 scoring resulted in score 3 and the scoring suggests use of DOAC in females with greater than or equal to 3 score. Sounds like she has had intermittent atrial fi somewhat often and more consistent this day, probably related to dehydration and electrolyte impalance due to recent COVID and nausea/vomiting. Departure - Departure Disposition: 01 Home, Self Care Clinical Impression: Intermittent atrial fibrillation Condition: Stable Record reviewed to determine appropriate education?: Yes Instructions: ED Afib Follow-Up: CAMMY CROCKETT DO [Primary Care Provider] - Prescriptions: Apixaban [Eliquis] 5 mg PO BID #40 tablet Potassium Bicarbonate [K-Effervescent] 25 meq PO BID #15 tablet Magnesium Oxide [Mag Ox] 400 mg PO BID #20 tablet Ondansetron Odt [Zofran] 4 mg TL Q6H PRN #10 tablet PRN Reason: Nausea / Vomiting Comments: You are in atrial fibrillation. It was going fast on your first presentation here. Our goal initially was to slow it down. We given extra dose of metoprolol and it has been running under 100 but still fibrillation. Commonly if it is kept at a slower level and electrolytes are rebalanced, it will get back to its normal rhythm commonly within a day or so. Your potassium and magnesium were quite low presumably related to the recent illness. We did give some IV replacement. However will not be fully replaced. I would suggest some potassium and magnesium supplements orally twice daily for the next week or so. I would suggest magnesium 400 mg twice daily and potassium 20 to 25 mEq twice daily over the next week to help further replace your electrolytes. The electrolyte deficiency probably allowed for the atrial fibrillation to come on more uncontrolled than it would have in the other times. For now I would increase your metoprolol to 150 mg for one of the doses and keep the other 1 at 100. Follow-up with your primary care in the next several days or so. The may want to come up with a different alternative on reducing the chance for A-fib episodes. Likely they will want to have you wear a week long heart monitor such as a Zio patch or Holter. The risks scoring in atrial fibrillation for risks of clots and stroke called the CHADS2 scoring would suggest for you to start a blood thinner medicine. I wrote a prescription for Eliquis to use twice daily. Again follow-up with your primary care, call tomorrow for an appointment for the next couple of days or sometime this week. Return to the ER if you have worsening symptoms again. Light activity today. Forms: PCP List Discharge Date/Time: 01/28/24 12:20
[2024-01-28 08:51] LABS: BASOPHILS % (AUTO) 0.5 %; EOSINOPHILS # (AUTO) 0.2 10^3/uL (0.0-0.7); EOSINOPHILS % (AUTO) 3.5 %; HCT - HEMATOCRIT 40.5 % (37.0-47.0); HGB - HEMOGLOBIN 14.1 g/dL (12.0-16.0); LYMPHOCYTES # (AUTO) 1.8 10^3/uL (1.5-3.5); LYMPHOCYTES % (AUTO) 42.4 %; MEAN CORPUSCULAR HEMOGLOBIN 31.3 pg (27.0-31.0); MEAN CORPUSCULAR HGB CONC 34.8 g/dL (32.0-36.0); MEAN CORPUSCULAR VOLUME 89.8 fL (81.0-99.0); MEAN PLATELET VOLUME 10.4 fL (7.9-10.8); MONOCYTES # (AUTO) 0.5 10^3/uL (0.0-1.0); MONOCYTES % (AUTO) 10.8 %; NEUTROPHILS # (AUTO) 1.8 10^3/uL (1.5-6.6); NEUTROPHILS % (AUTO) 42.8 %; PLT - PLATELET COUNT 226 10^3/uL (130-450); RED BLOOD COUNT 4.51 10^6/uL (4.20-5.40); RED CELL DISTRIBUTION WIDTH 12.8 % (12.0-15.0); WHITE BLOOD COUNT 4.3 x10^3/uL (4.8-10.8)
[2024-01-28] MEDS: METOPROLOL 5 MG/5 ML VIAL IVP STA (08:53)
[2024-01-28] MEDS: SODIUM CHLORIDE 0.9% 1,000 ML IV STA (08:55)
[2024-01-28 09:09] LABS: ALBUMIN 3.9 g/dL (3.2-5.5); ALBUMIN/GLOBULIN RATIO 1.6 (1.0-2.2); BILIRUBIN,TOTAL 0.3 mg/dL (0.2-1.0); CALCIUM 8.9 mg/dL (8.5-10.3); CREATININE 0.7 mg/dL (0.6-1.3); MAGNESIUM 1.4 mg/dL (1.7-2.3); PHOSPHORUS 3.5 mg/dL (2.5-5.0); POTASSIUM 2.9 mmol/L (3.5-4.5); TOTAL PROTEIN 6.4 g/dL (6.4-8.9)
[2024-01-28 09:20] LABS: THYROID STIMULATING HORMONE 2.09 uIU/mL (0.34-5.60)
--- NOTE | 2024-01-28 09:34 | XRAY Report ---
PROCEDURE: Chest 1V INDICATIONS: Chest Pain TECHNIQUE: One view of the chest was acquired. COMPARISON: Chest x-ray, 10/27/2019. FINDINGS: Surgical changes and devices: None. Lungs and pleura: No pleural effusions or pneumothorax. Lungs are clear. Mediastinum: Mediastinal contours appear normal. Heart size is normal. Bones and chest wall: No suspicious bony lesions. Overlying soft tissues appear unremarkable. IMPRESSION: No acute cardiopulmonary process. Reviewed by: Marilyn Vitale MD on 01/28/2024 9:33 AM PDT Approved by: Marilyn Vitale MD on 01/28/2024 9:33 AM PDT Station ID: [id number]
[2024-01-28] MEDS: POTASSIUM BICARB 25 MEQ TABLET PO STA (09:42)
[2024-01-28] MEDS: POTASSIUM CHLOR 10 MEQ/100 ML 10 MEQ/100 ML BAG IV ONE (09:43)
[2024-01-28] MEDS: MAGNESIUM SULFATE 2 GRAM 2 GM/50 ML BAG IV ONE (09:56)
[2024-01-28] MEDS: LACTATED RINGERS 1,000 ML IV STA (10:09)
[2024-01-28] MEDS: APIXABAN 5 MG TABLET PO STA (12:00)
[2024-01-28] MEDS: METOPROLOL TARTRATE 50 MG TABLET PO STA (12:00)
[2024-01-28 13:02] VITALS: BP 142/78; O2SAT 96
== END 2024-01-28 12:20 | disposition home or self-care (01) ==
LOC: ED 08:10
DX: I48.91 Unspecified atrial fibrillation (principal); I10 Essential (primary) hypertension; J45.909 Unspecified asthma, uncomplicated; G47.30 Sleep apnea, unspecified; Z79.899 Other long term (current) drug therapy
CPT/HCPCS: 36415; 71045; 80053; 83690; 83735; 83880; 84100; 84443; 85025; 93005; 96365; 96368; 96375; 99284; A9270; J7120